=== PATIENT | male | born 1985 | race Caucasian/White ===

== ENCOUNTER 2019-04-29 12:40 | Inpatient (IN) | payer MEDICAID, SELFPAY ==
[2019-04-29] VITALS (44 sets, daily range): BP systolic 84–110; BP diastolic 43–80; PULSE 83–118; RESP 14–35; TEMP 36.6–37.3; O2SAT 94–100
--- NOTE | 2019-04-29 12:45 | ED.GENADUL_ITS ---
Discharge Plan Disposition Patient Disposition: [facility] INPATIENT Condition: Stable Discharge Details Chief Complaint: GenMedical Clinical Impression: Bandemia, Leukocytosis, IV drug abuse, SIRS (systemic inflammatory response syndrome) Admit Date/Time: 04/29/19 16:32 Admit Provider: Russ Irizarry Attending Provider: Russ Irizarry Primary Care Provider: None,None ED Provider: Vicky Albert Discharge Data Discharge Date/Time-TO BE ENTERED AT DEPARTURE: 04/29/19 17:26 Discharge Physician: Vicky Albert Medical Decision Making 33-year-old male with a history of IV drug use who presents with headache, ch ills, chest pain after injecting resin from inside a beer can to his R groin this morning. BP 88/52 on arrival. Heart rate 106. Patient appears drowsy, pale and restless. Afebrile. He otherwise is able to answer questions appropriately. Airway intact. Right groin noted to have crust but no acute infection or cellulitis. No focal deficits. Differential diagnosis includes acute drug intoxication, infection, electrolyte abnormality, CVA, ACS. Will place an IV, bolus IV fluids, labs, urinalysis, UDS, alcohol, chest x-ray, EKG CT head. 1420 --patient states he feels better. BP 91/57. 1435 --labs and imaging reviewed. White blood cell count 33. Bands 28. Creatinine 1.73. Troponin negative. Alcohol negative. D-dimer 194. Chest x- ray and CT head negative. We will send for CT chest to rule out PE. 1545 --difficulty obtaining IV access for CT but this was just obtained. Will send for CT chest. Case discussed with hospitalist and accepts patient for admission. Will order Vanco and Zosyn for bandemia with concern for endocarditis. Continue IV fluids. Patient is agreeable to admission. BP stable. 1610 --IV not infiltrating in CT. Anesthesia paged to place IV for CT chest. 1630 --patient refusing any further IV placement. Discussed with hospitalist at bedside and presentation does not appear consistent with PE so okay to hold on additional IV placement at this time and if needed will reattempt tomorrow. 1645 --anesthesia now here. Discussed with patient again at bedside as anesthesia is already here and patient is agreeable for them to attempt to look for an IV. Medical Records Medical records reviewed: Yes I reviewed the patient's medical records. Imaging Data Radiologic Study: Radiologist's impression: CT Head Without Contrast EXAM DATE/TIME: 04/29/2019 1:14 PM CLINICAL HISTORY: 33 years old, male; Signs and symptoms; Other: Headache, drowsy, h/o ivda TECHNIQUE: Imaging protocol: Axial computed tomography images of the head without contrast. Coronal and sagittal reformatted images were created and reviewed. Radiation optimization: All CT scans at this facility use at least one of these dose optimization techniques: automated exposure control; mA and/or kV adjustment per patient size (includes targeted exams where dose is matched to clinical indication); or iterative reconstruction. COMPARISON: No relevant prior studies available. FINDINGS: No evidence of hemorrhage. No mass effect. No acute intracranial abnormality. IMPRESSION: No evidence of acute intracranial process. Radiologic Study #2: Radiologist's impression: XR Chest, 1 View EXAM DATE/TIME: 04/29/2019 1:50 PM CLINICAL HISTORY: 33 years old, male; Signs and symptoms; Other: Chest pain TECHNIQUE: Imaging protocol: XR of the chest, 1 view. COMPARISON: No relevant prior studies available. FINDINGS: The lung kidd are clear bilaterally. No focal pulmonary consolidation is present. The cardiac silhouette is within normal limits. The costophrenic angles are sharp. The bony structures appear unremarkable. IMPRESSION: No evidence of acute cardiopulmonary disease. Lab Data Lab results reviewed: Yes I reviewed the patient's lab results. ECG Data Attestation: I personally reviewed and interpreted this ECG (s) as follows: Interpretation: Rate of 108, sinus, no acute ST elevation or depression. QTc 434. QRS 98. HPI General Mode of arrival: ambulatory . Date/Time Provider Initiated Documentation: 04/29/19 12:43 . Limitations to Documentation: no limitations . Information obtained by: patient . HPI Narrative: Patient is a 33-year-old male who presents with headache, chills and chest pain since 5 AM this morning. Patient states his symptoms started 5 minutes after injecting resident from a beer can. Patient states he smokes or injects crack cocaine daily. Patient states around 5 AM he wiped the resin from inside of a beer can and injected it into his R groin. He states he thinks the beer can had remnants of crack cocaine and alcohol in it. He denies any additional alcohol or drug use. He states that 5 minutes after this he developed frontal headache, chills, restlessness, and chest pain. Patient states he frequently has headaches and chest pain but states this is worse than usual. He states he then vomited approximately 30 times. He states he last ate 3 to 4 days ago which is not unusual for him when he goes on a drug binge. Patient states he is on Suboxone and states he last took it yesterday. He is on Suboxone for previous heroin use last used 12 years ago. Patient denies any shortness of breath, abdominal pain or diarrhea. Related Data Home Medications Medication Instructions Recorded Confirmed buprenorphine-naloxone [Suboxone] 1 film BUCCAL BID 04/29/19 04/29/19 Allergies Allergy/AdvReac Type Severity Reaction Status Date / Time aspirin Allergy Mild unknown Unverified 04/29/19 13:05 Review of Systems Review of Systems All systems reviewed & are unremarkable except as noted in HPI and below Constitutional Reports as per HPI, Reports chills, Denies fever(s) and Reports headache(s) Eyes Denies blurry vision ENT Denies dizziness, Reports headache(s), Denies sore throat and Denies throat swelling Cardiovascular Reports chest pain and Denies dyspnea Respiratory Denies cough and Denies dyspnea Gastrointestinal Denies abdominal pain, Denies diarrhea and Denies vomiting Genitourinary Denies hematuria and Denies dysuria Musculoskeletal Denies back pain and Denies numbness Integumentary/Breasts Denies lesions and Denies rash Neurologic Denies dizziness, Reports headache(s), Denies focal weakness and Denies numbness Allergic/Immunologic Denies throat swelling PFSH Medical History Smoker (Acute) Opioid use disorder (Acute) Crack cocaine poisoning (Acute) Acute kidney injury (Acute) SIRS (systemic inflammatory response syndrome) (Acute) IV drug abuse (Acute) Surgical History No significant past surgical history (Acute) Social History Smoking/Tobacco Use Status: Current every day Tobacco Type: cigarettes Quit status: not considering quitting Alcohol Intake: never Drug use: Daily Substance use type: crack/cocaine Counseling given: Yes Details: 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 Stinson at [facility] Do you feel safe at home: Yes Do you feel safe in your relationship?: Yes Additional Social history: Grew up in [place]. Living back with mother after living in [facility] for years. 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 She is currently hospitalized in [facility] They have a 7-year-old daughter living with him who he still cares for Exam Const General: cooperative and other (drowsy) Orientation: awake and oriented x3 HENOH Head: normal to inspection, no palpable skull fracture, normocephalic and atraumatic Ears: hearing grossly normal bilaterally, external ears normal and TM's normal bilaterally General nose exam: external nose normal Face and sinus: normal facial exam Mouth: oral mucosae normal Teeth and gingiva: dentition normal Throat: posterior oropharynx normal Eyes General: appearance normal, both eyes and all related structures Eyelids: eyelids normal Pupils: PERRL EOM: EOM intact bilaterally Neck Neck: normal visual inspection Lymphatic: no lymphadenopathy noted Chest Chest: normal inspection of the chest Resp Effort & Inspection: normal respiratory effort and able to speak in complete sentences Auscultation: clear to auscultation bilaterally Cardio Rate: regular rate Rhythm: regular rhythm GI Inspection: normal to inspection Palpation: soft, not firm, no guarding, no hepatosplenomegaly, no masses and nontender Auscultation: normal bowel sounds Skin General skin exam: no rashes or lesions noted Neuro General: awake, oriented x3, moves all extremities, no meningeal signs and no fo nichole motor deficits Cranial Nerves: CN's II-XI intact bilaterally Cognition: normal cognition Speech: speech normal Gait: normal gait Motor: muscle tone normal throughout and strength 5/5 throughout Sensory Exam: no sensory deficits noted Extrem General: normal to inspection, full ROM and normal capillary refill Psych Appearance: grossly normal Mental Status: mental status grossly normal Speech and Movement: speech and movement normal Affect: normal affect Thought Process: normal
--- NOTE | 2019-04-29 13:01 | NUR.NOTE ---
Nursing Note: Pt reports that he scrapped the residue off the inside of a beer can which consisted of beer and crack cocaine and injected it into his vein. Pt has past history of IV drug use. Initial BP was stable however dropped to 88/52 within a 5 min period. Manual BP performed with a result of 85/65. made aware of these findings. All other vitals stable.
--- NOTE | 2019-04-29 13:09 | DI.RAD_ITS ---
SYMPTOM/DIAGNOSIS: CHEST PAIN, R/O ACUTE DISEASE CHEST: Single AP view. No priors. The heart is normal in size. The lungs are clear. The mediastinal structures and pleura appear intact. CONCLUSION: Normal chest.
--- NOTE | 2019-04-29 13:12 | DI.CT_ITS ---
SYMPTOM/DIAGNOSIS: HEADACHE, DROWSY, H/O IVDA CRANIAL CT (WITHOUT CONTRAST): Noncontrast examination. No priors. A noncontrast cranial CT was performed. The ventricular system is normal in appearance. There is no evidence of an intracranial mass lesion. There is no evidence of a subdural or epidural hematoma. No focal areas of decreased attenuation are seen. CONCLUSION: Normal noncontrast Cranial CT.
[2019-04-29] MEDS: LORazepam 2 MG/ML VIAL 0.5 MG IVP (13:14)
[2019-04-29 13:54] LABS: Lactate-non-spesis 1.4 mmol/l (0.6-1.4)
[2019-04-29 14:03] LABS: Abs Immature Grans 0.59 k/cumm (0.0-0.09); HCT 41.6 % (40.0-50.0); Mean Corp. HGB Concentration 33.7 g/dL (32.0-36.0); Mean Corpuscular Hemoglobin 30.1 pg (27.0-33.0); Mean Corpuscular Volume 89.5 fL (80-95); Platelet Count 213 x1000/uL (130-400); RBC 4.65 m/cumm (4.50-6.00); RBC Distribution Width 13.5 % (11.8-14.1)
[2019-04-29 14:07] LABS: Magnesium 1.6 mg/dL (1.8-2.4)
[2019-04-29 14:17] LABS: ALT 19 U/L (12-78); AST 22 U/L (15-37); Albumin 3.8 g/dL (3.4-5.0); Alkaline Phosphatase 102 U/L (46-116); Anion Gap 10.6 mmol/L (3-11); BUN 39 mg/dL (7-18); Bilirubin, Total 0.6 mg/dL (0.2-1.0); CO2 26.4 mmol/L (21.0-32.0); CREATININE 1.73 mg/dL (0.70-1.30); Calcium 8.7 mg/dL (8.5-10.1); Chloride 96 mmol/L (98-107); Estimated GFR 45.72 (mL/min/1.73m2); Glucose 135 mg/dL (70-100); Potassium 3.8 mmol/L (3.5-5.1); Sodium 133 mmol/L (136-145); Total Protein 7.8 g/dL (6.4-8.2)
--- NOTE | 2019-04-29 14:18 | DI.VRAD_ITS ---
EXAM: CT Head Without Contrast EXAM DATE/TIME: 04/29/2019 1:14 PM CLINICAL HISTORY: 33 years old, male; Signs and symptoms; Other: Headache, drowsy, h/o ivda TECHNIQUE: Imaging protocol: Axial computed tomography images of the head without contrast. Coronal and sagittal reformatted images were created and reviewed. Radiation optimization: All CT scans at this facility use at least one of these dose optimization techniques: automated exposure control; mA and/or kV adjustment per patient size (includes targeted exams where dose is matched to clinical indication); or iterative reconstruction. COMPARISON: No relevant prior studies available. FINDINGS: No evidence of hemorrhage. No mass effect. No acute intracranial abnormality. IMPRESSION: No evidence of acute intracranial process. Dictated and Authenticated by: Patrick Corbett MD. Ordering:RADHA Perry MD
--- NOTE | 2019-04-29 14:20 | DI.VRAD_ITS ---
EXAM: XR Chest, 1 View EXAM DATE/TIME: 04/29/2019 1:50 PM CLINICAL HISTORY: 33 years old, male; Signs and symptoms; Other: Chest pain TECHNIQUE: Imaging protocol: XR of the chest, 1 view. COMPARISON: No relevant prior studies available. FINDINGS: The lung kidd are clear bilaterally. No focal pulmonary consolidation is present. The cardiac silhouette is within normal limits. The costophrenic angles are sharp. The bony structures appear unremarkable. IMPRESSION: No evidence of acute cardiopulmonary disease. Dictated and Authenticated by: Patrick Corbett MD. Ordering:RADHA Perry MD
[2019-04-29 14:24] LABS: White Blood Cell Count 33.73 k/cumm (4.4-10.8)
[2019-04-29 14:25] LABS: Troponin I < 0.02 ng/mL (0.00-0.06)
[2019-04-29 14:26] LABS: ETHANOL BLOOD < 3.0 mg/dL (<3)
[2019-04-29 14:31] LABS: Absolute Lymphocyte Count 0.67 k/cumm (1.2-3.4); Absolute Neutrophil Count 30.69 k/cumm (1.2-6.7)
[2019-04-29 14:32] LABS: Absolute Monocyte Count 1.35 k/cumm (0.11-0.7)
[2019-04-29 14:33] LABS: Diff Comment Manual Differential; RBC Morphology Normal
[2019-04-29 14:34] LABS: D-Dimer 1941 ng/mlFEU (<500)
[2019-04-29] MEDS: Normal Saline 1,000 ML 1000 ML IV ×2 (16:15→22:05)
--- NOTE | 2019-04-29 16:45 | W.PM.HP.N ---
Date of service: 04/29/19 Time of Service: 16:45 Assessment and Plan (1) SIRS (systemic inflammatory response syndrome): Current visit: Yes Status: Acute Presentation with initial tachycardia, chills, and elevated white count with bandemia all consistent with a systemic inflammatory response. I am not sure bacteremia is the cause, as the symptoms started immediately after injection and have gradually improved rather than worsened. Given this, I think it most likely that the inflammatory markers are related to a cytokine response to what ever adulterant he injected. However, I agree with covering with broad-spectrum and IV antibiotics with blood cultures pending. I think the d-dimer is consistent with systemic inflammation. Though I prefer to have the CT of the chest with the clearly elevated d-dimer, with the patient threatening to leave AMA I do not think it is worth forcing the issue right now as I do not have a significant suspicion of pulmonary embolus. At this point, I think the risk of treating with anticoagulation at therapeutic dose is greater than the chance of benefit, so we will not treat. Although his blood pressure is on the low side of normal, he is not symptomatic in terms of the low blood pressure and it is stable and his heart rate has improved. Given this, he is admitted to the Medr floor rather than the ICU (2) Acute kidney injury: Current visit: Yes Status: Acute This is likely associated with the acute systemic inflammatory response, with possible contribution of direct toxic effects of the crack cocaine or adulterants. Will give fluids and monitor urine output and renal function. We will replete magnesium conservatively given renal dysfunction. (3) Crack cocaine poisoning: Current visit: Yes Status: Acute As above. Supportive care with Lorazepam as needed. Cut back the dose as he does seem a little sedated. We will plan to support his desire to seek rehabilitation for his stimulant use disorder. (4) Opioid use disorder: Current visit: Yes Status: Acute This has been stable with Suboxone. He does not appear to be a withdrawal despite the fact he has not taken Suboxone in 2 days. This does suggest perhaps he does not take his full dose. Will monitor for any oversedation while giving him his 16 mg. Will confirm his treatment plan with his outpatient treatment team as well (5) Smoker: Current visit: Yes Status: Acute Pre-contemplative. Control inhaler per patient request (6) DVT prophylaxis: Current visit: Yes Status: Acute Low molecular weight heparin subcut. (7) Discharge planning issues: Current visit: Yes Status: Acute Patient initially threatened to leave AMA due to his pain associated with attempted IV. I discussed this with him and I think it is okay to defer the IV contrast study for now. Consult with case management regarding possible rehab options prior to discharge. He is full code. History of Present Illness Chief Complaint: Chills Narrative: 33-year-old male with treated opioid use disorder on Suboxone, active stimulant use disorder with IV crack cocaine use who presented around noon today to the emergency room with shaking chills and headaches and vomiting that started suddenly after injecting crack cocaine resin early this morning. Patient states he been injecting crack cocaine regularly over the past several days. This morning about 5 AM he injected resin from a beer can that been used as a pipe for crack cocaine. Immediately, he felt something very wrong. He describes shaking chills, shaky vision, throbbing headache, vomiting. He also describes aching pain similar to his headache in his thighs bilaterally. If symptoms have been consistent since this morning, though have gradually improved. He tried to sleep off his symptoms but he went home and his mother made him come into the emergency room. After getting fluids and Ativan in the emergency room, his headache is improved significantly. His vision is normalized. He is no longer nauseous. Of note, he recently moved back to [facility] from [facility] effort to try to stay away from drugs, but was not successful. He states he has not used opioids in years other than the Suboxone, and his current issue is with crack cocaine. He is interested in treatment for his substance use disorder. Review of Systems Review of Systems General: As per HPI. No recent weight changes. Has eaten very little over the past several days, but is hungry now. HEENT: No current vision abnormalities. No diplopia or eye pain. No nasal congestion or runny nose. No sore throat or oral lesions or dental pain. Neck feels a little stiff, but is able to move it. Respiratory: Feels slightly short of breath compared to baseline, no cough or sputum production or hemoptysis Cardiovascular: No chest pain or palpitations. No orthopnea. GI: Vomited earlier today, but nausea has resolved with medication. No blood in vomit or stools. No diarrhea or other stool changes. No current abdominal pain. : No dysuria or hematuria. No changes in urine flow. No genital sores or discharge from the penis. MSK: No joint redness or swelling. He does have that crampy pain intermittently in his thighs. Of note, he does inject in his femoral vessels. He does feel like his hands are slightly swollen Skin: Other than mild inflammation at injection site in the right groin, no other rashes or skin lesions noted. Neurologic: Feels weak all over, but no focal numbness or weakness. He was tremulous, this is improved. Psychiatric: She does endorse some depression related to his situation. [facility] Medical History IV drug abuse (Acute) Surgical History No significant past surgical history (Acute) Social History Smoking/Tobacco Use Status: Current every day Tobacco Type: cigarettes Quit status: not considering quitting Alcohol Intake: never Drug use: Daily Substance use type: crack/cocaine Counseling given: Yes Details: 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 Stinson at [facility] Do you feel safe at home: Yes Do you feel safe in your relationship?: Yes Additional Social history: Grew up in [place]. Living back with mother after living in [facility] for years. 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 She is currently hospitalized in [facility] They have a 7-year-old daughter living with him who he still cares for [facility] Home Medications Medication Instructions Recorded Confirmed Type buprenorphine-naloxone [Suboxone] 8 04/29/19 History Allergies Allergy/AdvReac Type Severity Reaction Status Date / Time aspirin Allergy Mild unknown Unverified 04/29/19 13:05 Exam Narrative Exam Narrative: General: Alert and oriented x3, slightly sleepy when not engaged in questioning, has a hard time opening eyes completely, but this is symmetric. No acute distress. Nontoxic-appearing currently. HEENT: Atraumatic. Conjunctiva clear, no icterus. PEERL, not able to open eyelids completely cordelia. pupils ~2-3mm in room light. EOMI. no rhinorrhea. MMM, OP benign Neck supple, no masses/LAD LUNGS: CTAb except slight expiratory rhonchi in peripheral lung kidd. Normal effort. CV: RRR, no murmur, atser, or rubs ABD: +BS, soft, mild diffuse tenderness, no masses Ext: no vascular lesions in hands/nails of hands/feet. perhaps subtle hand edema but not pitting. no clubbing or cyanosis MSK: no joint redness/swelling. legs not tender to palpation NEURO: CN 2-12 intact, strength normal/symetrical in 4 ext. No hyperreflexia. Skin: as per ext exam, no rashes or lesions. tender local redness around injection sight right groin. Results Imaging Additional studies: sinus tachy, short MI but no delta. No ST/T changes EKG: image reviewed Imaging Studies: CT Head: no acute intracranial process CXR: No acute cardiopulmonary disease Labs : 04/29/19 13:45 04/29/19 13:45 Laboratory Results - last 24 hr 04/29/19 04/29/19 04/29/19 13:45 13:45 13:45 WBC RBC Hgb Hct MCV MCH MCHC RDW Plt Count MPV Immature Gran % Neutrophils % Band Neutrophils % Lymphocytes % Monocytes % Eosinophils % Basophils % Metamyelocytes % Myelocytes % Absolute Neutrophils Absolute Lymphocytes Absolute Monocytes Absolute Eosinophils Absolute Basophils Differential Comment RBC Morphology D-Dimer 1941 H Sodium Potassium Chloride Carbon Dioxide Anion Gap BUN Creatinine Estimated GFR/1.73 m2 Glucose Lactate 1.4 Calcium Magnesium 1.6 L Total Bilirubin AST ALT Alkaline Phosphatase Troponin I Total Protein Albumin Ethyl Alcohol < 3.0 04/29/19 04/29/19 13:45 13:45 WBC 33.73 H* RBC 4.65 Hgb 14.0 Hct 41.6 MCV 89.5 MCH 30.1 MCHC 33.7 RDW 13.5 Plt Count 213 MPV 11.0 Immature Gran % See Differential Neutrophils % 63.0 Band Neutrophils % 28.0 Lymphocytes % 2.0 Monocytes % 4.0 Eosinophils % 0.0 Basophils % 0.0 Metamyelocytes % 2.0 Myelocytes % 1.0 Absolute Neutrophils 30.69 H Absolute Lymphocytes 0.67 L Absolute Monocytes 1.35 H Absolute Eosinophils 0.00 Absolute Basophils 0.00 Differential Comment Manual differential RBC Morphology Normal D-Dimer Sodium 133 L Potassium 3.8 Chloride 96 L Carbon Dioxide 26.4 Anion Gap 10.6 BUN 39 H Creatinine 1.73 H Estimated GFR/1.73 m2 45.72 Glucose 135 H Lactate Calcium 8.7 Magnesium Total Bilirubin 0.6 AST 22 ALT 19 Alkaline Phosphatase 102 Troponin I < 0.02 Total Protein 7.8 Albumin 3.8 Ethyl Alcohol Last Vital Signs Temp 37.3 C 04/29/19 12:49 Pulse 87 04/29/19 15:20 Resp 31 H 04/29/19 15:19 BP 93/51 L 04/29/19 15:20 Pulse Ox 97 04/29/19 14:50
--- NOTE | 2019-04-29 17:03 | HPE_ITS ---
Date of service: 04/29/19 Time of Service: 16:45 Assessment and Plan (1) SIRS (systemic inflammatory response syndrome): Current visit: Yes Status: Acute Presentation with initial tachycardia, chills, and elevated white count with bandemia all consistent with a systemic inflammatory response. I am not sure bacteremia is the cause, as the symptoms started immediately after injection and have gradually improved rather than worsened. Given this, I think it most likely that the inflammatory markers are related to a cytokine response to what ever adulterant he injected. However, I agree with covering with broad- spectrum and IV antibiotics with blood cultures pending. I think the d-dimer is consistent with systemic inflammation. Though I prefer to have the CT of the chest with the clearly elevated d-dimer, with the patient threatening to leave AMA I do not think it is worth forcing the issue right now as I do not have a significant suspicion of pulmonary embolus. At this point, I think the risk of treating with anticoagulation at therapeutic dose is greater than the chance of benefit, so we will not treat. Although his blood pressure is on the low side of normal, he is not symptomatic in terms of the low blood pressure and it is stable and his heart rate has improved. Given this, he is admitted to the Medr floor rather than the ICU (2) Acute kidney injury: Current visit: Yes Status: Acute This is likely associated with the acute systemic inflammatory response, with possible contribution of direct toxic effects of the crack cocaine or adulterants. Will give fluids and monitor urine output and renal function. We will replete magnesium conservatively given renal dysfunction. (3) Crack cocaine poisoning: Current visit: Yes Status: Acute As above. Supportive care with Lorazepam as needed. Cut back the dose as he does seem a little sedated. We will plan to support his desire to seek rehabilitation for his stimulant use disorder. (4) Opioid use disorder: Current visit: Yes Status: Acute This has been stable with Suboxone. He does not appear to be a withdrawal despite the fact he has not taken Suboxone in 2 days. This does suggest perhaps he does not take his full dose. Will monitor for any oversedation while giving him his 16 mg. Will confirm his treatment plan with his outpatient treatment team as well (5) Smoker: Current visit: Yes Status: Acute Pre-contemplative. Control inhaler per patient request (6) DVT prophylaxis: Current visit: Yes Status: Acute Low molecular weight heparin subcut. (7) Discharge planning issues: Current visit: Yes Status: Acute Patient initially threatened to leave AMA due to his pain associated with attempted IV. I discussed this with him and I think it is okay to defer the IV contrast study for now. Consult with case management regarding possible rehab options prior to discharge. He is full code. History of Present Illness Chief Complaint: Chills Narrative: 33-year-old male with treated opioid use disorder on Suboxone, active stimulant use disorder with IV crack cocaine use who presented around noon today to the emergency room with shaking chills and headaches and vomiting that started suddenly after injecting crack cocaine resin early this morning. Patient states he been injecting crack cocaine regularly over the past several days. This morning about 5 AM he injected resin from a beer can that been used as a pipe for crack cocaine. Immediately, he felt something very wrong. He describes shaking chills, shaky vision, throbbing headache, vomiting. He also describes aching pain similar to his headache in his thighs bilaterally. If symptoms have been consistent since this morning, though have gradually improved. He tried to sleep off his symptoms but he went home and his mother made him come into the emergency room. After getting fluids and Ativan in the emergency room, his headache is improved significantly. His vision is normalized. He is no longer nauseous. Of note, he recently moved back to [facility] from [facility] effort to try to stay away from drugs, but was not successful. He states he has not used opioids in years other than the Suboxone, and his current issue is with crack cocaine. He is interested in treatment for his substance use disorder. Review of Systems Review of Systems General: As per HPI. No recent weight changes. Has eaten very little over the past several days, but is hungry now. HEENT: No current vision abnormalities. No diplopia or eye pain. No nasal congestion or runny nose. No sore throat or oral lesions or dental pain. Neck feels a little stiff, but is able to move it. Respiratory: Feels slightly short of breath compared to baseline, no cough or sputum production or hemoptysis Cardiovascular: No chest pain or palpitations. No orthopnea. GI: Vomited earlier today, but nausea has resolved with medication. No blood in vomit or stools. No diarrhea or other stool changes. No current abdominal pain. : No dysuria or hematuria. No changes in urine flow. No genital sores or discharge from the penis. MSK: No joint redness or swelling. He does have that crampy pain intermittently in his thighs. Of note, he does inject in his femoral vessels. He does feel like his hands are slightly swollen Skin: Other than mild inflammation at injection site in the right groin, no oth er rashes or skin lesions noted. Neurologic: Feels weak all over, but no focal numbness or weakness. He was tremulous, this is improved. Psychiatric: She does endorse some depression related to his situation. [facility] Medical History IV drug abuse (Acute) Surgical History No significant past surgical history (Acute) Social History Smoking/Tobacco Use Status: Current every day Tobacco Type: cigarettes Quit status: not considering quitting Alcohol Intake: never Drug use: Daily Substance use type: crack/cocaine Counseling given: Yes Details: 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 Stinson at [facility] Do you feel safe at home: Yes Do you feel safe in your relationship?: Yes Additional Social history: Grew up in [place]. Living back with mother after living in [facility] for years. 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 She is currently hospitalized in [facility] They have a 7-year-old daughter living with him who he still cares for [facility] Home Medications Medication Instructions Recorded Confirmed Type buprenorphine-naloxone [Suboxone] 8 04/29/19 History Allergies Allergy/AdvReac Type Severity Reaction Status Date / Time aspirin Allergy Mild unknown Unverified 04/29/19 13:05 Exam Narrative Exam Narrative: General: Alert and oriented x3, slightly sleepy when not engaged in questioning, has a hard time opening eyes completely, but this is symmetric. No acute distress. Nontoxic-appearing currently. HEENT: Atraumatic. Conjunctiva clear, no icterus. PEERL, not able to open eyelids completely cordelia. pupils ~2-3mm in room light. EOMI. no rhinorrhea. MMM, OP benign Neck supple, no masses/LAD LUNGS: CTAb except slight expiratory rhonchi in peripheral lung kidd. Normal effort. CV: RRR, no murmur, aster, or rubs ABD: +BS, soft, mild diffuse tenderness, no masses Ext: no vascular lesions in hands/nails of hands/feet. perhaps subtle hand edema but not pitting. no clubbing or cyanosis MSK: no joint redness/swelling. legs not tender to palpation NEURO: CN 2-12 intact, strength normal/symetrical in 4 ext. No hyperreflexia. Skin: as per ext exam, no rashes or lesions. tender local redness around injection sight right groin. Results Imaging Additional studies: sinus tachy, short AK but no delta. No ST/T changes EKG: image reviewed Imaging Studies: CT Head: no acute intracranial process CXR: No acute cardiopulmonary disease Labs : 04/29/19 13:45 04/29/19 13:45 Laboratory Results - last 24 hr 04/29/19 04/29/19 04/29/19 13:45 13:45 13:45 WBC RBC Hgb Hct MCV MCH MCHC RDW Plt Count MPV Immature Gran % Neutrophils % Band Neutrophils % Lymphocytes % Monocytes % Eosinophils % Basophils % Metamyelocytes % Myelocytes % Absolute Neutrophils Absolute Lymphocytes Absolute Monocytes Absolute Eosinophils Absolute Basophils Differential Comment RBC Morphology D-Dimer 1941 H Sodium Potassium Chloride Carbon Dioxide Anion Gap BUN Creatinine Estimated GFR/1.73 m2 Glucose Lactate 1.4 Calcium Magnesium 1.6 L Total Bilirubin AST ALT Alkaline Phosphatase Troponin I Total Protein Albumin Ethyl Alcohol < 3.0 04/29/19 04/29/19 13:45 13:45 WBC 33.73 H* RBC 4.65 Hgb 14.0 Hct 41.6 MCV 89.5 MCH 30.1 MCHC 33.7 RDW 13.5 Plt Count 213 MPV 11.0 Immature Gran % See Differential Neutrophils % 63.0 Band Neutrophils % 28.0 Lymphocytes % 2.0 Monocytes % 4.0 Eosinophils % 0.0 Basophils % 0.0 Metamyelocytes % 2.0 Myelocytes % 1.0 Absolute Neutrophils 30.69 H Absolute Lymphocytes 0.67 L Absolute Monocytes 1.35 H Absolute Eosinophils 0.00 Absolute Basophils 0.00 Differential Comment Manual differential RBC Morphology Normal D-Dimer Sodium 133 L Potassium 3.8 Chloride 96 L Carbon Dioxide 26.4 Anion Gap 10.6 BUN 39 H Creatinine 1.73 H Estimated GFR/1.73 m2 45.72 Glucose 135 H Lactate Calcium 8.7 Magnesium Total Bilirubin 0.6 AST 22 ALT 19 Alkaline Phosphatase 102 Troponin I < 0.02 Total Protein 7.8 Albumin 3.8 Ethyl Alcohol Last Vital Signs Temp 37.3 C 04/29/19 12:49 Pulse 87 04/29/19 15:20 Resp 31 H 04/29/19 15:19 BP 93/51 L 04/29/19 15:20 Pulse Ox 97 04/29/19 14:50
[2019-04-29] MEDS: PIPERACILLIN/TAZO 3.375 GM in Normal Saline 50 ML IVPB ×2 (17:09→22:59)
[2019-04-29] MEDS: Lactated Ringers 1,000 ML 150 ML IV (17:35)
[2019-04-29 18:03] LABS: Bilirubin Small (Negative); Blood Negative (Negative); Clarity Clear; Glucose Negative (Negative); Ketones Negative (Negative); Leukocyte Esterase Negative (Negative); Nitrite Negative (Negative); Specific Gravity 1.025 (1.005-1.025); Urobilinogen 0.2 EU/dL (Up TO 0.2); pH 5.5 (5-8)
[2019-04-29 18:15] LABS: Bacteria Moderate HPF (Negative); C & S Indicated? Yes; Casts 0-2 Hyaline LPF (Negative); Crystals Negative HPF (Negative); Epithelial Cells Negative HPF (Negative); Mucus Heavy (Negative); Other Cells Negative (Negative); RBC Negative (0-2); WBC 0-2 HPF (0-5)
[2019-04-29 18:19] LABS: *AMPHETAMINES SCREEN URINE Negative (Negative); *BARBITURATES SCREEN URINE Negative (Negative); *BENZODIAZEPINES SCREEN URINE Negative (Negative); Cannabinoids THC Negative (Negative); Cocaine Screen,Urine POSITIVE (Negative); METHADONE URINE SCREEN Negative (Negative); OPIATES URINE SCREEN Negative (Negative)
[2019-04-29 18:20] LABS: Tricyclic Antidepressants Negative (Negative)
[2019-04-29] MEDS: VANCOMYCIN 1,250 MG in Normal Saline 250 ML 166.6666 MG IVPB (18:31)
[2019-04-29] MEDS: LORazepam 2 MG/ML VIAL 1 MG (18:38)
[2019-04-29] MEDS: Normal Saline Flush 10 ML SYR IVP (18:39)
[2019-04-29] MEDS: Normal Saline 500 ML 150 ML IV (18:39)
[2019-04-29 20:34] LABS: HGB 12.2 g/dL (13.5-17.5); Mean Corp. HGB Concentration 33.9 g/dL (32.0-36.0); Mean Corpuscular Hemoglobin 30.4 pg (27.0-33.0); Mean Corpuscular Volume 89.8 fL (80-95); Mean Platelet Volume 11.4 fL (8.0-11.0); Platelet Count 194 x1000/uL (130-400); RBC 4.01 m/cumm (4.50-6.00); RBC Distribution Width 13.2 % (11.8-14.1)
[2019-04-29] MEDS: MAGNESIUM SULFATE 1 GM/100 ML BAG IVPB (20:34)
[2019-04-29 21:06] LABS: Absolute Monocyte Count 1.24 k/cumm (0.11-0.7); Absolute Neutrophil Count 39.24 k/cumm (1.2-6.7); Atypical Lymphocytes % 0; Diff Comment Manual Differential
[2019-04-29 21:07] LABS: RBC Morphology Normal
[2019-04-29] MEDS: Enoxaparin 40 MG/0.4 ML SYR SC (23:00)
[2019-04-29] MEDS: Normal Saline 1,000 ML 150 ML IV (23:10)
[2019-04-29 23:13] LABS: Anion Gap 8.2 mmol/L (3-11); BUN 41 mg/dL (7-18); CO2 25.8 mmol/L (21.0-32.0); CREATININE 1.46 mg/dL (0.70-1.30); Calcium 7.8 mg/dL (8.5-10.1); Chloride 103 mmol/L (98-107); Estimated GFR 55.61 (mL/min/1.73m2); Glucose 126 mg/dL (70-100); Potassium 4.1 mmol/L (3.5-5.1); Sodium 137 mmol/L (136-145)
[2019-04-29 23:32] LABS: Procalcitonin > 200.0 ng/mL
[2019-04-29 23:34] LABS: ESR 41 MM/HR (0-15)
[2019-04-30] VITALS (73 sets, daily range): BP systolic 76–147; BP diastolic 36–86; PULSE 58–102; RESP 13–27; TEMP 36–37.1; O2SAT 96–100
--- NOTE | 2019-04-30 03:45 | NUR.NOTE ---
Addendum entered by Brenda Adorno 04/30/19 03:48: Original Note: pt hypotensive. call placed to dr Aranda. started on Norepinephrine at 8 mcg.Nursing Note:
[2019-04-30] MEDS: PIPERACILLIN/TAZO 3.375 GM in Normal Saline 50 ML IVPB ×4 (04:16→21:56)
[2019-04-30] MEDS: Normal Saline 1,000 ML 150 ML IV ×2 (05:37→20:02)
[2019-04-30] MEDS: VANCOMYCIN 1,000 MG in Normal Saline 250 ML 166.6666 MG IVPB (05:54)
[2019-04-30] MEDS: Buprenorphine/Naloxone 8 mg/2 mg FILM 1 EACH SL ×2 (08:37→18:54)
[2019-04-30] MEDS: LORazepam 2 MG/ML VIAL 1 MG ×4 (08:56→23:58)
[2019-04-30] MEDS: Normal Saline Flush 10 ML SYR IVP ×3 (08:57→20:27)
--- NOTE | 2019-04-30 08:58 | PDOC.CMIN ---
- If Service Date Differs Date of service: 04/30/19 Time of Service: 08:58 Care Management Initial Assess REASON FOR HOSPITALIZATION:: SIRS (systemic inflammatory response syndrome) PAST MEDICAL HISTORY/PAST SURGICAL HISTORY:: Medical History: IV drug abuse (Acute). Surgical History PREVIOUS FUNCTIONAL STATUS/SOCIAL/FAMILY SUPPORTS:: Bruce lives with his Mom, Jaclyn, his Gram and his 7 year old daughter Jennifer. In addition to the family in his household, Bruce has a sister Shahana. He states that his family is very supportive. Bruce is independent with all ADLs, driving etc. He is not currently employed. CURRENT FUNCTIONAL STATUS:: Bruce was sitting up in bed eating his lunch when CM visited. During visit, Mom also arrived. She brought in a salt shaker for Bruce and a picture of his daughter Jennifer. Bruce began crying when he saw the picture. When asked what was making him so sad, he responded she deserves better. Bruce had expressed a desire to go to Rehab and information regarding [facility] was left for him with a release of information to sign. CM assisted with obtaining the signature and witnessed the document. The recovery worker, Annabelle Ogden, will come to visit and picking machine operator the form this afternoon. ADVANCE DIRECTIVES:: None on file. Bruce states that he has a DNR but there is no record of it on file. He was provided with the [place] Advanced Directives forms at his request. Has patient been provided with information about the portal?: Yes Did the patient sign up for the portal?: No (intends to) CODE STATUS:: Full Code CODE STATUS COMMENT:: States he is a DNR. INSURANCE COVERAGE / FINANCIAL ISSUES:: Medicaid CURRENT HOME/COMMUNITY SERVICES/EQUIPMENT:: none PRIMARY CARE PHYSICIAN:: None. Does not want one, I won't go anyway. Bruce has a psychiatrist, Dr. Stinson, at [facility] who prescribes his suboxone. POTENTIAL DISCHARGE NEEDS:: Bruce is seeking substance abuse rehabilitation after discharge. PATIENT/FAMILY EDUCATION NEEDS:: Discharge plan, limitations, follow up plan of care, Ask Me Three TRANSPORTATION:: Via private automobile with mother. PLAN:: Bruce remains in the ICU receiving IV fluids and medications to address his hypotension. He will likely be discharged home with no services until he can gain admission to a drug rehab facility. CM will continue to support patient, family, care team and discharge plan of care.
--- NOTE | 2019-04-30 09:05 | INITIAL_ITS ---
- If Service Date Differs Date of service: 04/30/19 Time of Service: 08:58 Care Management Initial Assess REASON FOR HOSPITALIZATION:: SIRS (systemic inflammatory response syndrome) PAST MEDICAL HISTORY/PAST SURGICAL HISTORY:: Medical History: IV drug abuse (Acute). Surgical History PREVIOUS FUNCTIONAL STATUS/SOCIAL/FAMILY SUPPORTS:: Bruce lives with his Mom, Jaclyn, his Gram and his 7 year old daughter Jennifer. In addition to the family in his household, Bruce has a sister Shahana. He states that his family is very supportive. Bruce is independent with all ADLs, driving etc. He is not currently employed. CURRENT FUNCTIONAL STATUS:: Bruce was sitting up in bed eating his lunch when CM visited. During visit, Mom also arrived. She brought in a salt shaker for Bruce and a picture of his daughter Jennifer. Bruce began crying when he saw the picture. When asked what was making him so sad, he responded she deserves better. Bruce had expressed a desire to go to Rehab and information regarding [facility] was left for him with a release of information to sign. CM assisted with obtaining the signature and witnessed the document. The recovery worker, Annabelle Ogden, will come to visit and picking crew supervisor the form this afternoon. ADVANCE DIRECTIVES:: None on file. Bruce states that he has a DNR but there is no record of it on file. He was provided with the [place] Advanced Directives forms at his request. Has patient been provided with information about the portal?: Yes Did the patient sign up for the portal?: No (intends to) CODE STATUS:: Full Code CODE STATUS COMMENT:: States he is a DNR. INSURANCE COVERAGE / FINANCIAL ISSUES:: Medicaid CURRENT HOME/COMMUNITY SERVICES/EQUIPMENT:: none PRIMARY CARE PHYSICIAN:: None. Does not want one, I won't go anyway. Bruce has a psychiatrist, Dr. Stinson, at [facility] who prescribes his suboxone. POTENTIAL DISCHARGE NEEDS:: Bruce is seeking substance abuse rehabilitation after discharge. PATIENT/FAMILY EDUCATION NEEDS:: Discharge plan, limitations, follow up plan of care, Ask Me Three TRANSPORTATION:: Via private automobile with mother. PLAN:: Bruce remains in the ICU receiving IV fluids and medications to address his hypotension. He will likely be discharged home with no services until he can gain admission to a drug rehab facility. CM will continue to support patient, family, care team and discharge plan of care.
--- NOTE | 2019-04-30 09:15 | W.PM.PROGNOT ---
Date of Service Date of service: 04/30/19 Time of Service: 09:16 Assessment and Plan (1) SIRS (systemic inflammatory response syndrome): Current visit: Yes Status: Acute Sepsis, must presume bacteremia with worsening overnight. Procalcitonin c/w serious bacterial infection, lactate and WBC also trending up. BP has stabilized on norepi. Already on appropriate broad spectrum antibiotics, now day #2 Vanco and Pip/Tazo. Need to change dosing based on renal function, will defer to pharmacist after discussion. 2 sets of blood cultures pending. I think the d-dimer is consistent with systemic inflammation. Though I prefer to have the CT of the chest with the clearly elevated d-dimer, with renal function will defer. If renal function doesn't improve will consider V/Q, though PE is not c/w clinical presentation so I am less concerned about this. (2) Acute kidney injury: Current visit: Yes Status: Acute This is likely associated with the acute systemic inflammatory response, with possible contribution of direct toxic effects of the crack cocaine or adulterants. Improving despite hypotension but still not normal. U/a shows proteinuria but not blood or a lot of casts. U/o adequate Will get CPK with risk of rhabdo with crack use and muscle soreness. Will get urine Na/Cr to confirm that c/w prerenal. Will give fluids and monitor urine output and renal function. (3) Crack cocaine poisoning: Current visit: Yes Status: Acute As above. Supportive care with Lorazepam as needed. Cut back the dose as he does seem a little sedated. We will plan to support his desire to seek rehabilitation for his stimulant use disorder. I talked to Dr. Stinson, his outpatient addiction psychiatrist, this morning and reviewed his case. (4) Opioid use disorder: Current visit: Yes Status: Acute This has been stable with Suboxone, confirmed with outpatient clinician. He did not appear to be a withdrawal on presenation despite the fact he has not taken Suboxone in 2 days. This does suggest perhaps he does not take his full dose. Will monitor for any oversedation while giving him his 16 mg, BID dosing. (5) Smoker: Current visit: Yes Status: Acute Pre-contemplative. Nicotrol inhaler per patient request (6) DVT prophylaxis: Current visit: Yes Status: Acute Low molecular weight heparin subcut. (7) Discharge planning issues: Current visit: Yes Status: Acute ICU status. Consult with case management regarding possible rehab options prior to discharge. He is full code. Subjective Patient reports: voiding w/o difficulty; denies diarrhea, nausea and vomiting Interval history since last seen: events: transfered to ICU with hypotension overnight. Started on norepinephrine drip after additional fluid boluses S: Patient still feels general fatigue. Today, having some soreness across his chest, dull, without radation. Also general muscle soreness. not SOB at rest. No abdominal pain, had firm BM. He is hungry but hasn't gotten breakfast. he hasn't gotten suboxone dose and feels like he is getting a little sick. Exam Narrative Exam Narrative: General: Alert and oriented x3. No acute distress. slightly clammy HEENT: Atraumatic. Conjunctiva clear, no icterus. PEERL, not able to open eyelids completely cordelia. pupils 3mm in room light. EOMI. no rhinorrhea. MMM, OP benign Neck supple, no masses/LAD LUNGS: CTAb. Normal effort. CV: RRR, no murmur, aster, or rubs. chest wall mildly tender across mid sternum ABD: +BS, soft, mild diffuse tenderness, no masses Ext: no vascular lesions in hands/nails of hands/feet. perhaps subtle hand edema but not pitting. no clubbing or cyanosis MSK: no joint redness/swelling. legs not tender to palpation Skin: as per ext exam, no rashes or lesions. Objective Objective Clinical Data: Abnormal lab results 04/29/19 04/29/19 04/29/19 Range/Units 13:45 13:45 13:45 WBC (4.4-10.8) k/cumm RBC (4.50-6.00) m/cumm Hgb (13.5-17.5) g/dL Hct (40.0-50.0) % MPV (8.0-11.0) fL Absolute Neutrophils (1.2-6.7) k/cumm Absolute Lymphocytes (1.2-3.4) k/cumm Absolute Monocytes (0.11-0.7) k/cumm ESR (0-15) MM/HR D-Dimer 1941 H (<500) ng/mlFEU Sodium 133 L (136-145) mmol/L Chloride 96 L (98-107) mmol/L BUN 39 H (7-18) mg/dL Creatinine 1.73 H (0.70-1.30) mg/dL Glucose 135 H (70-100) mg/dL Lactate (0.6-1.4) mmol/l Calcium (8.5-10.1) mg/dL Magnesium 1.6 L (1.8-2.4) mg/dL C-Reactive Protein (0.0-0.3) mg/dL Urine Protein (Negative) mg/dL Urine Bilirubin (Negative) 04/29/19 04/29/19 04/29/19 Range/Units 13:45 17:49 20:09 WBC 33.73 H* 41.30 H* (4.4-10.8) k/cumm RBC 4.01 L (4.50-6.00) m/cumm Hgb 12.2 L (13.5-17.5) g/dL Hct 36.0 L (40.0-50.0) % MPV 11.4 H (8.0-11.0) fL Absolute Neutrophils 30.69 H 39.24 H (1.2-6.7) k/cumm Absolute Lymphocytes 0.67 L 0.00 L (1.2-3.4) k/cumm Absolute Monocytes 1.35 H 1.24 H (0.11-0.7) k/cumm ESR (0-15) MM/HR D-Dimer (<500) ng/mlFEU Sodium (136-145) mmol/L Chloride (98-107) mmol/L BUN (7-18) mg/dL Creatinine (0.70-1.30) mg/dL Glucose (70-100) mg/dL Lactate (0.6-1.4) mmol/l Calcium (8.5-10.1) mg/dL Magnesium (1.8-2.4) mg/dL C-Reactive Protein (0.0-0.3) mg/dL Urine Protein >=300 H (Negative) mg/dL Urine Bilirubin Small H (Negative) 04/29/19 04/29/19 04/29/19 Range/Units 22:50 22:50 23:58 WBC (4.4-10.8) k/cumm RBC (4.50-6.00) m/cumm Hgb (13.5-17.5) g/dL Hct (40.0-50.0) % MPV (8.0-11.0) fL Absolute Neutrophils (1.2-6.7) k/cumm Absolute Lymphocytes (1.2-3.4) k/cumm Absolute Monocytes (0.11-0.7) k/cumm ESR 41 H (0-15) MM/HR D-Dimer (<500) ng/mlFEU Sodium (136-145) mmol/L Chloride (98-107) mmol/L BUN 41 H (7-18) mg/dL Creatinine 1.46 H (0.70-1.30) mg/dL Glucose 126 H (70-100) mg/dL Lactate 2.0 H (0.6-1.4) mmol/l Calcium 7.8 L (8.5-10.1) mg/dL Magnesium (1.8-2.4) mg/dL C-Reactive Protein 11.30 H (0.0-0.3) mg/dL Urine Protein (Negative) mg/dL Urine Bilirubin (Negative) Vital Signs Temperature 36.8 C 04/30/19 04:00 Temperature Source Temporal Artery Scan 04/30/19 04:00 Pulse 75 04/30/19 06:18 Pulse Rhythm Regular 04/29/19 19:45 Pulse 87 04/29/19 17:01 Respiratory Rate 14 04/30/19 06:18 Respiratory Effort Non-Labored 04/30/19 04:00 Respiratory Depth Normal 04/30/19 04:00 Respiratory Pattern Normal 04/30/19 04:00 Blood Pressure 88/60 L 04/30/19 06:18 Blood Pressure Mean 62 04/30/19 04:00 Blood Pressure Position Sitting 04/30/19 04:00 Pulse Oximetry 97 04/30/19 05:00 Oxygen Delivery Method Room Air 04/30/19 05:00 Oxygen Flow Rate 0 04/30/19 05:00 Pain Level 2 04/29/19 12:49 Comment 04/29/19 22:30 Intake & Output 04/29/19 04/29/19 04/30/19 11:59 23:59 11:59 Intake Total 3650 / 3650 967.5 / 967.5 Output Total 450 / 450 800 / 800 Balance 3200 / 3200 167.5 / 167.5 Weight 56.699 kg 56.699 kg Intake: IV 2930 / 2930 967.5 / 967.5 Oral 720 / 720 Output: Urine 450 / 450 800 / 800 Other: Urine Color Dark Tyler Light Tyler Brown Urine Appearance Clear Clear Urine Odor None Comment urine cloudy dark tyler Stool Size Moderate Stool Characteristics Formed Brown Voiding Methods Urinal Laboratory Results WBC 41.30 k/cumm (4.4-10.8) H* 04/29/19 20:09 RBC 4.01 m/cumm (4.50-6.00) L 04/29/19 20:09 Hgb 12.2 g/dL (13.5-17.5) L 04/29/19 20:09 Hct 36.0 % (40.0-50.0) L 04/29/19 20:09 MCV 89.8 fL (80-95) 04/29/19 20:09 MCH 30.4 pg (27.0-33.0) 04/29/19 20:09 MCHC 33.9 g/dL (32.0-36.0) 04/29/19 20:09 RDW 13.2 % (11.8-14.1) 04/29/19 20:09 Plt Count 194 x1000/uL (130-400) 04/29/19 20:09 MPV 11.4 fL (8.0-11.0) H 04/29/19 20:09 Immature Gran % See Differential 04/29/19 20:09 Neutrophils % 74.0 04/29/19 20:09 Band Neutrophils % 21.0 % 04/29/19 20:09 Lymphocytes % 0.0 04/29/19 20:09 Atypical Lymphs % 0 04/29/19 20:09 Monocytes % 3.0 04/29/19 20:09 Eosinophils % 0.0 04/29/19 20:09 Basophils % 0.0 04/29/19 20:09 Metamyelocytes % 2.0 % 04/29/19 20:09 Myelocytes % 1.0 % 04/29/19 13:45 Absolute Neutrophils 39.24 k/cumm (1.2-6.7) H 04/29/19 20:09 Absolute Lymphocytes 0.00 k/cumm (1.2-3.4) L 04/29/19 20:09 Absolute Monocytes 1.24 k/cumm (0.11-0.7) H 04/29/19 20:09 Absolute Eosinophils 0.00 k/cumm (0.0-0.7) 04/29/19 20:09 Absolute Basophils 0.00 k/cumm (0.0-0.2) 04/29/19 20:09 Differential Comment Manual differential 04/29/19 20:09 RBC Morphology Normal 04/29/19 20:09 ESR 41 MM/HR (0-15) H 04/29/19 22:50 D-Dimer 1941 ng/mlFEU (<500) H 04/29/19 13:45 Sodium 137 mmol/L (136-145) 04/29/19 22:50 Potassium 4.1 mmol/L (3.5-5.1) 04/29/19 22:50 Chloride 103 mmol/L (98-107) 04/29/19 22:50 Carbon Dioxide 25.8 mmol/L (21.0-32.0) 04/29/19 22:50 Anion Gap 8.2 mmol/L (3-11) 04/29/19 22:50 BUN 41 mg/dL (7-18) H 04/29/19 22:50 Creatinine 1.46 mg/dL (0.70-1.30) H 04/29/19 22:50 Estimated GFR/1.73 m2 55.61 (mL/min/1.73m2) 04/29/19 22:50 Glucose 126 mg/dL (70-100) H 04/29/19 22:50 Lactate 2.0 mmol/l (0.6-1.4) H 04/29/19 23:58 Calcium 7.8 mg/dL (8.5-10.1) L 04/29/19 22:50 Magnesium 1.6 mg/dL (1.8-2.4) L 04/29/19 13:45 Total Bilirubin 0.6 mg/dL (0.2-1.0) 04/29/19 13:45 AST 22 U/L (15-37) 04/29/19 13:45 ALT 19 U/L (12-78) 04/29/19 13:45 Alkaline Phosphatase 102 U/L (46-116) 04/29/19 13:45 Troponin I < 0.02 ng/mL (0.00-0.06) 04/29/19 13:45 C-Reactive Protein 11.30 mg/dL (0.0-0.3) H 04/29/19 22:50 Total Protein 7.8 g/dL (6.4-8.2) 04/29/19 13:45 Albumin 3.8 g/dL (3.4-5.0) 04/29/19 13:45 Procalcitonin > 200.0 ng/mL 04/29/19 22:50 Urine Color Yellow (Yellow) 04/29/19 17:49 Urine Clarity Clear 04/29/19 17:49 Urine pH 5.5 (5-8) 04/29/19 17:49 Ur Specific [place] 1.025 (1.005-1.025) 04/29/19 17:49 Urine Protein >=300 mg/dL (Negative) H 04/29/19 17:49 Urine Ketones Negative mg/dL (Negative) 04/29/19 17:49 Urine Blood Negative (Negative) 04/29/19 17:49 Urine Nitrite Negative (Negative) 04/29/19 17:49 Urine Bilirubin Small (Negative) H 04/29/19 17:49 Urine Urobilinogen 0.2 EU/dL (Up TO 0.2) 04/29/19 17:49 Ur Leukocyte Esterase Negative (Negative) 04/29/19 17:49 Urine RBC Negative (0-2) 04/29/19 17:49 Urine WBC 0-2 HPF (0-5) 04/29/19 17:49 Ur Epithelial Cells Negative HPF (Negative) 04/29/19 17:49 Urine Crystals Negative HPF (Negative) 04/29/19 17:49 Urine Bacteria Moderate HPF (Negative) 04/29/19 17:49 Urine Casts 0-2 hyaline LPF (Negative) 04/29/19 17:49 Urine Mucus Heavy (Negative) 04/29/19 17:49 Urine Other Negative (Negative) 04/29/19 17:49 Ur Culture Indicated? Yes 04/29/19 17:49 Urine Glucose Negative mg/dL (Negative) 04/29/19 17:49 Urine Opiates Screen Negative (Negative) 04/29/19 17:49 Urine Methadone Screen Negative (Negative) 04/29/19 17:49 Ur Barbiturates Screen Negative (Negative) 04/29/19 17:49 Ur Tricyclics Screen Negative (Negative) 04/29/19 17:49 Ur Amphetamines Screen Negative (Negative) 04/29/19 17:49 U Benzodiazepines Scrn Negative (Negative) 04/29/19 17:49 Urine Cocaine Screen Positive (Negative) 04/29/19 17:49 Ur THC Screen Negative (Negative) 04/29/19 17:49 Ethyl Alcohol < 3.0 mg/dL (<3) 04/29/19 13:45
[2019-04-30 09:23] LABS: Lactate-non-spesis 1.1 mmol/l (0.6-1.4)
--- NOTE | 2019-04-30 09:30 | MERGE_ITS ---
*[facility]* *[facility]* [address] [place] [address] Date of study: 04/30/2019 Transthoracic Echocardiography M-mode, complete 2D, complete spectral Doppler, and color Doppler *STUDY CONCLUSIONS* Summary: 1. Left ventricle: The cavity size was normal. Systolic function was hyperdynamic. The estimated ejection fraction was 65-70%. The tissue Doppler parameters were normal. There was no evidence of elevated ventricular filling pressure by Doppler parameters. 2. Mitral valve: There was mild regurgitation. 3. Right ventricle: The cavity size was normal. Wall thickness was normal. Systolic function was normal. 4. Atrial septum: No defect or patent foramen ovale was identified. 5. Pulmonary arteries: Pulmonary systolic pressure was in the range of 25mm Hg to 35mm Hg. 6. Inferior vena cava: The vessel was patent and normal in size. The respirophasic diameter changes were in the normal range (greater than or equal to 50%), consistent with normal central venous pressure. *PATIENT PRESENTATION* Height: 167.6cm ((66in) ) S/D Pressure: 110 / 68 Weight: 56.2kg ((123.7lb) ) BSA: 1.61m^2 Test start time: 09:45 AM. Test stop time: 10:40 AM. PERFORMING Unknown PERFORMING [facility] CONSULTING None, None DENTISTRY PROFESSOR RT Demetri (R)(CT), CS ORDERING Russ Irizarry REFERRING Russ Irizarry *PROCEDURE DATA* Procedure information: The patient was identified by two identifiers. This study was interpreted by [facility]. Pertinent images and digital data are archived for permanent storage and are available for subsequent review. No prior study was available for comparison. Study status: STAT. Transthoracic echocardiography. M-mode, complete 2D, complete spectral Doppler, and color Doppler. A Transthoracic Echocardiogram was performed. Scanning was performed from the parasternal, apical, subcostal, and suprasternal notch acoustic windows. Images were obtained using an [id number] cardiac ultrasound machine. Image quality was good. Study completion: The patient tolerated the procedure well. History: PMH: Hypotension sepsis. IVDU. *CARDIAC ANATOMY* Left ventricle: The cavity size was normal. Systolic function was hyperdynamic. The estimated ejection fraction was 65-70%. The tissue Doppler parameters were normal. Diastolic parameters were normal. There was no evidence of elevated ventricular filling pressure by Doppler parameters. Aortic valve: Trileaflet. Doppler: There was no stenosis. There was no regurgitation. VTI ratio of LVOT to aortic valve: 0.63. Valve area (VTI): 1.6cm^2. Indexed valve area (VTI): 1cm^2/m^2. Peak velocity ratio of LVOT to aortic valve: 0.66. Valve area (Vmax): 1.7cm^2. Indexed valve area (Vmax): 1cm^2/m^2. Mean velocity ratio of LVOT to aortic valve: 0.74. Valve area (Vmean): 1.9cm^2. Indexed valve area (Vmean): 1.2cm^2/m^2. Mean gradient (S): 6.4mm Hg. Peak gradient (S): 12mm Hg. Aorta: Aortic root: The aortic root was normal in size. Ascending aorta: The ascending aorta was normal in size. Mitral valve: Mildly thickened leaflets anterior and posterior. Doppler: There was no evidence for stenosis. There was mild regurgitation. Valve area by pressure half-time: 5cm^2. Indexed valve area by pressure half-time: 3.1cm^2/m^2. Peak gradient (D): 4.1mm Hg. Left atrium: The atrium was normal in size. Atrial septum: No defect or patent foramen ovale was identified. Right ventricle: The cavity size was normal. Wall thickness was normal. Systolic function was normal. Pulmonic valve: Doppler: There was no evidence for stenosis. There was no significant regurgitation. Peak gradient (S): 5.3mm Hg. Tricuspid valve: Doppler: There was mild regurgitation. Pulmonary artery: Poorly visualized. Pulmonary systolic pressure was in the range of 25mm Hg to 35mm Hg. Right atrium: The atrium was normal in size. Pericardium: There was no pericardial effusion. Systemic veins: Inferior vena cava: Well visualized. The vessel was patent and normal in size. The respirophasic diameter changes were in the normal range (greater than or equal to 50%), consistent with normal central venous pressure. Baseline ECG: Normal sinus rhythm. Measurements Left ventricle Value Reference LV ID, ED, PLAX 5.0 cm 3.5 - 6.0 LV ID, ES, PLAX 3.4 cm 2.1 - 4.0 LV PW thickness, ED, PLAX 1.1 cm LV end-diastolic volume, 1-p A2C 74 ml LV ejection fraction, 1-p A2C 74 % LV end-diastolic volume, 1-p A4C 73 ml LV ejection fraction, 1-p A4C 54 % LV e', lateral 0.144 m/sec LV E/e', lateral 7 LV e', medial 0.113 m/sec LV E/e', medial 9 LV e', average 0.129 m/sec LV E/e', average 8 Ventricular septum Value Reference IVS thickness, ED, PLAX 0.9 cm LVOT Value Reference LVOT ID, A-P 1.8 cm LVOT area 2.5 cm^2 LVOT peak velocity, S 1.14 m/sec LVOT mean velocity, S 0.89 m/sec LVOT VTI, S 20.0 cm LVOT peak gradient, S 5.2 mm Hg LVOT mean gradient, S 3.4 mm Hg Stroke volume (SV), LVOT DP 51 ml Stroke index (SV/bsa), LVOT DP 32 ml/m^2 Aortic valve Value Reference Aortic valve peak velocity, S 1.7 m/sec Aortic valve mean velocity, S 1.2 m/sec Aortic valve VTI, S 32.0 cm Aortic mean gradient, S 6.4 mm Hg Aortic peak gradient, S 12 mm Hg VTI ratio, LVOT/AV 0.63 Aortic valve area, VTI 1.6 cm^2 Velocity ratio, peak, LVOT/AV 0.66 Aortic valve area, peak velocity 1.7 cm^2 Velocity ratio, mean, LVOT/AV 0.74 Aortic valve area, mean velocity 1.9 cm^2 Aortic valve area/bsa, mean velocity 1.2 cm^2/m^2 Aorta Value Reference Aortic root ID, ED 2.2 cm Ascending aorta ID, A-P, S 2.8 cm Left atrium Value Reference LA ID, A-P, ES 3.1 cm LA ID/bsa, A-P 1.9 cm/m^2 <=2.2 LA area, ES, A4C 16.9 cm^2 8.8 - 23.4 LA area, ES, A2C 18 cm^2 LA volume/bsa, ES, 1-p A4C 31 ml/m^2 LA volume, ES, 2-p 52 ml LA volume/bsa, ES, 2-p 32 ml/m^2 LA/aortic root ratio 1.4 Mitral valve Value Reference Mitral E-wave peak velocity 1.01 m/sec Mitral A-wave peak velocity 0.63 m/sec Mitral deceleration time 153 ms 150 - 230 Mitral pressure half-time 44 ms Mitral peak gradient, D 4.1 mm Hg Mitral E/A ratio, peak 1.59 Mitral valve area, PHT, DP 5 cm^2 Tricuspid valve Value Reference Tricuspid regurg peak velocity 2.7 m/sec Tricuspid peak RV-RA gradient 28.9 mm Hg Right atrium Value Reference RA area, ES, A4C 14.2 cm^2 8.3 - 19.5 Pulmonic valve Value Reference Pulmonic peak gradient, S 5.3 mm Hg Legend: (L) and (H) jade values outside specified reference range. I have personally reviewed the images and have reviewed and edited the reported findings. Electronically signed by Freedom Bermudez MD 04/30/2019 14:02
[2019-04-30 09:34] LABS: Anion Gap 8.5 mmol/L (3-11); BUN 29 mg/dL (7-18); CO2 25.5 mmol/L (21.0-32.0); CREATININE 0.99 mg/dL (0.70-1.30); Calcium 8.1 mg/dL (8.5-10.1); Chloride 104 mmol/L (98-107); Glucose 161 mg/dL (70-100); Magnesium 2.3 mg/dL (1.8-2.4); Sodium 138 mmol/L (136-145)
[2019-04-30] MEDS: VANCOMYCIN 1,250 MG in Normal Saline 250 ML 166.6666 MG IVPB (14:53)
--- NOTE | 2019-04-30 15:02 | SCONE_ITS ---
Date of service: 04/30/19 Time of Service: 08:41 Assessment and Plan (1) Opioid use disorder: Current visit: Yes Status: Acute (2) Crack cocaine poisoning: Current visit: Yes Status: Acute currently using to maintain BP. His MAP is currently in 70s and the is lowly being weaned off. RN feels they have good access. Will continue to follow for access. I do not see an obvious infectious source. There is a chance he aspirated and it is not present in the CXR at this time. But no signs of subcutaneous absc ess or phlebitis History of Present Illness Narrative: pt was doig lg amount of crack cocaine. He is hypotensive and there is concern for IV access. He currently has an 18 zhanna in his L antecub. It is functioning nicely. The other concern is a source for sepsis. He has been injecting into his R femoral vein. this has a lg eschar on it. It does not appear infected. I do not see any signs of abscess or phlebitis. He has a hx of phleibits from looking at his arms- you right. He c/o of pain in chest and that he is coughing and that he is coughing up sputum. CXR is clear. His chest is sore to palpation across his pectoralis muscle- but I do not palpate any abscess. It seen the same degree of soreness bilaterally across the pectorial muscles. Pt c/o it terribly painful. Pt is chronically on subxone. Consults Consult date: 04/30/19 Requesting physician: Oneal Aranda Review of Systems Review of Systems All systems reviewed & are unremarkable except as noted in HPI and below Constitutional Reports as per HPI, Reports system reviewed and no additional complaints, except as docu, Denies anorexia, Denies chills, Denies difficulty sleeping, Denies fatigue, Denies headache(s), Denies lethargy, Denies malaise, Denies poor appetite, Denies weakness, Denies weight gain and Denies weight loss Eyes Reports as per HPI, Reports system reviewed and no additional complaints, except as docu and Denies change in vision ENT Reports system reviewed and no additional complaints, except as docu, Reports as per HPI, Denies change in voice, Denies dental pain, Denies dysphagia, Denies dizziness, Denies facial pain, Denies headache(s) and Denies odynophagia Cardiovascular Reports as per HPI, Reports system reviewed and no additional complaints, except as docu, Denies chest pain, Denies chest pain with activity, Denies syncope, Den ies leg edema and Denies dyspnea Comments: pain of anterior chest wall. couhg does not appear to be productive no abscess has x2 IV access BP stable on 8mcg norepi mulst scars from prior phleibits adn injecting. The femoral vein site has eschar and much scar tissue. Respiratory Reports as per HPI, Reports system reviewed and no additional complaints, except as docu, Denies chest congestion, Denies cough, Denies pain with cough and Denies dyspnea Gastrointestinal Reports as per HPI, Reports system reviewed and no additional complaints, except as docu, Denies abdominal pain, Denies bloating, Denies change in bowel habits, Denies change in stool character, Denies constipation, Denies cramping, Denies dysphagia, Denies early satiety, Denies heartburn, Denies diarrhea, Denies nausea, Denies odynophagia and Denies vomiting Genitourinary Reports system reviewed and no additional complaints, except as docu Musculoskeletal Reports system reviewed and no additional complaints, except as docu, Reports as per HPI, Denies abnormal gait, Denies arthralgias and Denies muscle weakness Integumentary/Breasts Reports system reviewed and no additional complaints, except as docu, Reports as per HPI, Denies changing lesions, Denies new lesions and Denies jaundice Neurologic Reports system reviewed and no additional complaints, except as docu, Reports as per HPI, Denies abnormal speech, Denies abnormal gait, Denies dizziness, Denies syncope, Denies headache(s), Denies memory loss and Denies weakness Psychiatric Reports system reviewed and no additional complaints, except as docu, Reports as per HPI, Denies change in appetite and Denies memory loss Endocrine Denies fatigue, Denies polydipsia and Denies polyuria Hematologic/Lymphatic Reports system reviewed and no additional complaints, except as docu, Denies easy bleeding and Denies easy bruising Allergic/Immunologic Denies system reviewed and no additional complaints, except as docu, Reports as per HPI and Denies urticaria PFSH Medical History Smoker (Acute) Opioid use disorder (Acute) Crack cocaine poisoning (Acute) Acute kidney injury (Acute) SIRS (systemic inflammatory response syndrome) (Acute) IV drug abuse (Acute) Surgical History No significant past surgical history (Acute) Social History Smoking/Tobacco Use Status: Current every day Tobacco Type: cigarettes Quit status: not considering quitting Alcohol Intake: never Drug use: Daily Substance use type: crack/cocaine Counseling given: Yes Details: 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 Stinson at [facility] Do you feel safe at home: Yes Do you feel safe in your relationship?: Yes Additional Social history: Grew up in [place]. Living back with mother after living in [facility] for years. 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 She is currently hospitalized in [facility] They have a 7-year-old daughter living with him who he still cares for Exam Const General: cooperative, no acute distress, disheveled, intoxicated appearing and lethargic Nutritional Appearance: average body habitus and malnourished Orientation: awake and oriented x3 HENMT Head: normal to inspection, normocephalic and atraumatic Ears: hearing grossly normal bilaterally and external ears normal General nose exam: external nose normal Face and sinus: normal facial exam and sinuses nontender Mouth: oral mucosae normal, lip normal, tongue normal and moist mucous membranes Teeth and gingiva: fair dentition Eyes General: appearance normal, both eyes and all related structures Conjunctivae: conjunctivae normal Sclera: sclerae normal Pupils: PERRL Neck Neck: normal visual inspection and full ROM Chest Chest: normal inspection of the chest and other (diffuse pain over b/l pectoral miscles w/ palpation. no abormalities ) Resp Effort & Inspection: normal respiratory effort, able to speak in complete sentences, no cough, no nasal flaring, not tachypneic and no use of accessory muscles Auscultation: clear to auscultation bilaterally, no rales, no rhonchi and no whe ezes Cardio Jugular venous pressure: no JVD Rate: regular rate Rhythm: regular rhythm GI Inspection: normal to inspection, no edema and non-distended Palpation: soft, no masses, nontender and No ascites Auscultation: normal bowel sounds Skin General skin exam: no rashes or lesions noted Trauma: no lacerations or abrasions Neuro General: alert, oriented x3, oriented, gait normal, moves all extremities, no focal motor deficits and CN's II-XI intact bilaterally Cognition: normal cognition Speech: speech normal Gait: normal gait Motor: muscle tone normal throughout Extrem General: normal to inspection, full ROM and no clubbing, cyanosis or edema Other: there is no redness of swelling or pain over R femoral vein. +eschar and some scar tissue. pt has x2 periph IV's and RN's are weaning off norepi. no sign of any infectious focus. Psych Appearance: grossly normal and well kempt Mental Status: mental status grossly normal Speech and Movement: speech and movement normal Affect: normal affect Results Last Vital Signs Temp 36.7 C 04/30/19 13:23 Pulse 83 04/30/19 14:01 Resp 21 04/30/19 14:30 BP 134/86 04/30/19 14:01 Pulse Ox 98 04/30/19 13:23 Labs : 04/29/19 20:09 04/30/19 09:15 Laboratory Results - last 24 hr 04/29/19 04/29/19 04/29/19 17:49 17:49 20:09 WBC 41.30 H* RBC 4.01 L Hgb 12.2 L Hct 36.0 L MCV 89.8 MCH 30.4 MCHC 33.9 RDW 13.2 Plt Count 194 MPV 11.4 H Immature Gran % See Differential Neutrophils % 74.0 Band Neutrophils % 21.0 Lymphocytes % 0.0 Atypical Lymphs % 0 Monocytes % 3.0 Eosinophils % 0.0 Basophils % 0.0 Metamyelocytes % 2.0 Absolute Neutrophils 39.24 H Absolute Lymphocytes 0.00 L Absolute Monocytes 1.24 H Absolute Eosinophils 0.00 Absolute Basophils 0.00 Differential Comment Manual differential RBC Morphology Normal ESR Sodium Potassium Chloride Carbon Dioxide Anion Gap BUN Creatinine Estimated GFR/1.73 m2 Glucose Lactate Calcium Magnesium C-Reactive Protein Procalcitonin Urine Color Yellow Urine Clarity Clear Urine pH 5.5 Ur Specific [place] 1.025 Urine Protein >=300 H Urine Ketones Negative Urine Blood Negative Urine Nitrite Negative Urine Bilirubin Small H Urine Urobilinogen 0.2 Ur Leukocyte Esterase Negative Urine RBC Negative Urine WBC 0-2 Ur Epithelial Cells Negative Urine Crystals Negative Urine Bacteria Moderate Urine Casts 0-2 hyaline Urine Mucus Heavy Urine Other Negative Ur Culture Indicated? Yes Urine Glucose Negative Urine Opiates Screen Negative Urine Methadone Screen Negative Ur Barbiturates Screen Negative Ur Tricyclics Screen Negative Ur Amphetamines Screen Negative U Benzodiazepines Scrn Negative Urine Cocaine Screen Positive Ur THC Screen Negative 04/29/19 04/29/19 04/29/19 22:50 22:50 22:50 WBC RBC Hgb Hct MCV MCH MCHC RDW Plt Count MPV Immature Gran % Neutrophils % Band Neutrophils % Lymphocytes % Atypical Lymphs % Monocytes % Eosinophils % Basophils % Metamyelocytes % Absolute Neutrophils Absolute Lymphocytes Absolute Monocytes Absolute Eosinophils Absolute Basophils Differential Comment RBC Morphology ESR 41 H Sodium 137 Potassium 4.1 Chloride 103 Carbon Dioxide 25.8 Anion Gap 8.2 BUN 41 H Creatinine 1.46 H Estimated GFR/1.73 m2 55.61 Glucose 126 H Lactate Calcium 7.8 L Magnesium C-Reactive Protein 11.30 H Procalcitonin > 200.0 Urine Color Urine Clarity Urine pH Ur Specific [place] Urine Protein Urine Ketones Urine Blood Urine Nitrite Urine Bilirubin Urine Urobilinogen Ur Leukocyte Esterase Urine RBC Urine WBC Ur Epithelial Cells Urine Crystals Urine Bacteria Urine Casts Urine Mucus Urine Other Ur Culture Indicated? Urine Glucose Urine Opiates Screen Urine Methadone Screen Ur Barbiturates Screen Ur Tricyclics Screen Ur Amphetamines Screen U Benzodiazepines Scrn Urine Cocaine Screen Ur THC Screen 04/29/19 04/30/19 04/30/19 23:58 09:15 09:15 WBC RBC Hgb Hct MCV MCH MCHC RDW Plt Count MPV Immature Gran % Neutrophils % Band Neutrophils % Lymphocytes % Atypical Lymphs % Monocytes % Eosinophils % Basophils % Metamyelocytes % Absolute Neutrophils Absolute Lymphocytes Absolute Monocytes Absolute Eosinophils Absolute Basophils Differential Comment RBC Morphology ESR Sodium 138 Potassium 4.0 Chloride 104 Carbon Dioxide 25.5 Anion Gap 8.5 BUN 29 H D Creatinine 0.99 Estimated GFR/1.73 m2 >= 60.00 Glucose 161 H Lactate 2.0 H 1.1 Calcium 8.1 L Magnesium 2.3 C-Reactive Protein Procalcitonin Urine Color Urine Clarity Urine pH Ur Specific [place] Urine Protein Urine Ketones Urine Blood Urine Nitrite Urine Bilirubin Urine Urobilinogen Ur Leukocyte Esterase Urine RBC Urine WBC Ur Epithelial Cells Urine Crystals Urine Bacteria Urine Casts Urine Mucus Urine Other Ur Culture Indicated? Urine Glucose Urine Opiates Screen Urine Methadone Screen Ur Barbiturates Screen Ur Tricyclics Screen Ur Amphetamines Screen U Benzodiazepines Scrn Urine Cocaine Screen Ur THC Screen
--- NOTE | 2019-04-30 16:13 | NUR.NOTE ---
04/30/19-Pt verbalizing that he is starting to feel anxious. Rates anxiety on a scale of 1-5 as a 3. Pt asking for Ativan. Ativan 1 mg IV given at 0857.Nursing Note:
--- NOTE | 2019-04-30 16:14 | NUR.NOTE ---
04/30/19-1416 Again pt requesting Ativan due to feeling anxious. Note that his Aunt was here most of the morning and now his Mother and another visitior have been here for the past hour or so. Ativan 1 mg IV given by Kelvin Rn at 1416.Nursing Note:
--- NOTE | 2019-04-30 16:16 | NUR.NOTE ---
04/30/19 at 1450 Pt sitting up in bed, crying. His mother and another visitor state that he is seeing things. Upon questioning the pt he admits to seeing something but states I don't know what it is He is pointing to outside his door. Asked if it was frightening he reported yes. Family now leaving and pt then curled up on his left side, closed his eyes and started to rest. Text message sent to to inform him that pt is now starting to hallucinate. Nursing Note:
[2019-04-30 17:20] LABS: Creatine Kinase 52 U/L (39-308)
[2019-04-30] MEDS: Enoxaparin 40 MG/0.4 ML SYR SC (21:57)
--- NOTE | 2019-04-30 22:04 | W.PM.PROGNOT ---
Date of Service Date of service: 04/30/19 Time of Service: 22:05 Assessment and Plan (1) Opioid use disorder: Current visit: Yes Status: Acute (2) Crack cocaine poisoning: Current visit: Yes Status: Acute pt is off norepi still has x1 IV site. only getting IV abx/fluids. unsure of etiology of infectious source. will follow for continued need for IV access. (3) Acute kidney injury: Current visit: Yes Status: Acute (4) SIRS (systemic inflammatory response syndrome): Current visit: Yes Status: Acute Objective Objective Clinical Data: Abnormal lab results 04/29/19 04/29/19 04/29/19 Range/Units 22:50 22:50 23:58 ESR 41 H (0-15) MM/HR BUN 41 H (7-18) mg/dL Creatinine 1.46 H (0.70-1.30) mg/dL Glucose 126 H (70-100) mg/dL Lactate 2.0 H (0.6-1.4) mmol/l Calcium 7.8 L (8.5-10.1) mg/dL C-Reactive Protein 11.30 H (0.0-0.3) mg/dL 04/30/19 Range/Units 09:15 ESR (0-15) MM/HR BUN 29 H D (7-18) mg/dL Creatinine (0.70-1.30) mg/dL Glucose 161 H (70-100) mg/dL Lactate (0.6-1.4) mmol/l Calcium 8.1 L (8.5-10.1) mg/dL C-Reactive Protein (0.0-0.3) mg/dL Vital Signs Temperature 37 C 04/30/19 20:10 Temperature Source Temporal Artery Scan 04/30/19 16:58 Pulse 70 04/30/19 17:00 Pulse Rhythm Regular 04/29/19 19:45 Pulse 76 04/30/19 17:00 Respiratory Rate 18 04/30/19 17:00 Respiratory Effort 04/30/19 16:58 Respiratory Depth Normal 04/30/19 16:58 Respiratory Pattern Normal 04/30/19 16:58 Blood Pressure 126/84 04/30/19 17:00 Blood Pressure Mean 94 04/30/19 17:00 Blood Pressure Position Sitting 04/30/19 16:58 Pulse Oximetry 98 04/30/19 16:58 Oxygen Delivery Method Room Air 04/30/19 16:58 Oxygen Flow Rate 0 04/30/19 16:58 Pain Level 0 04/30/19 20:10 Comment 04/29/19 22:30 Intake & Output 04/29/19 04/30/19 04/30/19 23:59 11:59 23:59 Intake Total 3650 / 3650 1963.5 / 4397.313 2433.813 / 4397.313 Output Total 450 / 450 2074 / 4074 Balance 3200 / 3200 -111.5 / 322.313 433.813 / 322.313 Weight 56.699 kg 56.699 kg Intake: IV 2930 / 2930 1603.5 / 2957.313 1353.813 / 2957.313 Oral 720 / 720 360 / 1440 1080 / 1440 Output: Urine 450 / 450 2074 / 4074 Other: Urine Color Dark Carine Yellow Pale Brown Urine Appearance Clear Clear Clear Urine Odor None None Comment Denies need to void at this time. Stool Occult Blood Negative Stool Size Moderate Moderate Stool Characteristics Formed Brown Voiding Methods Urinal Urinal Urinal Laboratory Results WBC 41.30 k/cumm (4.4-10.8) H* 04/29/19 20: RBC 4.01 m/cumm (4.50-6.00) L 04/29/19 20:09 Hgb 12.2 g/dL (13.5-17.5) L 04/29/19 20:09 Hct 36.0 % (40.0-50.0) L 04/29/19 20:09 MCV 89.8 fL (80-95) 04/29/19 20:09 MCH 30.4 pg (27.0-33.0) 04/29/19 20: MCHC 33.9 g/dL (32.0-36.0) 04/29/19 20:09 RDW 13.2 % (11.8-14.1) 04/29/19 20:09 Plt Count 194 x1000/uL (130-400) 04/29/19 20:09 MPV 11.4 fL (8.0-11.0) H 04/29/19 20:09 Immature Gran % See Differential 04/29/19 20:09 Neutrophils % 74.0 04/29/19 20:09 Band Neutrophils % 21.0 % 04/29/19 20:09 Lymphocytes % 0.0 04/29/19 20:09 Atypical Lymphs % 0 04/29/19 20:09 Monocytes % 3.0 04/29/19 20:09 Eosinophils % 0.0 04/29/19 20:09 Basophils % 0.0 04/29/19 20:09 Metamyelocytes % 2.0 % 04/29/19 20:09 Myelocytes % 1.0 % 04/29/19 13:45 Absolute Neutrophils 39.24 k/cumm (1.2-6.7) H 04/29/19 20:09 Absolute Lymphocytes 0.00 k/cumm (1.2-3.4) L 04/29/19 20:09 Absolute Monocytes 1.24 k/cumm (0.11-0.7) H 04/29/19 20:09 Absolute Eosinophils 0.00 k/cumm (0.0-0.7) 04/29/19 20:09 Absolute Basophils 0.00 k/cumm (0.0-0.2) 04/29/19 20:09 Differential Comment Manual differential 04/29/19 20:09 RBC Morphology Normal 04/29/19 20:09 ESR 41 MM/HR (0-15) H 04/29/19 22:50 D-Dimer 1941 ng/mlFEU (<500) H 04/29/19 13:45 Sodium 138 mmol/L (136-145) 04/30/19 09:15 Potassium 4.0 mmol/L (3.5-5.1) 04/30/19 09:15 Chloride 104 mmol/L (98-107) 04/30/19 09:15 Carbon Dioxide 25.5 mmol/L (21.0-32.0) 04/30/19 09:15 Anion Gap 8.5 mmol/L (3-11) 04/30/19 09:15 BUN 29 mg/dL (7-18) H D 04/30/19 09:15 Creatinine 0.99 mg/dL (0.70-1.30) 04/30/19 09:15 Estimated GFR/1.73 m2 >= 60.00 (mL/min/1.73m2) 04/30/19 09:15 Glucose 161 mg/dL (70-100) H 04/30/19 09:15 Lactate 1.1 mmol/l (0.6-1.4) 04/30/19 09:15 Calcium 8.1 mg/dL (8.5-10.1) L 04/30/19 09:15 Magnesium 2.3 mg/dL (1.8-2.4) 04/30/19 09:15 Total Bilirubin 0.6 mg/dL (0.2-1.0) 04/29/19 13:45 AST 22 U/L (15-37) 04/29/19 13:45 ALT 19 U/L (12-78) 04/29/19 13:45 Alkaline Phosphatase 102 U/L (46-116) 04/29/19 13:45 Creatine Kinase 52 U/L (39-308) 04/30/19 09:15 Troponin I < 0.02 ng/mL (0.00-0.06) 04/29/19 13:45 C-Reactive Protein 11.30 mg/dL (0.0-0.3) H 04/29/19 22:50 Total Protein 7.8 g/dL (6.4-8.2) 04/29/19 13:45 Albumin 3.8 g/dL (3.4-5.0) 04/29/19 13:45 Procalcitonin > 200.0 ng/mL 04/29/19 22:50 Urine Color Yellow (Yellow) 04/29/19 17:49 Urine Clarity Clear 04/29/19 17:49 Urine pH 5.5 (5-8) 04/29/19 17:49 Ur Specific [place] 1.025 (1.005-1.025) 04/29/19 17:49 Urine Protein >=300 mg/dL (Negative) H 04/29/19 17:49 Urine Ketones Negative mg/dL (Negative) 04/29/19 17:49 Urine Blood Negative (Negative) 04/29/19 17:49 Urine Nitrite Negative (Negative) 04/29/19 17:49 Urine Bilirubin Small (Negative) H 04/29/19 17:49 Urine Urobilinogen 0.2 EU/dL (Up TO 0.2) 04/29/19 17:49 Ur Leukocyte Esterase Negative (Negative) 04/29/19 17:49 Urine RBC Negative (0-2) 04/29/19 17:49 Urine WBC 0-2 HPF (0-5) 04/29/19 17:49 Ur Epithelial Cells Negative HPF (Negative) 04/29/19 17:49 Urine Crystals Negative HPF (Negative) 04/29/19 17:49 Urine Bacteria Moderate HPF (Negative) 04/29/19 17:49 Urine Casts 0-2 hyaline LPF (Negative) 04/29/19 17:49 Urine Mucus Heavy (Negative) 04/29/19 17:49 Urine Other Negative (Negative) 04/29/19 17:49 Ur Culture Indicated? Yes 04/29/19 17:49 Urine Glucose Negative mg/dL (Negative) 04/29/19 17:49 Urine Opiates Screen Negative (Negative) 04/29/19 17:49 Urine Methadone Screen Negative (Negative) 04/29/19 17:49 Ur Barbiturates Screen Negative (Negative) 04/29/19 17:49 Ur Tricyclics Screen Negative (Negative) 04/29/19 17:49 Ur Amphetamines Screen Negative (Negative) 04/29/19 17:49 U Benzodiazepines Scrn Negative (Negative) 04/29/19 17:49 Urine Cocaine Screen Positive (Negative) 04/29/19 17:49 Ur THC Screen Negative (Negative) 04/29/19 17:49 Ethyl Alcohol < 3.0 mg/dL (<3) 04/29/19 13:45
[2019-04-30] MEDS: VANCOMYCIN 1,250 MG in Normal Saline 250 ML 166.666 MG IVPB (22:20)
[2019-04-30] MEDS: Nicotine 21 MG/24 HR PATCH TD (23:16)
[2019-05-01] VITALS (18 sets, daily range): BP systolic 97–149; BP diastolic 51–92; PULSE 56–90; RESP 14–26; TEMP 35.8–37.2; O2SAT 96–99
[2019-05-01] MEDS: PIPERACILLIN/TAZO 3.375 GM in Normal Saline 50 ML IVPB ×4 (04:00→22:05)
[2019-05-01] MEDS: VANCOMYCIN 1,250 MG in Normal Saline 250 ML 166.666 MG IVPB (05:04)
[2019-05-01] MEDS: Normal Saline 1,000 ML 150 ML IV ×2 (05:12→14:42)
[2019-05-01] MEDS: Buprenorphine/Naloxone 8 mg/2 mg FILM 1 EACH SL ×2 (05:55→18:13)
[2019-05-01 07:04] LABS: Abs Immature Grans 0.03 k/cumm (0.0-0.09); Absolute Eosinophil Count 0.24 k/cumm (0.0-0.7); Absolute Monocyte Count 0.91 k/cumm (0.11-0.7); Basophils % 0.1; Eosinophils % 1.6; HCT 35.3 % (40.0-50.0); HGB 11.3 g/dL (13.5-17.5); Immature Grans % 0.2; Lymphocytes % 20.1; Mean Corpuscular Hemoglobin 29.5 pg (27.0-33.0); Mean Corpuscular Volume 92.2 fL (80-95); Mean Platelet Volume 11.5 fL (8.0-11.0); Monocytes % 6.2; Neutrophils % 71.8; Platelet Count 169 x1000/uL (130-400); RBC 3.83 m/cumm (4.50-6.00); RBC Distribution Width 13.6 % (11.8-14.1)
[2019-05-01 07:08] LABS: Absolute Basophil Count 0.01 k/cumm (0.0-0.2); Absolute Lymphocyte Count 2.95 k/cumm (1.2-3.4); Absolute Neutrophil Count 10.55 k/cumm (1.2-6.7)
--- NOTE | 2019-05-01 08:09 | PGE_ITS ---
Date of Service Date of service: 05/01/19 Time of Service: 08:08 Assessment and Plan (1) SIRS (systemic inflammatory response syndrome): Current visit: Yes Status: Acute (2) Acute kidney injury: Current visit: Yes Status: Acute (3) Crack cocaine poisoning: Current visit: Yes Status: Acute pt is off of norepi IV: abx and Ativan no signs of sepsis currently BP is stable still has IV in atecub- per RN will follow for access (4) Opioid use disorder: Current visit: Yes Status: Acute (5) Smoker: Current visit: Yes Status: Acute Objective Objective Clinical Data: Abnormal lab results 04/30/19 05/01/19 Range/Units 09:15 06:17 WBC 14.70 H (4.4-10.8) k/cumm RBC 3.83 L (4.50-6.00) m/cumm Hgb 11.3 L (13.5-17.5) g/dL Hct 35.3 L (40.0-50.0) % MPV 11.5 H (8.0-11.0) fL Absolute Neutrophils 10.55 H (1.2-6.7) k/cumm Absolute Monocytes 0.91 H (0.11-0.7) k/cumm BUN 29 H D (7-18) mg/dL Glucose 161 H (70-100) mg/dL Calcium 8.1 L (8.5-10.1) mg/dL Vital Signs Temperature 36.8 C 05/01/19 04:18 Temperature Source Temporal Artery Scan 05/01/19 04:18 Pulse 81 05/01/19 05:00 Pulse Rhythm Regular 04/29/19 19:45 Pulse 67 05/01/19 06:00 Respiratory Rate 14 05/01/19 06:00 Respiratory Effort 05/01/19 04:18 Respiratory Depth Normal 05/01/19 04:18 Respiratory Pattern Normal 05/01/19 04:18 Blood Pressure 112/65 05/01/19 05:00 Blood Pressure Mean 75 05/01/19 05:00 Blood Pressure Position Supine 05/01/19 04:18 Pulse Oximetry 98 05/01/19 06:00 Oxygen Delivery Method Room Air 05/01/19 04:18 Oxygen Flow Rate 0 05/01/19 04:18 Pain Level 0 05/01/19 04:18 Comment 04/29/19 22:30 Intake & Output 04/30/19 04/30/19 05/01/19 11:59 23:59 11:59 Intake Total 1963.5 / 5437.313 3473.813 / 5437.313 1400 / 1400 Output Total 2075 / 5475 3400 / 5475 450 / 450 Balance -111.5 / -37.687 73.813 / -37.687 950 / 950 Weight 56.699 kg 57.9 kg Intake: IV 1603.5 / 3307.313 1703.813 / 3307.313 1050 / 1050 Oral 360 / 2130 1770 / 2130 350 / 350 Output: Urine 2074 / 5475 3400 / 5475 450 / 450 Other: Urine Color Yellow Pale Pale Urine Appearance Clear Clear Clear Urine Odor None None None Comment Denies need to void at this time. Stool Occult Blood Negative Stool Size Moderate Stool Characteristics Soft Formed Voiding Methods Urinal Urinal Urinal Laboratory Results WBC 14.70 k/cumm (4.4-10.8) H 05/01/19 06:17 RBC 3.83 m/cumm (4.50-6.00) L 05/01/19 06:17 Hgb 11.3 g/dL (13.5-17.5) L 05/01/19 06:17 Hct 35.3 % (40.0-50.0) L 05/01/19 06:17 MCV 92.2 fL (80-95) 05/01/19 06:17 MCH 29.5 pg (27.0-33.0) 05/01/19 06:17 MCHC 32.0 g/dL (32.0-36.0) 05/01/19 06:17 RDW 13.6 % (11.8-14.1) 05/01/19 06:17 Plt Count 169 x1000/uL (130-400) 05/01/19 06:17 MPV 11.5 fL (8.0-11.0) H 05/01/19 06:17 Immature Gran % 0.2 05/01/19 06:17 Neutrophils % 71.8 05/01/19 06:17 Band Neutrophils % 21.0 % 04/29/19 20:09 Lymphocytes % 20.1 05/01/19 06:17 Atypical Lymphs % 0 04/29/19 20:09 Monocytes % 6.2 05/01/19 06:17 Eosinophils % 1.6 05/01/19 06:17 Basophils % 0.1 05/01/19 06:17 Metamyelocytes % 2.0 % 04/29/19 20:09 Myelocytes % 1.0 % 04/29/19 13:45 Absolute Neutrophils 10.55 k/cumm (1.2-6.7) H 05/01/19 06:17 Absolute Lymphocytes 2.95 k/cumm (1.2-3.4) 05/01/19 06:17 Absolute Monocytes 0.91 k/cumm (0.11-0.7) H 05/01/19 06:17 Absolute Eosinophils 0.24 k/cumm (0.0-0.7) 05/01/19 06:17 Absolute Basophils 0.01 k/cumm (0.0-0.2) 05/01/19 06:17 Differential Comment Manual differential 04/29/19 20:09 RBC Morphology Normal 04/29/19 20:09 ESR 41 MM/HR (0-15) H 04/29/19 22:50 D-Dimer 1941 ng/mlFEU (<500) H 04/29/19 13:45 Sodium 138 mmol/L (136-145) 04/30/19 09:15 Potassium 4.0 mmol/L (3.5-5.1) 04/30/19 09:15 Chloride 104 mmol/L (98-107) 04/30/19 09:15 Carbon Dioxide 25.5 mmol/L (21.0-32.0) 04/30/19 09:15 Anion Gap 8.5 mmol/L (3-11) 04/30/19 09:15 BUN 29 mg/dL (7-18) H D 04/30/19 09:15 Creatinine 0.99 mg/dL (0.70-1.30) 04/30/19 09:15 Estimated GFR/1.73 m2 >= 60.00 (mL/min/1.73m2) 04/30/19 09:15 Glucose 161 mg/dL (70-100) H 04/30/19 09:15 Lactate 1.1 mmol/l (0.6-1.4) 04/30/19 09:15 Calcium 8.1 mg/dL (8.5-10.1) L 04/30/19 09:15 Magnesium 2.3 mg/dL (1.8-2.4) 04/30/19 09:15 Total Bilirubin 0.6 mg/dL (0.2-1.0) 04/29/19 13:45 AST 22 U/L (15-37) 04/29/19 13:45 ALT 19 U/L (12-78) 04/29/19 13:45 Alkaline Phosphatase 102 U/L (46-116) 04/29/19 13:45 Creatine Kinase 52 U/L (39-308) 04/30/19 09:15 Troponin I < 0.02 ng/mL (0.00-0.06) 04/29/19 13:45 C-Reactive Protein 11.30 mg/dL (0.0-0.3) H 04/29/19 22:50 Total Protein 7.8 g/dL (6.4-8.2) 04/29/19 13:45 Albumin 3.8 g/dL (3.4-5.0) 04/29/19 13:45 Procalcitonin > 200.0 ng/mL 04/29/19 22:50 Urine Color Yellow (Yellow) 04/29/19 17:49 Urine Clarity Clear 04/29/19 17:49 Urine pH 5.5 (5-8) 04/29/19 17:49 Ur Specific [place] 1.025 (1.005-1.025) 04/29/19 17:49 Urine Protein >=300 mg/dL (Negative) H 04/29/19 17:49 Urine Ketones Negative mg/dL (Negative) 04/29/19 17:49 Urine Blood Negative (Negative) 04/29/19 17:49 Urine Nitrite Negative (Negative) 04/29/19 17:49 Urine Bilirubin Small (Negative) H 04/29/19 17:49 Urine Urobilinogen 0.2 EU/dL (Up TO 0.2) 04/29/19 17:49 Ur Leukocyte Esterase Negative (Negative) 04/29/19 17:49 Urine RBC Negative (0-2) 04/29/19 17:49 Urine WBC 0-2 HPF (0-5) 04/29/19 17:49 Ur Epithelial Cells Negative HPF (Negative) 04/29/19 17:49 Urine Crystals Negative HPF (Negative) 04/29/19 17:49 Urine Bacteria Moderate HPF (Negative) 04/29/19 17:49 Urine Casts 0-2 hyaline LPF (Negative) 04/29/19 17:49 Urine Mucus Heavy (Negative) 04/29/19 17:49 Urine Other Negative (Negative) 04/29/19 17:49 Ur Culture Indicated? Yes 04/29/19 17:49 Urine Glucose Negative mg/dL (Negative) 04/29/19 17:49 Urine Opiates Screen Negative (Negative) 04/29/19 17:49 Urine Methadone Screen Negative (Negative) 04/29/19 17:49 Ur Barbiturates Screen Negative (Negative) 04/29/19 17:49 Ur Tricyclics Screen Negative (Negative) 04/29/19 17:49 Ur Amphetamines Screen Negative (Negative) 04/29/19 17:49 U Benzodiazepines Scrn Negative (Negative) 04/29/19 17:49 Urine Cocaine Screen Positive (Negative) 04/29/19 17:49 Ur THC Screen Negative (Negative) 04/29/19 17:49 Ethyl Alcohol < 3.0 mg/dL (<3) 04/29/19 13:45
[2019-05-01] MEDS: Nicotine 21 MG/24 HR PATCH TD (10:13)
--- NOTE | 2019-05-01 11:17 | PGE_ITS ---
Date of Service Date of service: 05/01/19 Time of Service: 07:30 Assessment and Plan (1) SIRS (systemic inflammatory response syndrome): Current visit: Yes Status: Acute Etiology of his systemic inflammatory response syndrome remains uncertain?blood cultures negative thus far. Perhaps this was all related to an adulterant or contaminant of what he injected. He reports that he is quite certain he did not inject intra-arterially but I am not sure how reliable this history is. In any event, he is off pressors with stable blood pressure and pulse. Subjectively other than feeling tired, doing well. I will continue his broad-spectrum antibiotics pending negative blood cultures x48 hours minimum. (2) Acute kidney injury: Current visit: Yes Status: Acute This has resolved based on urine output and BUN and creatinine. (3) Opioid use disorder: Current visit: Yes Status: Acute Stable on current Suboxone dosing. A little sedated this morning which might represent sleep deprivation versus med side effect? No change in his Suboxone planned at this point (4) Smoker: Current visit: Yes Status: Acute Doing okay with topical nicotine replacement and Nicotrol Inhaler (5) Discharge planning issues: Current visit: Yes Status: Acute No longer on pressors, will moved to the floor. Continue to probe if he would be at all interested in residential or outpatient treatment for his substance use disorder. Subjective Patient reports: feels better Interval history since last seen: A little tired this morning but otherwise no complaints. He successfully was weaned off pressors last evening and has maintained normal blood pressure and pulse. Urine output is picking up. Acknowledges feeling hungry. No nausea. Wonders when he can be discharged home. Blood cultures remain sterile. Exam Narrative Exam Narrative: A little drowsy but easily arousable and responds appropriately to questions. He is in no acute distress. He has not been febrile. Blood pressures off pressors 100s to 1 teens systolic. SaO2 on room air 97%. Conjunctiva clear. No JVD. Lungs clear. No heart murmur. Active bowel sounds with no abdominal tenderness. Right groin area with brown pigmentation, slight induration no tenderness and normal pulse. There is no erythema. No ankle aman ma. Good pulses distally. No petechiae. Symmetric movement of all extremities. No tremor. Sits up unassisted. Objective Objective Clinical Data: Abnormal lab results 05/01/19 Range/Units 06:17 WBC 14.70 H (4.4-10.8) k/cumm RBC 3.83 L (4.50-6.00) m/cumm Hgb 11.3 L (13.5-17.5) g/dL Hct 35.3 L (40.0-50.0) % MPV 11.5 H (8.0-11.0) fL Absolute Neutrophils 10.55 H (1.2-6.7) k/cumm Absolute Monocytes 0.91 H (0.11-0.7) k/cumm Vital Signs Temperature 37.2 C 05/01/19 10:24 Temperature Source Temporal Artery Scan 05/01/19 10:24 Pulse 58 L 05/01/19 10:04 Pulse Rhythm Regular 04/29/19 19:45 Pulse 67 05/01/19 08:00 Respiratory Rate 17 05/01/19 07:26 Respiratory Effort Non-Labored 05/01/19 10:24 Respiratory Depth Normal 05/01/19 10:24 Respiratory Pattern Normal 05/01/19 10:24 Blood Pressure 109/80 05/01/19 10:04 Blood Pressure Mean 87 05/01/19 10:04 Blood Pressure Position Supine 05/01/19 10:24 Pulse Oximetry 97 05/01/19 08:00 Oxygen Delivery Method Room Air 05/01/19 10:24 Oxygen Flow Rate 0 05/01/19 10:24 Pain Level 0 05/01/19 10:24 Comment 04/29/19 22:30 Intake & Output 04/30/19 04/30/19 05/01/19 11:59 23:59 11:59 Intake Total 1963.5 / 5437.313 3473.813 / 5437.313 1400 / 1400 Output Total 207 / 5475 3400 / 5475 1100 / 1100 Balance -111.5 / -37.687 73.813 / -37.687 300 / 300 Weight 56.699 kg 57.9 kg Intake: IV 1603.5 / 3307.313 1703.813 / 3307.313 1050 / 1050 Oral 360 / 2130 1770 / 2130 350 / 350 Output: Urine 2074 / 5475 3400 / 5475 1100 / 1100 Other: Urine Color Yellow Pale Yellow Urine Appearance Clear Clear Clear Urine Odor None None None Comment Denies need to void at this time. Stands to void in urinal Stool Occult Blood Negative Stool Size Moderate Stool Characteristics Soft Formed Voiding Methods Urinal Urinal Urinal Laboratory Results WBC 14.70 k/cumm (4.4-10.8) H 05/01/19 06:17 RBC 3.83 m/cumm (4.50-6.00) L 05/01/19 06:17 Hgb 11.3 g/dL (13.5-17.5) L 05/01/19 06:17 Hct 35.3 % (40.0-50.0) L 05/01/19 06:17 MCV 92.2 fL (80-95) 05/01/19 06:17 MCH 29.5 pg (27.0-33.0) 05/01/19 06:17 MCHC 32.0 g/dL (32.0-36.0) 05/01/19 06:17 RDW 13.6 % (11.8-14.1) 05/01/19 06:17 Plt Count 169 x1000/uL (130-400) 05/01/19 06:17 MPV 11.5 fL (8.0-11.0) H 05/01/19 06:17 Immature Gran % 0.2 05/01/19 06:17 Neutrophils % 71.8 05/01/19 06:17 Band Neutrophils % 21.0 % 04/29/19 20:09 Lymphocytes % 20.1 05/01/19 06:17 Atypical Lymphs % 0 04/29/19 20:09 Monocytes % 6.2 05/01/19 06:17 Eosinophils % 1.6 05/01/19 06:17 Basophils % 0.1 05/01/19 06:17 Metamyelocytes % 2.0 % 04/29/19 20:09 Myelocytes % 1.0 % 04/29/19 13:45 Absolute Neutrophils 10.55 k/cumm (1.2-6.7) H 05/01/19 06:17 Absolute Lymphocytes 2.95 k/cumm (1.2-3.4) 05/01/19 06:17 Absolute Monocytes 0.91 k/cumm (0.11-0.7) H 05/01/19 06:17 Absolute Eosinophils 0.24 k/cumm (0.0-0.7) 05/01/19 06:17 Absolute Basophils 0.01 k/cumm (0.0-0.2) 05/01/19 06:17 Differential Comment Manual differential 04/29/19 20:09 RBC Morphology Normal 04/29/19 20:09 ESR 41 MM/HR (0-15) H 04/29/19 22:50 D-Dimer 1941 ng/mlFEU (<500) H 04/29/19 13:45 Sodium 138 mmol/L (136-145) 04/30/19 09:15 Potassium 4.0 mmol/L (3.5-5.1) 04/30/19 09:15 Chloride 104 mmol/L (98-107) 04/30/19 09:15 Carbon Dioxide 25.5 mmol/L (21.0-32.0) 04/30/19 09:15 Anion Gap 8.5 mmol/L (3-11) 04/30/19 09:15 BUN 29 mg/dL (7-18) H D 04/30/19 09:15 Creatinine 0.99 mg/dL (0.70-1.30) 04/30/19 09:15 Estimated GFR/1.73 m2 >= 60.00 (mL/min/1.73m2) 04/30/19 09:15 Glucose 161 mg/dL (70-100) H 04/30/19 09:15 Lactate 1.1 mmol/l (0.6-1.4) 04/30/19 09:15 Calcium 8.1 mg/dL (8.5-10.1) L 04/30/19 09:15 Magnesium 2.3 mg/dL (1.8-2.4) 04/30/19 09:15 Total Bilirubin 0.6 mg/dL (0.2-1.0) 04/29/19 13:45 AST 22 U/L (15-37) 04/29/19 13:45 ALT 19 U/L (12-78) 04/29/19 13:45 Alkaline Phosphatase 102 U/L (46-116) 04/29/19 13:45 Creatine Kinase 52 U/L (39-308) 04/30/19 09:15 Troponin I < 0.02 ng/mL (0.00-0.06) 04/29/19 13:45 C-Reactive Protein 11.30 mg/dL (0.0-0.3) H 04/29/19 22:50 Total Protein 7.8 g/dL (6.4-8.2) 04/29/19 13:45 Albumin 3.8 g/dL (3.4-5.0) 04/29/19 13:45 Procalcitonin > 200.0 ng/mL 04/29/19 22:50 Urine Color Yellow (Yellow) 04/29/19 17:49 Urine Clarity Clear 04/29/19 17:49 Urine pH 5.5 (5-8) 04/29/19 17:49 Ur Specific [place] 1.025 (1.005-1.025) 04/29/19 17:49 Urine Protein >=300 mg/dL (Negative) H 04/29/19 17:49 Urine Ketones Negative mg/dL (Negative) 04/29/19 17:49 Urine Blood Negative (Negative) 04/29/19 17:49 Urine Nitrite Negative (Negative) 04/29/19 17:49 Urine Bilirubin Small (Negative) H 04/29/19 17:49 Urine Urobilinogen 0.2 EU/dL (Up TO 0.2) 04/29/19 17:49 Ur Leukocyte Esterase Negative (Negative) 04/29/19 17:49 Urine RBC Negative (0-2) 04/29/19 17:49 Urine WBC 0-2 HPF (0-5) 04/29/19 17:49 Ur Epithelial Cells Negative HPF (Negative) 04/29/19 17:49 Urine Crystals Negative HPF (Negative) 04/29/19 17:49 Urine Bacteria Moderate HPF (Negative) 04/29/19 17:49 Urine Casts 0-2 hyaline LPF (Negative) 04/29/19 17:49 Urine Mucus Heavy (Negative) 04/29/19 17:49 Urine Other Negative (Negative) 04/29/19 17:49 Ur Culture Indicated? Yes 04/29/19 17:49 Urine Glucose Negative mg/dL (Negative) 04/29/19 17:49 Urine Opiates Screen Negative (Negative) 04/29/19 17:49 Urine Methadone Screen Negative (Negative) 04/29/19 17:49 Ur Barbiturates Screen Negative (Negative) 04/29/19 17:49 Ur Tricyclics Screen Negative (Negative) 04/29/19 17:49 Ur Amphetamines Screen Negative (Negative) 04/29/19 17:49 U Benzodiazepines Scrn Negative (Negative) 04/29/19 17:49 Urine Cocaine Screen Positive (Negative) 04/29/19 17:49 Ur THC Screen Negative (Negative) 04/29/19 17:49 Ethyl Alcohol < 3.0 mg/dL (<3) 04/29/19 13:45 Blood cultures remain no growth. Low colony count mixed gram-positive growth from urine, likely nonsignificant.
--- NOTE | 2019-05-01 12:20 | NUR.NOTE ---
Nursing Note: Patient transferred from ICU this am. Showered self. Vitals signs stable. Regular heart rate -positive radial and pedal pulses, lungs clear -diminished in bases posteriorly bilaterally. Bowel sounds active -passing flatus. Track dennison noted on right forearm. Belongings transferred with patient to new room. Fluids running NS @ 150 mL/hr.
[2019-05-01] MEDS: LORazepam 2 MG/ML VIAL 1 MG ×3 (13:14→23:00)
[2019-05-01 14:53] LABS: Vancomycin, Trough 19.2 ug/mL (10.0-20.0)
--- NOTE | 2019-05-01 15:10 | NUR.NOTE ---
Nursing Note: Information Technology Architect found in patient sock during assessment. Patient mother in room at time. Information Technology Architect given to mother. Patient informed lighters are not permitted in hospital room.
--- NOTE | 2019-05-01 15:15 | PDOC.MHCN ---
Date of service: 05/01/19 Time of Service: 15:15 Mental Health Crisis Note Presenting Issue How did you arrive at the ED and why did you come: Bruce reports he drove himself to [facility] yesterday due to having a bad reaction to a drug. He remains at the hospital for medical reasons but when he threatens to leave against medical advice, Annabelle, career representative, contacts [facility] emergency services to request an assessment. Precipitating Factors When Bruce is asked about suicidal ideation, he replies that it would be easier just to , then goes on to say that he came to the hospital yesterday because he doesn't want to . He shares that he engages in cutting and shows me several cuts on both of his arms that are at various stages of healing. He denies that the cuts have ever required stitches. He admits to a significant drug problem and states that he feels as though he has let his family down and is an embarrassment to them. Disposition BEHAVIOR: Cooperative. EYE CONTACT: Good. MOOD: I just want to get high. AFFECT: Sad. APPETITE: Reported as poor. SLEEP(trouble falling/staying asleep: Poor, per Bruce. Plan Bruce does express a desire to go to rehab but states he will only go if he can get high on crack cocaine on the way there. He is offered outpatient substance abuse services in the event he doesn't go to rehab. He declines outpatient treatment but agrees to give it some thought. Bruce is advised to let hospital staff know if he changes his mind, so an appointment on an outpatient basis can be scheduled for him. Signature Clinician's Name/Title: Tasha Aguilar BA, [facility] Clinical Psychiatrist
--- NOTE | 2019-05-01 15:44 | PDOC.MHCN_ITS ---
Date of service: 05/01/19 Time of Service: 15:15 Mental Health Crisis Note Presenting Issue How did you arrive at the ED and why did you come: Bruce reports he drove himself to [facility] yesterday due to having a bad reaction to a drug. He remains at the hospital for medical reasons but when he threatens to leave against medical advice, Annabelle, primary health care nurse, contacts [facility] emergency services to request an assessment. Precipitating Factors When Bruce is asked about suicidal ideation, he replies that it would be easier just to , then goes on to say that he came to the hospital yesterday because he doesn't want to . He shares that he engages in cutting and shows me several cuts on both of his arms that are at various stages of healing. He denies that the cuts have ever required stitches. He admits to a significant drug problem and states that he feels as though he has let his family down and is an embarrassment to them. Disposition BEHAVIOR: Cooperative. EYE CONTACT: Good. MOOD: I just want to get high. AFFECT: Sad. APPETITE: Reported as poor. SLEEP(trouble falling/staying asleep: Poor, per Bruce. Plan Bruce does express a desire to go to rehab but states he will only go if he can get high on crack cocaine on the way there. He is offered outpatient substance abuse services in the event he doesn't go to rehab. He declines outpatient treatment but agrees to give it some thought. Bruce is advised to let hospital s taff know if he changes his mind, so an appointment on an outpatient basis can be scheduled for him. Signature Clinician's Name/Title: Tasha Aguilar BA, [facility] Residential Care Officer
[2019-05-01] MEDS: VANCOMYCIN 1,250 MG in Normal Saline 250 ML 166.6666 MG IVPB (16:13)
--- NOTE | 2019-05-01 16:50 | PDOC.CMPRO ---
- If Service Date Differs Date of service: 05/01/19 Time of Service: 16:50 Care Management Progress Note S/O: Bruce was sitting up in a chair when CM came to visit. He was crying at the time and his nurse explained that he had been showing her a picture of his daughter. Bruce stated all he wants to do is get high. When asked about rehab, which he stated he wanted yesterday, he said that was 3 days ago. Today I just want to get high. The only way I will go to rehab is if I can smoke crack cocaine on my way there. He then stated he wished he had when he became ill and came to the hospital. He said I never should have come. CM sought a referral with structural metal worker from [facility] to address SI statements. Please see Crisis note. Bruce was provided with written options for treatment including a rehab center in [facility] and other treatment centers in the area. A: Bruce is a 33 year old young man admitted to [facility] on 04/29/19 with SIRS. Bruce has a long history of substance abuse and has been using crack cocaine recently while still receiving Suboxone. P: Bruce had a status change from ICU to acute care today. His elevated WBC has dropped significantly, as has his BUN and creatinine. When discharged Bruce may enter a drug treatment program directly or return home with no services. CM will continue to support patient and discharge planning process.
--- NOTE | 2019-05-01 17:16 | CMPROGNOTE_ITS ---
- If Service Date Differs Date of service: 05/01/19 Time of Service: 16:50 Care Management Progress Note S/O: Bruce was sitting up in a chair when CM came to visit. He was crying at the time and his nurse explained that he had been showing her a picture of his daughter. Bruce stated all he wants to do is get high. When asked about rehab, which he stated he wanted yesterday, he said that was 3 days ago. Today I just want to get high. The only way I will go to rehab is if I can smoke crack prachi deni on my way there. He then stated he wished he had when he became ill and came to the hospital. He said I never should have come. CM sought a referral with general production worker from [facility] to address SI statements. Please see Crisis note. Bruce was provided with written options for treatment including a rehab center in [facility] and other treatment centers in the area. A: Bruce is a 33 year old young man admitted to [facility] on 04/29/19 with SIRS. Bruce has a long history of substance abuse and has been using crack cocaine recently while still receiving Suboxone. P: Bruce had a status change from ICU to acute care today. His elevated WBC has dropped significantly, as has his BUN and creatinine. When discharged Bruce may enter a drug treatment program directly or return home with no services. CM will continue to support patient and discharge planning process.
[2019-05-01] MEDS: Normal Saline Flush 10 ML SYR IVP ×2 (17:31→17:35)
--- NOTE | 2019-05-01 21:13 | NUR.NOTE ---
Patient is very drowsy looking and unsteady on his feet. Noted with a red jade around his neck, state he doesnt know how it reached there. Several family members has been calling stating patient is making post on facebook about killing himself. when asked if he is having suicidal thoughts he state he doesnt want to answer that. He state he wants some crack and he wants to leave if this not provided to him. I told him i am unable to provide this to him but encourage him to continue expressing himself so that i can help him with what i am able to. Close watch will be done at this time. Charge nurse Dede is aware and interventions are being made to help keep patient safe.
--- NOTE | 2019-05-01 21:16 | NUR.NOTE ---
multiple family members and friends have called to report that pt is posting that he is going to hang himself. When nursing asked directly pt refused to confirm or deny suicidal thoughts or gestures. Pt also stating that he wants to sign out. Nursing Insole And Heel Stiffener Claribel Nix and Dr. Rubin notified of situation. [facility] notified and certified social workers in health care will be in to reevaluate the patient. Nursing Note:
--- NOTE | 2019-05-01 21:24 | NUR.NOTE ---
Patient was caught smoking in the room he was encouraged not to practice doing so and the possibilities of what could happen if he continues doing so.He said the nicotrol doesnt work for him, so he volunteered and gave me his assistant professor of philosophy. Charge nurse made aware of this
--- NOTE | 2019-05-01 23:10 | PDOC.MHCN ---
Date of service: 05/01/19 Time of Service: 23:11 Mental Health Crisis Note Presenting Issue How did you arrive at the ED and why did you come: After Bruce posts several videos on his Facebook wall and sends a picture of himself with a red jade around his neck to his sister, several family members call [facility] to report concerns about his safety. The videos according to Bruce's mother consist of songs about hitting rock bottom and suicide. [facility] in turn contacts [facility] emergency services to request an evaluation. Precipitating Factors Bruce denies current suicidal ideation and states that he sent a message to his sister demanding she give him money for crack or he would hang himself. He reports that he made the red jade around his neck with a bandage he had around his arm . He states he removed the bandage from his neck because it was too tight. Bruce is clear that his actions are an attempt at getting people to either buy him crack or give him money so he can get crack cocaine as soon as he is discharged from [facility]. He reiterates on several occasion that he is not suicidall. . Disposition BEHAVIOR: Cooperative, manipulative. EYE CONTACT: Good. MOOD: Calm. AFFECT: Congruent to mood. APPETITE: Poor. SLEEP(trouble falling/staying asleep: Poor. Plan Bruce refuses a voluntary hospitalization and he does not meet criteria for an involuntary placement at this time. As soon as he is medically stable, he will be discharged home. Signature Clinician's Name/Title: Tasha Aguilar BA, [facility] Entry Level Manager
--- NOTE | 2019-05-01 23:14 | NUR.NOTE ---
Dr. Rubin called to report patient was cleared by [facility] and is able to sign out AMA if he desires. Nursing fence erector supervisor notified. Nursing Note:
--- NOTE | 2019-05-01 23:29 | PDOC.MHCN_ITS ---
Date of service: 05/01/19 Time of Service: 23:11 Mental Health Crisis Note Presenting Issue How did you arrive at the ED and why did you come: After Bruce posts several videos on his Facebook wall and sends a picture of himself with a red jade around his neck to his sister, several family members call [facility] to report concerns about his safety. The videos according to Bruce's mother consist of songs about hitting rock bottom and suicide. [facility] in turn contacts [facility] emergency services to request an evaluation. Precipitating Factors Bruce denies current suicidal ideation and states that he sent a message to his sister demanding she give him money for crack or he would hang himself. He reports that he made the red jade around his neck with a bandage he had around his arm . He states he removed the bandage from his neck because it was too tight. Bruce is clear that his actions are an attempt at getting people to either buy him crack or give him money so he can get crack cocaine as soon as he is discharged from [facility]. He reiterates on several occasion that he is not suicidall. . Disposition BEHAVIOR: Cooperative, manipulative. EYE CONTACT: Good. MOOD: Calm. AFFECT: Congruent to mood. APPETITE: Poor. SLEEP(trouble falling/staying asleep: Poor. Plan Bruce refuses a voluntary hospitalization and he does not meet criteria for an involuntary placement at this time. As soon as he is medically stable, he will be discharged home. Signature Clinician's Name/Title: Tasha Aguilar BA, [facility] Movie Stunt Performer
[2019-05-02] VITALS (7 sets, daily range): BP systolic 118–130; BP diastolic 74–81; PULSE 56–80; RESP 16–18; TEMP 36.2–37.7; O2SAT 95–98
[2019-05-02] MEDS: Normal Saline 1,000 ML 150 ML IV ×2 (00:07→08:43)
[2019-05-02] MEDS: VANCOMYCIN 1,250 MG in Normal Saline 250 ML 166.666 MG IVPB ×3 (01:50→22:03)
[2019-05-02] MEDS: Normal Saline Flush 10 ML SYR IVP ×2 (01:51→21:07)
[2019-05-02] MEDS: PIPERACILLIN/TAZO 3.375 GM in Normal Saline 50 ML IVPB ×4 (03:59→21:07)
[2019-05-02] MEDS: Buprenorphine/Naloxone 8 mg/2 mg FILM 1 EACH SL ×2 (05:30→18:03)
[2019-05-02] MEDS: Nicotine 21 MG/24 HR PATCH TD (08:02)
[2019-05-02 10:06] LABS: Creatinine,Urine 19.95 mg/dL; Sodium, Urine 167 mmol/L
[2019-05-02] MEDS: LORazepam 1 MG TAB PO ×2 (10:25→18:44)
[2019-05-02 11:48] LABS: Abs Immature Grans 0.03 k/cumm (0.0-0.09); Absolute Basophil Count 0.02 k/cumm (0.0-0.2); Absolute Eosinophil Count 0.26 k/cumm (0.0-0.7); Absolute Lymphocyte Count 2.48 k/cumm (1.2-3.4); Absolute Monocyte Count 0.37 k/cumm (0.11-0.7); Absolute Neutrophil Count 5.56 k/cumm (1.2-6.7); Basophils % 0.2; HCT 37.8 % (40.0-50.0); HGB 12.5 g/dL (13.5-17.5); Immature Grans % 0.3; Lymphocytes % 28.4; Mean Corp. HGB Concentration 33.1 g/dL (32.0-36.0); Mean Corpuscular Volume 90.6 fL (80-95); Mean Platelet Volume 11.4 fL (8.0-11.0); Monocytes % 4.2; Neutrophils % 63.9; Platelet Count 222 x1000/uL (130-400); RBC 4.17 m/cumm (4.50-6.00); RBC Distribution Width 13.3 % (11.8-14.1); White Blood Cell Count 8.72 k/cumm (4.4-10.8)
[2019-05-02 11:50] LABS: Anion Gap 10.1 mmol/L (3-11); BUN 12 mg/dL (7-18); CO2 27.9 mmol/L (21.0-32.0); CREATININE 0.82 mg/dL (0.70-1.30); Calcium 9.2 mg/dL (8.5-10.1); Chloride 105 mmol/L (98-107); Glucose 122 mg/dL (70-100); Sodium 143 mmol/L (136-145)
--- NOTE | 2019-05-02 12:20 | W.PM.PROGNOT ---
Date of Service Date of service: 05/02/19 Time of Service: 12:21 Assessment and Plan (1) Staphylococcus aureus bacteremia with sepsis: Current visit: Yes Status: Acute Systemic inflammatory response now attributed to staph aureus bacteremia given his positive blood culture. Although late growing, blood culture is positive for staph aureus. At this point it seems to be an uncomplicated episode of staph aureus bacteremia. His transthoracic echocardiogram did not raise concerns about endocarditis. His inflammatory markers have all normalized. I have repeated blood cultures today. If these remain sterile I am not going to pursue transesophageal echocardiogram and will plan on treatment course of 14 days. Awaiting sensitivities to determine whether this is methicillin sensitive versus methicillin-resistant staph aureus. Continue current combination of Pipracilin/tazobactam and vancomycin until we know whether he has MSSA or MRSA. (2) Opioid use disorder: Current visit: Yes Status: Acute Stable on current Suboxone dosing. Reports that he had been injecting his Suboxone prior to this admission. This may complicate further outpatient treatment if he is not successful in dealing with his substance use disorder. Continue current Suboxone dosing as an inpatient. (3) Substance use disorder: Current visit: Yes Status: Acute Prior to today was still expressing desire to use cocaine. After learning of the staph aureus bacteremia, he may have a change of heart and be more interested in either outpatient or residential treatment for his substance use disorder. His mother would like information regarding options in the area and care management will be addressing this. (4) Smoker: Current visit: Yes Status: Acute Doing okay with topical nicotine replacement and Nicotrol Inhaler (5) Discharge planning issues: Current visit: Yes Status: Acute After completing IV antibiotics, will be discharged, unclear if going back to live with his mother or inpatient substance use treatment program. More to come. Subjective Interval history since last seen: Patient reports to nursing staff last evening that he still has interest in using cocaine. Blood culture positive overnight, staph aureus, sensitivity pending. After I informed him of these results he became tearful, more pensive and at least in the immediacy of this news stated he is interested in working on his substance use disorder. Denies shortness of breath, chest pain, stomach upset, dysuria, joint pains. He has had no discomfort in the right groin where he most recently injected. He has not been febrile. He has not been tachycardic. His transthoracic echocardiogram performed earlier in this admission was normal with no evidence of endocarditis. Denies use of any illicit substances since his admission to the hospital. Acknowledges he was injecting his Suboxone rather than taking it sublingually up until he was hospitalized. Exam Narrative Exam Narrative: Tearful, anxious after hearing news of staph aureus bacteremia. Conjunctiva are clear. No JVD. Lungs are clear in all kidd. No heart murmur heard. Normal bowel sounds with no abdominal tenderness. A little bit of nontender induration in the right groin area. No petechiae or no pitting edema of the extremities. Good pulses in the feet. Symmetric movement of all extremities. He transfers independently. No tremor. Initially a little bit lethargic (after receiving Ativan) but easily aroused. Objective Objective Clinical Data: Abnormal lab results 05/02/19 05/02/19 Range/Units 11:05 11:05 RBC 4.17 L (4.50-6.00) m/cumm Hgb 12.5 L (13.5-17.5) g/dL Hct 37.8 L (40.0-50.0) % MPV 11.4 H (8.0-11.0) fL Glucose 122 H (70-100) mg/dL Vital Signs Temperature 36.4 C L 05/02/19 07:30 Temperature Source Tympanic 05/02/19 07:30 Pulse 63 05/02/19 07:30 Pulse Rhythm Regular 05/02/19 08:18 Pulse 67 05/01/19 08:00 Respiratory Rate 17 05/02/19 07:30 Respiratory Effort Non-Labored 05/02/19 08:18 Respiratory Depth Normal 05/02/19 08:18 Respiratory Pattern Normal 05/02/19 08:18 Blood Pressure 120/76 05/02/19 07:30 Blood Pressure Mean 87 05/01/19 10:04 Blood Pressure Position Supine 05/01/19 10:24 Pulse Oximetry 98 05/02/19 08:15 Oxygen Delivery Method Room Air 05/02/19 08:15 Oxygen Flow Rate 0 05/02/19 08:15 Pain Level 0 05/01/19 11:49 Comment 04/29/19 22:30 Intake & Output 05/01/19 05/02/19 05/02/19 23:59 11:59 23:59 Intake Total 2860 / 4310 1822.5 / 1822.5 Output Total 400 / 400 Balance 2860 / 3210 1422.5 / 1422.5 Weight 58.1 kg Intake: IV 2620 / 3720 1582.5 / 1582.5 Oral 240 / 590 240 / 240 Output: Urine 400 / 400 Other: Urine Color Pale Urine Appearance Clear Clear Urine Odor None Comment Pt voiding ad anoop in toilet. Denies sx. Urine not seen by nursing at this time. Patient voided standing over toilet in urinal. Stool Size Moderate Stool Characteristics Soft Formed Voiding Methods Toilet Toilet Urinal Laboratory Results WBC 8.72 k/cumm (4.4-10.8) 05/02/19 11:05 RBC 4.17 m/cumm (4.50-6.00) L 05/02/19 11:05 Hgb 12.5 g/dL (13.5-17.5) L 05/02/19 11:05 Hct 37.8 % (40.0-50.0) L 05/02/19 11:05 MCV 90.6 fL (80-95) 05/02/19 11:05 MCH 30.0 pg (27.0-33.0) 05/02/19 11:05 MCHC 33.1 g/dL (32.0-36.0) 05/02/19 11:05 RDW 13.3 % (11.8-14.1) 05/02/19 11:05 Plt Count 222 x1000/uL (130-400) 05/02/19 11:05 MPV 11.4 fL (8.0-11.0) H 05/02/19 11:05 Immature Gran % 0.3 05/02/19 11:05 Neutrophils % 63.9 05/02/19 11:05 Band Neutrophils % 21.0 % 04/29/19 20:09 Lymphocytes % 28.4 05/02/19 11:05 Atypical Lymphs % 0 04/29/19 20:09 Monocytes % 4.2 05/02/19 11:05 Eosinophils % 3.0 05/02/19 11:05 Basophils % 0.2 05/02/19 11:05 Metamyelocytes % 2.0 % 04/29/19 20:09 Myelocytes % 1.0 % 04/29/19 13:45 Absolute Neutrophils 5.56 k/cumm (1.2-6.7) 05/02/19 11:05 Absolute Lymphocytes 2.48 k/cumm (1.2-3.4) 05/02/19 11:05 Absolute Monocytes 0.37 k/cumm (0.11-0.7) 05/02/19 11:05 Absolute Eosinophils 0.26 k/cumm (0.0-0.7) 05/02/19 11:05 Absolute Basophils 0.02 k/cumm (0.0-0.2) 05/02/19 11:05 Differential Comment Manual differential 04/29/19 20:09 RBC Morphology Normal 04/29/19 20:09 ESR 41 MM/HR (0-15) H 04/29/19 22:50 D-Dimer 1941 ng/mlFEU (<500) H 04/29/19 13:45 Sodium 143 mmol/L (136-145) 05/02/19 11:05 Potassium 4.0 mmol/L (3.5-5.1) 05/02/19 11:05 Chloride 105 mmol/L (98-107) 05/02/19 11:05 Carbon Dioxide 27.9 mmol/L (21.0-32.0) 05/02/19 11:05 Anion Gap 10.1 mmol/L (3-11) 05/02/19 11:05 BUN 12 mg/dL (7-18) D 05/02/19 11:05 Creatinine 0.82 mg/dL (0.70-1.30) 05/02/19 11:05 Estimated GFR/1.73 m2 >= 60.00 (mL/min/1.73m2) 05/02/19 11:05 Glucose 122 mg/dL (70-100) H 05/02/19 11:05 Lactate 1.1 mmol/l (0.6-1.4) 04/30/19 09:15 Calcium 9.2 mg/dL (8.5-10.1) 05/02/19 11:05 Magnesium 2.3 mg/dL (1.8-2.4) 04/30/19 09:15 Total Bilirubin 0.6 mg/dL (0.2-1.0) 04/29/19 13:45 AST 22 U/L (15-37) 04/29/19 13:45 ALT 19 U/L (12-78) 04/29/19 13:45 Alkaline Phosphatase 102 U/L (46-116) 04/29/19 13:45 Creatine Kinase 52 U/L (39-308) 04/30/19 09:15 Troponin I < 0.02 ng/mL (0.00-0.06) 04/29/19 13:45 C-Reactive Protein 11.30 mg/dL (0.0-0.3) H 04/29/19 22:50 Total Protein 7.8 g/dL (6.4-8.2) 04/29/19 13:45 Albumin 3.8 g/dL (3.4-5.0) 04/29/19 13:45 Procalcitonin > 200.0 ng/mL 04/29/19 22:50 Urine Color Yellow (Yellow) 04/29/19 17:49 Urine Clarity Clear 04/29/19 17:49 Urine pH 5.5 (5-8) 04/29/19 17:49 Ur Specific [place] 1.025 (1.005-1.025) 04/29/19 17:49 Urine Protein >=300 mg/dL (Negative) H 04/29/19 17:49 Urine Ketones Negative mg/dL (Negative) 04/29/19 17:49 Urine Blood Negative (Negative) 04/29/19 17:49 Urine Nitrite Negative (Negative) 04/29/19 17:49 Urine Bilirubin Small (Negative) H 04/29/19 17:49 Urine Urobilinogen 0.2 EU/dL (Up TO 0.2) 04/29/19 17:49 Ur Leukocyte Esterase Negative (Negative) 04/29/19 17:49 Urine RBC Negative (0-2) 04/29/19 17:49 Urine WBC 0-2 HPF (0-5) 04/29/19 17:49 Ur Epithelial Cells Negative HPF (Negative) 04/29/19 17:49 Urine Crystals Negative HPF (Negative) 04/29/19 17:49 Urine Bacteria Moderate HPF (Negative) 04/29/19 17:49 Urine Casts 0-2 hyaline LPF (Negative) 04/29/19 17:49 Urine Mucus Heavy (Negative) 04/29/19 17:49 Urine Other Negative (Negative) 04/29/19 17:49 Ur Culture Indicated? Yes 04/29/19 17:49 Ur Random Creatinine 19.95 mg/dL 05/02/19 09:36 Ur Random Sodium 167 mmol/L 05/02/19 09:36 Urine Glucose Negative mg/dL (Negative) 04/29/19 17:49 Vancomycin Trough 19.2 ug/mL (10.0-20.0) 05/01/19 14:25 Urine Opiates Screen Negative (Negative) 04/29/19 17:49 Urine Methadone Screen Negative (Negative) 04/29/19 17:49 Ur Barbiturates Screen Negative (Negative) 04/29/19 17:49 Ur Tricyclics Screen Negative (Negative) 04/29/19 17:49 Ur Amphetamines Screen Negative (Negative) 04/29/19 17:49 U Benzodiazepines Scrn Negative (Negative) 04/29/19 17:49 Urine Cocaine Screen Positive (Negative) 04/29/19 17:49 Ur THC Screen Negative (Negative) 04/29/19 17:49 Ethyl Alcohol < 3.0 mg/dL (<3) 04/29/19 13:45 1 of 2 initial blood cultures positive for staph aureus at approximately 48 hours incubation
--- NOTE | 2019-05-02 14:37 | PHARADMIT ---
Addendum entered by Balwinder Cedeno III 05/03/19 15:03: Pharmacy Note Subjective MSSA SEPTICEMIA: On Oxacillin 2gm IV q4h. hopeful that 14 day course will be suffient, call to [facility]. Nursing concerned regarding multiple visitors , watch for UDS in future. Objective VS-OK No Labs, Assessment Vanco trough(15.2) then dc'd along with Zosyn when IV ABX changed to Oxacillin. On Suboxone Plan Issues remain concerning patient willingness for sobriety Original Note: Admission Pharmacy Clinical Review sepsis Code Status Full Code Current Weight 58.1 kg Renally Cleared and Narrow Therapeutic Index Meds Crcl ~105.00 mL/min current meds okay QTc Value / Action Taken QTc 434 BP Control, Fever BP 130/81 afebrile Electrolytes reviewed within normal limits DVT Prophylaxis enoxaparin Opiate Usage / Scheduled Bowel Regimen Ordered adan/no Plt/SCr for Heparin / Enoxaparin plt 222 SCr 0.82 INR for Warfarin n/a H/H stable, WBC/Bands h/h 12.5/37.7 wbc 8.72 Antibiotic appropriateness vanco and zosyn (day 4 starts this evening) Cultures and Sensitivities one blood culture grew staph aureus (waiting for sensitivities); other blood cultures pending or no growth urine culture grew gram+ ahmet Surgical ABX d/c within 24 hr n/a DM control / Insulin Dosing Bg 122 none Heart Failure (Check EF%) (ANTOINE's, B-Block, Diuretics) none IV to PO Switch n/a Home Meds Reviewed yes Home Meds Not Ordered all ordered Comments watch for sensitivities and blood culture results vanco trough ordered for 0700 tomorrow morning
[2019-05-02] MEDS: Normal Saline 1,000 ML 30 ML IV (15:20)
[2019-05-02] MEDS: Acetaminophen 325 MG TAB PO (15:44)
--- NOTE | 2019-05-02 17:27 | PDOC.CMPRO ---
- If Service Date Differs Date of service: 05/02/19 Time of Service: 17:27 Care Management Progress Note S/O: Bruce was walking around his room when CM came to visit. His mother was with him. He had been given information about drug treatment programs in [place] but requested information about facilities in other states. He understands that [place] Medicaid, his only payer source, may not approve. CM will pursue this option with [facility]. A positive blood culture with staphylococcus aureus will require Bruce to remain hospitalized for IV antibiotics. A: Bruce is a 33 year old young man admitted to [facility] on 04/29/19 with [facility]. Bruce has a long history of substance abuse and has been using crack cocaine recently while still receiving Suboxone. P: Bruce remains acute level of care. A new finding of staphylococcus aureus in one of 2 blood cultures drawn on admission will require Bruce to remain hospitalized for IV antibiotic therapy for an additional one to two weeks. When he is no longer acute, a swing bed option may be considered. When discharged Bruce may enter a drug treatment program directly or return home with no services. CM will continue to support patient and discharge planning process. cc:
--- NOTE | 2019-05-02 17:43 | CMPROGNOTE_ITS ---
- If Service Date Differs Date of service: 05/02/19 Time of Service: 17:27 Care Management Progress Note S/O: Bruce was walking around his room when CM came to visit. His mother was with him. He had been given information about drug treatment programs in [place] but requested information about facilities in other states. He understands that [place] Medicaid, his only payer source, may not approve. CM will pursue this option with [facility]. A positive blood culture with staphylococcus aureus will require Bruce to remain hospitalized for IV antibiotics. A: Bruce is a 33 year old young man admitted to [facility] on 04/29/19 with [facility]. Bruce has a long history of substance abuse and has been using crack cocaine recently while still receiving Suboxone. P: Bruce remains acute level of care. A new finding of staphylococcus aureus in one of 2 blood cultures drawn on admission will require Bruce to remain hospitalized for IV antibiotic therapy for an additional one to two weeks. When he is no longer acute, a swing bed option may be considered. When discharged Bruce may enter a drug treatment program directly or return home with no services. CM will continue to support patient and discharge planning process. cc:
[2019-05-02] MEDS: Enoxaparin 40 MG/0.4 ML SYR SC (21:07)
[2019-05-03 01:14] VITALS: BP 105/71; PULSE 70; RESP 16; TEMP 36.9; O2SAT 98
[2019-05-03] MEDS: PIPERACILLIN/TAZO 3.375 GM in Normal Saline 50 ML IVPB (03:20)
[2019-05-03] MEDS: LORazepam 1 MG TAB PO (03:21)
[2019-05-03] MEDS: Buprenorphine/Naloxone 8 mg/2 mg FILM 1 EACH SL ×2 (07:03→17:50)
[2019-05-03 07:20] VITALS: BP 99/67; PULSE 81; RESP 18; TEMP 37.1; O2SAT 98
[2019-05-03 08:38] LABS: Vancomycin, Trough 15.7 ug/mL (10.0-20.0)
[2019-05-03] MEDS: Nicotine 21 MG/24 HR PATCH TD (09:11)
[2019-05-03] MEDS: VANCOMYCIN 1,250 MG in Normal Saline 250 ML 166.666 MG IVPB (09:12)
[2019-05-03 09:55] VITALS: O2SAT 98
[2019-05-03 10:30] LABS: HIV-1/2 Ag & Ab Screen Negative (NEGAT)
[2019-05-03] MEDS: Normal Saline 1,000 ML 30 ML IV (12:26)
--- NOTE | 2019-05-03 12:27 | NUR.NOTE ---
Nursing Note: At approximately 1120, patient was informed that a urine sample was needed. Patient immediately became agitated and said There is still going to be crack in my system, so I will leave if I hear anyone telling me about the crack in my system! Patient then went to the bathroom and began grumbling and swearing stating that he is just going to leave anyway. CARO Barrett and MONA Vigil notified.
[2019-05-03] MEDS: LORazepam 0.5 MG TAB PO ×2 (13:18→22:03)
[2019-05-03] MEDS: Acetaminophen 325 MG TAB PO ×3 (13:19→22:37)
--- NOTE | 2019-05-03 13:26 | W.PM.PROGNOT ---
Date of Service Date of service: 05/03/19 Time of Service: 11:45 Assessment and Plan (1) MSSA (methicillin susceptible Staphylococcus aureus) septicemia: Current visit: Yes Status: Acute Hemodynamically stable with no signs or symptoms of ongoing systemic inflammatory response. Sensitivities have returned that this is methicillin sensitive staph aureus from his original blood cultures. Subsequent blood cultures no growth thus far. Antibiotics switched to oxacillin. Call placed to ID to discuss if there are data to support shorter than 14 days treatment course for uncomplicated MSSA bacteremia. Awaiting callback. (2) Opioid use disorder: Current visit: Yes Status: Acute This seems to be stable on his current Suboxone dosing with no reported opiate cravings and no withdrawal symptoms. (3) Substance use disorder: Current visit: Yes Status: Acute He is frustrated that he repeatedly is being queried as to whether or not he continues to use substances even while in the hospital. I explained to him that his past behaviors are going to require a period of appropriate behaviors for trust to be developed. I do not have a sense of whether or not he is committed to trying to maintain sobriety. Continue to be clear on acceptable behaviors, and supportive if he is expresses a desire for treatment of his substance use disorder once discharged from the hospital. (4) Dyspepsia: Current visit: Yes Status: Acute No alarm features, reports that this has responded to ranitidine in the past as an outpatient. I will place him on twice daily ranitidine and monitor symptom response. Subjective Interval history since last seen: Frustrated and angry that staff, including myself, continue to query him as to whether or not he is using any drugs while he is in the hospital. These queries have been prompted by his continued sedated behavior as well as overnight stay of his /girlfriend (unclear to me), who is alleged to also have substance use disorder. He states that his tiredness he reflects long-standing cocaine use, lack of sleep and the episodic use of lorazepam here. He complains of some mid abdominal dyspeptic discomfort that he states is not new and for which he would take ranitidine to good effect. He has not had any nausea or vomiting. Denies any melanotic stool. No dysphagia. Blood culture drawn on admission and growing MSSA. Subsequent blood cultures drawn yesterday no growth thus far. Late morning he became quite agitated, was stating he was going to leave AMA. Soon thereafter I stopped back into talk to him and he had changed his mind and suddenly agreed to stay and continue IV antibiotics. Exam Narrative Exam Narrative: Initially a bit lethargic but arouses appropriately. No rhinorrhea sniffing yawning and no piloerection. No new puncture dennison on his forearms and wrists or right groin area. No cervical adenopathy. Lungs are clear. No heart murmur. Active bowel sounds with no abdominal tenderness. No induration or redness in the left groin area around the scar where he most recently injected. Objective Objective Clinical Data: Vital Signs Temperature 37.1 C 05/03/19 07:20 Temperature Source Tympanic 05/03/19 07:20 Pulse 81 05/03/19 07:20 Pulse Rhythm Regular 05/02/19 20:02 Pulse 67 05/01/19 08:00 Respiratory Rate 18 05/03/19 07:20 Respiratory Effort Non-Labored 05/02/19 20:02 Respiratory Depth Normal 05/02/19 20:02 Respiratory Pattern Normal 05/02/19 20:02 Blood Pressure 99/67 L 05/03/19 07:20 Blood Pressure Mean 87 05/01/19 10:04 Blood Pressure Position Supine 05/01/19 10:24 Pulse Oximetry 98 05/03/19 09:55 Oxygen Delivery Method Room Air 05/03/19 09:55 Oxygen Flow Rate 0 05/03/19 09:55 Pain Level 0 05/03/19 07:20 Comment 05/03/19 07:20 Intake & Output 05/02/19 05/03/19 05/03/19 23:59 11:59 23:59 Intake Total 1058 / 2880.5 540 / 1221.333 681.333 / 1221.333 Output Total 900 / 1300 1200 / 1200 Balance 158 / 1580.5 -660 / 21.333 681.333 / 21.333 Intake: IV 618 / 2200.5 50 / 731.333 681.333 / 731.333 Oral 440 / 680 490 / 490 Output: Urine 900 / 1300 1200 / 1200 Other: Urine Color Yellow Yellow Urine Appearance Clear Clear Urine Odor Normal Comment patient voided independently in toilet Voiding Methods Toilet Urinal Laboratory Results WBC 8.72 k/cumm (4.4-10.8) 05/02/19 11:05 RBC 4.17 m/cumm (4.50-6.00) L 05/02/19 11:05 Hgb 12.5 g/dL (13.5-17.5) L 05/02/19 11:05 Hct 37.8 % (40.0-50.0) L 05/02/19 11:05 MCV 90.6 fL (80-95) 05/02/19 11:05 MCH 30.0 pg (27.0-33.0) 05/02/19 11:05 MCHC 33.1 g/dL (32.0-36.0) 05/02/19 11:05 RDW 13.3 % (11.8-14.1) 05/02/19 11:05 Plt Count 222 x1000/uL (130-400) 05/02/19 11:05 MPV 11.4 fL (8.0-11.0) H 05/02/19 11:05 Immature Gran % 0.3 05/02/19 11:05 Neutrophils % 63.9 05/02/19 11:05 Band Neutrophils % 21.0 % 04/29/19 20:09 Lymphocytes % 28.4 05/02/19 11:05 Atypical Lymphs % 0 04/29/19 20:09 Monocytes % 4.2 05/02/19 11:05 Eosinophils % 3.0 05/02/19 11:05 Basophils % 0.2 05/02/19 11:05 Metamyelocytes % 2.0 % 04/29/19 20:09 Myelocytes % 1.0 % 04/29/19 13:45 Absolute Neutrophils 5.56 k/cumm (1.2-6.7) 05/02/19 11:05 Absolute Lymphocytes 2.48 k/cumm (1.2-3.4) 05/02/19 11:05 Absolute Monocytes 0.37 k/cumm (0.11-0.7) 05/02/19 11:05 Absolute Eosinophils 0.26 k/cumm (0.0-0.7) 05/02/19 11:05 Absolute Basophils 0.02 k/cumm (0.0-0.2) 05/02/19 11:05 Differential Comment Manual differential 04/29/19 20:09 RBC Morphology Normal 04/29/19 20:09 ESR 41 MM/HR (0-15) H 04/29/19 22:50 D-Dimer 1941 ng/mlFEU (<500) H 04/29/19 13:45 Sodium 143 mmol/L (136-145) 05/02/19 11:05 Potassium 4.0 mmol/L (3.5-5.1) 05/02/19 11:05 Chloride 105 mmol/L (98-107) 05/02/19 11:05 Carbon Dioxide 27.9 mmol/L (21.0-32.0) 05/02/19 11:05 Anion Gap 10.1 mmol/L (3-11) 05/02/19 11:05 BUN 12 mg/dL (7-18) D 05/02/19 11:05 Creatinine 0.82 mg/dL (0.70-1.30) 05/02/19 11:05 Estimated GFR/1.73 m2 >= 60.00 (mL/min/1.73m2) 05/02/19 11:05 Glucose 122 mg/dL (70-100) H 05/02/19 11:05 Lactate 1.1 mmol/l (0.6-1.4) 04/30/19 09:15 Calcium 9.2 mg/dL (8.5-10.1) 05/02/19 11:05 Magnesium 2.3 mg/dL (1.8-2.4) 04/30/19 09:15 Total Bilirubin 0.6 mg/dL (0.2-1.0) 04/29/19 13:45 AST 22 U/L (15-37) 04/29/19 13:45 ALT 19 U/L (12-78) 04/29/19 13:45 Alkaline Phosphatase 102 U/L (46-116) 04/29/19 13:45 Creatine Kinase 52 U/L (39-308) 04/30/19 09:15 Troponin I < 0.02 ng/mL (0.00-0.06) 04/29/19 13:45 C-Reactive Protein 11.30 mg/dL (0.0-0.3) H 04/29/19 22:50 Total Protein 7.8 g/dL (6.4-8.2) 04/29/19 13:45 Albumin 3.8 g/dL (3.4-5.0) 04/29/19 13:45 Procalcitonin > 200.0 ng/mL 04/29/19 22:50 Urine Color Yellow (Yellow) 04/29/19 17:49 Urine Clarity Clear 04/29/19 17:49 Urine pH 5.5 (5-8) 04/29/19 17:49 Ur Specific [place] 1.025 (1.005-1.025) 04/29/19 17:49 Urine Protein >=300 mg/dL (Negative) H 04/29/19 17:49 Urine Ketones Negative mg/dL (Negative) 04/29/19 17:49 Urine Blood Negative (Negative) 04/29/19 17:49 Urine Nitrite Negative (Negative) 04/29/19 17:49 Urine Bilirubin Small (Negative) H 04/29/19 17:49 Urine Urobilinogen 0.2 EU/dL (Up TO 0.2) 04/29/19 17:49 Ur Leukocyte Esterase Negative (Negative) 04/29/19 17:49 Urine RBC Negative (0-2) 04/29/19 17:49 Urine WBC 0-2 HPF (0-5) 04/29/19 17:49 Ur Epithelial Cells Negative HPF (Negative) 04/29/19 17:49 Urine Crystals Negative HPF (Negative) 04/29/19 17:49 Urine Bacteria Moderate HPF (Negative) 04/29/19 17:49 Urine Casts 0-2 hyaline LPF (Negative) 04/29/19 17:49 Urine Mucus Heavy (Negative) 04/29/19 17:49 Urine Other Negative (Negative) 04/29/19 17:49 Ur Culture Indicated? Yes 04/29/19 17:49 Ur Random Creatinine 19.95 mg/dL 05/02/19 09:36 Ur Random Sodium 167 mmol/L 05/02/19 09:36 Urine Glucose Negative mg/dL (Negative) 04/29/19 17:49 Vancomycin Trough 15.7 ug/mL (10.0-20.0) 05/03/19 08:15 Urine Opiates Screen Negative (Negative) 04/29/19 17:49 Urine Methadone Screen Negative (Negative) 04/29/19 17:49 Ur Barbiturates Screen Negative (Negative) 04/29/19 17:49 Ur Tricyclics Screen Negative (Negative) 04/29/19 17:49 Ur Amphetamines Screen Negative (Negative) 04/29/19 17:49 U Benzodiazepines Scrn Negative (Negative) 04/29/19 17:49 Urine Cocaine Screen Positive (Negative) 04/29/19 17:49 Ur THC Screen Negative (Negative) 04/29/19 17:49 Ethyl Alcohol < 3.0 mg/dL (<3) 04/29/19 13:45
[2019-05-03 13:50] VITALS: BP 105/63; PULSE 68; RESP 18; TEMP 36.9; O2SAT 96
--- NOTE | 2019-05-03 17:11 | PDOC.CMPRO ---
- If Service Date Differs Date of service: 05/03/19 Time of Service: 17:11 Care Management Progress Note S/O: Bruce is agitated when CM enters the room, his friend is in the bed covered up sleeping. Bruce does not make good eye contact with CM and reports that his girl friend has been here since 399. CM reviewed hospital policy and that his friend would not be able to stay overnight. CM reviewed visiting hours and that his friend would have to leave by 1999. Bruce became agitated and stated he was leaving AMA. CM reviewed the risk of infection without treatment including if he left AMA. Bruce states I don't care I am leaving and I don't want to discuss it anymore. Bruce was transition to [place] q4 hours his last BC on 05/02/19 is negative x 24 hours. was able to meet with Bruce and calm him down, for now he is willing to stay at the hospital. CM did review possibility for change of status to SB1, per provider he is not comfortable with the change at this point. Pt remains acute status. Bruce is not willing to meet with a basketball coach at this point, CM has offered. CM will continue to provide support to pt and care team. CM did speak to Bruce's mother Brigitte and listen to her concerns, and acknowledge that Bruce is able make his own decisions even if she does not agree with them. A: Bruce is a 33 year old young man admitted to [facility] on 04/29/19 with [facility]. Bruce has a long history of substance abuse and has been using crack cocaine recently while still receiving Suboxone. P: Bruce remains acute level of care. A new finding of staphylococcus aureus in one of 2 blood cultures drawn on admission will require Bruce to remain hospitalized for IV antibiotic therapy for an additional one to two weeks. When he is no longer acute, a swing bed option may be considered. When discharged Bruce may enter a drug treatment program directly or return home with no services. CM will continue to support patient and discharge planning process. DEANGELO made a DCF report related to events prior to admission which Bruce verbalized to CM: intake number [id number] Per report from Bruce he returned home to his mothers house where he was caring for his 7 year old daughter. He states I was to sick to move or care for her, she knew I was sick and kept bringing be glasses of water. I knew I needed to come to the hospital but thought if I am going to I just want to be with my daughter. DEANGELO did follow up with Paternal grandmother Jaclyn who reports that Granddaughter (Jennifer) was not alone with her father during the time of the incident. She also reports that when Jennifer came into grandmothers room to report she was hungry she told her to get your dad up. Jaclyn states at the time of the encounter she did not know Bruce was ill.
--- NOTE | 2019-05-03 17:49 | CMPROGNOTE_ITS ---
- If Service Date Differs Date of service: 05/03/19 Time of Service: 17:11 Care Management Progress Note S/O: Bruce is agitated when DEANGELO enters the room, his friend is in the bed covered up sleeping. Bruce does not make good eye contact with CM and reports that his girl friend has been here since 399. CM reviewed hospital policy and that his friend would not be able to stay overnight. CM reviewed visiting hours and that his friend would have to leave by 1999. Bruce became agitated and stated he was leaving AMA. CM reviewed the risk of infection without treatment including if he left AMA. Bruce states I don't care I am leaving and I don't want to discuss it anymore. Bruce was transition to [place] q4 hours his last BC on 05/02/19 is negative x 24 hours. was able to meet with Bruce and calm him down, for now he is willing to stay at the hospital. CM did review possibili ty for change of status to SB1, per provider he is not comfortable with the change at this point. Pt remains acute status. Bruce is not willing to meet with a acetone recovery worker at this point, CM has offered. CM will continue to provide support to pt and care team. CM did speak to Bruce's mother Brigitte and listen to her concerns, and acknowledge that Bruce is able make his own decisions even if she does not agree with them. A: Bruce is a 33 year old young man admitted to [facility] on 04/29/19 with [facility]. Bruce has a long history of substance abuse and has been using crack cocaine recently while still receiving Suboxone. P: Bruce remains acute level of care. A new finding of staphylococcus aureus in one of 2 blood cultures drawn on admission will require Bruce to remain hospitalized for IV antibiotic therapy for an additional one to two weeks. When he is no longer acute, a swing bed option may be considered. When discharged Bruce may enter a drug treatment program directly or return home with no services . CM will continue to support patient and discharge planning process. DEANGELO made a DCF report related to events prior to admission which Bruce verbalized to CM: intake number [id number] Per report from Bruce he returned home to his mothers house where he was caring for his 7 year old daughter. He states I was to sick to move or care for her, she knew I was sick and kept bringing be glasses of water. I knew I needed to come to the hospital but thought if I am going to I just want to be with my daughter. CM did follow up with Paternal grandmother Jaclyn who reports that Granddaughter (Jennifer) was not alone with her father during the time of the incident. She also reports that when Jennifer came into grandmothers room to report she was hungry she told her to get your dad up. Jaclyn states at the time of the encounter she did not know Bruce was ill.
[2019-05-03 20:30] VITALS: BP 112/75; PULSE 76; RESP 18; TEMP 36.8; O2SAT 94
[2019-05-03 21:01] LABS: *AMPHETAMINES SCREEN URINE Negative (Negative); *BARBITURATES SCREEN URINE Negative (Negative); *BENZODIAZEPINES SCREEN URINE Negative (Negative); Cannabinoids THC Negative (Negative); Cocaine Screen,Urine POSITIVE (Negative); METHADONE URINE SCREEN Negative (Negative); OPIATES URINE SCREEN Negative (Negative)
[2019-05-03 21:10] LABS: Tricyclic Antidepressants Negative (Negative)
[2019-05-04] VITALS (7 sets, daily range): BP systolic 95–132; BP diastolic 74–84; PULSE 70–84; RESP 12–18; TEMP 36.3–37.2; O2SAT 95–99
[2019-05-04] MEDS: Acetaminophen 325 MG TAB PO (03:50)
[2019-05-04] MEDS: LORazepam 0.5 MG TAB PO ×2 (05:47→15:50)
[2019-05-04] MEDS: Normal Saline 1,000 ML 30 ML IV (08:13)
[2019-05-04] MEDS: Nicotine 21 MG/24 HR PATCH TD (08:13)
--- NOTE | 2019-05-04 08:13 | PDOC.CMPRO ---
- If Service Date Differs Date of service: 05/04/19 Time of Service: 08:13 Care Management Progress Note S/O: Bruce was sitting up in bed when CM came to see him. He was smiling and said he was feeling better and was determined to have a good day. He became angry when CM brought up the subject of the behavior plan left with him last evening. He refused to sign it and stated that he was sick of being treated differently than everyone else and that he did nothing wrong, except smoke in the bathroom which he won't do again. His speech was heavily peppered with profanity and he threatened to leave and go some where else. Suddenly, he calmed down and stated again that he wanted to have a good day. He said he has broken up with Cynthia and is seeing his old girlfriend Sarahi again. After additional discussion, Bruce agreed to sign the Behavioral Health Plan.CM placed the original inhis chart and faxed a copy to [facility]. A: Bruce is a 33 year old young man admitted to [facility] on 04/29/19 with [facility]. Bruce has a long history of substance abuse and has been using crack cocaine recently while still receiving Suboxone. P: Bruce remains acute level of care. When he is no longer acute, a swing bed option may be considered. When discharged Bruce may enter a drug treatment program directly or return home with no services. CM will continue to support patient and discharge planning process.
[2019-05-04] MEDS: Buprenorphine/Naloxone 8 mg/2 mg FILM 1 EACH SL ×2 (08:14→17:48)
--- NOTE | 2019-05-04 08:20 | CMPROGNOTE_ITS ---
- If Service Date Differs Date of service: 05/04/19 Time of Service: 08:13 Care Management Progress Note S/O: Bruce was sitting up in bed when CM came to see him. He was smiling and said he was feeling better and was determined to have a good day. He became angry when CM brought up the subject of the behavior plan left with him last evening. He refused to sign it and stated that he was sick of being treated differently than everyone else and that he did nothing wrong, except smoke in the bathroom which he won't do again. His speech was heavily peppered with profanity and he threatened to leave and go some where else. Suddenly, he calmed down and stated again that he wanted to have a good day. He said he has broken up with Cynthia and is seeing his old girlfriend Sarahi again. After additional discussion, Bruce agreed to sign the Behavioral Health Plan.CM placed the original inhis chart and faxed a copy to [facility]. A: Bruce is a 33 year old young man admitted to [facility] on 04/29/19 with [facility]. Bruce has a long history of substance abuse and has been using crack cocaine recently while still receiving Suboxone. P: Bruce remains acute level of care. When he is no longer acute, a swing bed option may be considered. When discharged Bruce may enter a drug treatment program directly or return home with no services. CM will continue to support patient and discharge planning process.
--- NOTE | 2019-05-04 14:32 | PGE_ITS ---
Date of Service Date of service: 05/04/19 Time of Service: 14: Assessment and Plan (1) MSSA (methicillin susceptible Staphylococcus aureus) septicemia: Current visit: Yes Status: Acute Thus far, second blood cultures remain sterile. Discussion with ID yesterday, with recommendations for 2 weeks of IV antibiotics after last positive culture. Should he decide to leave AMA, oral linezolid could be prescribed if insurance coverage can be obtained. At this point he is agreeable to stay. Comfortable having a PICC line. Assuming his second blood cultures remain negative we can probably switch him to swing bed tomorrow. Treatment through May 16. (2) Opioid use disorder: Current visit: Yes Status: Acute This seems to be stable on his current Suboxone dosing with no reported opiate cravings and no withdrawal symptoms. (3) Substance use disorder: Current visit: Yes Status: Acute Today he is much more open and out his substance use disorder and at least is somewhat interested in outpatient treatment. He recognizes the seriousness of his current illness. He may or may not be a suitable candidate for outpatient spoke treatment for his opiate use given his reports that he was injecting his Suboxone. He seems to be more receptive to treating his addiction. I discussed with him the importance of his behaviors and reestablishing trust. I discussed with him, when he is on swing bed, that he may have privileges to go outside but needs to demonstrate he is trustworthy to do so and we may limit who he can go outside with. He was receptive to this. (4) Dyspepsia: Current visit: Yes Status: Acute Much better, not sure if it is due to H2-mauro. If he remains asymptomatic probably can stop the ranitidine. Subjective Interval history since last seen: Lost IV access, PICC line placed. He is much calmer today. He acknowledges his problems with substance use and is open to possible outpatient treatment. He has not had any opiate cravings. His blood cultures from 2 days ago remain negative. I discussed with him the recommendations from ID for 14 days of IV antibiotics following negative blood culture which, if his more recent cultures remain sterile through tonight, would indicate treatment through May 16. He denies cough chest discomfort or stomach pain at this time. No recurrent fevers. Hemodynamically stable. Exam Narrative Exam Narrative: He remains afebrile. Emotionally is much calmer and better control of his emotions. He is in no respiratory distress. He has a little bit of erythema and tenderness at the site of his former IV in the left upper arm. P ICC site clean dry with no tenderness. Objective Objective Clinical Data: Vital Signs Temperature 37 C 05/04/19 12:00 Temperature Source Tympanic 05/04/19 12:00 Pulse 83 05/04/19 12:00 Pulse Rhythm Regular 05/04/19 08:33 Pulse 67 05/01/19 08:00 Respiratory Rate 12 05/04/19 12:00 Respiratory Effort Non-Labored 05/04/19 08:33 Respiratory Depth Normal 05/04/19 08:33 Respiratory Pattern Normal 05/04/19 08:33 Blood Pressure 117/81 05/04/19 12:00 Blood Pressure Mean 87 05/01/19 10:04 Blood Pressure Position Supine 05/01/19 10:24 Pulse Oximetry 99 05/04/19 12:00 Oxygen Delivery Method Room Air 05/04/19 12:00 Oxygen Flow Rate 0 05/04/19 12:00 Pain Level 3 05/04/19 03:50 Comment 05/04/19 12:00 Intake & Output 05/03/19 05/04/19 05/04/19 23:59 11:59 23:59 Intake Total 1344.000 / 1884.000 50 / 330 280 / 330 Output Total 675 / 1875 Balance 669.000 / 9.000 50 / 330 280 / 330 Weight 58.4 kg Intake: IV 1344.000 / 1394.000 50 / 50 Oral 280 / 280 Output: Urine 675 / 1875 Other: Urine Color Yellow Urine Appearance Clear Urine Odor None Voiding Methods Urinal Laboratory Results WBC 8.72 k/cumm (4.4-10.8) 05/02/19 11:05 RBC 4.17 m/cumm (4.50-6.00) L 05/02/19 11:05 Hgb 12.5 g/dL (13.5-17.5) L 05/02/19 11:05 Hct 37.8 % (40.0-50.0) L 05/02/19 11:05 MCV 90.6 fL (80-95) 05/02/19 11:05 MCH 30.0 pg (27.0-33.0) 05/02/19 11:05 MCHC 33.1 g/dL (32.0-36.0) 05/02/19 11:05 RDW 13.3 % (11.8-14.1) 05/02/19 11:05 Plt Count 222 x1000/uL (130-400) 05/02/19 11:05 MPV 11.4 fL (8.0-11.0) H 05/02/19 11:05 Immature Gran % 0.3 05/02/19 11:05 Neutrophils % 63.9 05/02/19 11:05 Band Neutrophils % 21.0 % 04/29/19 20:09 Lymphocytes % 28.4 05/02/19 11:05 Atypical Lymphs % 0 04/29/19 20:09 Monocytes % 4.2 05/02/19 11:05 Eosinophils % 3.0 05/02/19 11:05 Basophils % 0.2 05/02/19 11:05 Metamyelocytes % 2.0 % 04/29/19 20:09 Myelocytes % 1.0 % 04/29/19 13:45 Absolute Neutrophils 5.56 k/cumm (1.2-6.7) 05/02/19 11:05 Absolute Lymphocytes 2.48 k/cumm (1.2-3.4) 05/02/19 11:05 Absolute Monocytes 0.37 k/cumm (0.11-0.7) 05/02/19 11:05 Absolute Eosinophils 0.26 k/cumm (0.0-0.7) 05/02/19 11:05 Absolute Basophils 0.02 k/cumm (0.0-0.2) 05/02/19 11:05 Differential Comment Manual differential 04/29/19 20:09 RBC Morphology Normal 04/29/19 20:09 ESR 41 MM/HR (0-15) H 04/29/19 22:50 D-Dimer 1941 ng/mlFEU (<500) H 04/29/19 13:45 Sodium 143 mmol/L (136-145) 05/02/19 11:05 Potassium 4.0 mmol/L (3.5-5.1) 05/02/19 11:05 Chloride 105 mmol/L (98-107) 05/02/19 11:05 Carbon Dioxide 27.9 mmol/L (21.0-32.0) 05/02/19 11:05 Anion Gap 10.1 mmol/L (3-11) 05/02/19 11:05 BUN 12 mg/dL (7-18) D 05/02/19 11:05 Creatinine 0.82 mg/dL (0.70-1.30) 05/02/19 11:05 Estimated GFR/1.73 m2 >= 60.00 (mL/min/1.73m2) 05/02/19 11:05 Glucose 122 mg/dL (70-100) H 05/02/19 11:05 Lactate 1.1 mmol/l (0.6-1.4) 04/30/19 09:15 Calcium 9.2 mg/dL (8.5-10.1) 05/02/19 11:05 Magnesium 2.3 mg/dL (1.8-2.4) 04/30/19 09:15 Total Bilirubin 0.6 mg/dL (0.2-1.0) 04/29/19 13:45 AST 22 U/L (15-37) 04/29/19 13:45 ALT 19 U/L (12-78) 04/29/19 13:45 Alkaline Phosphatase 102 U/L (46-116) 04/29/19 13:45 Creatine Kinase 52 U/L (39-308) 04/30/19 09:15 Troponin I < 0.02 ng/mL (0.00-0.06) 04/29/19 13:45 C-Reactive Protein 11.30 mg/dL (0.0-0.3) H 04/29/19 22:50 Total Protein 7.8 g/dL (6.4-8.2) 04/29/19 13:45 Albumin 3.8 g/dL (3.4-5.0) 04/29/19 13:45 Procalcitonin > 200.0 ng/mL 04/29/19 22:50 Urine Color Yellow (Yellow) 04/29/19 17:49 Urine Clarity Clear 04/29/19 17:49 Urine pH 5.5 (5-8) 04/29/19 17:49 Ur Specific [employer] Mdl 1.025 (1.005-1.025) 04/29/19 17:49 Urine Protein >=300 mg/dL (Negative) H 04/29/19 17:49 Urine Ketones Negative mg/dL (Negative) 04/29/19 17:49 Urine Blood Negative (Negative) 04/29/19 17:49 Urine Nitrite Negative (Negative) 04/29/19 17:49 Urine Bilirubin Small (Negative) H 04/29/19 17:49 Urine Urobilinogen 0.2 EU/dL (Up TO 0.2) 04/29/19 17:49 Ur Leukocyte Esterase Negative (Negative) 04/29/19 17:49 Urine RBC Negative (0-2) 04/29/19 17:49 Urine WBC 0-2 HPF (0-5) 04/29/19 17:49 Ur Epithelial Cells Negative HPF (Negative) 04/29/19 17:49 Urine Crystals Negative HPF (Negative) 04/29/19 17:49 Urine Bacteria Moderate HPF (Negative) 04/29/19 17:49 Urine Casts 0-2 hyaline LPF (Negative) 04/29/19 17:49 Urine Mucus Heavy (Negative) 04/29/19 17:49 Urine Other Negative (Negative) 04/29/19 17:49 Ur Culture Indicated? Yes 04/29/19 17:49 Ur Random Creatinine 19.95 mg/dL 05/02/19 09:36 Ur Random Sodium 167 mmol/L 05/02/19 09:36 Urine Glucose Negative mg/dL (Negative) 04/29/19 17:49 Vancomycin Trough 15.7 ug/mL (10.0-20.0) 05/03/19 08:15 Urine Opiates Screen Negative (Negative) 05/03/19 20:18 Urine Methadone Screen Negative (Negative) 05/03/19 20:18 Ur Barbiturates Screen Negative (Negative) 05/03/19 20:18 Ur Tricyclics Screen Negative (Negative) 05/03/19 20:18 Ur Amphetamines Screen Negative (Negative) 05/03/19 20:18 U Benzodiazepines Scrn Negative (Negative) 05/03/19 20:18 Urine Cocaine Screen Positive (Negative) 05/03/19 20:18 Ur THC Screen Negative (Negative) 05/03/19 20:18 Ethyl Alcohol < 3.0 mg/dL (<3) 04/29/19 13:45 HIV 1&2 Ag/Ab, 4th Gen Negative (NEGAT) 05/02/19 09:36
[2019-05-05 07:11] LABS: Platelet Count 257 x1000/uL (130-400)
[2019-05-05 07:19] VITALS: BP 112/76; PULSE 74; RESP 16; TEMP 36.4; O2SAT 99
[2019-05-05] MEDS: Buprenorphine/Naloxone 8 mg/2 mg FILM 1 EACH SL (08:21)
[2019-05-05] MEDS: Nicotine 21 MG/24 HR PATCH TD (08:22)
--- NOTE | 2019-05-05 08:23 | CMPROGNOTE_ITS ---
- If Service Date Differs Date of service: 05/05/19 Time of Service: 08:22 Care Management Progress Note S/O: Bruce's status was changed from acute to SB1 today. CM reviewed SB contract with [employer], answered questions and obtained signature. Copies given to Bruce, placed in chart and CM file. Bruce expressed that he is really happy with the change in status and wants to spend time with his daughter outside tomorrow since it is Father's Day. A: Bruce is a 33 year old young man admitted to [facility] on 04/29/19 with SIRS. Bruce has a long history of substance abuse and has been using crack cocaine recently while still receiving Suboxone. P: Bruce remains acute level of care. When he is no longer acute, a swing bed option may be considered. When discharged Bruce may enter a drug treatment program directly or return home with no services. CM will continue to support patient and discharge planning process.
[2019-05-05] MEDS: Normal Saline 1,000 ML 30 ML IV (09:20)
[2019-05-05 11:21] VITALS: BP 115/78; PULSE 79; RESP 15; TEMP 37.4; O2SAT 97
[2019-05-05 11:54] LABS: Abs Immature Grans 0.12 k/cumm (0.0-0.09); Absolute Basophil Count 0.05 k/cumm (0.0-0.2); Absolute Eosinophil Count 0.29 k/cumm (0.0-0.7); Absolute Lymphocyte Count 2.82 k/cumm (1.2-3.4); Absolute Monocyte Count 0.78 k/cumm (0.11-0.7); Absolute Neutrophil Count 4.58 k/cumm (1.2-6.7); Basophils % 0.6; Eosinophils % 3.4; HCT 40.1 % (40.0-50.0); HGB 13.2 g/dL (13.5-17.5); Immature Grans % 1.4; Lymphocytes % 32.6; Mean Corp. HGB Concentration 32.9 g/dL (32.0-36.0); Mean Corpuscular Volume 91.1 fL (80-95); Mean Platelet Volume 11.2 fL (8.0-11.0); Platelet Count 257 x1000/uL (130-400); RBC Distribution Width 13.2 % (11.8-14.1); White Blood Cell Count 8.64 k/cumm (4.4-10.8)
[2019-05-05 11:56] LABS: Anion Gap 7.5 mmol/L (3-11); BUN 21 mg/dL (7-18); C-Reactive Protein 2.47 mg/dL (0.0-0.3); CO2 28.5 mmol/L (21.0-32.0); CREATININE 0.77 mg/dL (0.70-1.30); Calcium 9.5 mg/dL (8.5-10.1); Chloride 102 mmol/L (98-107); Glucose 114 mg/dL (70-100); Potassium 4.2 mmol/L (3.5-5.1); Sodium 138 mmol/L (136-145)
[2019-05-05 12:17] LABS: Procalcitonin 4.8 ng/mL
[2019-05-05] MEDS: LORazepam 0.5 MG TAB PO (15:08)
--- NOTE | 2019-05-05 15:53 | W.PM.DS.N ---
Date of service: 05/05/19 Time of Service: 15:53 DS: Diagnosis Discharge Diagnosis (1) Sepsis: Status: Resolved (2) Acute kidney injury: Status: Resolved (3) Opioid use disorder: Status: Acute (4) Substance use disorder: Status: Acute (5) Dyspepsia: Status: Acute (6) MSSA bacteremia: Status: Acute (7) Smoker: Status: Acute Discharge Plan Disposition Patient Disposition: [facility] SWING BED LEVEL 1 Condition: Stable Discharge Details Reason For Visit: SEPSIS Admit Date/Time: 04/29/19 16:32 Admit Provider: Russ Irizarry Attending Provider: Russ Irizarry Primary Care Provider: None,None Hospital Course Hospital Course: Mr Tapia is a 33 year old male with PMHx of IV drug abuse, previously on suboxone therapy, who was admitted to [facility] on 04/29/19 with sepsis due to MSSA bacteremia after self-injection of crack cocaine and suboxone. 1 out of 4 blood culture bottles done on 04/29/19 grew MSSA. His repeat cultures done on 05/02/19 are negative to date. There is no evidence of endocarditis on transthoracic echo done on 04/30/19. The patient missed several doses of IV antibiotics due to unreliable IV access, and effectively he is now on day 2 of 14 of IV antibiotics (oxacillin) as of today via a midline inserted on 05/04/19. He is being transferred into Swing Bed Level 1 status today until completion of his antibiotics on 05/18/19. Patient verbalizes understanding that he may not access his midline and is under behavioral contract permitting [facility] to randomly do drug tests to his urine. Home Meds and New Rx's Prescriptions: New acetaminophen [Tylenol] 325 mg Tablet 650 mg PO Q4H PRN PRNQty: 0 RF: 0 Nicotrol 10 mg Cartridge 1 cartridge Inhalation Q2H PRN PRNQty: 0 RF: 0 lorazepam 0.5 mg Tablet 0.5 mg PO TID PRN PRNQty: 0 RF: 0 nicotine 21 mg/24 hr Patch 24 Hour 21 mg Transdermal DAILY Qty: 0 RF: 0 Maryam Protect Cream 1 applic topical PRN PRNQty: 0 RF: 0 ranitidine HCl 150 mg Tablet 150 mg PO BID Qty: 0 RF: 0 Continued buprenorphine-naloxone [Suboxone] 8-2 mg Film 1 film buccal BID RF: 0 Discharge Instructions Activity:: Activity as Tolerated Equipment/Supplies:: No Equipment Needed Diet:: Normal Diet Discharge Orders Discharge Orders: Discharge Order (Routine); Ordered 05/05/19 Ordered By: Courtney Zapata Exam Narrative Exam Narrative: General: male, appears older than his bam, sitting up in bed, A&Ox3 HEENT: EOMI, MMM Heart: RRR, no m/r/g Lungs: CTAB GI: abdomen is soft, nontender, nondistended Extremities; midline in RUE; no e/c/c BLE's DS: Data Vitals/I&O Vitals and I&O: Vital Signs Temperature 37.4 C 05/05/19 11:21 Temperature Source Tympanic 05/05/19 11:21 Pulse 79 05/05/19 11:21 Pulse Rhythm Regular 05/05/19 12:05 Pulse 67 05/01/19 08:00 Respiratory Rate 15 05/05/19 11:21 Respiratory Effort 05/05/19 12:05 Respiratory Depth Normal 05/05/19 12:05 Respiratory Pattern Normal 05/05/19 12:05 Blood Pressure 115/78 05/05/19 11:21 Blood Pressure Mean 87 05/01/19 10:04 Blood Pressure Position Supine 05/01/19 10:24 Pulse Oximetry 97 05/05/19 11:21 Oxygen Delivery Method Room Air 05/05/19 11:21 Oxygen Flow Rate 0 05/05/19 11:21 Pain Level 3 05/04/19 03:50 Comment 05/04/19 12:00 Intake & Output 05/04/19 05/05/19 05/05/19 23:59 11:59 23:59 Intake Total 1288.5 / 1348.5 856.5 / 1456.5 600 / 1456.5 Output Total 1310 / 1310 1000 / 1000 Balance -21.5 / 38.5 -143.5 / 456.5 600 / 456.5 Weight 58.4 kg 58.8 kg Intake: IV 528.5 / 588.5 496.5 / 496.5 Oral 760 / 760 360 / 960 600 / 960 Output: Urine 1310 / 1310 1000 / 1000 Other: Urine Color Yellow Yellow Urine Appearance Clear Clear Clear Urine Odor None None Voiding Methods Urinal Urinal Completed studies during hospitalization [Text1]: CXR 04/29/19: Normal chest. CT head 04/29/19: Normal noncontrast Cranial CT. Echo 04/30/19: 1. Left ventricle: The cavity size was normal. Systolic function was hyperdynamic. The estimated ejection fraction was 65-70%. The tissue Doppler parameters were normal. There was no evidence of elevated ventricular filling pressure by Doppler parameters. 2. Mitral valve: There was mild regurgitation. 3. Right ventricle: The cavity size was normal. Wall thickness was normal. Systolic function was normal. 4. Atrial septum: No defect or patent foramen ovale was identified. 5. Pulmonary arteries: Pulmonary systolic pressure was in the range of 25mm Hg to 35mm Hg. 6. Inferior vena cava: The vessel was patent and normal in size. The respirophasic diameter changes were in the normal range (greater than or equal to 50%), consistent with normal central venous pressure. Labs on day of discharge: Labs from last 24 hours 05/05/19 05/05/19 05/05/19 06:32 06:32 06:32 WBC 8.64 RBC 4.40 L Hgb 13.2 L Hct 40.1 MCV 91.1 MCH 30.0 MCHC 32.9 RDW 13.2 Plt Count 257 MPV 11.2 H Immature Gran % 1.4 Neutrophils % 53.0 Lymphocytes % 32.6 Monocytes % 9.0 Eosinophils % 3.4 Basophils % 0.6 Absolute Neutrophils 4.58 Absolute Lymphocytes 2.82 Absolute Monocytes 0.78 H Absolute Eosinophils 0.29 Absolute Basophils 0.05 Sodium 138 Potassium 4.2 Chloride 102 Carbon Dioxide 28.5 Anion Gap 7.5 BUN 21 H D Creatinine 0.77 Estimated GFR/1.73 m2 >= 60.00 Glucose 114 H Calcium 9.5 Magnesium 2.0 C-Reactive Protein 2.47 H Procalcitonin 4.8 05/05/19 06:32 WBC RBC Hgb Hct MCV MCH MCHC RDW Plt Count 257 MPV Immature Gran % Neutrophils % Lymphocytes % Monocytes % Eosinophils % Basophils % Absolute Neutrophils Absolute Lymphocytes Absolute Monocytes Absolute Eosinophils Absolute Basophils Sodium Potassium Chloride Carbon Dioxide Anion Gap BUN Creatinine Estimated GFR/1.73 m2 Glucose Calcium Magnesium C-Reactive Protein Procalcitonin Preliminary micro results at discharge 05/02/19 11:05 Blood Culture - Preliminary Blood NO GROWTH 72 HOURS PFSH Medical History Smoker (Acute) Opioid use disorder (Acute) Crack cocaine poisoning (Acute) Acute kidney injury (Resolved) SIRS (systemic inflammatory response syndrome) (Acute) IV drug abuse (Acute) Surgical History No significant past surgical history (Acute) Social History Smoking/Tobacco Use Status: Current every day Tobacco Type: cigarettes Quit status: not considering quitting Alcohol Intake: never Drug use: Daily Substance use type: crack/cocaine Counseling given: Yes Details: 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 Stinson at [facility] Do you feel safe at home: Yes Do you feel safe in your relationship?: Yes Additional Social history: Grew up in [place]. Living back with mother after living in [facility] for years. 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 She is currently hospitalized in [facility] They have a 7-year-old daughter living with him who he still cares for
--- NOTE | 2019-05-05 16:02 | DSE_ITS ---
Date of service: 05/05/19 Time of Service: 15:53 DS: Diagnosis Discharge Diagnosis (1) Sepsis: Status: Resolved (2) Acute kidney injury: Status: Resolved (3) Opioid use disorder: Status: Acute (4) Substance use disorder: Status: Acute (5) Dyspepsia: Status: Acute (6) MSSA bacteremia: Status: Acute (7) Smoker: Status: Acute Discharge Plan Disposition Patient Disposition: [facility] SWING BED LEVEL 1 Condition: Stable Discharge Details Reason For Visit: SEPSIS Admit Date/Time: 04/29/19 16:32 Admit Provider: Russ Irizarry Attending Provider: Russ Irizarry Primary Care Provider: None,None Hospital Course Hospital Course: Mr Tapia is a 33 year old male with PMHx of IV drug abuse, previously on suboxone therapy, who was admitted to [facility] on 04/29/19 with sepsis due to MSSA bacteremia after self-injection of crack cocaine and suboxone. 1 out of 4 blood culture bottles done on 04/29/19 grew MSSA. His repeat cultures done on 05/02/19 are negative to date. There is no evidence of endocarditis on transthoracic echo done on 04/30/19. The patient missed several doses of IV antibiotics due to unreliable IV access, and effectively he is now on day 2 of 14 of IV antibiotics (oxacillin) as of today via a midline inserted on 05/04/19. He is being transferred into Swing Bed Level 1 status today until completion of his antibiotics on 05/18/19. Patient verbalizes understanding that he may not access his midline and is under behavioral contract permitting [facility] to randomly do drug tests to his urine. Home Meds and New Rx's Prescriptions: New acetaminophen [Tylenol] 325 mg Tablet 650 mg PO Q4H PRN PRNQty: 0 RF: 0 Nicotrol 10 mg Cartridge 1 cartridge Inhalation Q2H PRN PRNQty: 0 RF: 0 lorazepam 0.5 mg Tablet 0.5 mg PO TID PRN PRNQty: 0 RF: 0 nicotine 21 mg/24 hr Patch 24 Hour 21 mg Transdermal DAILY Qty: 0 RF: 0 Maryam Protect Cream 1 applic topical PRN PRNQty: 0 RF: 0 ranitidine HCl 150 mg Tablet 150 mg PO BID Qty: 0 RF: 0 Continued buprenorphine-naloxone [Suboxone] 8-2 mg Film 1 film buccal BID RF: 0 Discharge Instructions Activity:: Activity as Tolerated Equipment/Supplies:: No Equipment Needed Diet:: Normal Diet Discharge Orders Discharge Orders: Discharge Order (Routine); Ordered 05/05/19 Ordered By: Courtney Zapata Exam Narrative Exam Narrative: General: male, appears older than his bam, sitting up in bed, A&Ox3 HEENT: EOMI, MMM Heart: RRR, no m/r/g Lungs: CTAB GI: abdomen is soft, nontender, nondistended Extremities; midline in RUE; no e/c/c BLE's DS: Data Vitals/I&O Vitals and I&O: Vital Signs Temperature 37.4 C 05/05/19 11:21 Temperature Source Tympanic 05/05/19 11:21 Pulse 79 05/05/19 11:21 Pulse Rhythm Regular 05/05/19 12:05 Pulse 67 05/01/19 08:00 Respiratory Rate 15 05/05/19 11:21 Respiratory Effort 05/05/19 12:05 Respiratory Depth Normal 05/05/19 12:05 Respiratory Pattern Normal 05/05/19 12:05 Blood Pressure 115/78 05/05/19 11:21 Blood Pressure Mean 87 05/01/19 10:04 Blood Pressure Position Supine 05/01/19 10:24 Pulse Oximetry 97 05/05/19 11:21 Oxygen Delivery Method Room Air 05/05/19 11:21 Oxygen Flow Rate 0 05/05/19 11:21 Pain Level 3 05/04/19 03:50 Comment 05/04/19 12:00 Intake & Output 05/04/19 05/05/19 05/05/19 23:59 11:59 23:59 Intake Total 1288.5 / 1348.5 856.5 / 1456.5 600 / 1456.5 Output Total 1310 / 1310 1000 / 1000 Balance -21.5 / 38.5 -143.5 / 456.5 600 / 456.5 Weight 58.4 kg 58.8 kg Intake: IV 528.5 / 588.5 496.5 / 496.5 Oral 760 / 760 360 / 960 600 / 960 Output: Urine 1310 / 1310 1000 / 1000 Other: Urine Color Yellow Yellow Urine Appearance Clear Clear Clear Urine Odor None None Voiding Methods Urinal Urinal Completed studies during hospitalization [Text1]: CXR 04/29/19: Normal chest. CT head 04/29/19: Normal noncontrast Cranial CT. Echo 04/30/19: 1. Left ventricle: The cavity size was normal. Systolic function was hyperdynamic. The estimated ejection fraction was 65-70%. The tissue Doppler parameters were normal. There was no evidence of elevated ventricular filling pressure by Doppler parameters. 2. Mitral valve: There was mild regurgitation. 3. Right ventricle: The cavity size was normal. Wall thickness was normal. Systolic function was normal. 4. Atrial septum: No defect or patent foramen ovale was identified. 5. Pulmonary arteries: Pulmonary systolic pressure was in the range of 25mm Hg to 35mm Hg. 6. Inferior vena cava: The vessel was patent and normal in size. The respirophasic diameter changes were in the normal range (greater than or equal to 50%), consistent with normal central venous pressure. Labs on day of discharge: Labs from last 24 hours 05/05/19 05/05/19 05/05/19 06:32 06:32 06:32 WBC 8.64 RBC 4.40 L Hgb 13.2 L Hct 40.1 MCV 91.1 MCH 30.0 MCHC 32.9 RDW 13.2 Plt Count 257 MPV 11.2 H Immature Gran % 1.4 Neutrophils % 53.0 Lymphocytes % 32.6 Monocytes % 9.0 Eosinophils % 3.4 Basophils % 0.6 Absolute Neutrophils 4.58 Absolute Lymphocytes 2.82 Absolute Monocytes 0.78 H Absolute Eosinophils 0.29 Absolute Basophils 0.05 Sodium 138 Potassium 4.2 Chloride 102 Carbon Dioxide 28.5 Anion Gap 7.5 BUN 21 H D Creatinine 0.77 Estimated GFR/1.73 m2 >= 60.00 Glucose 114 H Calcium 9.5 Magnesium 2.0 C-Reactive Protein 2.47 H Procalcitonin 4.8 05/05/19 06:32 WBC RBC Hgb Hct MCV MCH MCHC RDW Plt Count 257 MPV Immature Gran % Neutrophils % Lymphocytes % Monocytes % Eosinophils % Basophils % Absolute Neutrophils Absolute Lymphocytes Absolute Monocytes Absolute Eosinophils Absolute Basophils Sodium Potassium Chloride Carbon Dioxide Anion Gap BUN Creatinine Estimated GFR/1.73 m2 Glucose Calcium Magnesium C-Reactive Protein Procalcitonin Preliminary micro results at discharge 05/02/19 11:05 Blood Culture - Preliminary Blood NO GROWTH 72 HOURS PFSH Medical History Smoker (Acute) Opioid use disorder (Acute) Crack cocaine poisoning (Acute) Acute kidney injury (Resolved) SIRS (systemic inflammatory response syndrome) (Acute) IV drug abuse (Acute) Surgical History No significant past surgical history (Acute) Social History Smoking/Tobacco Use Status: Current every day Tobacco Type: cigarettes Quit status: not considering quitting Alcohol Intake: never Drug use: Daily Substance use type: crack/cocaine Counseling given: Yes Details: 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 Stinson at [facility] Do you feel safe at home: Yes Do you feel safe in your relationship?: Yes Additional Social history: Grew up in [place]. Living back with mother after living in [facility] for years. 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 She is currently hospitalized in [facility] They have a 7-year-old daughter living with him who he still cares for
[2019-05-05 16:11] VITALS: BP 130/87; PULSE 84; RESP 17; TEMP 36.7; O2SAT 97
== END 2019-05-05 16:03 | disposition swing bed (61) | DRG 917 ==
LOC: ER 16:48 → MS 17:23 → ICU 04-30 01:19 → MS 05-01 10:04 → ICU 05-01 10:10 → MS 05-04 15:41 → ICU 05-06 06:50
PROVIDERS: General Practice; Internal Medicine; Admitting Provider Family Medicine; Emergency Provider Physician Assistant; Visit Provider Internal Medicine
DX: T40.5X1A Poisoning by cocaine, accidental (unintentional), initial encounter (principal); A41.01 Sepsis due to Methicillin susceptible Staphylococcus aureus; R65.20 Severe sepsis without septic shock; N17.9 Acute kidney failure, unspecified; F11.20 Opioid dependence, uncomplicated; F14.90 Cocaine use, unspecified, uncomplicated; F17.210 Nicotine dependence, cigarettes, uncomplicated; R05 Cough; Z78.9 Other specified health status; R10.13 Epigastric pain; F19.90 Other psychoactive substance use, unspecified, uncomplicated
CPT/HCPCS: 36415; 36569; 80048; 80053; 80307; 82550; 84145; 85652; 87040; 87077; 87389; 93005; 93306; 96361; 96365; 99222; 99232; 99233; 99239; 99253; 99285; J1650; NC; 70450; 71045; 80202; 80320; 81003; 81015; 82565; 83605; 83735; 84300; 84484; 85025; 85049; 85379; 86140; 87086; 87186; 93010; J2060; J2543; J2700; J3475

== ENCOUNTER 2019-05-05 16:08 | Inpatient (IN) | payer MEDICAID, SELFPAY ==
--- NOTE | 2019-05-05 16:09 | W.PM.HP.N ---
Date of service: 05/05/19 Time of Service: 16:10 Assessment and Plan (1) Sepsis: Current visit: No Status: Resolved due to MSSA bacteremia in setting of IVD use. As below (2) MSSA bacteremia: Current visit: No Status: Acute To complete oxacillin on 05/18/19 via midline inserted 05/04/19. Patient is under behavioral plan that he may not access the midline and verbalizes understanding of this to me. (3) Dyspepsia: Current visit: No Status: Acute Continue ranitidine (4) Substance use disorder: Current visit: No Status: Acute Continue suboxone (5) Smoker: Current visit: No Status: Acute Provide nicotine replacement (6) Discharge planning issues: Current visit: No Status: Acute Full code End date of antibiotics is planned for 05/18/19 (7) DVT prophylaxis: Current visit: No Status: Acute Not indicated in a 33 year old ambulatory male History of Present Illness Chief Complaint: not feeling well Narrative: Mr Tapia is a 33 year old male with PMHx of IV drug abuse, previously on suboxone therapy, who was admitted to [facility] on 04/29/19 with sepsis due to MSSA bacteremia after self-injection of crack cocaine and suboxone. 1 out of 4 blood culture bottles done on 04/29/19 grew MSSA. His repeat cultures done on 05/02/19 are negative to date. There is no evidence of endocarditis on transthoracic echo done on 04/30/19. The patient missed several doses of IV antibiotics due to unreliable IV access, and effectively he is now on day 2 of 14 of IV antibiotics (oxacillin) as of today via a midline inserted on 05/04/19. He is being transferred into Swing Bed Level 1 status today until completion of his antibiotics on 05/18/19. Patient verbalizes understanding that he may not access his midline and is under behavioral contract permitting [facility] to randomly do drug tests to his urine. Review of Systems Review of Systems 12 systems reviewed. Pertinent positives and negatives are as per [facility] Medical History Smoker (Acute) Opioid use disorder (Acute) Crack cocaine poisoning (Acute) Acute kidney injury (Resolved) SIRS (systemic inflammatory response syndrome) (Acute) IV drug abuse (Acute) Surgical History No significant past surgical history (Acute) Social History Smoking/Tobacco Use Status: Current every day Tobacco Type: cigarettes Quit status: not considering quitting Alcohol Intake: never Drug use: Daily Substance use type: crack/cocaine Counseling given: Yes Details: 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 Stinson at [facility] Do you feel safe at home: Yes Do you feel safe in your relationship?: Yes Additional Social history: Grew up in [place]. Living back with mother after living in [facility] for years. Formally had a successful [employer], lost it due to substance use disorder , but as also has severe complications from injection drug use. She is currently hospitalized in [facility] They have a 7-year-old daughter living with him who he still cares for Meds Home Medications Medication Instructions Recorded Confirmed Type buprenorphine-naloxone [Suboxone] 1 film BUCCAL BID 04/29/19 04/29/19 History acetaminophen [Tylenol] 650 mg PO Q4H PRN PRN #0 tab 05/05/19 Rx dimethicone-zinc oxide [Maryam 1 applic TOPICAL PRN PRN #0 gm 05/05/19 Rx Protect] lorazepam 0.5 mg PO TID PRN PRN #0 tab 05/05/19 Rx nicotine 21 mg TRANSDERMAL DAILY #0 ea 05/05/19 Rx nicotine [Nicotrol] 1 cartridge INHALATION Q2H PRN PRN 05/05/19 Rx #0 ea ranitidine HCl 150 mg PO BID #0 tab 05/05/19 Rx Allergies Allergy/AdvReac Type Severity Reaction Status Date / Time aspirin Allergy Mild unknown Unverified 04/29/19 13:05 Exam Narrative Exam Narrative: General: Very pleasant male, appearing older than his stated age, A&OX3, sitting up comfortably in bed Neurological: A&OX3, no focal deficits Psychiatric: appropriate speech pattern/content Skin: tattoo on back visible; otherwise, intact HEENT: atraumatic, normocephalic, EOMI, MMM, no goiter or JVD Cardiovascular: RRR, no m/r/g Lungs: CTAB Gastrointestinal: abdomen is soft, nontender, nondistended Extremities: no e/c/c BLE's; midline in RUE Results Imaging Additional studies: see d/c summary from same date
--- NOTE | 2019-05-05 16:15 | HPE_ITS ---
Date of service: 05/05/19 Time of Service: 16:10 Assessment and Plan (1) Sepsis: Current visit: No Status: Resolved due to MSSA bacteremia in setting of IVD use. As below (2) MSSA bacteremia: Current visit: No Status: Acute To complete oxacillin on 05/18/19 via midline inserted 05/04/19. Patient is under behavioral plan that he may not access the midline and verbalizes understanding of this to me. (3) Dyspepsia: Current visit: No Status: Acute Continue ranitidine (4) Substance use disorder: Current visit: No Status: Acute Continue suboxone (5) Smoker: Current visit: No Status: Acute Provide nicotine replacement (6) Discharge planning issues: Current visit: No Status: Acute Full code End date of antibiotics is planned for 05/18/19 (7) DVT prophylaxis: Current visit: No Status: Acute Not indicated in a 33 year old ambulatory male History of Present Illness Chief Complaint: not feeling well Narrative: Mr Tapia is a 33 year old male with PMHx of IV drug abuse, previously on suboxone therapy, who was admitted to [facility] on 04/29/19 with sepsis due to MSSA bacteremia after self-injection of crack cocaine and suboxone. 1 out of 4 blood culture bottles done on 04/29/19 grew MSSA. His repeat cultures done on 05/02/19 are negative to date. There is no evidence of endocarditis on transthoracic echo done on 04/30/19. The patient missed several doses of IV antibiotics due to unreliable IV access, and effectively he is now on day 2 of 14 of IV antibiotics (oxacillin) as of today via a midline inserted on 05/04/19. He is being transferred into Swing Bed Level 1 status today until completion of his antibiotics on 05/18/19. Patient verbalizes understanding that he may not access his midline and is under behavioral contract permitting [facility] to randomly do drug tests to his urine. Review of Systems Review of Systems 12 systems reviewed. Pertinent positives and negatives are as per [facility] Medical History Smoker (Acute) Opioid use disorder (Acute) Crack cocaine poisoning (Acute) Acute kidney injury (Resolved) SIRS (systemic inflammatory response syndrome) (Acute) IV drug abuse (Acute) Surgical History No significant past surgical history (Acute) Social History Smoking/Tobacco Use Status: Current every day Tobacco Type: cigarettes Quit status: not considering quitting Alcohol Intake: never Drug use: Daily Substance use type: crack/cocaine Counseling given: Yes Details: 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 Stinson at [facility] Do you feel safe at home: Yes Do you feel safe in your relationship?: Yes Additional Social history: Grew up in [place]. Living back with mother after living in [facility] for years. Formally had a successful [employer], lost it due to substance use disorder , but as also has severe complications from injection drug use. She is currently hospitalized in [facility] They have a 7-year-old daughter living with him who he still cares for Meds Home Medications Medication Instructions Recorded Confirmed Type buprenorphine-naloxone [Suboxone] 1 film BUCCAL BID 04/29/19 04/29/19 History acetaminophen [Tylenol] 650 mg PO Q4H PRN PRN #0 tab 05/05/19 Rx dimethicone-zinc oxide [Maryam 1 applic TOPICAL PRN PRN #0 gm 05/05/19 Rx Protect] lorazepam 0.5 mg PO TID PRN PRN #0 tab 05/05/19 Rx nicotine 21 mg TRANSDERMAL DAILY #0 ea 05/05/19 Rx nicotine [Nicotrol] 1 cartridge INHALATION Q2H PRN PRN 05/05/19 Rx #0 ea ranitidine HCl 150 mg PO BID #0 tab 05/05/19 Rx Allergies Allergy/AdvReac Type Severity Reaction Status Date / Time aspirin Allergy Mild unknown Unverified 04/29/19 13:05 Exam Narrative Exam Narrative: General: Very pleasant male, appearing older than his stated age, A&OX3, sitting up comfortably in bed Neurological: A&OX3, no focal deficits Psychiatric: appropriate speech pattern/content Skin: tattoo on back visible; otherwise, intact HEENT: atraumatic, normocephalic, EOMI, MMM, no goiter or JVD Cardiovascular: RRR, no m/r/g Lungs: CTAB Gastrointestinal: abdomen is soft, nontender, nondistended Extremities: no e/c/c BLE's; midline in RUE Results Imaging Additional studies: see d/c summary from same date
[2019-05-05] MEDS: Buprenorphine/Naloxone 8 mg/2 mg FILM 1 EACH SL (17:29)
--- NOTE | 2019-05-05 18:10 | NUR.NOTE ---
Nursing Note: patient is now on swing bed, rules for leaving facility outlined for patient and he agrees to the terms, he leaves after dinner, midline secured and marked to look for tampering
[2019-05-05] MEDS: Normal Saline Flush 10 ML SYR IVP (20:53)
[2019-05-05] MEDS: Enoxaparin 40 MG/0.4 ML SYR SC (21:47)
[2019-05-05 22:00] VITALS: BP 130/70; PULSE 80; RESP 16; TEMP 36.8; O2SAT 96
[2019-05-06 03:40] VITALS: BP 117/75; PULSE 74; RESP 14; TEMP 36.2; O2SAT 99
[2019-05-06] MEDS: Buprenorphine/Naloxone 8 mg/2 mg FILM 1 EACH SL ×2 (05:26→17:04)
[2019-05-06 07:20] VITALS: BP 115/82; PULSE 76; RESP 18; TEMP 36.7; O2SAT 97
[2019-05-06 07:38] LABS: *AMPHETAMINES SCREEN URINE Negative (Negative); *BARBITURATES SCREEN URINE Negative (Negative); *BENZODIAZEPINES SCREEN URINE Negative (Negative); Cannabinoids THC Negative (Negative); Cocaine Screen,Urine Negative (Negative); METHADONE URINE SCREEN Negative (Negative); OPIATES URINE SCREEN Negative (Negative)
[2019-05-06 07:40] LABS: Tricyclic Antidepressants Negative (Negative)
[2019-05-06] MEDS: Nicotine 21 MG/24 HR PATCH TD (08:43)
[2019-05-06] MEDS: Normal Saline Flush 10 ML SYR IVP ×4 (09:09→20:38)
[2019-05-06] MEDS: LORazepam 0.5 MG TAB PO ×2 (09:26→16:38)
--- NOTE | 2019-05-06 10:16 | CMSA_ITS ---
- If Service Date Differs Date of service: 05/06/19 Time of Service: 10:16 SB Psychosocial/Act.Assessment - Hospital Admission Admission Date: 04/29/19 Admission From:: ED - Swing Bed Admission Swing Bed Admit Date:: 05/05/19 Swing Bed Level of Care: Level 1/SNF - Social Supports PREVIOUS FUNCTIONAL STATUS/SOCIAL/FAMILY SUPPORTS:: Bruce lives with his Mom, Jaclyn, his Bob and his 7 year old daughter Jennifer. In addition to the family in his household, Bruce has a sister Shahana. He states that his family is very supportive. Bruce is independent with all ADLs, driving etc. He is not currently employed. - Prior to Admission Living Arrangements/Environment Prior to Admission:: Bruce lives with his mother and his daughter and his Bob - Education Highest Grade Completed:: 9th Where did you attend School:: [employer] - Work History Employment Status:: Currently unemployed. 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 - Hewlett: No 's Spouse: No - Benefits Financial: Medicaid - Mosque Active Sabianist Member:: No - Advance Directives for Healthcare If no AD, do you want more information:: No - Interests Table Games:: pool Music:: Country and some rap Other Activities:: loves motorcycles - Present Functional Status Physical Abilities:: independent Cognitive:: good Communication:: good Behavior:: mostly appropriate - Medical History PAST MEDICAL HISTORY/PAST SURGICAL HISTORY:: Medical History: IV drug abuse (Acute). Surgical History General Health:: good - Admission Data Discharge Plan:: Discharge home or to a substance abuse treatment program Mission Systems Engineer: Annabelle Collazo Date Assessment was completed:: 05/06/19
--- NOTE | 2019-05-06 10:17 | CM.SWINGPC ---
- If Service Date Differs Date of service: 05/06/19 Time of Service: 10:17 Swingbed Plan of Care Plan of care: SWING BED PROGRAM ACTIVITIES/DISCHARGE PLAN OF CARE ACTIVITIES PLAN Date: 05/06/19 Identified Need: Bruce enjoys visiting with friends and family and going for car rides.He enjoys playing video games and watching TV. Intervention/Plan:Bruce has been allowed to leave the hospital with family and friends between doses of antibiotics. he does so several times a day. he uses his personal laptop computer to play games and watches TV. Initials [facility] DISCHARGE PLAN Date:05/06/19 Identified Need: Bruce will be discharged home with no services when ready. He might benefit from a substance abuse rehab program after discharge. Intervention/Plan: Bruce has been given information about programs in the area. He has seen a high school assistant football coach several times while inpatient. Initials
[2019-05-06 16:02] VITALS: BP 127/81; PULSE 99; RESP 18; TEMP 36.6; O2SAT 98
--- NOTE | 2019-05-06 17:00 | NUR.NOTE ---
Nursing Note: lungs are clear and diminished this afternoon, no changes in hr, positive BS BM today reported by the patient while off unit, no muscular or neurological changes
[2019-05-07] MEDS: Normal Saline 500 ML 30 ML IV (00:34)
[2019-05-07 01:00] VITALS: BP 122/80; PULSE 70; RESP 18; TEMP 36; O2SAT 99
[2019-05-07] MEDS: Buprenorphine/Naloxone 8 mg/2 mg FILM 1 EACH SL ×2 (06:11→18:23)
[2019-05-07 08:00] VITALS: BP 136/79; PULSE 86; RESP 18; TEMP 36.5; O2SAT 95
[2019-05-07] MEDS: Normal Saline Flush 10 ML SYR IVP ×3 (08:04→16:03)
[2019-05-07] MEDS: LORazepam 0.5 MG TAB PO ×2 (08:11→18:25)
[2019-05-07 16:08] VITALS: BP 127/84; PULSE 91; RESP 19; TEMP 37.1; O2SAT 97
[2019-05-07 20:51] VITALS: BP 120/85; PULSE 69; RESP 14; TEMP 36.2; O2SAT 96
[2019-05-08] MEDS: Normal Saline Flush 10 ML SYR IVP ×5 (00:15→20:12)
[2019-05-08] MEDS: Buprenorphine/Naloxone 8 mg/2 mg FILM 1 EACH SL ×2 (06:21→17:19)
[2019-05-08 07:04] LABS: Platelet Count 305 x1000/uL (130-400)
[2019-05-08] MEDS: LORazepam 0.5 MG TAB PO ×2 (08:27→17:19)
[2019-05-08 10:03] VITALS: BP 121/80; PULSE 82; RESP 18; TEMP 36.1; O2SAT 96
--- NOTE | 2019-05-08 10:45 | PHARADMIT ---
Addendum entered by Cherie Serra 05/14/19 15:03: oxacillin continues through 05/18 VS okay, no labs no med changes watch LFTs Addendum entered by Balwinder Cedeno III 05/12/19 14:18: No VS Labs-OK WNL no changes Addendum entered by Balwinder Cedeno III 05/11/19 14:56: SWING BED PATIENT ON OXACILLIN 2GM IV Q4HRS THRU 05/18 VS-OK No LABS Wgt-58.9 kg No BMs noted No med changes. On Suboxone Original Note: Pharmacy Note Subjective iv oxacillin for 2 weeks est. end date 05/18/19 due to missed doses prior to midline placement Objective VS-okay no labs Assessment no med changes Plan continue to watch VS labs and for med changes Swingbed pt for IV abx the following is from the pts account prior to swinging LUCIAN OROZCO Male : 1985 Emr# [id number] 05/02/19 14:37 - Pharmacy Review by Cherie Serra Acct Num: [id number] : 1985 Patient Age: 33 Addendum entered by Balwinder Cedeno III 05/03/19 15:03: Pharmacy Note Subjective MSSA SEPTICEMIA: On Oxacillin 2gm IV q4h. hopeful that 14 day course will be suffient, call to [facility] ID. Nursing concerned regarding multiple visitors , watch for UDS in future. Objective VS-OK No Labs, Assessment Vanco trough(15.2) then dc'd along with Zosyn when IV ABX changed to Oxacillin. On Suboxone Plan Issues remain concerning patient willingness for sobriety Original Note: Admission Pharmacy Clinical Review sepsis Code Status Full Code Current Weight 58.1 kg Renally Cleared and Narrow Therapeutic Index Meds Crcl ~105.00 mL/min current meds okay QTc Value / Action Taken QTc 434 BP Control, Fever BP 130/81 afebrile Electrolytes reviewed within normal limits DVT Prophylaxis enoxaparin Opiate Usage / Scheduled Bowel Regimen Ordered adan/no Plt/SCr for Heparin / Enoxaparin plt 222 SCr 0.82 INR for Warfarin n/a H/H stable, WBC/Bands h/h 12.5/37.7 wbc 8.72 Antibiotic appropriateness vanco and zosyn (day 4 starts this evening) Cultures and Sensitivities one blood culture grew staph aureus (waiting for sensitivities); other blood cultures pending or no growth urine culture grew gram+ ahmet Surgical ABX d/c within 24 hr n/a DM control / Insulin Dosing Bg 122 none Heart Failure (Check EF%) (ANTOINE's, B-Block, Diuretics) none IV to PO Switch n/a Home Meds Reviewed yes Home Meds Not Ordered all ordered Comments watch for sensitivities and blood culture results vanco trough ordered for 0700 tomorrow morning
[2019-05-08 15:16] VITALS: BP 132/80; PULSE 76; RESP 18; TEMP 36.2; O2SAT 97
[2019-05-08 20:33] VITALS: BP 106/70; PULSE 68; RESP 14; TEMP 36; O2SAT 98
[2019-05-09 04:10] VITALS: BP 107/67; PULSE 64; RESP 14; TEMP 35; O2SAT 99
[2019-05-09] MEDS: Buprenorphine/Naloxone 8 mg/2 mg FILM 1 EACH SL ×2 (07:28→19:56)
[2019-05-09 07:29] VITALS: BP 122/79; PULSE 62; RESP 17; TEMP 36.2; O2SAT 99
[2019-05-09] MEDS: Normal Saline Flush 10 ML SYR IVP ×5 (07:30→23:21)
[2019-05-09] MEDS: LORazepam 0.5 MG TAB PO ×2 (08:35→16:13)
[2019-05-09] MEDS: Acetaminophen 325 MG TAB PO (09:48)
[2019-05-09] MEDS: Pantoprazole 40 MG TABCR PO (16:06)
[2019-05-09 16:11] VITALS: BP 138/80; PULSE 73; RESP 15; TEMP 37; O2SAT 98
[2019-05-09 21:11] VITALS: BP 112/72; PULSE 70; RESP 16; TEMP 36.2; O2SAT 99
[2019-05-10 00:43] VITALS: BP 99/60; PULSE 71; RESP 17; TEMP 36.5; O2SAT 98
[2019-05-10] MEDS: Buprenorphine/Naloxone 8 mg/2 mg FILM 1 EACH SL ×2 (07:54→17:18)
[2019-05-10] MEDS: Normal Saline Flush 10 ML SYR IVP ×4 (07:54→23:22)
[2019-05-10] MEDS: Pantoprazole 40 MG TABCR PO (07:54)
[2019-05-10] MEDS: LORazepam 0.5 MG TAB PO ×2 (07:54→16:05)
[2019-05-10 08:09] VITALS: BP 112/72; PULSE 70; RESP 18; TEMP 36.2; O2SAT 98
--- NOTE | 2019-05-10 08:40 | PDOC.CMACT ---
- If Service Date Differs Date of service: 05/10/19 Time of Service: 08:40 Care Management Activity Note Bruce continues to receive IV antibiotics for bacteremia diagnosed during his hospital stay. He has 8 more days to complete the course of therapy. Bruce has been going out on pass several times a day with friends and family. While in the hospital he likes to watch TV and play video games on his computer. He has been offered other activities but has declined to participate. he remains pleasant and cooperative and reiterates daily that he is happy to be off drugs and never intends to use them again. P: Bruce will complete his course of antibiotics and be discharged home with no services.
--- NOTE | 2019-05-10 13:30 | NUR.NOTE ---
Nursing Note: Pt calm and appropriate, very respectful to nursing staff this shift. Nursing has wrapped midline up, Pt has not tampered with line at all this shift.
[2019-05-10 16:10] VITALS: BP 148/94; PULSE 125; RESP 20; TEMP 37; O2SAT 92
[2019-05-11] MEDS: Normal Saline Flush 10 ML SYR IVP ×5 (04:44→20:10)
[2019-05-11 07:15] VITALS: BP 105/70; PULSE 66; RESP 20; TEMP 36; O2SAT 98
[2019-05-11] MEDS: Buprenorphine/Naloxone 8 mg/2 mg FILM 1 EACH SL ×2 (07:30→20:09)
[2019-05-11] MEDS: Pantoprazole 40 MG TABCR PO (07:30)
[2019-05-11] MEDS: LORazepam 0.5 MG TAB PO ×2 (07:44→20:08)
[2019-05-11] MEDS: Normal Saline 500 ML 30 ML IV (07:45)
[2019-05-11 15:51] VITALS: BP 125/76; PULSE 77; RESP 16; TEMP 37.2; O2SAT 97
[2019-05-11 23:52] VITALS: BP 138/81; PULSE 78; RESP 19; TEMP 36.4; O2SAT 98
[2019-05-12] MEDS: Buprenorphine/Naloxone 8 mg/2 mg FILM 1 EACH SL ×3 (05:56→20:17)
[2019-05-12 07:23] LABS: Abs Immature Grans 0.01 k/cumm (0.0-0.09); Absolute Basophil Count 0.03 k/cumm (0.0-0.2); Absolute Eosinophil Count 0.19 k/cumm (0.0-0.7); Absolute Lymphocyte Count 1.92 k/cumm (1.2-3.4); Absolute Monocyte Count 0.49 k/cumm (0.11-0.7); Absolute Neutrophil Count 3.75 k/cumm (1.2-6.7); Basophils % 0.5; HCT 37.9 % (40.0-50.0); HGB 12.3 g/dL (13.5-17.5); Immature Grans % 0.2; Mean Corp. HGB Concentration 32.5 g/dL (32.0-36.0); Mean Corpuscular Hemoglobin 29.7 pg (27.0-33.0); Mean Corpuscular Volume 91.5 fL (80-95); Mean Platelet Volume 10.2 fL (8.0-11.0); Monocytes % 7.7; Neutrophils % 58.6; Platelet Count 295 x1000/uL (130-400); RBC 4.14 m/cumm (4.50-6.00); RBC Distribution Width 13.3 % (11.8-14.1); White Blood Cell Count 6.39 k/cumm (4.4-10.8)
[2019-05-12 07:39] LABS: ALT 96 U/L (12-78); AST 41 U/L (15-37); Albumin 3.3 g/dL (3.4-5.0); Alkaline Phosphatase 83 U/L (46-116); Anion Gap 9.3 mmol/L (3-11); BUN 19 mg/dL (7-18); Bilirubin, Direct 0.07 mg/dL (0.00-0.20); Bilirubin, Total 0.2 mg/dL (0.2-1.0); C-Reactive Protein 0.13 mg/dL (0.0-0.3); CO2 28.7 mmol/L (21.0-32.0); CREATININE 0.71 mg/dL (0.70-1.30); Calcium 8.9 mg/dL (8.5-10.1); Chloride 103 mmol/L (98-107); Glucose 130 mg/dL (70-100); Potassium 3.8 mmol/L (3.5-5.1); Sodium 141 mmol/L (136-145); Total Protein 6.8 g/dL (6.4-8.2)
[2019-05-12] MEDS: Normal Saline Flush 10 ML SYR IVP ×3 (07:45→20:17)
[2019-05-12] MEDS: LORazepam 0.5 MG TAB PO ×2 (07:45→16:05)
[2019-05-12] MEDS: Pantoprazole 40 MG TABCR PO (07:46)
[2019-05-12 16:39] VITALS: BP 133/75; PULSE 77; RESP 20; TEMP 37.3; O2SAT 99
--- NOTE | 2019-05-12 17:42 | PGE_ITS ---
Date of Service Date of service: 05/12/19 Time of Service: 17:42 Assessment and Plan (1) Sepsis: Current visit: No Status: Resolved Resolved. (2) MSSA bacteremia: Current visit: No Status: Acute Continue Oxacillin via midline inserted on 05/04, with end date of 05/18/2019. Given his ongoing drug abuse the patient is currently under a behavioral plan, and understands that he may not access his midline for any purpose. (3) Opioid use disorder: Current visit: No Status: Acute Continue Suboxone. (4) Elevated LFTs: Current visit: Yes Status: Acute Mild elevation, which is a new finding, and likely related to use of Oxacillin. As antibiotic therapy is nearly completed will monitor AST/ALT closely, with plans for repeat as outpatient after conclusion of therapy. If remains elevated will require further evaluation. (5) DVT prophylaxis: Current visit: No Status: Acute Patient is ambulatory. Subjective Interval history since last seen: Pleasant 33 year old man with a prior history of IVDA, admitted from [facility] Emergency Department with a diagnosis of Bacteremia. Mr. Frances has a prior history of IVDA and polysubstance abuse. He has abused Heroin in the past, and is chronically maintained on Suboxone therapy. He is currently abusing IV Crack Cocaine. He was originally admitted on 04/29 with a diagnosis of Sepsis due to MSSA bacteremia, and transitioned to Swing Bed status on 05/05. He has undergone a negative TTE, and with a negative Blood Culture on 05/02. He is maintained on IV Oxacillin with plans on continuation until completion of his course of therapy on 05/18. Today the patient has no complaints. He reports last using 4 days ago. No overnight events reported. Remains afebrile. Exam Narrative Exam Narrative: General: Patient appears comfortable, AAOX3, NAD Neck: Supple CV: Regular, nontachycardic, S1S2, No rubs, murmurs, or gallops. Pulmonary: Clear to auscultation bilaterally, no crackles, wheezing, or rhonchi Abdomen: + Bowel Sounds, soft, nontender, nondistended Vascular: No lower extremity edema Psych: Normal mood and affect. Objective Objective Clinical Data: Abnormal lab results 05/12/19 05/12/19 Range/Units 07:08 07:08 RBC 4.14 L (4.50-6.00) m/cumm Hgb 12.3 L (13.5-17.5) g/dL Hct 37.9 L (40.0-50.0) % BUN 19 H (7-18) mg/dL Glucose 130 H (70-100) mg/dL AST 41 H (15-37) U/L ALT 96 H (12-78) U/L Albumin 3.3 L (3.4-5.0) g/dL Vital Signs Temperature 37.3 C 05/12/19 16:39 Temperature Source Tympanic 05/12/19 16:39 Pulse 77 05/12/19 16:39 Pulse Rhythm Regular 05/12/19 16:00 Respiratory Rate 20 05/12/19 16:39 Respiratory Effort Non-Labored 05/12/19 16:00 Respiratory Depth Normal 05/12/19 16:00 Respiratory Pattern Normal 05/12/19 16:00 Blood Pressure 133/75 05/12/19 16:39 Pulse Oximetry 99 05/12/19 16:39 Oxygen Delivery Method Room Air 05/12/19 16:39 Oxygen Flow Rate 0 05/12/19 16:39 Pain Level 0 05/12/19 16:39 Comment 05/12/19 08:40 Intake & Output 05/11/19 05/12/19 05/12/19 23:59 11:59 23:59 Intake Total 730 / 1012 510 / 1100 590 / 1100 Balance 730 / 1012 510 / 1100 590 / 1100 Weight 58.3 kg Intake: IV 190 / 372 150 / 260 110 / 260 Oral 540 / 640 360 / 840 480 / 840 Other: Urine Color Yellow Urine Appearance Clear Urine Odor Normal Comment patient uses toilet independently and states that he has been voiding frequently patient uses toilet independently Pt voiding ad anoop in toilet. Denies sx. Voiding Methods Toilet Toilet Toilet Laboratory Results WBC 6.39 k/cumm (4.4-10.8) 05/12/19 07:08 RBC 4.14 m/cumm (4.50-6.00) L 05/12/19 07:08 Hgb 12.3 g/dL (13.5-17.5) L 05/12/19 07:08 Hct 37.9 % (40.0-50.0) L 05/12/19 07:08 MCV 91.5 fL (80-95) 05/12/19 07:08 MCH 29.7 pg (27.0-33.0) 05/12/19 07:08 MCHC 32.5 g/dL (32.0-36.0) 05/12/19 07:08 RDW 13.3 % (11.8-14.1) 05/12/19 07:08 Plt Count 295 x1000/uL (130-400) 05/12/19 07:08 MPV 10.2 fL (8.0-11.0) 05/12/19 07:08 Immature Gran % 0.2 05/12/19 07:08 Neutrophils % 58.6 05/12/19 07:08 Lymphocytes % 30.0 05/12/19 07:08 Monocytes % 7.7 05/12/19 07:08 Eosinophils % 3.0 05/12/19 07:08 Basophils % 0.5 05/12/19 07:08 Absolute Neutrophils 3.75 k/cumm (1.2-6.7) 05/12/19 07:08 Absolute Lymphocytes 1.92 k/cumm (1.2-3.4) 05/12/19 07:08 Absolute Monocytes 0.49 k/cumm (0.11-0.7) 05/12/19 07:08 Absolute Eosinophils 0.19 k/cumm (0.0-0.7) 05/12/19 07:08 Absolute Basophils 0.03 k/cumm (0.0-0.2) 05/12/19 07:08 Sodium 141 mmol/L (136-145) 05/12/19 07:08 Potassium 3.8 mmol/L (3.5-5.1) 05/12/19 07:08 Chloride 103 mmol/L (98-107) 05/12/19 07:08 Carbon Dioxide 28.7 mmol/L (21.0-32.0) 05/12/19 07:08 Anion Gap 9.3 mmol/L (3-11) 05/12/19 07:08 BUN 19 mg/dL (7-18) H 05/12/19 07:08 Creatinine 0.71 mg/dL (0.70-1.30) 05/12/19 07:08 Estimated GFR/1.73 m2 >= 60.00 (mL/min/1.73m2) 05/12/19 07:08 Glucose 130 mg/dL (70-100) H 05/12/19 07:08 Calcium 8.9 mg/dL (8.5-10.1) 05/12/19 07:08 Magnesium 2.0 mg/dL (1.8-2.4) 05/12/19 07:08 Total Bilirubin 0.2 mg/dL (0.2-1.0) 05/12/19 07:08 Conjugated Bilirubin 0.07 mg/dL (0.00-0.20) 05/12/19 07:08 AST 41 U/L (15-37) H 05/12/19 07:08 ALT 96 U/L (12-78) H 05/12/19 07:08 Alkaline Phosphatase 83 U/L (46-116) 05/12/19 07:08 C-Reactive Protein 0.13 mg/dL (0.0-0.3) 05/12/19 07:08 Total Protein 6.8 g/dL (6.4-8.2) 05/12/19 07:08 Albumin 3.3 g/dL (3.4-5.0) L 05/12/19 07:08 Urine Opiates Screen Negative (Negative) 05/06/19 06:50 Urine Methadone Screen Negative (Negative) 05/06/19 06:50 Ur Barbiturates Screen Negative (Negative) 05/06/19 06:50 Ur Tricyclics Screen Negative (Negative) 05/06/19 06:50 Ur Amphetamines Screen Negative (Negative) 05/06/19 06:50 U Benzodiazepines Scrn Negative (Negative) 05/06/19 06:50 Urine Cocaine Screen Negative (Negative) 05/06/19 06:50 Ur THC Screen Negative (Negative) 05/06/19 06:50
[2019-05-12 20:20] VITALS: BP 114/76; PULSE 78; RESP 16; TEMP 37.3; O2SAT 98
[2019-05-13] MEDS: Normal Saline Flush 10 ML SYR IVP ×5 (00:07→23:45)
[2019-05-13 00:23] VITALS: BP 109/68; PULSE 73; RESP 16; TEMP 36.4; O2SAT 95
[2019-05-13] MEDS: Buprenorphine/Naloxone 8 mg/2 mg FILM 1 EACH SL ×2 (06:30→20:05)
[2019-05-13 07:09] LABS: ALT 98 U/L (12-78); AST 41 U/L (15-37); Albumin 3.4 g/dL (3.4-5.0); Alkaline Phosphatase 84 U/L (46-116); Bilirubin, Direct 0.07 mg/dL (0.00-0.20); Bilirubin, Total 0.3 mg/dL (0.2-1.0)
[2019-05-13 07:45] VITALS: BP 117/76; PULSE 71; RESP 16; TEMP 36.9; O2SAT 99
[2019-05-13] MEDS: Normal Saline 500 ML 30 ML IV (07:57)
[2019-05-13] MEDS: LORazepam 0.5 MG TAB 1 MG PO ×3 (07:58→23:45)
[2019-05-13] MEDS: Pantoprazole 40 MG TABCR PO (07:59)
[2019-05-13 16:10] VITALS: BP 122/77; PULSE 81; RESP 16; TEMP 36.4; O2SAT 98
[2019-05-13 23:47] VITALS: BP 114/75; PULSE 73; RESP 18; TEMP 36.3; O2SAT 98
[2019-05-14] MEDS: Pantoprazole 40 MG TABCR PO (06:52)
[2019-05-14] MEDS: Buprenorphine/Naloxone 8 mg/2 mg FILM 1 EACH SL ×2 (06:52→20:30)
[2019-05-14 08:00] VITALS: BP 116/76; PULSE 68; RESP 18; TEMP 36.8; O2SAT 98
[2019-05-14] MEDS: Normal Saline Flush 10 ML SYR IVP ×5 (08:09→23:49)
[2019-05-14] MEDS: LORazepam 0.5 MG TAB 1 MG PO (08:14)
--- NOTE | 2019-05-14 10:39 | NUR.NOTE ---
Nursing Note: When assessing patient this morning, he stated that he experienced an episode (s) of audio hallucinations Tuesday. He denies that the voices gave him any thoughts or ideas of hurting himself or others. He said there hasn't been any other instances since then
--- NOTE | 2019-05-14 16:42 | PDOC.CMPRO ---
- If Service Date Differs Date of service: 05/14/19 Time of Service: 16:42 Care Management Progress Note Bruce asked for assistance with setting up an appointment with Dr. Irizarry for his suboxone treatment. DEANGELO contacted the office and was given information about process requirements which were shared with Bruce. He was also given information about [facility]. When this information was shared with Bruce he indicated that he preferred to return to his previous provider. P: Bruce will complete his course of antibiotics and be discharged home with no services.
[2019-05-15] VITALS: BP 115/62; PULSE 68; RESP 16; TEMP 36.5; O2SAT 97
[2019-05-15 08:06] VITALS: BP 100/66; PULSE 83; RESP 17; TEMP 36; O2SAT 98
[2019-05-15 08:06] LABS: ALT 93 U/L (12-78); AST 38 U/L (15-37); Albumin 3.5 g/dL (3.4-5.0); Alkaline Phosphatase 85 U/L (46-116); Bilirubin, Direct 0.09 mg/dL (0.00-0.20); Bilirubin, Total 0.5 mg/dL (0.2-1.0); Total Protein 7.2 g/dL (6.4-8.2)
[2019-05-15] MEDS: Pantoprazole 40 MG TABCR PO (08:21)
[2019-05-15] MEDS: Buprenorphine/Naloxone 8 mg/2 mg FILM 1 EACH SL ×2 (08:21→20:32)
[2019-05-15] MEDS: LORazepam 0.5 MG TAB 1 MG PO ×2 (08:32→20:50)
[2019-05-15] MEDS: Normal Saline 500 ML 30 ML IV (08:33)
[2019-05-15 16:00] VITALS: BP 114/81; PULSE 63; RESP 16; TEMP 36.9; O2SAT 100
[2019-05-15] MEDS: Normal Saline Flush 10 ML SYR IVP (20:32)
[2019-05-15 21:00] VITALS: BP 132/81; PULSE 72; RESP 16; TEMP 36.5; O2SAT 97
[2019-05-16] MEDS: Normal Saline Flush 10 ML SYR IVP ×2 (06:46→08:46)
[2019-05-16] MEDS: Buprenorphine/Naloxone 8 mg/2 mg FILM 1 EACH SL ×2 (06:46→20:52)
[2019-05-16 07:31] LABS: Abs Immature Grans 0.01 k/cumm (0.0-0.09); Absolute Basophil Count 0.04 k/cumm (0.0-0.2); Absolute Eosinophil Count 0.19 k/cumm (0.0-0.7); Absolute Lymphocyte Count 2.13 k/cumm (1.2-3.4); Absolute Monocyte Count 0.66 k/cumm (0.11-0.7); Absolute Neutrophil Count 2.35 k/cumm (1.2-6.7); Basophils % 0.7; Eosinophils % 3.5; HCT 38.4 % (40.0-50.0); HGB 12.5 g/dL (13.5-17.5); Immature Grans % 0.2; Lymphocytes % 39.6; Mean Corp. HGB Concentration 32.6 g/dL (32.0-36.0); Mean Corpuscular Hemoglobin 29.6 pg (27.0-33.0); Mean Platelet Volume 10.6 fL (8.0-11.0); Monocytes % 12.3; Neutrophils % 43.7; Platelet Count 284 x1000/uL (130-400); RBC 4.22 m/cumm (4.50-6.00); RBC Distribution Width 13.1 % (11.8-14.1); White Blood Cell Count 5.38 k/cumm (4.4-10.8)
[2019-05-16 07:58] LABS: ALT 92 U/L (12-78); AST 37 U/L (15-37); Albumin 3.3 g/dL (3.4-5.0); Alkaline Phosphatase 90 U/L (46-116); Anion Gap 6.1 mmol/L (3-11); BUN 23 mg/dL (7-18); Bilirubin, Total 0.2 mg/dL (0.2-1.0); CO2 29.9 mmol/L (21.0-32.0); CREATININE 0.84 mg/dL (0.70-1.30); Calcium 8.7 mg/dL (8.5-10.1); Chloride 106 mmol/L (98-107); Glucose 85 mg/dL (70-100); Potassium 3.8 mmol/L (3.5-5.1); Sodium 142 mmol/L (136-145); Total Protein 6.9 g/dL (6.4-8.2)
[2019-05-16] MEDS: Pantoprazole 40 MG TABCR PO (08:46)
[2019-05-16 09:07] VITALS: BP 130/83; PULSE 74; RESP 16; TEMP 36.1; O2SAT 98
[2019-05-16] MEDS: LORazepam 0.5 MG TAB 1 MG PO ×2 (10:28→20:52)
[2019-05-16] MEDS: Normal Saline 500 ML 30 ML IV (12:18)
[2019-05-16 20:52] VITALS: BP 111/73; PULSE 82; RESP 20; TEMP 37; O2SAT 99
[2019-05-17 00:15] VITALS: BP 95/60; PULSE 65; RESP 14; TEMP 36.5; O2SAT 97
[2019-05-17] MEDS: Normal Saline Flush 10 ML SYR IVP ×6 (00:40→23:52)
[2019-05-17] MEDS: Buprenorphine/Naloxone 8 mg/2 mg FILM 1 EACH SL ×2 (06:49→20:23)
[2019-05-17 07:35] LABS: Absolute Basophil Count 0.02 k/cumm (0.0-0.2); Absolute Eosinophil Count 0.16 k/cumm (0.0-0.7); Absolute Lymphocyte Count 1.86 k/cumm (1.2-3.4); Absolute Monocyte Count 0.55 k/cumm (0.11-0.7); Absolute Neutrophil Count 1.94 k/cumm (1.2-6.7); Basophils % 0.4; Eosinophils % 3.5; HCT 38.2 % (40.0-50.0); HGB 12.3 g/dL (13.5-17.5); Lymphocytes % 41.1; Mean Corp. HGB Concentration 32.2 g/dL (32.0-36.0); Mean Corpuscular Hemoglobin 29.3 pg (27.0-33.0); Mean Platelet Volume 10.9 fL (8.0-11.0); Monocytes % 12.1; Neutrophils % 42.9; Platelet Count 261 x1000/uL (130-400); White Blood Cell Count 4.53 k/cumm (4.4-10.8)
[2019-05-17] MEDS: LORazepam 0.5 MG TAB 1 MG PO ×2 (07:46→20:17)
[2019-05-17] MEDS: Pantoprazole 40 MG TABCR PO (07:46)
[2019-05-17 07:53] LABS: ALT 90 U/L (12-78); AST 36 U/L (15-37); Albumin 3.4 g/dL (3.4-5.0); Alkaline Phosphatase 84 U/L (46-116); Anion Gap 7.3 mmol/L (3-11); BUN 20 mg/dL (7-18); Bilirubin, Total 0.3 mg/dL (0.2-1.0); CO2 29.7 mmol/L (21.0-32.0); CREATININE 0.81 mg/dL (0.70-1.30); Calcium 8.7 mg/dL (8.5-10.1); Chloride 106 mmol/L (98-107); Glucose 94 mg/dL (70-100); Sodium 143 mmol/L (136-145); Total Protein 6.7 g/dL (6.4-8.2)
[2019-05-17 08:00] VITALS: BP 125/79; PULSE 76; RESP 12; TEMP 36.8; O2SAT 100
[2019-05-17 15:00] VITALS: BP 118/77; PULSE 87; RESP 20; TEMP 36.9; O2SAT 98
[2019-05-17] MEDS: Normal Saline 500 ML 30 ML IV (16:14)
--- NOTE | 2019-05-17 16:14 | PDOC.CMACT ---
- If Service Date Differs Date of service: 05/17/19 Time of Service: 16:14 Care Management Activity Note Bruce continues to receive IV antibiotics. His last dose is scheduled for tomorrow at noon after which he will be discharged. Bruce spends his days going out on pass with family and friends. During his infusions he plays games on his computer and visits with staff and friends. P: Bruce will be discharged home tomorrow with no services. He will follow up with [facility] to re-establish his suboxone treatment. Bruce has no PCP and is not interested in becoming established with any area physicians.
[2019-05-18 02:58] VITALS: BP 117/72; PULSE 82; RESP 17; TEMP 36.7; O2SAT 97
[2019-05-18] MEDS: Normal Saline Flush 10 ML SYR IVP ×3 (04:14→11:06)
[2019-05-18 07:19] LABS: Abs Immature Grans 0.01 k/cumm (0.0-0.09); Absolute Basophil Count 0.04 k/cumm (0.0-0.2); Absolute Eosinophil Count 0.19 k/cumm (0.0-0.7); Absolute Monocyte Count 0.59 k/cumm (0.11-0.7); Absolute Neutrophil Count 1.82 k/cumm (1.2-6.7); Basophils % 0.8; Eosinophils % 3.9; HCT 38.2 % (40.0-50.0); HGB 12.3 g/dL (13.5-17.5); Immature Grans % 0.2; Lymphocytes % 45.4; Mean Corp. HGB Concentration 32.2 g/dL (32.0-36.0); Mean Corpuscular Hemoglobin 29.3 pg (27.0-33.0); Mean Platelet Volume 10.9 fL (8.0-11.0); Monocytes % 12.2; Neutrophils % 37.5; Platelet Count 249 x1000/uL (130-400); White Blood Cell Count 4.85 k/cumm (4.4-10.8)
[2019-05-18 07:28] VITALS: BP 110/65; PULSE 65; RESP 16; TEMP 35.6; O2SAT 98
[2019-05-18 07:29] LABS: ALT 81 U/L (12-78); AST 31 U/L (15-37); Albumin 3.3 g/dL (3.4-5.0); Alkaline Phosphatase 85 U/L (46-116); Anion Gap 5.3 mmol/L (3-11); BUN 20 mg/dL (7-18); Bilirubin, Total 0.3 mg/dL (0.2-1.0); CO2 28.7 mmol/L (21.0-32.0); CREATININE 0.76 mg/dL (0.70-1.30); Calcium 8.5 mg/dL (8.5-10.1); Chloride 104 mmol/L (98-107); Glucose 91 mg/dL (70-100); Potassium 3.9 mmol/L (3.5-5.1); Sodium 138 mmol/L (136-145); Total Protein 6.7 g/dL (6.4-8.2)
[2019-05-18] MEDS: Buprenorphine/Naloxone 8 mg/2 mg FILM 1 EACH SL ×2 (09:06→16:30)
[2019-05-18] MEDS: Pantoprazole 40 MG TABCR PO (09:06)
[2019-05-18] MEDS: LORazepam 0.5 MG TAB 1 MG PO (09:09)
--- NOTE | 2019-05-18 15:06 | W.PM.DS.N ---
Date of service: 05/18/19 Time of Service: 15:06 DS: Diagnosis Discharge Diagnosis (1) Sepsis: Status: Resolved (2) MSSA bacteremia: Status: Acute (3) Opioid use disorder: Status: Acute (4) Elevated LFTs: Status: Acute (5) DVT prophylaxis: Status: Acute Discharge Plan Disposition Patient Disposition: HOME Condition: Stable Discharge Details Reason For Visit: SEPSIS DUE TO MSSA BACTEREMIA Admit Date/Time: 05/05/19 16:08 Admit Provider: Courtney Zapata Attending Provider: Courtney Zapata Primary Care Provider: None,None Hospital Course Hospital Course: Chief Complaint: Fever HPI: Pleasant 33 year old man with a prior history of IVDA, admitted from [facility] Emergency Department with a diagnosis of Bacteremia. Mr. Frances has a prior history of IVDA and polysubstance abuse. He has abused Heroin in the past, and is chronically maintained on Suboxone therapy. He is currently abusing IV Crack Cocaine. He was originally admitted on 04/29 with a diagnosis of Sepsis due to MSSA bacteremia, and transitioned to Swing Bed status on 05/05. He has undergone a negative TTE, and with a negative Blood Culture on 05/02. He is maintained on IV Oxacillin with plans on continuation until completion of his course of therapy on 05/18. Today the patient has no complaints. He reports last using a few days after his hospitalization, while on swing bed status. No overnight events reported. Remains afebrile. Hospital Course: (1) Sepsis: Resolved. (2) MSSA bacteremia: Completed course of Oxacillin via midline today. (3) Opioid use disorder: Continue Suboxone. (4) Elevated LFTs: Mild elevation, which is a new finding, and likely related to use of Oxacillin. As antibiotic therapy was nearly completed when discovered, patient's LFTs were monitored closely, with plans for repeat as outpatient after conclusion of therapy. Last checked Mr. Tapia's AST had normalized, with ALT improved to 81 from a peak of 98. Home Meds and New Rx's Prescriptions: Continued buprenorphine-naloxone [Suboxone] 8-2 mg Film 1 film buccal BID RF: 0 acetaminophen [Tylenol] 325 mg Tablet 650 mg PO Q4H PRN PRNQty: 0 RF: 0 nicotine 21 mg/24 hr Patch 24 Hour 21 mg Transdermal DAILY Qty: 0 RF: 0 Discontinued Nicotrol 10 mg Cartridge 1 cartridge Inhalation Q2H PRN PRNQty: 0 RF: 0 lorazepam 0.5 mg Tablet 0.5 mg PO TID PRN PRNQty: 0 RF: 0 Maryam Protect Cream 1 applic topical PRN PRNQty: 0 RF: 0 ranitidine HCl 150 mg Tablet 150 mg PO BID Qty: 0 RF: 0 Discharge Instructions Activity:: Activity as Tolerated Equipment/Supplies:: No Equipment Needed Diet:: As Tolerated Discharge Orders Discharge Orders: Discharge Order (Routine); Ordered 05/18/19 Ordered By: Theo Lu Other Ambulatory Orders: Comprehensive Metabolic Panel (Routine) Timeframe: 5 Days Location: Determined by Patient Ordered By: Theo Lu DS: Data Vitals/I&O Vitals and I&O: Vital Signs Temperature 35.6 C L 05/18/19 07:28 Temperature Source Tympanic 05/18/19 07:28 Pulse 65 05/18/19 07:28 Pulse Rhythm Regular 05/18/19 02:58 Respiratory Rate 16 05/18/19 07:28 Respiratory Effort 05/18/19 02:58 Respiratory Depth Normal 05/18/19 02:58 Respiratory Pattern Normal 05/18/19 02:58 Blood Pressure 110/65 05/18/19 07:28 Pulse Oximetry 98 05/18/19 07:28 Oxygen Delivery Method Room Air 05/18/19 07:28 Oxygen Flow Rate 0 05/18/19 07:28 Pain Level 0 05/18/19 02:58 Comment 05/12/19 08:40 Intake & Output 05/17/19 05/18/19 05/18/19 23:59 11:59 23:59 Intake Total 150 / 690 200 / 200 Balance 150 / 690 200 / 200 Weight 58.5 kg Intake: IV 150 / 330 200 / 200 Other: Comment Pt voids independently Pt voids independently Voiding Methods Toilet Completed studies during hospitalization [Text1]: Exam(s) 04/29/2019 a RAD:XR chest 1V in DI dept SYMPTOM/DIAGNOSIS: CHEST PAIN, R/O ACUTE DISEASE CHEST: Single AP view. No priors. The heart is normal in size. The lungs are clear. The mediastinal structures and pleura appear intact. CONCLUSION: Normal chest. ------ Exam(s) a CT:CT head wo SYMPTOM/DIAGNOSIS: HEADACHE, DROWSY, H/O IVDA CRANIAL CT (WITHOUT CONTRAST): Noncontrast examination. No priors. A noncontrast cranial CT was performed. The ventricular system is normal in appearance. There is no evidence of an intracranial mass lesion. There is no evidence of a subdural or epidural hematoma. No focal areas of decreased attenuation are seen. CONCLUSION: Normal noncontrast Cranial CT. ------ Exam(s) a US:US echocardiogram Date of study: 04/30/2019 Transthoracic Echocardiography M-mode, complete 2D, complete spectral Doppler, and color Doppler *STUDY CONCLUSIONS* Summary: 1. Left ventricle: The cavity size was normal. Systolic function was hyperdynamic. The estimated ejection fraction was 65-70%. The tissue Doppler parameters were normal. There was no evidence of elevated ventricular filling pressure by Doppler parameters. 2. Mitral valve: There was mild regurgitation. 3. Right ventricle: The cavity size was normal. Wall thickness was normal. Systolic function was normal. 4. Atrial septum: No defect or patent foramen ovale was identified. 5. Pulmonary arteries: Pulmonary systolic pressure was in the range of 25mm Hg to 35mm Hg. 6. Inferior vena cava: The vessel was patent and normal in size. The respirophasic diameter changes were in the normal range (greater than or equal to 50%), consistent with normal central venous pressure. --------- Labs on day of discharge: Labs from last 24 hours 05/18/19 05/18/19 06:20 06:20 WBC 4.85 RBC 4.20 L Hgb 12.3 L Hct 38.2 L MCV 91.0 MCH 29.3 MCHC 32.2 RDW 13.0 Plt Count 249 MPV 10.9 Immature Gran % 0.2 Neutrophils % 37.5 Lymphocytes % 45.4 Monocytes % 12.2 Eosinophils % 3.9 Basophils % 0.8 Absolute Neutrophils 1.82 Absolute Lymphocytes 2.20 Absolute Monocytes 0.59 Absolute Eosinophils 0.19 Absolute Basophils 0.04 Sodium 138 Potassium 3.9 Chloride 104 Carbon Dioxide 28.7 Anion Gap 5.3 BUN 20 H Creatinine 0.76 Estimated GFR/1.73 m2 >= 60.00 Glucose 91 Calcium 8.5 Total Bilirubin 0.3 AST 31 ALT 81 H Alkaline Phosphatase 85 Total Protein 6.7 Albumin 3.3 L PFSH Medical History Smoker (Acute) Opioid use disorder (Acute) Crack cocaine poisoning (Acute) Acute kidney injury (Resolved) SIRS (systemic inflammatory response syndrome) (Acute) IV drug abuse (Acute) Surgical History No significant past surgical history (Acute) Family History Maternal Grandmother Diabetes Mother Diabetes Social History Smoking/Tobacco Use Status: Current every day Tobacco Type: cigarettes Quit status: not considering quitting Alcohol Intake: never Drug use: Daily Substance use type: crack/cocaine Counseling given: Yes Details: 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 Stinson at [facility] Do you feel safe at home: Yes Do you feel safe in your relationship?: Yes Additional Social history: Grew up in [place]. Living back with mother after living in [facility] for years. 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 She is currently hospitalized in [facility] They have a 7-year-old daughter living with him who he still cares for
[2019-05-18 15:25] VITALS: BP 116/74; PULSE 65; RESP 16; TEMP 37.1; O2SAT 98
--- NOTE | 2019-05-18 15:41 | CM.SWINGPC ---
- If Service Date Differs Date of service: 05/18/19 Swingbed Plan of Care Plan of care: SWING BED PROGRAM ACTIVITIES/DISCHARGE PLAN OF CARE ACTIVITIES PLAN Date: Identified Need: Intervention/Plan: Initials DISCHARGE PLAN Date: Identified Need: Intervention/Plan: Initials
--- NOTE | 2019-05-18 15:49 | PDOC.CMDIS ---
- If Service Date Differs Date of service: 05/18/19 Time of Service: 15:49 LACE Index Scoring Tool - Questions: Length of Stay (in days): 7 - 13 Acuity (Admit via E.D.?): Yes E.D. Visits: 1 - Answers: Total Score: 9 Risk of Readmission: Low Risk Care Management Discharge Reason for Hospitalization: sepsis Discharge Plan: Bruce will be discharged home with no services. He will begin Suboxone treatment at [facility] tomorrow and continue until his regular provider in [place] is available. He will be transportef via private vehicle with his mother. Patient/Family Education Needs: Discharge plan, limitations, follow up plan and Ask Me Three.
--- NOTE | 2019-05-18 15:53 | CMDISCH_ITS ---
- If Service Date Differs Date of service: 05/18/19 Time of Service: 15:49 LACE Index Scoring Tool - Questions: Length of Stay (in days): 7 - 13 Acuity (Admit via E.D.?): Yes E.D. Visits: 1 - Answers: Total Score: 9 Risk of Readmission: Low Risk Care Management Discharge Reason for Hospitalization: sepsis Discharge Plan: Bruce will be discharged home with no services. He will begin Suboxone treatment at [facility] tomorrow and continue until his regular provider in [place] is available. He will be transportef via private vehicle with his mother. Patient/Family Education Needs: Discharge plan, limitations, follow up plan and Ask Me Three.
== END 2019-05-18 16:32 | disposition home or self-care (01) | DRG 872 ==
PROVIDERS: Family Medicine; Admitting Provider Internal Medicine; Visit Provider Internal Medicine
DX: A41.01 Sepsis due to Methicillin susceptible Staphylococcus aureus (principal); F11.20 Opioid dependence, uncomplicated; Z79.2 Long term (current) use of antibiotics; R94.5 Abnormal results of liver function studies; F14.10 Cocaine abuse, uncomplicated; F17.210 Nicotine dependence, cigarettes, uncomplicated
CPT/HCPCS: 36415; 80048; 80053; 80076; 80307; 99306; 99309; 99315; J1650; 83735; 85025; 85049; 86140; J2700

== ENCOUNTER 2019-08-10 17:28 | Emergency (ER) | payer MEDICAID, SELFPAY ==
[2019-08-10 17:32] VITALS: BP 122/77; PULSE 105; RESP 16; TEMP 36.9; O2SAT 97
--- NOTE | 2019-08-10 17:39 | DI.RAD_ITS ---
EXAM: XR SHOULDER RT COMPLETE 2+V INDICATION: pain w/ mvt, no known injury. COMPARISON: No exams were available for comparison TECHNIQUE: 2D digital imaging was performed. FINDINGS: Four views were obtained. There is a questionable faint radiodensity projected over the humeral head on the external rotation view. This is not seen on the other views obtained. This may represent a bone island but calcific peritendinitis is not excluded. Clinical correlation requested. IMPRESSION:
--- NOTE | 2019-08-10 17:42 | W.ED.GENAD ---
Discharge Plan Disposition Patient Disposition: HOME Condition: Good Discharge Details Chief Complaint: Orthopedic Clinical Impression: Acute pain of right shoulder Primary Care Provider: None,None ED Provider: Jose Cohen Home Meds and New Rx's Prescriptions: New acetaminophen [Mapap Extra Strength] 500 MG tablet 1,000 mg PO Q6H 5 Days Qty: 60 RF: 0 lidocaine [Lidoderm] 1 PATCH patch 1 patch Topical Q24H Qty: 4 RF: 0 ibuprofen [Motrin IB] 200 MG tablet 600 mg PO Q6H 5 Days Qty: 60 RF: 0 No Action buprenorphine-naloxone [Suboxone] 8-2 mg Film 2 film buccal BID RF: 0 Discharge Instructions Instructions: Shoulder Pain (ED) Additional Instructions: There is no evidence of fracture for your x-ray. I am concerned that your symptoms are secondary to impingement of the tendons. Please continue to use the Lidoderm patch, Tylenol and Motrin as directed. We will schedule orthopedic follow-up for you. Please use the sling as needed. If you notice any worsening of your symptoms, or any new symptoms such as vomiting, diarrhea, fever, chills, shortness of breath, chest pain, numbness, weakness, or fainting , please return immediately to the emergency department for reevaluation. Please follow up with your primary care provider as soon as possible for reassessment and reevaluation. As always, it was a pleasure participating in your medical care today. Medical Decision Making This is a 33-year-old male who presents with pain in his right shoulder, started last night. Worse with movement. Notable reduced range of motion for internal and external rotation as well as abduction. No evidence of redness warmth or infection. No clinical evidence of cellulitis. He denies any injury but is unsure if he did injure it last night or the night before as he has been under the influence of illicit drugs. Differential is highest for impingement syndrome or ligamentous injury. Unlikely dislocation or fracture. Also of note the patient did asked to contact the aircraft launch and recovery technician for the ED, however he denies any other complaints. He denies any homicidal or suicidal ideations. He states that he just wants help getting off his previous drugs. 7:05 PM X-ray results are negative for any acute fracture. I do feel that this is a ligamentous injury or mild impingement syndrome. Recommend continued NSAIDs, Lidoderm patch. We will have him follow-up with orthopedics as he has no PCP at this time. The patient has also discussed the case with the recovery coaches, and they will contact him for continued help and support on an outpatient basis. If you notice any worsening of your symptoms, or any new symptoms such as vomiting, diarrhea, fever, chills, shortness of breath, chest pain, numbness, weakness, or fainting , please return immediately to the emergency department for reevaluation. Please follow up with your primary care provider as soon as possible for reassessment and reevaluation. As always, it was a pleasure participating in your medical care today. FINDINGS: Bones/joints: No acute fracture. No dislocation. Soft tissues: Normal. IMPRESSION: No acute fracture. Thank you for allowing us to participate in the care of your patient. Dictated and Authenticated by: Lon Gupta MD 08/10/2019 6:29 PM Eastern Time ([place] & [place]) HPI General Date/Time Provider Initiated Documentation: 08/10/19 17:33. HPI Narrative: This is a 33-year-old male with a past medical history of IV drug use, acute kidney injury, who presents today for evaluation of right shoulder pain. 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 He denies any numbness or tingling. He denies any fever, chills, chest pain or shortness of breath. He denies any recent trauma. He has recently been using drugs, he denies injecting in that region. He has no other complaints at this time. No other modifying factors. Related Data Home Medications Medication Instructions Recorded Confirmed buprenorphine-naloxone [Suboxone] 2 film BUCCAL BID 04/29/19 08/10/19 acetaminophen [Mapap Extra 1,000 mg PO Q6H 5 Days #60 tab 08/10/19 Strength] ibuprofen [Motrin Ib] 600 mg PO Q6H 5 Days #60 tab 08/10/19 lidocaine [Lidoderm] 1 patch TOPICAL Q24H #4 patch 08/10/19 Previous Rx's Medication Instructions Recorded acetaminophen [Mapap Extra 1,000 mg PO Q6H 5 Days #60 tab 08/10/19 Strength] ibuprofen [Motrin Ib] 600 mg PO Q6H 5 Days #60 tab 08/10/19 lidocaine [Lidoderm] 1 patch TOPICAL Q24H #4 patch 08/10/19 Allergies Allergy/AdvReac Type Severity Reaction Status Date / Time aspirin Allergy Mild unknown Unverified 08/10/19 17:37 General Stated Complaint: Orthopedic SÁNCHEZ: 3 Review of Systems Review of Systems ROS Unobtainable: All systems reviewed & are unremarkable except as noted in HPI and below PFSH Social History (Updated 05/23/19 @ 14:02 by Faviola Hooper RN) Smoking/Tobacco Use Status: Current every day Tobacco Type: cigarettes Quit status: not considering quitting Alcohol Intake: never Drug use: Daily Substance use type: crack/cocaine Counseling given: Yes Details: 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 Stinson at [facility] Do you feel safe at home: Yes Do you feel safe in your relationship?: Yes Additional Social history: Grew up in [place]. Living back with mother after living in [facility] for years. Formally had a successful [employer] business, lost it due to substance use disorder , but as also has severe complications from injection drug use. She is currently hospitalized in [facility] They have a 7-year-old daughter living with him who he still cares for Exam Narrative Exam Narrative: 1.Const: Well-nourished, Well-developed, appearing stated age 2.Eyes: PERRL, no conjunctival injection, and symmetrical lids. 3.ENT: Atraumatic external nose and ears. Moist MM. Neck: Symmetric, trachea midline, No thyromegaly. 4.CVS: +S1/S2, No murmurs or gallops. Peripheral pulses 2+ and equal in all extremities. Brisk capillary refill in all extremities. 5.RESP: Unlabored respiratory effort. Clear to auscultation bilaterally. No wheezes rales or rhonchi 6.GI: Soft, Nontender/Nondistended, No hepatosplenomegaly. No guarding or rebound. 7.MSK: Normocephalic/Atraumatic, Extremities w/o deformity. No cyanosis or clubbing. Right shoulder demonstrates no redness, warmth, swelling. Subjective tenderness around the right shoulder. Notable reduced range of motion for internal and external rotation, significantly worsening pain with these movements. Notable pain with abduction. No pain with flexion, mild pain with extension of the shoulder. Patient is able to flex and extend at the elbow. Normal strength and sensation in the wrist. Normal two-point discrimination in the fingers. 8.Skin: Warm, Dry. No rashes or lesions. 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 Sensation grossly intact, no focal neurologic deficits. 10.Psych: (AAO) x3. Appropriate mood and affect Course Vital Signs Vital signs: Vital Signs Temperature 36.9 C 08/10/19 17:32 Pulse 105 H 08/10/19 17:32 Respiratory Rate 16 08/10/19 17:32 Blood Pressure 122/77 08/10/19 17:32 Pulse Oximetry 97 08/10/19 17:32 Temperature 36.9 C 08/10/19 17:32 Temperature Source Temporal Artery Scan 08/10/19 17:32 Pulse 105 H 08/10/19 17:32 Respiratory Rate 16 08/10/19 17:32 Respiratory Effort Non-Labored 08/10/19 17:35 Blood Pressure 122/77 08/10/19 17:32 Blood Pressure Position Sitting 08/10/19 17:32 Pulse Oximetry 97 08/10/19 17:32 Oxygen Delivery Method Room Air 08/10/19 17:32 Oxygen Flow Rate 0 08/10/19 17:32 Pain Level 8 08/10/19 17:32
[2019-08-10] MEDS: Lidocaine 5% Patch 1 PATCH TP (17:55)
[2019-08-10] MEDS: Acetaminophen 500 MG TAB 1000 MG PO (17:55)
[2019-08-10] MEDS: Ketorolac 30 MG/ML VIAL IM (19:33)
[2019-08-10 19:35] VITALS: BP 129/82; PULSE 104; TEMP 37.1
--- NOTE | 2019-08-12 16:16 | W.PM.HP.N ---
Date of service: 08/12/19 Time of Service: 16:16 Assessment and Plan Assessment and plan (1) Sepsis: Start date: 08/12/19 Start time: 16:40 Status: Resolved Assessment and plan: IVDU with Sepsis lactate of 3.6 given 3 Liters of NS in ED, WBC 24 with bands, afebrile, slight tachycardiac, BP normotensive at this time. Admit to [facility] with teley, echo, zosyn and vanco, history of MSSA by blood culture. IVF, Blood cultures, sputum culture PPD (2) Septic embolism: Start date: 08/12/19 Start time: 16:43 Status: Acute Assessment and plan: CT revealing irregular ill defined nodular densities throughout all lung kidd with some minimal central lucency to some nodules. May represent some form of granulomatous disease or septic emboli. See above. (3) Elevated LFTs: Start date: 08/12/19 Start time: 16:46 Status: Acute Assessment and plan: CT abd as above. Consider u/s if pain worsens. Monitor LFT (4) Substance use disorder: Start date: 08/12/19 Start time: 16:46 Status: Acute Assessment and plan: injects cocaine/crack. (5) DVT prophylaxis: Start date: 08/12/19 Start time: 16:47 Status: Acute Assessment and plan: Lovenox (6) Smoker: Start date: 08/12/19 Status: Acute Assessment and plan: When feeling better drapery counselor patient on smoking cessation. Nicotine patch at this time (7) Shoulder pain: Start date: 08/12/19 Start time: 16:47 Status: Acute Assessment and plan: Consider infectious process in Right shoulder. MRI w/wo Continue to monitor Above discussed with Dr. Zapata who is in agreement. History of Present Illness History of Present Illness Chief Complaint: Sepsis, Septic emboli Narrative: 33 y.o male with PMH of cocaine IVD abuse, MSSA, admitted multiple times in the past for sepsis. Presents to emergency room today with c/o chest pain and shoulder pain to the right. He was seen two days ago for the same and given lidoderm patch. Returns today with SOB and dizziness. Upon presentation patient is tachycardiac and diaphoretic. He states he last injected crack cocaine 2 days ago. In the ED patient was found to have a lactate of 3.6, WBC 24 with Bands 20, AST 104, ALT 157. Negative troponins. CT of the chest concerning for multiple somewhat irregular and ill-defined nodular densities throughout all lung kidd. This may represent some form of granulatomas septic emboli would also strongly be considered. For this reason he is being admitted to m/s telemetry with Sepsis, septic emboli. PPD ordered, though unlikely tB as patient has not been in [facility] or senior care. At this point I don't feel he needs ICU. He is afebrile,BP is normotensive and he is awake but tired. He has received 3 liters of fluids. Lactate will be rechecked this evening and again the am.. Right shoulder is swollen and MRI will ordered to r/o infectious joint. Telemetry to monitor HR, echo to r/o endocarditis. He was started on zosyn and vanco. Blood cultures pending. His last admission blood cultures grew out MSSA so I would not be surprised to see this again. Elevated LFT will be monitored, he does c/o nausea and pain with palpation to RUQ, this could be from nodules of lung, if pain persists consider u/s. Will monitor for signs of withdrawal. Review of Systems Review of Systems ROS Unobtainable: All systems reviewed & are unremarkable except as noted in HPI and below Constitutional Constitutional: Reports as per HPI Cardiovascular Cardiovascular: Reports as per HPI Respiratory Respiratory: Reports as per HPI FOR[facility]LY [facility] Medical History Acute kidney injury (Resolved) Crack cocaine poisoning (Acute) IV drug abuse (Acute) Opioid use disorder (Acute) SIRS (systemic inflammatory response syndrome) (Acute) Smoker (Acute) Surgical History No significant past surgical history (Acute) Family History Maternal Grandmother Diabetes Mother Diabetes Social History Smoking/Tobacco Use Status: Current every day Tobacco Type: cigarettes Quit status: not considering quitting Alcohol Intake: never Drug use: Daily Substance use type: crack/cocaine Counseling given: Yes Details: 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 Stinson at [facility] Do you feel safe at home: Yes Do you feel safe in your relationship?: Yes Additional Social history: Grew up in [place]. Living back with mother after living in [facility] for years. 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 She is currently hospitalized in [facility] They have a 7-year-old daughter living with him who he still cares for Meds Home Medications and Allergies Home Medications Medication Instructions Recorded Confirmed Type buprenorphine-naloxone [Suboxone] 2 film BUCCAL BID 04/29/19 08/12/19 History acetaminophen [Mapap Extra 1,000 mg PO Q6H 5 Days #60 tab 08/10/19 08/12/19 Rx Strength] ibuprofen [Motrin Ib] 600 mg PO Q6H 5 Days #60 tab 08/10/19 08/12/19 Rx lidocaine [Lidoderm] 1 patch TOPICAL Q24H #4 patch 08/10/19 08/12/19 Rx Allergies Allergy/AdvReac Type Severity Reaction Status Date / Time aspirin Allergy Mild unknown Unverified 08/12/19 12:36 Exam Const General: diaphoretic and ill appearing Nutritional Appearance: thin Orientation: alert, awake and oriented x3 HENMT Head: normal to inspection Face and sinus: normal facial exam Teeth and gingiva: caries Eyes General: appearance normal, both eyes and all related structures Pupils: PERRL Neck Neck: normal visual inspection Lymphatic: no lymphadenopathy noted and no lymphedema noted Chest Chest: normal inspection of the chest Resp Effort & Inspection: normal respiratory effort and able to speak in complete sentences Auscultation: rhonchi (bilaterally mid and lower lobes) Cardio Jugular venous pressure: no JVD Rate: tachycardic Rhythm: regular rhythm Heart Sounds: S1 normal, S2 normal and no murmurs GI Inspection: normal to inspection Palpation: guarding and tender in the RUQ Auscultation: normal bowel sounds General: deferred Back/Spine/Pelvis Back: no CVA tenderness Skin General skin exam: scars Other: hand to right arm swollen Neuro General: alert, awake (but sleepy) and oriented x3 Extrem General: other (right shoulder is swollen and right hand) Right upper extremity: shoulder/upper arm Details: tenderness and swelling and hand Psych Appearance: grossly normal Speech and Movement: speech and movement normal Affect: normal affect Results Last Vital Signs Temp 37.1 C 08/10/19 19:35 Pulse 104 H 08/10/19 19:35 Resp 16 08/10/19 17:32 BP 129/82 08/10/19 19:35 Pulse Ox 97 08/10/19 17:32
== END 2019-08-10 19:35 | disposition home or self-care (01) ==
PROVIDERS: Emergency Provider Student in an Organized Health Care Education/Training Program
DX: M25.511 Pain in right shoulder (principal)
CPT/HCPCS: 96372; 99223; 99284; 73030; J1885; L3650

== ENCOUNTER 2019-08-12 12:26 | Inpatient (IN) | payer MEDICAID, SELFPAY ==
--- NOTE | 2019-08-10 10:52 | HPE_ITS ---
PATIENT NAME: LUCIAN OROZCO UNIT #: [id number] ADMITTING PROVIDER: Shakira Diego NP ACCOUN T #: [id number] PRIMARY CARE PROVIDER: NONE DATE OF ADMIT: 08/10/19 : 1985 Date of service: 08/12/19 Time of Service: 16:16 Assessment and Plan Assessment and plan (1) Sepsis: Start date: 08/12/19 Start time: 16:40 Status: Resolved Assessment and plan: IVDU with Sepsis lactate of 3.6 given 3 Liters of NS in ED, WBC 24 with bands, afebrile, slight tachycardiac, BP normotensive at this time. Admit to MS with teley, echo, zosyn and vanco, history of MSSA by blood culture. IVF, Blood cultures, sputum culture PPD (2) Septic embolism: Start date: 08/12/19 Start time: 16:43 Status: Acute Assessment and plan: CT revealing irregular ill defined nodular densities throughout all lung kidd with some minimal central lucency to some nodules. May represent some form of granulomatous disease or septic emboli. See above. (3) Elevated LFTs: Start date: 08/12/19 Start time: 16:46 Status: Acute Assessment and plan: CT abd as above. Consider u/s if pain worsens. Monitor LFT (4) Substance use disorder: Start date: 08/12/19 Start time: 16:46 Status: Acute Assessment and plan: injects cocaine/crack. (5) DVT prophylaxis: Start date: 08/12/19 Start time: 16:47 Status: Acute Assessment and plan: Lovenox (6) Smoker: Start date: 08/12/19 Status: Acute Assessment and plan: When feeling better pre parole counseling aide patient on smoking cessation. Nicotine patch at this time (7) Shoulder pain: Start date: 08/12/19 Start time: 16:47 Status: Acute Assessment and plan: Consider infectious process in Right shoulder. MRI w/wo Continue to monitor Above discussed with Dr. Zapata who is in agreement. History of Present Illness History of Present Illness Chief Complaint: Sepsis, Septic emboli Narrative: 33 y.o male with PMH of cocaine IVD abuse, MSSA, admitted multiple times in the past for sepsis. Presents to emergency room today with c/o chest pain and shoulder pain to the right. He was seen two days ago for the same and given lidoderm patch. Returns today with SOB and dizziness. Upon presentation patient is tachycardiac and diaphoretic. He states he last injected crack cocaine 2 days ago. In the ED patient was found to have a lactate of 3.6, WBC 24 with Bands 20, AST 104, ALT 157. Negative troponins. CT of the chest concerning for multiple somewhat irregular and ill-defined nodular densities throughout all lung kidd. This may represent some form of granulatomas septic emboli would also strongly be considered. For this reason he is being admitted to m/s telemetry with Sepsis, septic emboli. PPD ordered, though unlikely tB as patient has not been in [facility]. At this point I don't feel he needs ICU. He is afebrile,BP is normotensive and he is awake but tired. He has received 3 liters of fluids. Lactate will be rechecked this evening and again the am.. Right shoulder is swollen and MRI will ordered to r/o infectious joint. Telemetry to monitor HR, echo to r/o endocarditis. He was started on zosyn and vanco. Blood cultures pending. His last admission blood cultures grew out MSSA so I would not be surprised to see this again. Elevated LFT will be monitored, he does c/o nausea and pain with palpation to RUQ, this could be from nodules of lung, if pain persists consider u/s. Will monitor for signs of withdrawal. Review of Systems Review of Systems ROS Unobtainable: All systems reviewed & are unremarkable except as noted in HPI and below Constitutional Constitutional: Reports as per HPI Cardiovascular Cardiovascular: Reports as per HPI Respiratory Respiratory: Reports as per HPI [facility] Medical History Acute kidney injury (Resolved) Crack cocaine poisoning (Acute) IV drug abuse (Acute) Opioid use disorder (Acute) SIRS (systemic inflammatory response syndrome) (Acute) Smoker (Acute) Surgical History No significant past surgical history (Acute) Family History Maternal Grandmother Diabetes Mother Diabetes Social History (Reviewed 08/12/19 @ 16:35 by LYNNE Claros Smoking/Tobacco Use Status: Current every day Tobacco Type: cigarettes Quit status: not considering quitting Alcohol Intake: never Drug use: Daily Substance use type: crack/cocaine Counseling given: Yes Details: 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 Stinson at [facility] Do you feel safe at home: Yes Do you feel safe in your relationship?: Yes Additional Social history: Grew up in [place]. Living back with mother after living in [facility] for years. 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 She is currently hospitalized in [facility] They have a 7-year-old daughter living with him who he still cares for Meds Home Medications and Allergies Home Medications Medication Instructions Recorded Confirmed Type buprenorphine-naloxone [Suboxone] 2 film BUCCAL BID 04/29/19 08/12/19 History acetaminophen [Mapap Extra 1,000 mg PO Q6H 5 Days #60 tab 08/10/19 08/12/19 Rx Strength] ibuprofen [Motrin Ib] 600 mg PO Q6H 5 Days #60 tab 08/10/19 08/12/19 Rx lidocaine [Lidoderm] 1 patch TOPICAL Q24H #4 patch 08/10/19 08/12/19 Rx Allergies Allergy/AdvReac Type Severity Reaction Status Date / Time aspirin Allergy Mild unknown Unverified 08/12/19 12:36 Exam Const General: diaphoretic and ill appearing Nutritional Appearance: thin Orientation: alert, awake and oriented x3 HENMT Head: normal to inspection Face and sinus: normal facial exam Teeth and gingiva: caries Eyes General: appearance normal, both eyes and all related structures Pupils: PERRL Neck Neck: normal visual inspection Lymphatic: no lymphadenopathy noted and no lymphedema noted Chest Chest: normal inspection of the chest Resp Effort & Inspection: normal respiratory effort and able to speak in complete sentences Auscultation: rhonchi (bilaterally mid and lower lobes) Cardio Jugular venous pressure: no JVD Rate: tachycardic Rhythm: regular rhythm Heart Sounds: S1 normal, S2 normal and no murmurs GI Inspection: normal to inspection Palpation: guarding and tender in the RUQ Auscultation: normal bowel sounds General: deferred Back/Spine/Pelvis Back: no CVA tenderness Skin General skin exam: scars Other: hand to right arm swollen Neuro General: alert, awake (but sleepy) and oriented x3 Extrem General: other (right shoulder is swollen and right hand) Right upper extremity: shoulder/upper arm Details: tenderness and swelling and hand Psych Appearance: grossly normal Speech and Movement: speech and movement normal Affect: normal affect Results Last Vital Signs Temp 37.1 C 08/10/19 19:35 Pulse 104 H 08/10/19 19:35 Resp 16 08/10/19 17:32 BP 129/82 08/10/19 19:35 Pulse Ox 97 08/10/19 17:32 cc: Dictated by: SHAKIRA DIEGO NP Dictated: Time: 1616 <Electronically signed by Shakira Diego NP> Date: 164 <Electronically signed by Courtney Zapata M.D.> Date: 08/13/19 0745 Date: Transcribed Date: 08/12/19 Transcribed Time: 6By: KARLA This is privileged, confidential information, intended only for the provider named. Any use or distribution by any person other than this provider is strictly prohibited. If you receive this report in error, please notify us immediately at [phone] and return the original report to us at the address above. Thank you.
[2019-08-12] VITALS (28 sets, daily range): BP systolic 126–154; BP diastolic 57–91; PULSE 107–121; RESP 18–32; TEMP 36.6–37.1; O2SAT 93–97
--- NOTE | 2019-08-12 13:00 | ED.GENADUL_ITS ---
Discharge Plan Disposition Patient Disposition: [facility] INPATIENT Condition: Fair Discharge Details Chief Complaint: Orthopedic Clinical Impression: Acute septic pulmonary embolism, Bandemia, Lactic acidosis, Shoulder pain Admit Date/Time: 08/12/19 16:55 Admit Provider: Courtney Zapata Attending Provider: Courtney Zapata Primary Care Provider: Fernandez Huizar ED Provider: Vicky Albert Discharge Data Discharge Date/Time-TO BE ENTERED AT DEPARTURE: 08/12/19 18:15 Medical Decision Making 1240 -- 33-year-old male with history of IV drug use, MSSA bacteremia with sepsis who presents with right shoulder pain for the past 3 days. Last injection of crack cocaine 2 days ago. Right shoulder pain worse with movement. Also admits to intermittent chest pain, shortness of breath and dizziness since this morning. Heart rate 110s. Blood pressure within normal limits. Afebrile. Patient appears diaphoretic, lethargic. Concern for sepsis, PE. Differential diagnosis also includes ACS, dissection, include abdominal abnormality. EKG notes a rate of 109, sinus, [address] depression inferior leads. No acute ST elevation. Lungs clear. He has a murmur. His abdomen is soft and nontender. He has significant pain with range of motion at his right shoulder and tenderness palpation of right cervical paraspinal region, trapezius. His right shoulder and neck pain may be musculoskeletal but due to his history and presentation, also concerned about an acute infectious, cardiac or pulmonary source. Will place an IV, bolus IV fluids, screening labs, lactate, cultures, CT chest abdomen pelvis and give a dose of Decadron and Robaxin for the right shoulder. 1540 -- Labs and imaging reviewed. White blood cell count 24. Bands 20. Potassium 3.1. Lactate 3.6. AST 104. ALT 157. Troponin negative. CT chest notes questionable septic emboli. Vanco and cefepime and IV ordered. D/w hospitalist -accepts patient for admission. Discussed with right shoulder pain, osteomyelitis can also be on the differential. Medical Records Medical records reviewed: Yes I reviewed the patient's medical records. Imaging Data Radiologic Study: Radiologist's impression: CT Angiography Chest With Contrast Exam date and time: 08/12/2019 3:00 PM Clinical history: 33 years old, male; Other: Tachycardic, SOB, chest pain, R/O pe, R/O acute abd abnormality TECHNIQUE: Imaging protocol: Computed tomographic angiography of the chest with intravenous contrast. 3D rendering: MIP reconstructed images were created and reviewed. Radiation optimization: All CT scans at this facility use at least one of these dose optimization techniques: automated exposure control; mA and/or kV adjustment per patient size (includes targeted exams where dose is matched to clinical indication); or iterative reconstruction. Contrast material: OMNIPAQUE 350; Contrast volume: 85 ml; Contrast route: IV; COMPARISON: SC XR CHEST 1V IN DI DEPT 04/29/2019 2:06 PM FINDINGS: No evidence of pulmonary embolism. Multiple somewhat irregular and ill-defined nodular densities throughout all lung kidd with some minimal central lucency to some of the nodules. This may or present some form of granulomatous disease however septic emboli would also have to strongly be considered. Minimal bibasilar atelectasis. No significant pleural effusion. Prominent inhomogeneity to the liver suggesting areas of fatty infiltration. No significant hilar or mediastinal adenopathy. IMPRESSION: Multiple somewhat irregular and ill-defined nodular densities throughout all lung kidd with some minimal central lucency to some of the nodules. This may or present some form of granulomatous disease however septic emboli would also have to strongly be considered. Lab Data Lab results reviewed: Yes I reviewed the patient's lab results. ECG Data Attestation: I personally reviewed and interpreted this ECG (s) as follows: Interpretation: rate of 109, sinus, [address] depression noted in 2, 3, aVF. No acute ST elevation. MI 98. QTc 447. HPI General Mode of arrival: ambulatory . Date/Time Provider Initiated Documentation: 08/12/19 12:31 . Limitations to Documentation: no limitations . Information obtained by: patient . HPI Narrative: Patient is a 33-year-old male with history of IV drug abuse, MSSA bacteremia, who presents with right shoulder pain for the past 3 days. Patient was seen here 2 days ago for the same complaint and given Lidoderm patch and ibuprofen. He denies any recent injury. He states the pain is in his right side of his neck, right upper shoulder and right upper back that is worse with movement. He denies any relief with his ibuprofen or Lidoderm patch. He also admits to anterior chest pain, shortness of breath and dizziness that is intermittent that started this morning. He states he last injected crack cocaine 2 days ago. He states he generally uses it every day. He denies any alcohol use. He states he last took his Suboxone yesterday. Related Data Home Medications Medication Instructions Recorded Confirmed buprenorphine-naloxone [Suboxone] 2 film BUCCAL BID 04/29/19 08/12/19 lidocaine [Lidoderm] 1 patch TOPICAL Q24H #4 patch 08/10/19 08/12/19 Previous Rx's Medication Instructions Recorded lidocaine [Lidoderm] 1 patch TOPICAL Q24H #4 patch 08/10/19 Allergies Allergy/AdvReac Type Severity Reaction Status Date / Time aspirin Allergy Mild unknown Unverified 08/12/19 12:36 General Stated Complaint: Orthopedic SÁNCHEZ: 3 Review of Systems Review of Systems ROS Unobtainable: All systems reviewed & are unremarkable except as noted in HPI and below Constitutional Constitutional: Reports as per HPI, Denies chills and Denies fever(s) Eyes Eyes: Denies blurry vision ENT Ears, Nose, Mouth, and Throat: Denies dizziness, Denies sore throat and Denies throat swelling Cardiovascular Cardiovascular: Reports chest pain and Denies dyspnea Respiratory Respiratory: Denies cough and Denies dyspnea Gastrointestinal Gastrointestinal: Denies abdominal pain, Denies diarrhea and Denies vomiting Genitourinary Genitourinary: Denies hematuria and Denies dysuria Musculoskeletal Musculoskeletal: Denies back pain, Denies numbness and Reports other (R shoulder pain) Integumentary/Breasts Skin/Breast: Denies lesions and Denies rash Neurologic Neurologic: Denies dizziness, Denies focal weakness and Denies numbness Allergic/Immunologic Allergic/Immunologic: Denies throat swelling [facility] Medical History Acute kidney injury (Resolved) Crack cocaine poisoning (Acute) IV drug abuse (Acute) Opioid use disorder (Acute) SIRS (systemic inflammatory response syndrome) (Acute) Smoker (Acute) Surgical History No significant past surgical history (Acute) Family History Maternal Grandmother Diabetes Mother Diabetes Social History Smoking/Tobacco Use Status: Current every day Tobacco Type: cigarettes Quit status: not considering quitting Alcohol Intake: never Drug use: Daily Substance use type: crack/cocaine Counseling given: Yes Details: 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 Stinson at [facility] Do you feel safe at home: Yes Do you feel safe in your relationship?: Yes Additional Social history: Grew up in [place]. Living back with mother after living in [facility] for years. 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 She is currently hospitalized in [facility] They have a 7-year-old daughter living with him who he still cares for Exam Const General: cooperative, diaphoretic, ill appearing acutely and chronically and lethargic HENMT Head: normal to inspection Face and sinus: normal facial exam Eyes General: appearance normal, both eyes and all related structures EOM: EOM intact bilaterally Neck Neck: normal visual inspection and No submandibular swelling Lymphatic: no lymphadenopathy noted Chest Chest: normal inspection of the chest and no tenderness Resp Effort & Inspection: normal respiratory effort and able to speak in complete sentences Auscultation: clear to auscultation bilaterally Cardio Rate: tachycardic Rhythm: regular rhythm Heart Sounds: murmur systolic GI Inspection: normal to inspection Palpation: soft, not firm, not rigid and nontender Auscultation: normal bowel sounds Skin General skin exam: no rashes or lesions noted Neuro General: alert, awake and oriented x3 Cognition: normal cognition Speech: speech normal Motor: muscle tone normal throughout Sensory Exam: no sensory deficits noted Extrem General: normal capillary refill, no calf tenderness bilaterally and no edema Other: Tenderness to palpation of right cervical paraspinal region, right trapezius. Pain with any range of motion at right shoulder. Difficulty with abduction, flexion, internal ex rotation of right shoulder due to pain in right cervical paraspinal region. Limitation of motion of head with right rotation and sidebending due to right- sided neck pain. Bilateral radial pulses intact. Cap refill less than 2 seconds. Psych Appearance: grossly normal Mental Status: mental status grossly normal Speech and Movement: speech and movement normal Affect: normal affect Course Vital Signs Vital signs: Vital Signs Temperature 98.6 F 08/12/19 12:30 Pulse 112 H 08/12/19 12:30 Respiratory Rate 20 08/12/19 12:30 Blood Pressure 127/77 08/12/19 12:30 Pulse Oximetry 96 08/12/19 12:30 Temperature 98.6 F 08/12/19 12:30 Temperature Source Temporal Artery Scan 08/12/19 12:30 Pulse 112 H 08/12/19 12:30 Respiratory Rate 20 08/12/19 12:30 Respiratory Effort 08/12/19 12:34 Blood Pressure 127/77 08/12/19 12:30 Blood Pressure Position Supine 08/12/19 12:30 Pulse Oximetry 96 08/12/19 12:30 Oxygen Delivery Method Room Air 08/12/19 12:30 Oxygen Flow Rate 0 08/12/19 12:30 Pain Level 10 08/12/19 12:30
[2019-08-12] MEDS: Normal Saline 1,000 ML 1000 ML IV ×3 (13:25→15:19)
[2019-08-12 13:33] LABS: Lactate 3.6 mmol/L (0.6-1.4)
[2019-08-12] MEDS: Dexamethasone 10 MG/ML VIAL PO (13:35)
[2019-08-12 13:38] LABS: HCT 42.8 % (40.0-50.0); HGB 14.3 g/dL (13.5-17.5); Mean Corp. HGB Concentration 33.4 g/dL (32.0-36.0); Mean Corpuscular Hemoglobin 29.6 pg (27.0-33.0); Mean Corpuscular Volume 88.6 fL (80-95); Platelet Count 222 x1000/uL (130-400); RBC 4.83 m/cumm (4.50-6.00); RBC Distribution Width 13.2 % (11.8-14.1); White Blood Cell Count 24.61 k/cumm (4.4-10.8)
[2019-08-12] MEDS: Methocarbamol 750 MG TAB PO (13:42)
[2019-08-12] MEDS: Normal Saline Flush 10 ML SYR IVP (13:43)
[2019-08-12 13:55] LABS: ALT 157 U/L (16-63); AST 104 U/L (15-37); Albumin 2.6 g/dL (3.4-5.0); Alkaline Phosphatase 204 U/L (46-116); BUN 16 mg/dL (7-18); CREATININE 0.82 mg/dL (0.70-1.30); Calcium 8.5 mg/dL (8.5-10.1); Chloride 100 mmol/L (98-107); Glucose 145 mg/dL (70-100); Magnesium 1.4 mg/dL (1.8-2.4); Potassium 3.1 mmol/L (3.5-5.1); Sodium 137 mmol/L (136-145)
[2019-08-12 14:00] LABS: Troponin I < 0.05 ng/mL (0.00-0.06)
[2019-08-12 14:03] LABS: Absolute Neutrophil Count 23.38 k/cumm (1.2-6.7)
[2019-08-12 14:04] LABS: Absolute Lymphocyte Count 0.49 k/cumm (1.2-3.4); Absolute Monocyte Count 0.74 k/cumm (0.11-0.7); Diff Comment Manual Differential; RBC Morphology Normal
--- NOTE | 2019-08-12 14:43 | DI.CT_ITS ---
EXAM: CT CHEST PE ABD PELVIS W CLINICAL HISTORY: tachycardic, sob, chest pain, r/o PE., RT SHOULDER PAIN TECHNIQUE: The study was carried out according to the usual protocol. FINDINGS: There is no evidence of pulmonary embolism. There are multiple somewhat irregular and ill-defined nod ular densities throughout the lungs and some minimal central lucency, this may represent granulomatou s disease, however the possibility of septic emboli also have to be considered. There is minimal bib asilar atelectasis. There is no pleural effusion. Regions of fatty infiltration are noted involving t he liver. There is no significant hilar or mediastinal adenopathy. IMPRESSION: Multiple somewhat irregular ill-defined nodular densities are noted throughout the lung kidd with s ome minimal central lucency of some of these nodules. This may represent some form of granulomatous d isease, however septic emboli would have to be strongly considered.
[2019-08-12] MEDS: Omnipaque 350 MG/ML 100 ML BTL IV (15:02)
--- NOTE | 2019-08-12 15:32 | DI.VRAD_ITS ---
PROCEDURE INFORMATION: Exam: CT Angiography Chest With Contrast Exam date and time: 08/12/2019 3:00 PM Clinical history: 33 years old, male; Other: Tachycardic, SOB, chest pain, R/O pe, R/O acute abd abnormality TECHNIQUE: Imaging protocol: Computed tomographic angiography of the chest with intravenous contrast. 3D rendering: MIP reconstructed images were created and reviewed. Radiation optimization: All CT scans at this facility use at least one of these dose optimization techniques: automated exposure control; mA and/or kV adjustment per patient size (includes targeted exams where dose is matched to clinical indication); or iterative reconstruction. Contrast material: OMNIPAQUE 350; Contrast volume: 85 ml; Contrast route: IV; COMPARISON: SC XR CHEST 1V IN DI DEPT 04/29/2019 2:06 PM FINDINGS: No evidence of pulmonary embolism. Multiple somewhat irregular and ill-defined nodular densities throughout all lung kidd with some minimal central lucency to some of the nodules. This may or present some form of granulomatous disease however septic emboli would also have to strongly be considered. Minimal bibasilar atelectasis. No significant pleural effusion. Prominent inhomogeneity to the liver suggesting areas of fatty infiltration. No significant hilar or mediastinal adenopathy. IMPRESSION: Multiple somewhat irregular and ill-defined nodular densities throughout all lung kidd with some minimal central lucency to some of the nodules. This may or present some form of granulomatous disease however septic emboli would also have to strongly be considered. Dictated and Authenticated by: Patrick Corbett MD. Ordering:RADHA Perry MD
[2019-08-12 16:11] LABS: Bilirubin Negative (Negative); Blood Small (Negative); Clarity Clear (Clear); Glucose Negative (Negative); Ketones Negative (Negative); Leukocyte Esterase Negative (Negative); Nitrite Negative (Negative); Specific Gravity 1.015 (1.005-1.025)
[2019-08-12] MEDS: CEFEPIME 2 GM in Normal Saline 100 ML IVPB (16:18)
[2019-08-12 16:19] LABS: Bacteria Rare HPF (Negative); C & S Indicated? No; Casts Negative LPF (Negative); Crystals Negative HPF (Negative); Epithelial Cells Negative HPF (Negative); Mucus Negative (Negative); Other Cells Negative (Negative); RBC 0-2 (0-2); WBC Negative HPF (0-5)
[2019-08-12] MEDS: VANCOMYCIN 1,250 MG in Normal Saline 250 ML 166.6666 MG IVPB (16:35)
[2019-08-12 16:37] LABS: Troponin I < 0.05 ng/mL (0.00-0.06)
[2019-08-12] MEDS: Enoxaparin 40 MG/0.4 ML SYR SC (23:46)
[2019-08-13] VITALS (52 sets, daily range): BP systolic 117–148; BP diastolic 64–89; PULSE 100–120; RESP 19–49; TEMP 36.3–37.1; O2SAT 91–97
[2019-08-13] MEDS: Normal Saline 1,000 ML 100 ML IV (00:31)
[2019-08-13] MEDS: PIPERACILLIN/TAZO 4.5 GM in Normal Saline 100 ML IVPB ×4 (00:31→17:34)
[2019-08-13] MEDS: VANCOMYCIN 750 MG in Normal Saline 250 ML 250 MG IV (04:42)
[2019-08-13] MEDS: Ibuprofen 600 MG TAB PO ×2 (06:36→21:15)
[2019-08-13 07:39] LABS: Lactate 3.6 mmol/L (0.6-1.4)
[2019-08-13 07:49] LABS: HCT 40.9 % (40.0-50.0); HGB 13.9 g/dL (13.5-17.5); Mean Corpuscular Hemoglobin 29.9 pg (27.0-33.0); Mean Platelet Volume 10.7 fL (8.0-11.0); Platelet Count 218 x1000/uL (130-400); RBC 4.65 m/cumm (4.50-6.00); RBC Distribution Width 13.3 % (11.8-14.1); White Blood Cell Count 18.11 k/cumm (4.4-10.8)
[2019-08-13 07:57] LABS: ALT 152 U/L (16-63); AST 123 U/L (15-37); Albumin 2.1 g/dL (3.4-5.0); Alkaline Phosphatase 135 U/L (46-116); Anion Gap 12.9 mmol/L (3-11); Bilirubin, Total 1.1 mg/dL (0.2-1.0); CO2 23.1 mmol/L (21.0-32.0); CREATININE 0.91 mg/dL (0.70-1.30); Calcium 8.5 mg/dL (8.5-10.1); Chloride 102 mmol/L (98-107); Glucose 166 mg/dL (70-100); Magnesium 1.7 mg/dL (1.8-2.4); Potassium 3.4 mmol/L (3.5-5.1); Sodium 138 mmol/L (136-145); Total Protein 6.1 g/dL (6.4-8.2)
[2019-08-13 08:22] LABS: Absolute Lymphocyte Count 1.09 k/cumm (1.2-3.4); Absolute Monocyte Count 0.72 k/cumm (0.11-0.7); Diff Comment Manual Differential
[2019-08-13 08:23] LABS: Burr Cells (echinocyte) 2+
[2019-08-13 08:26] LABS: BUN 19 mg/dL (7-18)
[2019-08-13] MEDS: Acetaminophen 325 MG TAB PO (08:44)
--- NOTE | 2019-08-13 08:45 | MERGE_ITS ---
*[facility]* *[facility]* [address] [place] [address] Date of study: 08/13/2019 Transthoracic Echocardiography M-mode, complete 2D, complete spectral Doppler, and color Doppler *STUDY CONCLUSIONS* Impressions: There are no typical features of vegetative endocarditis. However, this diagnosis cannot be excluded on the basis of this transthoracic study. Consider transesophageal echocardiography, if clinically indicated, for superior assessment of valve anatomy. Summary: 1. Left ventricle: The cavity size was normal. Systolic function was hyperdynamic. The estimated ejection fraction was 65-70%. Diastolic parameters were normal. There was no evidence of elevated ventricular filling pressure by Doppler parameters. 2. Right ventricle: The cavity size was normal. Wall thickness was normal. Systolic function was normal. 3. Atrial septum: No defect or patent foramen ovale was identified. 4. Pulmonary arteries: Systolic pressure could not be accurately estimated. 5. Inferior vena cava: The vessel was normal in size. The respirophasic diameter changes were in the normal range (greater than or equal to 50%), consistent with normal central venous pressure. *PATIENT PRESENTATION* Height: 162.6cm (64in ) S/D Pressure: 120 / 77 Weight: 59kg (129.7lb ) BSA: 1.64m^2 Test start time: 08:45 AM. Test stop time: 09:20 AM. PERFORMING [facility] Mary Quinones Jessica *PROCEDURE DATA* Procedure information: This study was interpreted by [facility]. Pertinent images and digital data are archived for permanent storage and are available for subsequent review. Comparison was made to the study of 04/30/2019. Study status: Routine. Transthoracic echocardiography. M-mode, complete 2D, complete spectral Doppler, and color Doppler. A Transthoracic Echocardiogram was performed. Scanning was performed from the parasternal, apical, subcostal, and suprasternal notch acoustic windows. Images were obtained using an [employer] 2000 cardiac ultrasound machine. Image quality was adequate. Study completion: The patient tolerated the procedure well. History: PMH: Septic emboli. *CARDIAC ANATOMY* Left ventricle: The cavity size was normal. Systolic function was hyperdynamic. The estimated ejection fraction was 65-70%. The tissue Doppler parameters were normal. Diastolic parameters were normal. There was no evidence of elevated ventricular filling pressure by Doppler parameters. Aortic valve: Doppler: There was no stenosis. There was no regurgitation. VTI ratio of LVOT to aortic valve: 0.98. Valve area (VTI): 2.4cm^2. Indexed valve area (VTI): 1.5cm^2/m^2. Peak velocity ratio of LVOT to aortic valve: 0.89. Valve area (Vmax): 2.2cm^2. Indexed valve area (Vmax): 1.3cm^2/m^2. Mean velocity ratio of LVOT to aortic valve: 0.8. Valve area (Vmean): 1.9cm^2. Indexed valve area (Vmean): 1.2cm^2/m^2. Mean gradient (S): 6.7mm Hg. Peak gradient (S): 13.5mm Hg. Aorta: Aortic root: The aortic root was normal in size. Ascending aorta: The ascending aorta was normal in size. Mitral valve: Doppler: There was no evidence for stenosis. There was no significant regurgitation. Valve area by pressure half-time: 3.6cm^2. Indexed valve area by pressure half-time: 2.2cm^2/m^2. Peak gradient (D): 2.9mm Hg. Left atrium: The atrium was normal in size. Atrial septum: No defect or patent foramen ovale was identified. Right ventricle: The cavity size was normal. Wall thickness was normal. Systolic function was normal. Pulmonic valve: Doppler: There was no evidence for stenosis. There was no significant regurgitation. Peak gradient (S): 8.3mm Hg. Tricuspid valve: Doppler: There was no significant regurgitation. Pulmonary artery: Poorly visualized. Systolic pressure could not be accurately estimated. Right atrium: The atrium was normal in size. Pericardium: There was no pericardial effusion. Systemic veins: Inferior vena cava: The vessel was normal in size. The respirophasic diameter changes were in the normal range (greater than or equal to 50%), consistent with normal central venous pressure. Measurements Left ventricle Value Reference LV ID, ED, PLAX 4.3 cm 3.5 - 6.0 LV ID, ES, PLAX 2.9 cm 2.1 - 4.0 LV PW thickness, ED, PLAX 0.9 cm LV end-diastolic volume, 1-p A2C 71 ml LV ejection fraction, 1-p A2C 53 % LV end-diastolic volume, 1-p A4C 96 ml LV ejection fraction, 1-p A4C 53 % LV e', lateral 0.15 m/sec LV E/e', lateral 6 LV e', medial 0.122 m/sec LV E/e', medial 7 LV e', average 0.136 m/sec LV E/e', average 6 Ventricular septum Value Reference IVS thickness, ED, PLAX 0.8 cm LVOT Value Reference LVOT ID, A-P 1.8 cm LVOT area 2.4 cm^2 LVOT peak velocity, S 1.63 m/sec LVOT mean velocity, S 0.96 m/sec LVOT VTI, S 22.6 cm LVOT peak gradient, S 10.6 mm Hg LVOT mean gradient, S 4.6 mm Hg Stroke volume (SV), LVOT DP 55 ml Stroke index (SV/bsa), LVOT DP 34 ml/m^2 Aortic valve Value Reference Aortic valve peak velocity, S 1.8 m/sec Aortic valve mean velocity, S 1.2 m/sec Aortic valve VTI, S 23.0 cm Aortic mean gradient, S 6.7 mm Hg Aortic peak gradient, S 13.5 mm Hg VTI ratio, LVOT/AV 0.98 Aortic valve area, VTI 2.4 cm^2 Velocity ratio, peak, LVOT/AV 0.89 Aortic valve area, peak velocity 2.2 cm^2 Velocity ratio, mean, LVOT/AV 0.8 Aortic valve area, mean velocity 1.9 cm^2 Aortic valve area/bsa, mean velocity 1.2 cm^2/m^2 Aorta Value Reference Aortic root ID, ED 2.9 cm Ascending aorta ID, A-P, S 2.7 cm Left atrium Value Reference LA ID, A-P, ES 2.9 cm LA ID/bsa, A-P 1.8 cm/m^2 <=2.2 LA volume, ES, 2-p 29 ml LA volume/bsa, ES, 2-p 18 ml/m^2 LA/aortic root ratio 1.01 Mitral valve Value Reference Mitral E-wave peak velocity 0.85 m/sec Mitral A-wave peak velocity 0.71 m/sec Mitral deceleration time 211 ms 150 - 230 Mitral pressure half-time 61 ms Mitral peak gradient, D 2.9 mm Hg Mitral E/A ratio, peak 1.19 Mitral valve area, PHT, DP 3.6 cm^2 Right atrium Value Reference RA area, ES, A4C 10.8 cm^2 8.3 - 19.5 Pulmonic valve Value Reference Pulmonic peak gradient, S 8.3 mm Hg Legend: (L) and (H) jade values outside specified reference range. I have personally reviewed the images and have reviewed and edited the reported findings. Electronically signed by Freedom Bermudez MD 08/13/2019 19:06
[2019-08-13] MEDS: Normal Saline Flush 10 ML SYR IVP (08:47)
[2019-08-13] MEDS: Pantoprazole 40 MG VIAL IVP (08:47)
[2019-08-13] MEDS: cloNIDine 0.1 MG TAB PO (09:56)
[2019-08-13] MEDS: hydrOXYzine HCL 50 MG TAB PO (09:56)
[2019-08-13] MEDS: Normal Saline 2,000 ML 1000 ML IV (09:59)
[2019-08-13 10:01] LABS: ALT 155 U/L (16-63); AST 129 U/L (15-37); Alkaline Phosphatase 136 U/L (46-116); Bilirubin, Direct 0.59 mg/dL (0.00-0.20); Bilirubin, Total 1.1 mg/dL (0.2-1.0); Total Protein 6.1 g/dL (6.4-8.2)
[2019-08-13] MEDS: Folic Acid 1 MG TAB PO (10:05)
[2019-08-13] MEDS: Thiamine 100 MG TAB PO (10:05)
[2019-08-13] MEDS: Multivitamin TAB 1 TAB PO (10:05)
[2019-08-13 10:06] LABS: C-Reactive Protein > 25.00 mg/dL (0.0-0.3)
--- NOTE | 2019-08-13 11:08 | W.PM.PROGNOT ---
Documented by User: Hayde Ware NP 08/13/19 11:33 Date of Service Date of service: 08/13/19 Time of Service: 11:08 Assessment and Plan Assessment and plan (1) Septic embolism: Start date: 08/13/19 Start time: 11:23 Status: Acute Assessment and plan: Toxic appearing today, will transfer to ICU after discussing with Dr. Zapata tachypenic, tachycardiac, Lactate 3.6. Stat repeat CXR, ABG with possible Bipap Blood cultures growing gram positive. Vanco and zosyn day 1. Repeat cultures for tomorrow. Echo results pending. Endocarditis likely MRI for Shoulder to r/o infectious process Spent 60 mins on providing critical care and documentation on patient. (2) Sepsis: Start date: 08/13/19 Start time: 11:27 Status: Resolved Assessment and plan: see above, from IVDU (3) Shoulder pain: Start date: 08/13/19 Start time: 11:28 Status: Acute Assessment and plan: MRI today will involve ortho if not infectious process. Consider osteo in sepsis patient with septic emboli or seeding, patient inject in right femoral vein (4) Elevated LFTs: Start date: 08/13/19 Start time: 11:29 Status: Acute Assessment and plan: Acute and Chronic hepatitis panel sent. Continue to monitor (5) DVT prophylaxis: Start date: 08/13/19 Start time: 11:30 Status: Acute Assessment and plan: Lovenox (6) Smoker: Start date: 08/13/19 Start time: 11:30 Status: Acute Assessment and plan: When feeling better consider smoking cessation conversation until then nicoderm patch (7) Opioid use disorder: Start date: 08/13/19 Start time: 11:30 Status: Acute Assessment and plan: Possible opioid withdrawal on a patient that uses IVD cocaine last injected on Sunday 08/12. States uses right femoral vein. Clonidine and hydralazine for withdrawal Subjective Subjective Patient reports: other Interval history since last seen: Toxic appearing today. Breathing is worse. Lactate is still elevated at 3.6 plan was to infuse 2 liters, however, endocarditis likely in his case given septic emboli. Prior to 1 liter patient was diaphoretic and tachypenic and tachycardiac, prior to completion of first Liter not looking any better. Fluids dcd, ABG ordered. Stat CXR r/o CHF. BC growing gram positive after 1 day on vanco and zosyn. Repeat blood cultures for tomorrow. For this reason he will be transferred to ICU by Dr. Zapata. Exam Const General: acute distress Nutritional Appearance: thin Orientation: confused Eyes Pupils: PERRL Neck Lymphatic: no lymphadenopathy noted and no lymphedema noted Resp Effort & Inspection: normal respiratory effort Auscultation: other (wet sounding at bases) Cardio Jugular venous pressure: no JVD Rate: tachycardic Heart Sounds: no murmurs GI Palpation: soft and tender in the RUQ Skin General skin exam: scars and other (pinpoint areas to toes.) Extrem General: edema (bilateral hands right greater than left, right shoulder) Objective Objective Clinical Data: Abnormal lab results 08/12/19 08/12/19 08/12/19 Range/Units 13:24 13:24 13:24 WBC 24.61 H (4.4-10.8) k/cumm Absolute Neutrophils 23.38 H (1.2-6.7) k/cumm Absolute Lymphocytes 0.49 L (1.2-3.4) k/cumm Absolute Monocytes 0.74 H (0.11-0.7) k/cumm Potassium 3.1 L (3.5-5.1) mmol/L Anion Gap 12.0 H (3-11) mmol/L BUN (7-18) mg/dL Glucose 145 H (70-100) mg/dL Lactate 3.6 H* (0.6-1.4) mmol/L Magnesium 1.4 L (1.8-2.4) mg/dL Total Bilirubin (0.2-1.0) mg/dL Conjugated Bilirubin (0.00-0.20) mg/dL AST 104 H (15-37) U/L ALT 157 H (16-63) U/L Alkaline Phosphatase 204 H (46-116) U/L C-Reactive Protein (0.0-0.3) mg/dL Total Protein (6.4-8.2) g/dL Albumin 2.6 L (3.4-5.0) g/dL Urine Protein (Negative) mg/dL Urine Blood (Negative) Urine Urobilinogen (Up TO 0.2) EU/dL 08/12/19 08/13/19 08/13/19 Range/Units 15:50 07:18 07:18 WBC (4.4-10.8) k/cumm Absolute Neutrophils (1.2-6.7) k/cumm Absolute Lymphocytes (1.2-3.4) k/cumm Absolute Monocytes (0.11-0.7) k/cumm Potassium 3.4 L (3.5-5.1) mmol/L Anion Gap 12.9 H (3-11) mmol/L BUN 19 H (7-18) mg/dL Glucose 166 H (70-100) mg/dL Lactate 3.6 H* (0.6-1.4) mmol/L Magnesium 1.7 L (1.8-2.4) mg/dL Total Bilirubin 1.1 H (0.2-1.0) mg/dL Conjugated Bilirubin (0.00-0.20) mg/dL AST 123 H (15-37) U/L ALT 152 H (16-63) U/L Alkaline Phosphatase 135 H (46-116) U/L C-Reactive Protein (0.0-0.3) mg/dL Total Protein 6.1 L (6.4-8.2) g/dL Albumin 2.1 L (3.4-5.0) g/dL Urine Protein 30 H (Negative) mg/dL Urine Blood Small H (Negative) Urine Urobilinogen 1.0 H (Up TO 0.2) EU/dL 08/13/19 08/13/19 Range/Units 07:18 07:18 WBC 18.11 H (4.4-10.8) k/cumm Absolute Neutrophils 16.30 H (1.2-6.7) k/cumm Absolute Lymphocytes 1.09 L (1.2-3.4) k/cumm Absolute Monocytes 0.72 H (0.11-0.7) k/cumm Potassium (3.5-5.1) mmol/L Anion Gap (3-11) mmol/L BUN (7-18) mg/dL Glucose (70-100) mg/dL Lactate (0.6-1.4) mmol/L Magnesium (1.8-2.4) mg/dL Total Bilirubin 1.1 H (0.2-1.0) mg/dL Conjugated Bilirubin 0.59 H (0.00-0.20) mg/dL AST 129 H (15-37) U/L ALT 155 H (16-63) U/L Alkaline Phosphatase 136 H (46-116) U/L C-Reactive Protein > 25.00 H (0.0-0.3) mg/dL Total Protein 6.1 L (6.4-8.2) g/dL Albumin 2.0 L (3.4-5.0) g/dL Urine Protein (Negative) mg/dL Urine Blood (Negative) Urine Urobilinogen (Up TO 0.2) EU/dL Vital Signs Temperature 37.1 C 08/13/19 08:32 Temperature Source Skin 08/13/19 08:32 Pulse 110 H 08/13/19 08:32 Pulse Rhythm Regular 08/12/19 23:24 Pulse 111 H 08/12/19 15:50 Respiratory Rate 28 H 08/13/19 08:32 Respiratory Effort Non-Labored 08/12/19 23:24 Respiratory Depth Shallow 08/12/19 23:24 Respiratory Pattern Normal 08/12/19 23:24 Blood Pressure 120/77 08/13/19 08:32 Blood Pressure Mean 72 08/12/19 15:46 Blood Pressure Position Supine 08/12/19 12:30 Pulse Oximetry 93 L 08/13/19 08:32 Oxygen Delivery Method Room Air 08/13/19 08:32 Oxygen Flow Rate 0 08/13/19 08:32 Pain Level 10 08/13/19 08:44 Comment 08/12/19 23:24 Intake & Output 08/12/19 08/12/19 08/13/19 11:59 23:59 11:59 Intake Total 1999 450 / 450 Output Total 600 / 600 950 / 950 Balance 1400 / 1400 -500 / -500 Weight 58.967 kg Intake: IV 1999 100 / 100 Oral 350 / 350 Output: Urine 600 / 600 950 / 950 Other: Urine Color Dark Carine Urine Appearance Clear Clear Urine Odor None Voiding Methods Urinal Laboratory Results WBC 18.11 k/cumm (4.4-10.8) H 08/13/19 07:18 RBC 4.65 m/cumm (4.50-6.00) 08/13/19 07:18 Hgb 13.9 g/dL (13.5-17.5) 08/13/19 07:18 Hct 40.9 % (40.0-50.0) 08/13/19 07:18 MCV 88.0 fL (80-95) 08/13/19 07:18 MCH 29.9 pg (27.0-33.0) 08/13/19 07:18 MCHC 34.0 g/dL (32.0-36.0) 08/13/19 07:18 RDW 13.3 % (11.8-14.1) 08/13/19 07:18 Plt Count 218 x1000/uL (130-400) 08/13/19 07:18 MPV 10.7 fL (8.0-11.0) 08/13/19 07:18 Immature Gran % 0.0 08/12/19 13:24 Neutrophils % 77.0 08/13/19 07:18 Band Neutrophils % 13.0 % 08/13/19 07:18 Lymphocytes % 6.0 08/13/19 07:18 Monocytes % 4.0 08/13/19 07:18 Eosinophils % 0.0 08/13/19 07:18 Basophils % 0.0 08/13/19 07:18 Absolute Neutrophils 16.30 k/cumm (1.2-6.7) H 08/13/19 07:18 Absolute Lymphocytes 1.09 k/cumm (1.2-3.4) L 08/13/19 07:18 Absolute Monocytes 0.72 k/cumm (0.11-0.7) H 08/13/19 07:18 Absolute Eosinophils 0.00 k/cumm (0.0-0.7) 08/13/19 07:18 Absolute Basophils 0.00 k/cumm (0.0-0.2) 08/13/19 07:18 Differential Comment Manual differential 08/13/19 07:18 RBC Morphology See below 08/13/19 07:18 [place] Cells 2+ 08/13/19 07:18 Sodium 138 mmol/L (136-145) 08/13/19 07:18 Potassium 3.4 mmol/L (3.5-5.1) L 08/13/19 07:18 Chloride 102 mmol/L (98-107) 08/13/19 07:18 Carbon Dioxide 23.1 mmol/L (21.0-32.0) 08/13/19 07:18 Anion Gap 12.9 mmol/L (3-11) H 08/13/19 07:18 BUN 19 mg/dL (7-18) H 08/13/19 07:18 Creatinine 0.91 mg/dL (0.70-1.30) 08/13/19 07:18 Estimated GFR/1.73 m2 >= 60.00 (mL/min/1.73m2) 08/13/19 07:18 Glucose 166 mg/dL (70-100) H 08/13/19 07:18 Lactate 3.6 mmol/L (0.6-1.4) H* 08/13/19 07:18 Calcium 8.5 mg/dL (8.5-10.1) 08/13/19 07:18 Magnesium 1.7 mg/dL (1.8-2.4) L 08/13/19 07:18 Total Bilirubin 1.1 mg/dL (0.2-1.0) H 08/13/19 07:18 Total Bilirubin 1.1 mg/dL (0.2-1.0) H 08/13/19 07:18 Conjugated Bilirubin 0.59 mg/dL (0.00-0.20) H 08/13/19 07:18 AST 123 U/L (15-37) H 08/13/19 07:18 AST 129 U/L (15-37) H 08/13/19 07:18 ALT 152 U/L (16-63) H 08/13/19 07:18 ALT 155 U/L (16-63) H 08/13/19 07:18 Alkaline Phosphatase 135 U/L (46-116) H 08/13/19 07:18 Alkaline Phosphatase 136 U/L (46-116) H 08/13/19 07:18 Troponin I < 0.05 ng/mL (0.00-0.06) 08/12/19 16:05 C-Reactive Protein > 25.00 mg/dL (0.0-0.3) H 08/13/19 07:18 Total Protein 6.1 g/dL (6.4-8.2) L 08/13/19 07:18 Total Protein 6.1 g/dL (6.4-8.2) L 08/13/19 07:18 Albumin 2.0 g/dL (3.4-5.0) L 08/13/19 07:18 Albumin 2.1 g/dL (3.4-5.0) L 08/13/19 07:18 Urine Color Yellow (Yellow) 08/12/19 15:50 Urine Clarity Clear (Clear) 08/12/19 15:50 Urine pH 6.0 (5-8) 08/12/19 15:50 Ur Specific [place] 1.015 (1.005-1.025) 08/12/19 15:50 Urine Protein 30 mg/dL (Negative) H 08/12/19 15:50 Urine Ketones Negative mg/dL (Negative) 08/12/19 15:50 Urine Blood Small (Negative) H 08/12/19 15:50 Urine Nitrite Negative (Negative) 08/12/19 15:50 Urine Bilirubin Negative (Negative) 08/12/19 15:50 Urine Urobilinogen 1.0 EU/dL (Up TO 0.2) H 08/12/19 15:50 Ur Leukocyte Esterase Negative (Negative) 08/12/19 15:50 Urine RBC 0-2 (0-2) 08/12/19 15:50 Urine WBC Negative HPF (0-5) 08/12/19 15:50 Ur Epithelial Cells Negative HPF (Negative) 08/12/19 15:50 Urine Crystals Negative HPF (Negative) 08/12/19 15:50 Urine Bacteria Rare HPF (Negative) 08/12/19 15:50 Urine Casts Negative LPF (Negative) 08/12/19 15:50 Urine Mucus Negative (Negative) 08/12/19 15:50 Urine Other Negative (Negative) 08/12/19 15:50 Ur Culture Indicated? No 08/12/19 15:50 Urine Glucose Negative mg/dL (Negative) 08/12/19 15:50 Documented by User: Courtney Zapata MD 08/13/19 15:09
[2019-08-13 11:28] LABS: BE -2.3 mmol/L (-3-3); HCO3 22 mmol/L (22-28); pCO2 32 mmHg (34-47); pH 7.44 (7.35-7.45); pO2 81 mmHg (83-108); sO2 97 % (94-98); tCO2 20 mmol/L (22-29)
[2019-08-13 11:31] LABS: FIO2 21 %; Site Left Radial
--- NOTE | 2019-08-13 11:43 | DI.RAD_ITS ---
EXAM: XR PORTABLE CHEST AP INDICATION: respiratory distress, ?flash pulmonary edema. COMPARISON: XR CHEST 1V IN DI DEPT from 04/29/2019 TECHNIQUE: 2D digital imaging was performed. FINDINGS: The heart size is within normal limits. The pulmonary vasculature appears stable. There have develo ped bilateral nodular opacities throughout the lungs. There is blunting of the right costophrenic an gle this may. This may represent a small pleural effusion. No pneumothorax is seen. There is no ev idence of a left pleural effusion. The bones are intact. IMPRESSION: Interval development of diffuse bilateral nodular opacities/infiltrates. Possible small right pleura l effusion. Differential considerations include multifocal pneumonia, pulmonary edema, or pulmonary hemorrhage. Metastatic disease is considered less likely. A follow-up chest x-ray is recommended in this patient to document resolution of the pulmonary findin gs. If the findings persist, a CT scan of the chest should be considered for further evaluation.
[2019-08-13] MEDS: MAGNESIUM SULFATE 2 GM/50 ML BAG IVPB (12:19)
[2019-08-13 12:39] LABS: Lactate 3.6 mmol/L (0.6-1.4)
--- NOTE | 2019-08-13 14:40 | DI.MRI_ITS ---
EXAM: MR UPPER JOINT RT WO/W CLINICAL HISTORY: swelling, pain. TECHNIQUE: Multiplanar multisequence MRI was performed. COMPARISON: No exams were available for comparison FINDINGS: No bony signal abnormality is seen. The supraspinatus and infraspinatus and myotendinous structures appear intact. The subscapularis and biceps tendons appear intact. There is no evidence of a labral tear. IMPRESSION: No definite abnormality is identified.
[2019-08-13] MEDS: Gadoterate meglumine 20 ML VIAL 12 ML IVP (14:49)
[2019-08-13] MEDS: Potassium Chloride 20 MEQ TABCR 40 MEQ PO (14:59)
[2019-08-13] MEDS: Lidocaine 5% Patch 1 PATCH TP (14:59)
--- NOTE | 2019-08-13 15:51 | DI.VRAD_ITS ---
PROCEDURE INFORMATION: Exam: MR Right Upper Extremity Joint Without and With Contrast, Shoulder Exam date and time: 08/13/2019 2:47 PM Clinical history: 33 years old, male; Shoulder; Right; Patient HX: Pain, swelling TECHNIQUE: Imaging protocol: MR of the Right upper extremity without and with contrast. Exam focused on the shoulder. Contrast material: DOTAREM; Contrast volume: 12 ml; Contrast route: IV; COMPARISON: CR XR SHOULDER RT COMPLETE 2+V 08/10/2019 6:13 PM FINDINGS: TENDONS: Supraspinatus: Unremarkable. No evidence of tear. Infraspinatus: Tiny interstitial tear of the infraspinatus tendon. Subscapularis: Unremarkable. No evidence of tear. Teres minor: Unremarkable. No evidence of tear. Biceps brachii, long head: Unremarkable. No evidence of tear. LIGAMENTS: Glenohumeral: Unremarkable. Glenoid labrum: Nondisplaced tear of the posterosuperior, superior, anterosuperior, anterior, and anteroinferior labrum. Cartilage: Unremarkable. Bones/joints: No evidence of acute osteomyelitis. Fluid: Small glenohumeral joint effusion. Muscles: Innumerable tiny rim-enhancing fluid collections within the rotator cuff muscles, with most pronounced involvement of the teres minor and subscapularis muscles. At the Soft tissues: Diffuse subcutaneous edema. Diffuse intramuscular edema. IMPRESSION: 1. Findings are favored to reflect diffuse cellulitis and myositis, with multifocal tiny intramuscular abscesses. 2. Small glenohumeral joint effusion. Cannot exclude a septic joint. If clinically warranted, consider fluid sampling. 3. No evidence of acute osteomyelitis. 4. Labral tear. 5. Tiny interstitial tear of the infraspinatus tendon. Please note that this is a preliminary report. The separate, final report is to follow. Dictated and Authenticated by: Nano Jara MD. Ordering:KARLA Lock MD
--- NOTE | 2019-08-13 16:27 | PDOC.CMIN ---
- If Service Date Differs Date of service: 08/13/19 Time of Service: 16:27 Care Management Initial Assess REASON FOR HOSPITALIZATION:: sepsis PAST MEDICAL HISTORY/PAST SURGICAL HISTORY:: Medical History : Acute kidney injury (Resolved). Crack cocaine poisoning (Acute). IV drug abuse (Acute). Opioid use disorder (Acute). SIRS (systemic inflammatory response syndrome) (Acute). Smoker (Acute). Surgical History: No significant past surgical history (Acute) PREVIOUS FUNCTIONAL STATUS/SOCIAL/FAMILY SUPPORTS:: Bruce lives by himself in an apartment in [place], [place]. 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 Bruce shared that he began using cocaine and other drugs again shortly after being discharged from the hospital this summer. He has good family support with his mother, brother and sister. CURRENT FUNCTIONAL STATUS:: Bruce was lying in bed, appearing quite ill when CM visited. He was pale and struggled to keep his eyes open. He asked CM if she saw neon numbers on the wall and stated that every time he opens his eyes, thats what he sees. Information shared with ICU nursing staff. ADVANCE DIRECTIVES:: none Has patient been provided with information about the portal?: No Did the patient sign up for the portal?: No CODE STATUS:: Full Code INSURANCE COVERAGE / FINANCIAL ISSUES:: Medicaid CURRENT HOME/COMMUNITY SERVICES/EQUIPMENT:: [facility] for substance abuse treatment PRIMARY CARE PHYSICIAN:: Fernandez Huizar PATIENT/FAMILY EDUCATION NEEDS:: Discharge plan, limitations, follow up plan, Ask Me Three. TRANSPORTATION:: via private vehicle with family PLAN:: Bruce remains ICU level of care. He is being closely monitoried and is receiving IV antibiotics. He will likely discharge home with no services when ready. CM will provide support to patient, family and discharge planning needs.
[2019-08-13] MEDS: Normal Saline 1,000 ML 75 ML IV (17:34)
--- NOTE | 2019-08-13 19:14 | W.ORTHOCONSU ---
Date of service: 08/13/19 Time of Service: 19:14 History of Present Illness History of Present Illness Chief Complaint: Generalized malaise and right shoulder pain Narrative: Is a 33-year-old white male with a history of IV drug abuse and multiple previous admissions for sepsis. He went to the emergency room on 08/10/2019 because of right shoulder pain of about 24 hours duration. He was told by the ER physician that he had impingement of his tendons in the shoulder and recommended orthopedic follow-up. Over the next 2 days he is gotten much worse. He has been febrile generalized aches and pains along with shortness of breath and right shoulder pain. He was admitted yesterday on 08/12/2019 for acute sepsis. Serum lactate was 3.6. His CRP was greater than 25. White blood cell count was 18,000. Blood cultures today are growing staph species. Identification and sensitivity is not available yet. He was started on Zosyn and vancomycin but has had less than 24 hours of antibiotics. MRI scan of the shoulder was obtained today and I was consulted by Dr. Zapata the hospitalist to rule out septic shoulder joint. Assessment and Plan Assessment and plan (1) Shoulder pain: Status: Acute Assessment and plan: Assessment: He does not have a septic shoulder by exam or MRI today. He may have some myositis of the rotator cuff musculature however. He definitely has sepsis with staph species growing in his blood cultures at less than 24 hours. He is on IV antibiotic treatment has been less than 24 hours. I do not think he is going to need to have an aspiration of his joint. I would recommend waiting to see how he responds to the IV antibiotic for another 24 hours. If he is not improving then I would consider a joint aspiration. Plan: Apply a Cryo/Cuff to the right shoulder to run continuously for the next 24 hours. After 24 hours he can drop down to 4 times daily for an hour each time. He will continue with his dual antibiotics pending sensitivities on the culture. We will reevaluate him tomorrow. Thanks for the consult. [facility] Medical History Acute kidney injury (Resolved) Crack cocaine poisoning (Acute) IV drug abuse (Acute) Opioid use disorder (Acute) SIRS (systemic inflammatory response syndrome) (Acute) Smoker (Acute) Surgical History No significant past surgical history (Acute) Family History Maternal Grandmother Diabetes Mother Diabetes Social History Smoking/Tobacco Use Status: Current every day Tobacco Type: cigarettes Quit status: not considering quitting Alcohol Intake: never Drug use: Daily Substance use type: crack/cocaine Counseling given: Yes Details: 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 Stinson at [facility] Do you feel safe at home: Yes Do you feel safe in your relationship?: Yes Additional Social history: Grew up in [place]. Living back with mother after living in [facility] for years. Formally had a successful [employer] business, lost it due to substance use disorder , but as also has severe complications from injection drug use. She is currently hospitalized in [facility] They have a 7-year-old daughter living with him who he still cares for Exam Narrative Exam Narrative: On clinical exam today his right upper extremity is not swollen. He has good radial and ulnar pulses at the wrist. He has normal ulnar median and radial nerve function of the right hand. He has excellent capillary refill of his fingers and thumb on the right. When I perform a gentle and limited passive motion of his right shoulder it does not cause him pain. He has some mild soft tissue swelling about the shoulder is mostly posterior. I do not feel any fluctuance on palpation around the shoulder. I reviewed the MRI scan of his right shoulder. There does not appear to be an effusion in the shoulder. There does appear to be some edema within the posterior rotator cuff muscles consistent with myositis. No abscesses is seen. No lesions in the bone of the proximal humerus or scapular is seen. Rotator cuff tendons are intact. Results Last Vital Signs Temp 37.1 C 08/13/19 12:05 Pulse 110 H 08/13/19 08:32 Resp 28 H 08/13/19 08:32 BP 120/77 08/13/19 08:32 Pulse Ox 93 L 08/13/19 08:32 Labs Result diagrams: 08/13/19 07:18 08/13/19 07:18 Labs: Laboratory Results - last 24 hr 08/13/19 08/13/19 08/13/19 07:18 07:18 07:18 WBC 18.11 H RBC 4.65 Hgb 13.9 Hct 40.9 MCV 88.0 MCH 29.9 MCHC 34.0 RDW 13.3 Plt Count 218 MPV 10.7 Neutrophils % 77.0 Band Neutrophils % 13.0 Lymphocytes % 6.0 Monocytes % 4.0 Eosinophils % 0.0 Basophils % 0.0 Absolute Neutrophils 16.30 H Absolute Lymphocytes 1.09 L Absolute Monocytes 0.72 H Absolute Eosinophils 0.00 Absolute Basophils 0.00 Differential Comment Manual differential RBC Morphology See below [place] Cells 2+ ESR Sample Site pCO2 pO2 O2 Saturation ABG pH ABG HCO3 ABG Total CO2 ABG Base Excess FiO2 Sodium 138 Potassium 3.4 L Chloride 102 Carbon Dioxide 23.1 Anion Gap 12.9 H BUN 19 H Creatinine 0.91 Estimated GFR/1.73 m2 >= 60.00 Glucose 166 H Lactate 3.6 H* Calcium 8.5 Magnesium 1.7 L Total Bilirubin 1.1 H Conjugated Bilirubin AST 123 H ALT 152 H Alkaline Phosphatase 135 H C-Reactive Protein Total Protein 6.1 L Albumin 2.1 L Hepatitis A IgM Ab Hep Bs Antigen Hep B Core Total Ab Hepatitis C Antibody 08/13/19 08/13/19 08/13/19 07:18 07:18 11:20 WBC RBC Hgb Hct MCV MCH MCHC RDW Plt Count MPV Neutrophils % Band Neutrophils % Lymphocytes % Monocytes % Eosinophils % Basophils % Absolute Neutrophils Absolute Lymphocytes Absolute Monocytes Absolute Eosinophils Absolute Basophils Differential Comment RBC Morphology [place] Cells ESR Cancelled Sample Site Left radial pCO2 32 L pO2 81 L O2 Saturation 97 ABG pH 7.44 ABG HCO3 22 ABG Total CO2 20 L ABG Base Excess -2.3 FiO2 21 Sodium Potassium Chloride Carbon Dioxide Anion Gap BUN Creatinine Estimated GFR/1.73 m2 Glucose Lactate Calcium Magnesium Total Bilirubin 1.1 H Conjugated Bilirubin 0.59 H AST 129 H ALT 155 H Alkaline Phosphatase 136 H C-Reactive Protein > 25.00 H Total Protein 6.1 L Albumin 2.0 L Hepatitis A IgM Ab Hep Bs Antigen Hep B Core Total Ab Hepatitis C Antibody 08/13/19 08/13/19 12:25 12:25 WBC RBC Hgb Hct MCV MCH MCHC RDW Plt Count MPV Neutrophils % Band Neutrophils % Lymphocytes % Monocytes % Eosinophils % Basophils % Absolute Neutrophils Absolute Lymphocytes Absolute Monocytes Absolute Eosinophils Absolute Basophils Differential Comment RBC Morphology [place] Cells ESR Sample Site pCO2 pO2 O2 Saturation ABG pH ABG HCO3 ABG Total CO2 ABG Base Excess FiO2 Sodium Potassium Chloride Carbon Dioxide Anion Gap BUN Creatinine Estimated GFR/1.73 m2 Glucose Lactate 3.6 H* Calcium Magnesium Total Bilirubin Conjugated Bilirubin AST ALT Alkaline Phosphatase C-Reactive Protein Total Protein Albumin Hepatitis A IgM Ab Cancelled Hep Bs Antigen Cancelled Hep B Core Total Ab Cancelled Hepatitis C Antibody Cancelled
[2019-08-13] MEDS: Nicotine 14 MG/24 HR PATCH TD (19:28)
[2019-08-13] MEDS: Enoxaparin 40 MG/0.4 ML SYR SC (19:28)
--- NOTE | 2019-08-13 20:40 | NUR.NOTE ---
Nursing Note: Pt transferred to ICU via bed following worsening sx/VS. Blood cultures positive. MD alerted. Report given by Eden Serra RN to ICU nurse Sarah at 1100.
[2019-08-13] MEDS: Buprenorphine/Naloxone 8 mg/2 mg FILM 1 EACH SL (20:52)
[2019-08-14] VITALS (95 sets, daily range): BP systolic 104–164; BP diastolic 44–100; PULSE 88–127; RESP 20–58; TEMP 35.8–37.3; O2SAT 90–99
[2019-08-14] MEDS: PIPERACILLIN/TAZO 4.5 GM in Normal Saline 100 ML IVPB ×3 (00:02→12:31)
[2019-08-14] MEDS: Lidocaine Patch Removal 1 EACH TD (01:00)
[2019-08-14 07:32] LABS: Abs Immature Grans 0.12 k/cumm (0.0-0.09); HCT 38.9 % (40.0-50.0); HGB 13.2 g/dL (13.5-17.5); Mean Corp. HGB Concentration 33.9 g/dL (32.0-36.0); Mean Corpuscular Hemoglobin 29.9 pg (27.0-33.0); Mean Platelet Volume 10.7 fL (8.0-11.0); Platelet Count 228 x1000/uL (130-400); RBC 4.42 m/cumm (4.50-6.00); RBC Distribution Width 13.5 % (11.8-14.1); White Blood Cell Count 22.13 k/cumm (4.4-10.8)
[2019-08-14 07:41] LABS: ALT 148 U/L (16-63); AST 81 U/L (15-37); Albumin 1.8 g/dL (3.4-5.0); Alkaline Phosphatase 205 U/L (46-116); Anion Gap 8.2 mmol/L (3-11); BUN 27 mg/dL (7-18); Bilirubin, Direct 0.37 mg/dL (0.00-0.20); Bilirubin, Total 0.7 mg/dL (0.2-1.0); CO2 25.8 mmol/L (21.0-32.0); CREATININE 0.88 mg/dL (0.70-1.30); Calcium 8.6 mg/dL (8.5-10.1); Chloride 102 mmol/L (98-107); Glucose 217 mg/dL (70-100); Magnesium 2.4 mg/dL (1.8-2.4); Potassium 3.6 mmol/L (3.5-5.1); Sodium 136 mmol/L (136-145); Total Protein 6.2 g/dL (6.4-8.2)
[2019-08-14 07:51] LABS: Vancomycin, Trough 25.4 ug/mL (10.0-20.0)
[2019-08-14 08:06] LABS: Procalcitonin 193.3 ng/mL
[2019-08-14 08:27] LABS: Absolute Eosinophil Count 0.22 k/cumm (0.0-0.7); Absolute Lymphocyte Count 1.11 k/cumm (1.2-3.4); Absolute Monocyte Count 0.89 k/cumm (0.11-0.7); Absolute Neutrophil Count 19.47 k/cumm (1.2-6.7); Diff Comment Manual Differential; RBC Morphology Normal
--- NOTE | 2019-08-14 08:27 | W.PM.PROGNOT ---
Date of Service Date of service: 08/14/19 Time of Service: 15:58 Assessment and Plan Assessment and plan (1) Sepsis: Status: Resolved Assessment and plan: In setting of IVD use. Due to MRSA bacteremia and likely endocarditis, as well as RUE cellulitis, myositis, possible septic shoulder and pneumonia with possible lung abscesses. TTE without evidence of vegetations, but will most certainly need a MARIANNE when he is more stable. Repeat blood cultures are pending. On vancomycin/zosyn - d/c zosyn. Continue to trend CRP - improving. D/c lovenox due to hemoptysis. Repeat CXR in am. Keep in ICU. (2) Shoulder pain: Status: Acute Assessment and plan: As above Consult PT/OT (3) Elevated LFTs: Status: Acute Assessment and plan: Hep B and Hep C positive. HIV negative. Recheck in am. Also check CPK. (4) Smoker: Status: Acute Assessment and plan: When feeling better consider smoking cessation conversation until then nicoderm patch (5) Opioid use disorder: Status: Acute Assessment and plan: Possible opioid withdrawal on a patient that uses IVD cocaine last injected on Sunday 08/12. States uses right femoral vein. Clonidine and hydroxyzine for withdrawal (6) DVT prophylaxis: Status: Acute Assessment and plan: TEDs + SCD's Subjective Subjective Interval history since last seen: More comfortable today, but scared when I tell him he has MRSA. Denies dizziness, chest pain, shortness of breath, nausea. R shoulder is better after cryo cuff. Better appetite. Having scant amount of blood in his sputum. Exam Narrative Exam Narrative: General: tearful young male, A&Ox3, anxious, looks sick, but better than yesterday HEENT: EOMI, MMM Heart: RRR, I do not hear a murmur today Lungs: CTAB GI: abdomen is soft, nontender, nondistended Extremities: no e/c/c BLE's. RUE and shoulder are less swollen and red Objective Objective Clinical Data: Abnormal lab results 08/13/19 08/13/19 08/13/19 Range/Units 07:18 07:18 07:18 WBC 18.11 H (4.4-10.8) k/cumm Absolute Neutrophils 16.30 H (1.2-6.7) k/cumm Absolute Lymphocytes 1.09 L (1.2-3.4) k/cumm Absolute Monocytes 0.72 H (0.11-0.7) k/cumm pCO2 (34-47) mmHg pO2 (83-108) mmHg ABG Total CO2 (22-29) mmol/L Potassium 3.4 L (3.5-5.1) mmol/L Anion Gap 12.9 H (3-11) mmol/L BUN 19 H (7-18) mg/dL Glucose 166 H (70-100) mg/dL Lactate 3.6 H* (0.6-1.4) mmol/L Magnesium 1.7 L (1.8-2.4) mg/dL Total Bilirubin 1.1 H (0.2-1.0) mg/dL Conjugated Bilirubin (0.00-0.20) mg/dL AST 123 H (15-37) U/L ALT 152 H (16-63) U/L Alkaline Phosphatase 135 H (46-116) U/L C-Reactive Protein (0.0-0.3) mg/dL Total Protein 6.1 L (6.4-8.2) g/dL Albumin 2.1 L (3.4-5.0) g/dL Vancomycin Trough (10.0-20.0) ug/mL 08/13/19 08/13/19 08/13/19 Range/Units 07:18 11:20 12:25 WBC (4.4-10.8) k/cumm Absolute Neutrophils (1.2-6.7) k/cumm Absolute Lymphocytes (1.2-3.4) k/cumm Absolute Monocytes (0.11-0.7) k/cumm pCO2 32 L (34-47) mmHg pO2 81 L (83-108) mmHg ABG Total CO2 20 L (22-29) mmol/L Potassium (3.5-5.1) mmol/L Anion Gap (3-11) mmol/L BUN (7-18) mg/dL Glucose (70-100) mg/dL Lactate 3.6 H* (0.6-1.4) mmol/L Magnesium (1.8-2.4) mg/dL Total Bilirubin 1.1 H (0.2-1.0) mg/dL Conjugated Bilirubin 0.59 H (0.00-0.20) mg/dL AST 129 H (15-37) U/L ALT 155 H (16-63) U/L Alkaline Phosphatase 136 H (46-116) U/L C-Reactive Protein > 25.00 H (0.0-0.3) mg/dL Total Protein 6.1 L (6.4-8.2) g/dL Albumin 2.0 L (3.4-5.0) g/dL Vancomycin Trough (10.0-20.0) ug/mL 08/14/19 08/14/19 Range/Units 07:12 07:12 WBC (4.4-10.8) k/cumm Absolute Neutrophils (1.2-6.7) k/cumm Absolute Lymphocytes (1.2-3.4) k/cumm Absolute Monocytes (0.11-0.7) k/cumm pCO2 (34-47) mmHg pO2 (83-108) mmHg ABG Total CO2 (22-29) mmol/L Potassium (3.5-5.1) mmol/L Anion Gap (3-11) mmol/L BUN 27 H (7-18) mg/dL Glucose 217 H (70-100) mg/dL Lactate (0.6-1.4) mmol/L Magnesium (1.8-2.4) mg/dL Total Bilirubin (0.2-1.0) mg/dL Conjugated Bilirubin 0.37 H (0.00-0.20) mg/dL AST 81 H (15-37) U/L ALT 148 H (16-63) U/L Alkaline Phosphatase 205 H (46-116) U/L C-Reactive Protein 18.50 H (0.0-0.3) mg/dL Total Protein 6.2 L (6.4-8.2) g/dL Albumin 1.8 L (3.4-5.0) g/dL Vancomycin Trough 25.4 H* (10.0-20.0) ug/mL Vital Signs Temperature 37.0 C 08/14/19 03:00 Temperature Source Temporal Artery Scan 08/14/19 03:00 Pulse 91 H 08/14/19 06:01 Pulse Rhythm Regular 08/13/19 08:26 Pulse 96 H 08/14/19 06:30 Respiratory Rate 36 H 08/14/19 06:30 Respiratory Effort 09/24/19 03:00 Respiratory Depth Normal 08/14/19 03:00 Respiratory Pattern Normal 08/14/19 03:00 Blood Pressure 104/44 L 08/14/19 06:01 Blood Pressure Mean 56 08/14/19 06:01 Blood Pressure Position Supine 08/13/19 16:01 Pulse Oximetry 95 08/14/19 06:30 Oxygen Delivery Method Room Air 08/13/19 20:30 Oxygen Flow Rate 0 08/13/19 20:30 Pain Level 0 08/14/19 03:00 Comment 08/12/19 23:24 Intake & Output 08/13/19 08/13/19 08/14/19 11:59 23:59 11:59 Intake Total 790 / 5383.333 4593.333 / 5383.333 400 / 400 Output Total 1300 / 2075 775 / 2075 Balance -510 / 3308.333 3818.333 / 3308.333 400 / 400 Weight 58.967 kg Intake: IV 200 / 4593.333 4393.333 / 4593.333 100 / 100 Oral 590 / 790 200 / 790 300 / 300 Output: Urine 1300 / 5 775 / 2075 Other: Urine Color Light Carine Light Carine Urine Appearance Clear Clear Urine Odor Normal Strong Comment urine is concentrated Stool Occult Blood Negative Stool Size Large Stool Characteristics Brown Voiding Methods Urinal Urinal Laboratory Results WBC 18.11 k/cumm (4.4-10.8) H 08/13/19 07:18 RBC 4.65 m/cumm (4.50-6.00) 08/13/19 07:18 Hgb 13.9 g/dL (13.5-17.5) 08/13/19 07:18 Hct 40.9 % (40.0-50.0) 08/13/19 07:18 MCV 88.0 fL (80-95) 08/13/19 07:18 MCH 29.9 pg (27.0-33.0) 08/13/19 07:18 MCHC 34.0 g/dL (32.0-36.0) 08/13/19 07:18 RDW 13.3 % (11.8-14.1) 08/13/19 07:18 Plt Count 218 x1000/uL (130-400) 08/13/19 07:18 MPV 10.7 fL (8.0-11.0) 08/13/19 07:18 Immature Gran % 0.0 08/12/19 13:24 Neutrophils % 77.0 08/13/19 07:18 Band Neutrophils % 13.0 % 08/13/19 07:18 Lymphocytes % 6.0 08/13/19 07:18 Monocytes % 4.0 08/13/19 07:18 Eosinophils % 0.0 08/13/19 07:18 Basophils % 0.0 08/13/19 07:18 Absolute Neutrophils 16.30 k/cumm (1.2-6.7) H 08/13/19 07:18 Absolute Lymphocytes 1.09 k/cumm (1.2-3.4) L 08/13/19 07:18 Absolute Monocytes 0.72 k/cumm (0.11-0.7) H 08/13/19 07:18 Absolute Eosinophils 0.00 k/cumm (0.0-0.7) 08/13/19 07:18 Absolute Basophils 0.00 k/cumm (0.0-0.2) 08/13/19 07:18 Differential Comment Manual differential 08/13/19 07:18 RBC Morphology See below 08/13/19 07:18 [place] Cells 2+ 08/13/19 07:18 ESR Cancelled 08/14/19 05:35 Sample Site Left radial 08/13/19 11:20 pCO2 32 mmHg (34-47) L 08/13/19 11:20 pO2 81 mmHg (83-108) L 08/13/19 11:20 O2 Saturation 97 % (94-98) 08/13/19 11:20 ABG pH 7.44 (7.35-7.45) 08/13/19 11:20 ABG HCO3 22 mmol/L (22-28) 08/13/19 11:20 ABG Total CO2 20 mmol/L (22-29) L 08/13/19 11:20 ABG Base Excess -2.3 mmol/L (-3-3) 08/13/19 11:20 FiO2 21 % 08/13/19 11:20 Sodium 136 mmol/L (136-145) 08/14/19 07:12 Potassium 3.6 mmol/L (3.5-5.1) 08/14/19 07:12 Chloride 102 mmol/L (98-107) 08/14/19 07:12 Carbon Dioxide 25.8 mmol/L (21.0-32.0) 08/14/19 07:12 Anion Gap 8.2 mmol/L (3-11) 08/14/19 07:12 BUN 27 mg/dL (7-18) H 08/14/19 07:12 Creatinine 0.88 mg/dL (0.70-1.30) 08/14/19 07:12 Estimated GFR/1.73 m2 >= 60.00 (mL/min/1.73m2) 08/14/19 07:12 Glucose 217 mg/dL (70-100) H 08/14/19 07:12 Lactate 3.6 mmol/L (0.6-1.4) H* 08/13/19 12:25 Calcium 8.6 mg/dL (8.5-10.1) 08/14/19 07:12 Magnesium 2.4 mg/dL (1.8-2.4) 08/14/19 07:12 Total Bilirubin 0.7 mg/dL (0.2-1.0) 08/14/19 07:12 Conjugated Bilirubin 0.37 mg/dL (0.00-0.20) H 08/14/19 07:12 AST 81 U/L (15-37) H 08/14/19 07:12 ALT 148 U/L (16-63) H 08/14/19 07:12 Alkaline Phosphatase 205 U/L (46-116) H 08/14/19 07:12 Troponin I < 0.05 ng/mL (0.00-0.06) 08/12/19 16:05 C-Reactive Protein 18.50 mg/dL (0.0-0.3) H 08/14/19 07:12 Total Protein 6.2 g/dL (6.4-8.2) L 08/14/19 07:12 Albumin 1.8 g/dL (3.4-5.0) L 08/14/19 07:12 Procalcitonin 193.3 ng/mL 08/14/19 07:12 Urine Color Yellow (Yellow) 08/12/19 15:50 Urine Clarity Clear (Clear) 08/12/19 15:50 Urine pH 6.0 (5-8) 08/12/19 15:50 Ur Specific [place] 1.015 (1.005-1.025) 08/12/19 15:50 Urine Protein 30 mg/dL (Negative) H 08/12/19 15:50 Urine Ketones Negative mg/dL (Negative) 08/12/19 15:50 Urine Blood Small (Negative) H 08/12/19 15:50 Urine Nitrite Negative (Negative) 08/12/19 15:50 Urine Bilirubin Negative (Negative) 08/12/19 15:50 Urine Urobilinogen 1.0 EU/dL (Up TO 0.2) H 08/12/19 15:50 Ur Leukocyte Esterase Negative (Negative) 08/12/19 15:50 Urine RBC 0-2 (0-2) 08/12/19 15:50 Urine WBC Negative HPF (0-5) 08/12/19 15:50 Ur Epithelial Cells Negative HPF (Negative) 08/12/19 15:50 Urine Crystals Negative HPF (Negative) 08/12/19 15:50 Urine Bacteria Rare HPF (Negative) 08/12/19 15:50 Urine Casts Negative LPF (Negative) 08/12/19 15:50 Urine Mucus Negative (Negative) 08/12/19 15:50 Urine Other Negative (Negative) 08/12/19 15:50 Ur Culture Indicated? No 08/12/19 15:50 Urine Glucose Negative mg/dL (Negative) 08/12/19 15:50 Vancomycin Trough 25.4 ug/mL (10.0-20.0) H* 08/14/19 07:12 Hepatitis A IgM Ab Cancelled 08/13/19 12:25 Hep Bs Antigen Cancelled 08/13/19 12:25 Hep B Core Total Ab Cancelled 08/13/19 12:25 Hepatitis C Antibody Cancelled 08/13/19 12:25
[2019-08-14] MEDS: Buprenorphine/Naloxone 8 mg/2 mg FILM 1 EACH SL (08:44)
[2019-08-14] MEDS: Folic Acid 1 MG TAB PO (08:44)
[2019-08-14] MEDS: Normal Saline Flush 10 ML SYR IVP ×2 (08:45→18:57)
[2019-08-14] MEDS: Multivitamin TAB 1 TAB PO (08:45)
[2019-08-14] MEDS: Thiamine 100 MG TAB PO (08:45)
[2019-08-14] MEDS: Pantoprazole 40 MG VIAL IVP (08:46)
[2019-08-14] MEDS: guaiFENesin 600 MG TABCR PO ×2 (08:48→19:47)
[2019-08-14 08:52] LABS: ESR 80 mm/hr (0-15)
--- NOTE | 2019-08-14 10:36 | CMPROGNOTE_ITS ---
Care Management Progress Note S/O: Bruce was lying in bed, eyes closed. There was a female at his bedside who reported he had not been awake yet today. CM continues to follow. A: 33 year old male admitted to [facility] 08/12/19 for Sepsis, Septic Emboli, Chief complaint of shoulder pain, MRSA +; on Vanco P: Undetermined plan at this time, Bruce may require extended course of IV [id number] dependent on results of ongoing imaging.
[2019-08-14 10:50] LABS: HIV-1/2 Ag & Ab Screen Negative (NEGAT)
[2019-08-14 11:03] LABS: HBs Antibody, Qual Positive; HBs Antibody, Quant 63.4 mIU/mL; Hepatitis B Core Antibody Negative (NEGAT); Hepatitis B surface Ag Negative (NEGAT); Hepatitis C Ab w Rflx HCV PCR Reactive (NEGAT)
[2019-08-14 11:48] LABS: Lactate 1.4 mmol/L (0.6-1.4)
[2019-08-14] MEDS: Ibuprofen 600 MG TAB PO (12:43)
[2019-08-14] MEDS: Lidocaine 5% Patch 1 PATCH TP (13:52)
[2019-08-14 15:35] LABS: Lactate 1.7 mmol/L (0.6-1.4)
[2019-08-14] MEDS: LORazepam 1 MG TAB PO/SL ×2 (16:07→19:46)
[2019-08-14 16:47] LABS: Creatine Kinase 56 U/L (39-308)
[2019-08-15] VITALS (38 sets, daily range): BP systolic 109–157; BP diastolic 51–91; PULSE 91–137; RESP 1–53; TEMP 34–38.5; O2SAT 90–98
[2019-08-15] MEDS: Lidocaine Patch Removal 1 EACH TD (00:16)
[2019-08-15] MEDS: Albuterol 2.5 MG/3 ML INH SOLN VIAL UPD (00:56)
[2019-08-15] MEDS: Ibuprofen 600 MG TAB PO ×2 (01:13→08:17)
[2019-08-15 07:17] LABS: Abs Immature Grans 0.46 k/cumm (0.0-0.09); HCT 36.3 % (40.0-50.0); HGB 12.3 g/dL (13.5-17.5); Mean Corp. HGB Concentration 33.9 g/dL (32.0-36.0); Mean Corpuscular Hemoglobin 29.8 pg (27.0-33.0); Mean Corpuscular Volume 87.9 fL (80-95); Mean Platelet Volume 11.2 fL (8.0-11.0); Platelet Count 188 x1000/uL (130-400); RBC 4.13 m/cumm (4.50-6.00); RBC Distribution Width 13.8 % (11.8-14.1)
[2019-08-15 07:50] LABS: White Blood Cell Count 27.55 k/cumm (4.4-10.8)
[2019-08-15 07:55] LABS: Procalcitonin 79.3 ng/mL
--- NOTE | 2019-08-15 08:00 | DI.RAD_ITS ---
EXAM: XR PORTABLE CHEST AP INDICATION: follow up pneumonia. COMPARISON: XR PORTABLE CHEST AP from 08/13/2019 TECHNIQUE: 2D digital imaging was performed. FINDINGS: When compared with the previous examination of 08/13, interval deterioration is demonstrated. Bilatera l pulmonary opacities are identified. There is a probable small pleural effusion. Heart is unchanged in size. IMPRESSION: Interval worsening is noted. There are numerous patchy localized areas of increased density in both l ungs and there is an apparent small bilateral pleural effusion. These findings could certainly repres ent septic emboli and/or and acute pneumonitis.
[2019-08-15] MEDS: Pantoprazole 40 MG VIAL IVP (08:17)
[2019-08-15] MEDS: Normal Saline Flush 10 ML SYR IVP ×2 (08:17→17:05)
[2019-08-15] MEDS: guaiFENesin 600 MG TABCR PO (08:18)
[2019-08-15] MEDS: Thiamine 100 MG TAB PO (08:18)
[2019-08-15] MEDS: Multivitamin TAB 1 TAB PO (08:18)
[2019-08-15] MEDS: Buprenorphine/Naloxone 8 mg/2 mg FILM 2 EACH SL (08:19)
[2019-08-15] MEDS: Folic Acid 1 MG TAB PO (08:20)
[2019-08-15 08:35] LABS: Absolute Lymphocyte Count 2.48 k/cumm (1.2-3.4); Absolute Monocyte Count 1.38 k/cumm (0.11-0.7); Absolute Neutrophil Count 22.87 k/cumm (1.2-6.7); Atypical Lymphocytes % 1; Diff Comment Manual Differential; RBC Morphology Normal
--- NOTE | 2019-08-15 09:16 | OT.INNT ---
Date of service: 08/15/19 Time of Service: 08:55 Occupational Therapy Notes 08/15/19 OT consult received and pt's chart was reviewed. OT went in to see pt and per nursing will hold on consult for today. OT will resume skilled OT services/consult tomorrow. Meenu Cruz [facility]Ofelia/[facility]
--- NOTE | 2019-08-15 09:51 | DI.CT_ITS ---
EXAM: CT CHEST WO CLINICAL HISTORY: resp. distress, pna vs lung abscesses. TECHNIQUE: A CT examination of the chest was carried out without contrast enhancement. COMPARISON: XR PORTABLE CHEST AP from 08/13/2019 FINDINGS: Innumerable localized areas of consolidation are identified, some of which appear cavitated. There i s a small bilateral pleural effusion. The heart is not enlarged. The andrew and mediastinum are diffi cult to evaluate in the absence of contrast material. No gross abnormality involving the unopacified aorta is seen. IMPRESSION: Findings highly suspicious for septic emboli. There are small bilateral pleural effusions.
[2019-08-15 09:52] LABS: ALT 94 U/L (16-63); AST 44 U/L (15-37); Albumin 1.7 g/dL (3.4-5.0); Alkaline Phosphatase 310 U/L (46-116); Anion Gap 10.7 mmol/L (3-11); BUN 30 mg/dL (7-18); Bilirubin, Direct 0.26 mg/dL (0.00-0.20); Bilirubin, Total 0.6 mg/dL (0.2-1.0); C-Reactive Protein 15.07 mg/dL (0.0-0.3); CO2 24.3 mmol/L (21.0-32.0); CREATININE 0.75 mg/dL (0.70-1.30); Calcium 8.8 mg/dL (8.5-10.1); Chloride 102 mmol/L (98-107); Glucose 133 mg/dL (70-100); Magnesium 1.8 mg/dL (1.8-2.4); Potassium 3.6 mmol/L (3.5-5.1); Sodium 137 mmol/L (136-145); Total Protein 6.1 g/dL (6.4-8.2)
[2019-08-15 11:14] LABS: Vancomycin, Trough 3.7 ug/mL (10.0-20.0)
[2019-08-15] MEDS: Lidocaine 5% Patch 1 PATCH TP (11:24)
[2019-08-15 12:04] LABS: BE 5.7 mmol/L (-3-3); HCO3 30 mmol/L (22-28); pCO2 41 mmHg (34-47); pH 7.46 (7.35-7.45); pO2 76 mmHg (83-108); sO2 96 % (94-98); tCO2 27 mmol/L (22-29)
[2019-08-15 12:07] LABS: FIO2L 2 L; Site Left Radial
--- NOTE | 2019-08-15 13:16 | PHARADMIT ---
Admission Pharmacy Clinical Review sepsis, septic emboli, shoulder pain Code Status Full Code Current Weight 58.967 kg Renally Cleared and Narrow Therapeutic Index Meds Crcl~109.53 mL/min current meds okay QTc Value / Action Taken QTc 447 BP Control, Fever BP 127/67 afebrile Electrolytes reviewed within normal limits DVT Prophylaxis enoxaparin d/c'd yesterday due to hemoptysis Opiate Usage / Scheduled Bowel Regimen Ordered adan/prn Plt/SCr for Heparin / Enoxaparin plt 188 SCr 0.75 INR for Warfarin n/a H/H stable, WBC/Bands h/h 12.3/36.3 wbc 27.55(up) procalcitonin-79.3 Antibiotic appropriateness vanco- MRSA bacteremia Cultures and Sensitivities blood cultures from 08/12 and 08/14 grew MRSA blood culture from 08/15 pending Surgical ABX d/c within 24 hr n/a DM control / Insulin Dosing BG 133 none Heart Failure (Check EF%) (ANTOINE's, B-Block, Diuretics) none IV to PO Switch n/a Home Meds Reviewed called [facility] to verify pts suboxone dose: two 8mg/2mg films once daily Home Meds Not Ordered all ordered Comments vanco dose was 1 gram Q6H, extrapolated trough was 21.4, adjusted dose to 1 gram Q8H, trough was 4.0.... not sure what happened as previous dose was ddocumented as given and bag was empty per nursing. Lab redrew trough and was 3.7. Vanco dose changed back to 1 gram Q6H with a trough scheduled for tomorrow @1100 pt looks worse per nursing, repeat chest CT and xray ordered for today PPD done yesterday
--- NOTE | 2019-08-15 13:53 | PT.INNT ---
Date of service: 08/15/19 PT Notes Patient is a 33-year old male with diagnosis of sepsis due to staphylococcal bacteremia with septic emboli to the lungs, right UE cellulitis, myositis, possible septic shoulder, pneumonia, and possible opioid withdrawal who is referred for skilled physical therapy services due to right shoulder pain. Nursing advised holding off on physical therapy evaluation as patient is not doing very well and is not appropriate for evaluation at this time. We will attempt to evaluate as soon as patient is able to participate in physical therapy consult. Thank you very much for this referral. Iwona Krause PT, DPT, CLT [facility]
--- NOTE | 2019-08-15 15:02 | CHAPLAIN ---
Bruce was in bed and his mom was visiting with him when I stopped in. Bruce kept his eyes closed some while were talking. I explained my role and offered to visit anytime he was interested in a conversation or if he would like company at anytime.
[2019-08-15 15:23] LABS: HCV RNA Detection Quantitative 7873 IU/mL (UNDECT)
--- NOTE | 2019-08-15 16:04 | DSE_ITS ---
Date of service: 08/15/19 Time of Service: 16:04 DS: Diagnosis Discharge Diagnosis (1) Sepsis due to methicillin resistant Staphylococcus aureus (MRSA): Status: Acute (2) Respiratory distress, acute: Status: Acute (3) Endocarditis: Status: Acute (4) MRSA pneumonia: Status: Acute (5) Myositis of right shoulder: Status: Acute (6) Cellulitis of right shoulder: Status: Acute (7) Septic pulmonary embolism without acute cor pulmonale: Status: Acute Asessment and Plan: with abscesses (8) Elevated LFTs: Status: Acute (9) Toxic metabolic encephalopathy: Status: Acute (10) Effusion of glenohumeral joint of right upper extremity: Status: Acute (11) Hepatitis C: Status: Acute (12) Smoker: Status: Acute (13) Polysubstance abuse: Status: Acute Discharge Plan Disposition Patient Disposition: [facility] Condition: Stable Discharge Details Chief Complaint: Orthopedic Clinical Impression: Acute septic pulmonary embolism, Bandemia, Lactic acidosis Reason For Visit: SEPSIS,SEPTIC EMBOLI,SHOULDER PAIN Admit Date/Time: 08/12/19 16:55 Admit Provider: Courtney Zapata Attending Provider: Courtney Zapata Primary Care Provider: Fernandez Huizar ED Provider: Vicky Albert Hospital Course Hospital Course: Mr Tapia is a 33 year old male with PMHx of IV drug abuse (primarily crack cocaine), as well as history of previous bacteremia, chronic opioid depedence on suboxone therapy, who presented to [facility] on 08/12/19 with chief complaints of right shoulder pain and was admitted to this hospitalist service with suspected endocarditis based on findings of septic emboli on CT of his chest done in the ED. It was also feared that his right shoulder pain was due to a septic R shoulder. He was initiated on vancomycin and zosyn. His blood cultures from 08/12/19 and 08/14/19 are growing MRSA. MRI of his R shoulder revealed cellulitis and myositis, as well as an effusion in the glenohumeral joint, which was not felt to be septic arthritis by Dr Vaughn of orthopedics, who saw the patient in consult. The patient was moved to the ICU on 08/13/19 based on his overall septic appearance, encephalopathy, and tachypnea which was felt to be due to his respiratory compensation for his metabolic disease. There was also a suspicion of the patient going into flash pulmonary edema from a compromised valve due to endocarditis, but the patient's transthoracic echocardiogram did not reveal any vegetations or valvular regurgitation. Clinically, the patient has endocarditis as evidenced by embolic nature of his pulmonary disease as well as the findings in the right shoulder. Zosyn was discontinued once blood culture results were known, and the patient remained on vancomycin until 08/15/19 with improving CRP (15.07 down from >25) and procalcitonin (79.3 down from 193.3). However, on 08/15/19, the patient's clinical status, leucocytosis, and appearance of CT of the chest has worsened. His respiratory status is tenuous, with respiratory rates in the 40's (and higher than that with exertion). He has impending respiratory failure. This, together with the worsening of the findings on his repeat CT of the chest, we feel is an indication for his transfer to a tertiary care facility, where he can be followed by pulmonology/critical care, ID, as well as undergo a more detailed evaluation of his R shoulder findings and his endocarditis. The patient was accepted at [facility] for an ICU bed by Dr Pennington of critical care. We have had issues with achieving therapeutic trough on vancomycin, possibly contributing to the worsening clinical status. Antibiotics were changed to daptomycin/ceftaroline on 08/15/19 based on the recommendation of Dr Machado of ID at [facility]. Also, per his recommendation, CT of the brain with and without contrast was obtained prior to transfer due to encephalopathy and suspicion for septic emboli to the brain, but the read is not yet available at the time of transfer. Images were pushed to [facility]. The patient was initiated on humidified heated high flow, which he will be on during his transport to [facility] on the ambulance. The patient is seriously/critically ill, but stable for transport on humidified heated high flow with CPAP for backup. He does not require intubation at the time of transfer. Please, note - the patient tested positive for Hepatitis C. He is immune to hepatitis B. He is negative for HIV. I have not had the opportunity to discuss the patient's Hepatitis C result with him and he needs to be notified. Critical Care for patient as well as preparation of his discharge summary on day of transfer took 100 minutes. Home Meds and New Rx's Prescriptions: No Action buprenorphine-naloxone [Suboxone] 8-2 mg Film 2 film buccal BID RF: 0 acetaminophen [Mapap Extra Strength] 500 MG tablet 1,000 mg PO Q6H 5 Days Qty: 60 RF: 0 lidocaine [Lidoderm] 1 PATCH patch 1 patch Topical Q24H Qty: 4 RF: 0 ibuprofen [Motrin IB] 200 MG tablet 600 mg PO Q6H 5 Days Qty: 60 RF: 0 Discharge Instructions Activity:: ambulate with assist Equipment/Supplies:: No Equipment Needed Diet:: As Tolerated Discharge Orders Discharge Orders: Discharge Order (Routine); Ordered 08/15/19 Ordered By: Courtney Zapata DS: Summary Status at Discharge Functional status at discharge: independent ambulation Overall status at discharge: patient is not back to baseline Mental Status: other (patient is slightly confused and very anxious) Speech and Movement: other (Limited ROM R shoulder. Speech intact.) Mood: anxious mood and other (patient is slightly confused and very anxious) Affect: sad Exam Narrative Exam Narrative: General: tearful young male, much more tachypneic today than yeserday, A&Ox3, anxious, looks toxic HEENT: EOMI, MMM Heart: RRR, I do not hear a murmur Lungs: CTAB GI: abdomen is soft, nontender, nondistended Extremities: no e/c/c BLE's. RUE and shoulder are less swollen and red Psych Mental Status: other (patient is slightly confused and very anxious) Speech and Movement: other (Limited ROM R shoulder. Speech intact.) Mood: anxious mood and other (patient is slightly confused and very anxious) Affect: sad DS: Data Vitals/I&O Vitals and I&O: Vital Signs Temperature 37.2 C 08/15/19 12:00 Temperature Source Temporal Artery Scan 08/15/19 12:00 Pulse 100 H 08/15/19 10:01 Pulse Rhythm Regular 08/13/19 08:26 Pulse 112 H 08/15/19 10:01 Respiratory Rate 27 H 08/15/19 10:01 Respiratory Effort Accessory Muscle Use 08/15/19 12:00 Respiratory Depth Shallow 08/15/19 12:00 Respiratory Pattern Tachypnea 08/15/19 12:00 Blood Pressure 127/67 08/15/19 10:01 Blood Pressure Mean 82 08/15/19 10:01 Blood Pressure Position Supine 08/15/19 08:00 Pulse Oximetry 93 L 08/15/19 10:01 Oxygen Delivery Method Hi Flow System 08/15/19 15:24 Oxygen Flow Rate 40 08/15/19 15:24 Fraction of Inspired Oxygen (FIO2) 32 08/15/19 15:24 Pain Level 4 08/15/19 12:00 Comment 08/12/19 23:24 Intake & Output 08/14/19 08/15/19 08/15/19 23:59 11:59 23:59 Intake Total 1150.00 / 2470.00 720 / 920 200 / 920 Output Total 675 / 1050 700 / 700 Balance 475.00 / 1420.00 20 / 220 200 / 220 Intake: IV 560.00 / 1460.00 470 / 670 200 / 670 Oral 590 / 1010 250 / 250 Output: Urine 675 / 1050 700 / 700 Other: Urine Color Dark Carine Dark Carine Urine Appearance Clear Urine Odor Strong Strong Comment Pt required that the end of his penis be put into warm water before he could void. Took several minutes before he was able to void Inc lg amt urine when pt stood up OOB. Inc lg amt urine when pt stood up OOB. Voiding Methods Urinal Data Completed and Pending Completed studies during hospitalization [Text1]: CT head with and without contrast 08/15/19: No acute abnormality. Because the lack of IV contrast the stretcher and the head can't be evaluated. If emboli are suspected in the cerebral vasculature, MR angiography could evaluate further if clinically indicated. CT chest 08/15/19: Findings highly suspicious for septic emboli. There are small bilateral pleural effusions. CXR 08/15/19: Interval worsening is noted. There are numerous patchy localized areas of increased density in both lungs and there is an apparent small bilateral pleural effusion. These findings could certainly represent septic emboli and/or and acute pneumonitis. MRI RUE with and without contrast 08/13/19: No definite abnormality is identified. CXR 08/13/19: Interval development of diffuse bilateral nodular opacities/infiltrates. Possible small right pleural effusion. Differential con siderations include multifocal pneumonia, pulmonary edema, or pulmonary hemorrhage. Metastatic disease is considered less likely. A follow-up chest x-ray is recommended in this patient to document resolution of the pulmonary findings. If the findings persist, a CT scan of the chest should be considered for further evaluation. CT chest/abdomen/pelvis 08/12/19: Multiple somewhat irregular ill-defined nodular densities are noted throughout the lung kidd with some minimal central lucency of some of these nodules. This may represent some form of granulomatous disease, however septic emboli would have to be strongly considered. Labs on day of discharge: Labs from last 24 hours 08/15/19 08/15/19 08/15/19 12:00 10:47 09:12 WBC RBC Hgb Hct MCV MCH MCHC RDW Plt Count MPV Immature Gran % Neutrophils % Band Neutrophils % Lymphocytes % Atypical Lymphs % Monocytes % Eosinophils % Basophils % Metamyelocytes % Myelocytes % Absolute Neutrophils Absolute Lymphocytes Absolute Monocytes Absolute Eosinophils Absolute Basophils Differential Comment RBC Morphology Sample Site Left radial pCO2 41 pO2 76 L O2 Saturation 96 ABG pH 7.46 H ABG HCO3 30 H ABG Total CO2 27 ABG Base Excess 5.7 H Oxygen Liter Flow 2 Sodium Potassium Chloride Carbon Dioxide Anion Gap BUN Creatinine Estimated GFR/1.73 m2 Glucose Calcium Magnesium Total Bilirubin Conjugated Bilirubin AST ALT Alkaline Phosphatase Creatine Kinase C-Reactive Protein Total Protein Albumin Procalcitonin Vancomycin Trough 3.7 L 4.0 L HCV RNA Quant (PCR) 08/15/19 08/15/19 08/15/19 06:32 06:32 06:32 WBC 27.55 H* RBC 4.13 L Hgb 12.3 L Hct 36.3 L MCV 87.9 MCH 29.8 MCHC 33.9 RDW 13.8 Plt Count 188 MPV 11.2 H Immature Gran % See Differential Neutrophils % 66.0 Band Neutrophils % 17.0 Lymphocytes % 8.0 Atypical Lymphs % 1 Monocytes % 5.0 Eosinophils % 0.0 Basophils % 0.0 Metamyelocytes % 2.0 Myelocytes % 1.0 Absolute Neutrophils 22.87 H Absolute Lymphocytes 2.48 Absolute Monocytes 1.38 H Absolute Eosinophils 0.00 Absolute Basophils 0.00 Differential Comment Manual differential RBC Morphology Normal Sample Site pCO2 pO2 O2 Saturation ABG pH ABG HCO3 ABG Total CO2 ABG Base Excess Oxygen Liter Flow Sodium 137 Potassium 3.6 Chloride 102 Carbon Dioxide 24.3 Anion Gap 10.7 BUN 30 H Creatinine 0.75 Estimated GFR/1.73 m2 >= 60.00 Glucose 133 H D Calcium 8.8 Magnesium 1.8 Total Bilirubin 0.6 Conjugated Bilirubin 0.26 H AST 44 H ALT 94 H Alkaline Phosphatase 310 H Creatine Kinase C-Reactive Protein 15.07 H Total Protein 6.1 L Albumin 1.7 L Procalcitonin 79.3 Vancomycin Trough HCV RNA Quant (PCR) 08/15/19 08/14/19 08/13/19 05:35 11:40 12:25 WBC RBC Hgb Hct MCV MCH MCHC RDW Plt Count MPV Immature Gran % Neutrophils % Band Neutrophils % Lymphocytes % Atypical Lymphs % Monocytes % Eosinophils % Basophils % Metamyelocytes % Myelocytes % Absolute Neutrophils Absolute Lymphocytes Absolute Monocytes Absolute Eosinophils Absolute Basophils Differential Comment RBC Morphology Sample Site pCO2 pO2 O2 Saturation ABG pH ABG HCO3 ABG Total CO2 ABG Base Excess Oxygen Liter Flow Sodium Potassium Chloride Carbon Dioxide Anion Gap BUN Creatinine Estimated GFR/1.73 m2 Glucose Calcium Magnesium Total Bilirubin Cancelled Conjugated Bilirubin Cancelled AST Cancelled ALT Cancelled Alkaline Phosphatase Cancelled Creatine Kinase 56 C-Reactive Protein Total Protein Cancelled Albumin Cancelled Procalcitonin Vancomycin Trough HCV RNA Quant (PCR) 7873 A 08/15/19 10:47 Blood Blood Culture - Pending 08/15/19 09:12 Blood Blood Culture - Pending Preliminary micro results at discharge 08/15/19 10:47 Blood Culture - Pending Blood 08/15/19 09:12 Blood Culture - Pending Blood 08/14/19 07:12 Blood Culture - Preliminary Blood Staph aureus, MRSA PFSH Medical History Acute kidney injury (Resolved) Crack cocaine poisoning (Acute) IV drug abuse (Acute) Opioid use disorder (Acute) SIRS (systemic inflammatory response syndrome) (Acute) Smoker (Acute) Surgical History No significant past surgical history (Acute) Family History Maternal Grandmother Diabetes Mother Diabetes Social History Smoking/Tobacco Use Status: Current every day Tobacco Type: cigarettes Quit status: not considering quitting Alcohol Intake: never Drug use: Daily Substance use type: crack/cocaine Counseling given: Yes Details: 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 Stinson at [facility] Do you feel safe at home: Yes Do you feel safe in your relationship?: Yes Additional Social history: Grew up in [place]. Living back with mother after living in [facility] for years. 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 She is currently hospitalized in [facility] They have a 7-year-old daughter living with him who he still cares for
[2019-08-15] MEDS: DAPTOmycin 500 MG in Normal Saline 50 ML 100 MG IVPB (16:46)
--- NOTE | 2019-08-15 16:50 | DI.CT_ITS ---
EXAM: CT HEAD WO/W CLINICAL HISTORY: endocarditis, concern for septic emboli. TECHNIQUE: The examination was carried out without and with contrast enhancement with 100 cc of Omn ipaque 350. COMPARISON: CT HEAD WO from 04/29/2019 FINDINGS: There is no evidence of an intra or extra-axial hemorrhage or mass. White matter is intact. The nidia tricles are normal. There is no acute bony abnormality. The visualized sinuses appear normal. There is no evidence of a mastoid effusion. Soft tissues are unremarkable. IMPRESSION: No acute abnormality is identified.
--- NOTE | 2019-08-15 16:51 | CMPROGNOTE_ITS ---
Care Management Progress Note Bruce transferred to [facility] via [employer].
--- NOTE | 2019-08-15 16:51 | PDOC.CMPRO ---
Care Management Progress Note Bruce transferred to [facility] via [employer].
[2019-08-15] MEDS: Omnipaque 350 MG/ML 100 ML BTL IJ (16:52)
[2019-08-15] MEDS: Ketorolac 30 MG/ML VIAL IVP (17:05)
--- NOTE | 2019-08-15 17:06 | DI.VRAD_ITS ---
PROCEDURE INFORMATION: Exam: CT Head With Contrast Exam date and time: 08/15/2019 3:56 PM Clinical history: 33 years old, male; Condition or disease; Other: ? Septic emboli; Patient HX: Endocarditis TECHNIQUE: Imaging protocol: Computed tomography of the head with intravenous contrast. Radiation optimization: All CT scans at this facility use at least one of these dose optimization techniques: automated exposure control; mA and/or kV adjustment per patient size (includes targeted exams where dose is matched to clinical indication); or iterative reconstruction. Contrast material: OMNIPAQUE 350; Contrast volume: 100 ml; Contrast route: CENTRAL LINE; COMPARISON: CT HEAD WO 04/29/2019 2:00 PM FINDINGS: Brain: Normal. No hemorrhage. Unremarkable white matter. No mass effect. Ventricles: Normal. No ventriculomegaly. Bones/joints: Unremarkable. No acute fracture. Sinuses: Visualized sinuses are unremarkable. No fluid levels. Mastoid air cells: Visualized mastoid air cells are well aerated. Soft tissues: Unremarkable. IMPRESSION: No acute abnormality. Because the lack of IV contrast the stretcher and the head can't be evaluated. If emboli are suspected in the cerebral vasculature, MR angiography could evaluate further if clinically indicated. Dictated and Authenticated by: Freedom Rosario MD. Ordering:PABLO Valdez MD
--- NOTE | 2019-08-15 20:07 | NUR.NOTE ---
Nursing Note: Call made to [facility] to apprise staff of PPD placed on 08/14 due to be read on 08/16.
== END 2019-08-15 17:20 | DRG 871 ==
LOC: ER 16:44 → MS 18:20 → ICU 08-13 11:49
PROVIDERS: Nurse Practitioner Family; Admitting Provider Internal Medicine; Emergency Provider Physician Assistant; PCP Internal Medicine; Visit Provider Internal Medicine
DX: A41.02 Sepsis due to Methicillin resistant Staphylococcus aureus (principal); J15.212 Pneumonia due to Methicillin resistant Staphylococcus aureus; I26.90 Septic pulmonary embolism without acute cor pulmonale; G92 Toxic encephalopathy; I38 Endocarditis, valve unspecified; L03.113 Cellulitis of right upper limb; F11.20 Opioid dependence, uncomplicated; I50.1 Left ventricular failure, unspecified; E87.2 Acidosis; F14.10 Cocaine abuse, uncomplicated; R06.03 Acute respiratory distress; M60.811 Other myositis, right shoulder; B19.20 Unspecified viral hepatitis C without hepatic coma; R76.8 Other specified abnormal immunological findings in serum; M25.411 Effusion, right shoulder; E86.0 Dehydration; F17.210 Nicotine dependence, cigarettes, uncomplicated; Z11.1 Encounter for screening for respiratory tuberculosis; Z11.4 Encounter for screening for human immunodeficiency virus [HIV]
CPT/HCPCS: 36410; 36415; 36569; 71250; 71275; 74177; 80048; 80053; 80076; 82550; 82805; 84145; 85652; 86704; 86706; 86709; 86803; 87040; 87077; 87116; 87206; 87340; 87389; 93005; 96360; 96361; 96365; 96366; 96368; 99233; 99285; 99291; J1650; 70470; 71045; 73223; 80202; 81003; 81015; 82248; 83605; 83735; 84484; 85025; 86140; 87070; 87186; 87205; 87522; 93010; 93306; 99223; 99284; J0878; J1100; J1885; J2543; J3490; J7613

== ENCOUNTER 2019-09-08 15:04 | Inpatient (IN) | payer MEDICAID, SELFPAY ==
[2019-09-08 15:00] VITALS: BP 146/90; PULSE 77; RESP 16; TEMP 37; O2SAT 97
[2019-09-08 15:24] VITALS: BP 146/90; PULSE 77; RESP 16; TEMP 37; O2SAT 97
[2019-09-08 15:33] VITALS: BP 146/90; PULSE 77; RESP 16; TEMP 37; O2SAT 97
--- NOTE | 2019-09-08 15:40 | HPE_ITS ---
Date of service: 09/08/19 Time of Service: 15:40 Assessment and Plan Assessment and plan (1) MRSA (methicillin resistant Staphylococcus aureus) septicemia: Status: Acute Assessment and plan: With bacteremia, suspected endocarditis, septic emboli to the lung with lung abscesses and bilateral empyemas, R shoulder pyomyositis with possible intramuscular abscesses, and suspected R septic shoulder. -Continue vancomycin 1250 mg IV Q 8 hrs through 10/01/19. Defer further dosing to pharmacy. Recheck labs in am to document baseline numbers. Would also trend ESR, CRP, procalcitonin. Repeat imaging on 09/30/19 (CT chest with contrast) prior to discharge with ID consult (Dr Machado at [facility]) for further antibiotic guidance. (2) Endocarditis: Start date: 09/08/19 Start time: 16:10 Status: Acute Assessment and plan: MARIANNE on 08/13 revealing EF 60-70% Systolic function hyperdynamic, diastolic parameters normal. No evidence of vegetation by Echo here or at [facility] on 08/16/19; however, patient presentation with multiple septic emobli and presence murmur is clinically consistent with endocarditis. No need for MARIANNE, per ID at [facility]. To complete 6 weeks of IV vancomycin from the day of the 1st negative blood culture (i.e. 10/01/19). (3) Septic pulmonary embolism without acute cor pulmonale: Start date: 09/08/19 Start time: 16:12 Status: Acute Assessment and plan: See above. Antibiotic therapy as above as well as Apixaban 10 mg BID through tomorrow, then 5 mg PO BID. (4) Lung abscess: Status: Acute Assessment and plan: Improving with vancomycin IV. For CT chest with IV contrast on 09/30/19. (5) Cellulitis of right shoulder: Start date: 09/08/19 Start time: 16:05 Status: Acute Assessment and plan: IVDU with septic R shoulder and multiple emobli, admitted to swing bed status for antibiotic therapy. Vancomycin until 10/01, as above. Will need follow up CT on 09/30 PICC line care Monitor CRP, procalcitonin, LFT, BMP, Urine drug screen, mag level and CBC with ESR for baseline (6) Myositis of right shoulder: Start date: 09/08/19 Start time: 16:09 Status: Acute Assessment and plan: Evidence by MRI. As above (7) Left leg DVT: Status: Acute Assessment and plan: L great saphenous vein. On apixaban as above (8) Deep vein thrombosis (DVT) of axillary vein of right upper extremity: Status: Acute Assessment and plan: R IJ, paired brachial, basilic, cephalic vv. Continue eliquis as above (9) Shoulder pain: Start date: 09/08/19 Start time: 16:13 Status: Acute Assessment and plan: Shoulder pain from cellulitis. see above Suboxone therapy seems sufficient. (10) Hepatitis C: Status: Acute Assessment and plan: Will need outpatient follow up for treatment (11) Substance use disorder: Status: Acute Assessment and plan: Patient is interested in inpatient rehab services once medical condition has resolved. Case management aware (12) DVT prophylaxis: Start date: 09/08/19 Start time: 16:14 Status: Acute Assessment and plan: On apixaban. Continue therapy. The above case was discussed with Dr. Zapata who is in agreement. History of Present Illness History of Present Illness Chief Complaint: SEPSIS, ENDOCARDITIS, CELLULITIS Narrative: Mr Tapia is a 33 y.o male with PMHx significant for IV drug use (primarly IV cocaine), history of prior bacteremia, chronic opioid depedence on suboxone therapy, Hepatitis C, who is being transferred back to our facility fr [facility] today for completion of IV antibiotics in Swing Bed level 1 status. He was originally admitted to [facility] on 08/12/19 and found to have Sepsis due to MRSA bacteremia, suspected endocarditis, septic emboli with lung abscesses and R shoulder pyomyositis with possible R septic shoulder. He was transferred to the [facility] ICU on hospital Day 2 for worsening clinical status, now with encephalopathy, tachypnea due to respiratory compensation for metabolic disease. He was being treated with vancomycin/zosyn on presentation, but once his blood culture results became known, his antibiotics were de-escalated to vancomycin monotherapy. Unfortunately, his vancomycin trough was not yet therapeutic on hospital day 3, and the patient continued to clinically worsen with declining respiratory status and worsening imaging, necessitating transfer to [facility] ICU on 08/15/19. While at [facility], the patient required placement of bilateral chest tubes for treatment of bilateral empyemas and hemothoraces, last chest tube being taken out on 08/30/19. He required BiPAP therapy while in ICU, and his antibiotics were guided by infectious diseases, with the patient initially being treated with daptomycin/ceftaroline due to difficulty getting a therapeutic trough on vancomycin. He was eventually transitioned back to vancomycin. He was evaluated by orthopedics for suspected R shoulder septic arthritis with pyom yositis. His arthrocentesis was negative; however, the patient should finish a 6 week course of IV antibiotics from his first negative blood cultures, which, according to [facility] discharge summary was on 08/20/19 - end date for antibiotics is recommended to be 10/01/19. He is currently on vancomycin 1250 mg IV Q 8 hours with target troughs of 15-20. He will need a follow up CT scan of his chest on 09/30/19, with results to be reviewed with [facility] ID (Dr Machado) for further antibiotic guidance as he might require a longer course of antibiotics or conversion to oral antibiotics. He has a LUE PICC line inserted since clearing his blood cultures at [facility]. Per CT surgery, the patient does not require decortication of his residual complicated pleural effusion/empyema. Additionally, the patient was found to have L great saphenous vein and R IJ, paired brachial veins, superficial basilic and cephalic vein DVT's, for which he was transitioned to eliquis with plans to complete at least 3 months of anticoagulation. He was also seen by addiction psychology/psychiatry team, transitioned back to suboxone for his pain control, and is very interested in pursuing intpatient substance abuse rehab once his medical condition clears. He did require ketamine and IV dilaudid GAMING PIT BOSS for pain control at [facility], but was transitioned to suboxone prior to his transfer here. The patient states that he is doing well, right shoulder pain at a 5 out of 10. He is able to pull 1250 cc on ICS. Endorses SOB with ambulating long distances, no nausea, vomiting, no edema. Denies CP. He has poor recollection of events prior to his transfer to [facility]. Please, see his current active medication list for medications on transfer. Review of Systems Review of Systems ROS Unobtainable: All systems reviewed & are unremarkable except as noted in HPI and below PFSH Medical History Acute kidney injury (Resolved) Acute respiratory failure with hypoxemia (Acute) Anemia (Chronic) Crack cocaine poisoning (Acute) Deep vein thrombosis (DVT) of axillary vein of right upper extremity (Acute) Endocarditis (Acute) IV drug abuse (Acute) Left leg DVT (Acute) Lung abscess (Acute) MRSA (methicillin resistant Staphylococcus aureus) septicemia (Acute) Opioid use disorder (Acute) SIRS (systemic inflammatory response syndrome) (Acute) Smoker (Acute) Surgical History (Updated 09/08/19 @ 16:43 by Courtney Zapata MD) H/O chest tube placement (Acute) Social History Smoking/Tobacco Use Status: Current every day Tobacco Type: cigarettes Years smoked: 20 Quit status: not considering quitting Alcohol Intake: never Drug use: Daily Substance use type: crack/cocaine Counseling given: Yes Details: 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 Stinson at [facility] Do you feel safe at home: Yes Do you feel safe in your relationship?: Yes Additional Social history: Grew up in [place]. Living back with mother after living in [facility] for years. Formally had a successful [employer], lost it due to substance use disorder , but as also has severe complications from injection drug use. She is currently hospitalized in [facility] They have a 7-year-old daughter living with him who he still cares for Meds Home Medications and Allergies Home Medications Medication Instructions Recorded Confirmed Type buprenorphine-naloxone [Suboxone] 2 film BUCCAL BID 04/29/19 09/08/19 History lidocaine [Lidoderm] 1 patch TOPICAL Q24H #4 patch 08/10/19 09/08/19 Rx Allergies Allergy/AdvReac Type Severity Reaction Status Date / Time aspirin Allergy Mild unknown Unverified 08/12/19 12:36 Exam Narrative Exam Narrative: Const: Nontoxic appearing older than stated age male sitting up in chair cooperative and pleasant. HENMT: normocephalic, poor dentition EYES: EOMI, PERRLA, MMM NECK: No lymphadenopathy, goiter or JVD Chest: normal appearance of chest Cardio: Murmur appreciated. Regularly regular rhythm Resp: able to speak full sentences. Even respiration, unlabored when sitting. CTAB GI: soft nontender, bs in all quads. : deferred Back: no CVA tenderness, normal curvature of the spine SKIN: Stage 2 on coccyx, multiple scars to bilateral arms. Area to right torso with prurigo rash, patient has been itching. Neuro: AAOx 3. Does not recall information over last month. Some fragmented memories. Extrem: Right shoulder with minimal swelling, no erythema. Psych: normal affect and mood. Results Last Vital Signs Temp 37 C 09/08/19 15:24 Pulse 77 09/08/19 15:24 Resp 16 09/08/19 15:24 BP 146/90 H 09/08/19 15:24 Pulse Ox 97 09/08/19 15:24
--- NOTE | 2019-09-08 16:33 | CM.SBPSYCH ---
SB Psychosocial/Act.Assessment - Hospital Admission Admission Date: 09/08/19 Admission From:: [facility] - Swing Bed Admission Swing Bed Admit Date:: 09/08/19 Swing Bed Level of Care: Level 1/SNF - Social Supports PREVIOUS FUNCTIONAL STATUS/SOCIAL/FAMILY SUPPORTS:: Bruce no longer has a place to live. His and child are staying with her parents. 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 Bruce shared that he began using cocaine and other drugs again shortly after being discharged from the hospital this past summer and was not able to stop which has now led to further hospitalization. He has good family support with his mother, brother and sister. - Prior to Admission Living Arrangements/Environment Prior to Admission:: He did have an apartment in 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 Crack cocaine poisoning (Acute). IV drug abuse (Acute). Opioid use disorder (Acute). SIRS (systemic inflammatory response syndrome) (Acute). Smoker (Acute). Surgical History: No significant past surgical history (Acute) General Health:: poor Past Psychiatric Treatment:: yes - Admission Data Reason for Swing Bed Admission:: 3 weeksof IV antibiotic therapy Discharge Plan:: Substance abuse rehab Broiler Chef Or Cook: KATARZYNA Date Assessment was completed:: 09/08/19
--- NOTE | 2019-09-08 16:33 | CM.SWINGPC ---
Swingbed Plan of Care Plan of care: SWING BED PROGRAM ACTIVITIES/DISCHARGE PLAN OF CARE ACTIVITIES PLAN Date: 09/08/19 Identified Need: Intervention/Plan: Individual Activities Initials CS DISCHARGE PLAN Date: 09/08/19 Identified Need: Exercise Intervention/Plan: Initials CS
[2019-09-08] MEDS: VANCOMYCIN 750 MG in Normal Saline 250 ML 166.667 MG IVPB (16:43)
[2019-09-08] MEDS: Acetaminophen 325 MG TAB 650 MG PO (18:49)
[2019-09-08] MEDS: Gabapentin 300 MG CAP 900 MG PO (19:29)
[2019-09-08] MEDS: Buprenorphine/Naloxone 8 mg/2 mg FILM 1 EACH SL (19:29)
[2019-09-08 19:36] LABS: *AMPHETAMINES SCREEN URINE Negative (Negative); *BARBITURATES SCREEN URINE Negative (Negative); *BENZODIAZEPINES SCREEN URINE Negative (Negative); Cannabinoids THC Negative (Negative); Cocaine Screen,Urine Negative (Negative); METHADONE URINE SCREEN Negative (Negative); OPIATES URINE SCREEN Negative (Negative); Tricyclic Antidepressants Negative (Negative)
[2019-09-08 20:55] VITALS: BP 136/81; PULSE 92; RESP 17; TEMP 37.6; O2SAT 96
[2019-09-08] MEDS: Melatonin 3 MG TAB 6 MG PO (21:31)
[2019-09-09] MEDS: VANCOMYCIN 750 MG in Normal Saline 250 ML 250 MG IV (06:55)
[2019-09-09] MEDS: Normal Saline Flush 10 ML SYR IVP ×4 (06:55→12:08)
[2019-09-09 07:25] LABS: Abs Immature Grans 0.04 k/cumm (0.0-0.09); Absolute Eosinophil Count 0.41 k/cumm (0.0-0.7); Absolute Lymphocyte Count 3.39 k/cumm (1.2-3.4); Absolute Monocyte Count 1.25 k/cumm (0.11-0.7); Basophils % 0.9; Eosinophils % 3.2; HCT 31.1 % (40.0-50.0); HGB 9.5 g/dL (13.5-17.5); Immature Grans % 0.3; Lymphocytes % 26.7; Mean Corp. HGB Concentration 30.5 g/dL (32.0-36.0); Mean Corpuscular Hemoglobin 28.5 pg (27.0-33.0); Mean Corpuscular Volume 93.4 fL (80-95); Mean Platelet Volume 9.2 fL (8.0-11.0); Monocytes % 9.8; Neutrophils % 59.1; Platelet Count 455 x1000/uL (130-400); RBC 3.33 m/cumm (4.50-6.00); RBC Distribution Width 14.2 % (11.8-14.1); White Blood Cell Count 12.71 k/cumm (4.4-10.8)
[2019-09-09 07:29] LABS: Absolute Basophil Count 0.11 k/cumm (0.0-0.2); Absolute Neutrophil Count 7.51 k/cumm (1.2-6.7)
[2019-09-09 07:49] LABS: ALT 56 U/L (16-63); AST 43 U/L (15-37); Albumin 2.3 g/dL (3.4-5.0); Alkaline Phosphatase 257 U/L (46-116); Anion Gap 8.6 mmol/L (3-11); BUN 20 mg/dL (7-18); Bilirubin, Total 0.2 mg/dL (0.2-1.0); CO2 30.4 mmol/L (21.0-32.0); CREATININE 0.67 mg/dL (0.70-1.30); Chloride 99 mmol/L (98-107); Glucose 105 mg/dL (70-100); Magnesium 1.8 mg/dL (1.8-2.4); Potassium 4.4 mmol/L (3.5-5.1); Sodium 138 mmol/L (136-145); Total Protein 8.8 g/dL (6.4-8.2)
[2019-09-09 07:53] LABS: Bilirubin, Direct < 0.05 mg/dL (0.00-0.20)
[2019-09-09 07:56] LABS: Procalcitonin 0.2 ng/mL
[2019-09-09 08:03] LABS: Diff Comment Diff Reviewed; RBC Morphology Normal
[2019-09-09] MEDS: Buprenorphine/Naloxone 8 mg/2 mg FILM 1 EACH SL ×2 (08:59→20:09)
[2019-09-09] MEDS: Gabapentin 300 MG CAP 900 MG PO ×3 (09:00→20:09)
[2019-09-09 09:03] LABS: ESR 114 mm/hr (0-15)
[2019-09-09] MEDS: Acetaminophen 325 MG TAB 650 MG PO ×2 (10:40→14:54)
--- NOTE | 2019-09-09 13:07 | PHARADMIT ---
Addendum entered by Balwinder Cedeno III 09/29/19 12:17: VS-OK No Labs Wgt-58.3 kg Yesterdays Vancomycin trough 13.4, drawn 2 hours late, extrapolates to 16.8. No dose changes. Addendum entered by Cherie Serra 09/24/19 10:45: VS okay no labs no med changes, check vanco trough again in a couple of days urine drug screen negative Addendum entered by Heaven Vickers 09/23/19 15:01: Vanco trough 14.2 today, continue 1gram IV q10h there was some discussion about finishing treatment in infusion room if he continues to go home for the evenings, in which case we'd want to change interval to Q12h Urinalysis today is pending Addendum entered by Heaven Vickers 09/22/19 11:54: Pharmacy Note Subjective Spending alot of time off-site, even overnight. Coordinator even mentions him going to work Objective VS ok Assessment Last random toxicology screen was 09/13/19, may repeat Plan Vanco trough ordered for 11atuesday09/23/19 ? transition to infusion room for IV Vanco? repeat CT scan on 09/30 with anticipated stop date of 10/01 for Vanco Addendum entered by Cherie Serra 09/21/19 12:35: VS okay no labs one vanco dose was given 4 hours late yesterday as the pt was not in his room, subsequent doses have been on time so far. vanco trough to be done this weekend no med changes Addendum entered by Balwinder Cedeno III 09/20/19 16:08: HR-104 BP-138/82 Lytes-OK Mag-1.6 Magnesium IV bolus given late, patient out on pass. Vancomycin continues, due at 1600 Addendum entered by Cherie Serra 09/17/19 14:07: HR-94 other VS okay no labs vanco trough was low yesterday at 13.6 so vanco changed to 1 gram Q10H yesterday to target a trough of 14.1 (pts actual trough has been higher than predicted so far) one dose of vanco was given late yesterday as pt was out on pass per nursing Addendum entered by Balwinder Cedeno III 09/14/19 12:48: No VS recorded, No Labs, VANCOMYCIN TROUGH YESTERDAY 14.7, NO CHANGES, Addendum entered by Heaven Vickers 09/11/19 15:34: VS good, Afebrile Second Vanco trough since his swingbed admission today was: 22.2, dose held 4 hours, restarted @ 1250mg IV q12h Trough has been averaging aprox 10 mcg/ml higher than predicted (previous trough was 30.7) Next trough due 5am on 09/13/19, NOT ordered at this time Weight has been steady, no other med changes except a 1x dose of Ibuprofen for right shoulder pain 02/28 Pt is able to go outside/out on pass End date of Anbx is 10/01/19 Original Note: Admission Pharmacy Clinical Review swingbed for iv abx- mrsa sepsis with septic pulmonary Code Status Full Code Current Weight 52.2 kg Renally Cleared and Narrow Therapeutic Index Meds Crcl ~96.0 mL/min current meds okay QTc Value / Action Taken n/a BP Control, Fever BP 136/81 Tmax 37.6 last night Electrolytes reviewed within normal limits DVT Prophylaxis pt is on apixaban Opiate Usage / Scheduled Bowel Regimen Ordered adan/prn Plt/SCr for Heparin / Enoxaparin plt 455 SCr 0.67 INR for Warfarin n/a H/H stable, WBC/Bands h/h 9.5/31.1 WBC 12.71 Antibiotic appropriateness vanco expected end date 10/01/19 Cultures and Sensitivities none Surgical ABX d/c within 24 hr n/a DM control / Insulin Dosing Bg 105 none Heart Failure (Check EF%) (ANTOINE's, B-Block, Diuretics) none IV to PO Switch n/a Home Meds Reviewed yes Home Meds Not Ordered lidocaine patch Comments pt was on 1.25 grams vanco Q8H at [facility], overnight pharmacy adjusted dose to 750 mg Q12H. wanted me to use kinetics to calculate a dose. Calculated dose was 1 gram Q6H to target a trough of 16.6. Vanco trough ordered for tomorrow @0900
--- NOTE | 2019-09-09 18:38 | NUR.NOTE ---
Pt is a __33_ year old male seen for ____. Chart reviewed, including H&P, recent labs, and vital signs, and other providers? reports. Patient has returned on swing status from [facility] where he was treated for a septic emboli and septic arthritis of the right upper extremity Endocarditis, and bilateral chest tubes for empyema?s and hemathoraces. Patient has a lengthy health hx but most pertinent to this case would be an acute hx of illicit drug abuse. Patients current labs were reviewed and his wbc was 12.71, H&H were 9.5,31.1, plt 455, and alb was 2.3. he is here for further antibiotic treatment and treatment for the blood clots with apaxiban. On admission patient was reported to have a stage 2 pressure ulcer on his coccyx, Dr. Zapata asked for a wound consult to be performed. There were 2 areas found on the patient. Area 1 was on the patient?s coccyx. Area was cleansed with normal saline and checked, this is an area of partial thickness this is in a stage of healing, It is slow to anastasia and measures; 3.1X1.0X <0.1. Wound bed is red with defined edges rosy wound skin being a light pink to normal, there?s no exudate or odor noted with this wound. Wound number 2 is on the right buttocks, this area was cleansed with normal saline, this too is probably a stage 2 that is resolving, area is red and slow to anastasia, area measures; 0.9 X 2.8 X< 0.1, base is red with well-defined edges, rosy-wound skin is a normal skin tone. There is no odor or exudate with this wound as well. As stated above, these wounds appear to be in a state of healing, with no indicators that these wounds are infected. Patient himself stated he felt that both wounds are improving. Patient is still weak, related to his current illness, but he is independent and uses no appliances to assist him with ambulation. Offloading of pressure was discussed with the patient but he has stated that it is difficult for him to sleep on his side. Patient is underweight and is very pale, he would benefit from having a nutritional consult ordered. Patient is continent of both bowel and bladder, and continence does not appear to be an involved factor with either of these wounds going forward from here. Patient has no edema in his extremities, good capillary refill in all four extremities, good rom in all extremities except his right arm, he can only extend the right arm about 135 degrees. Patient has pain in the right shoulder but this is not a concern again when looking at the wounds in question. Patient has been strongly encouraged to offload pressure on the wounds, but as previously noted this is an area that is difficult for him. He is encouraged to be up out of bed as much as he can during the day time hours. A Mepilex sacral has been ordered for the patient, area to bel cleansed with normal saline then patted dry, a Mepilex sacral to be applied, it is to be changed every 7 days or prn if soiled or dislodged, wound measurements to be performed weekly. Dr. Zapata was made aware that the wound consult was being performed as she ordered. Thank you for the consult.
[2019-09-09 20:46] VITALS: BP 133/79; PULSE 77; RESP 16; TEMP 36.4; O2SAT 96
[2019-09-09] MEDS: Apixaban 5 MG TAB 10 MG PO (22:30)
[2019-09-09] MEDS: Melatonin 3 MG TAB 6 MG PO (22:30)
[2019-09-10] MEDS: Normal Saline Flush 10 ML SYR IVP ×2 (04:19→07:42)
[2019-09-10] MEDS: Acetaminophen 325 MG TAB 650 MG PO (06:35)
[2019-09-10] MEDS: Buprenorphine/Naloxone 8 mg/2 mg FILM 1 EACH SL ×2 (07:42→20:15)
[2019-09-10] MEDS: Gabapentin 300 MG CAP 900 MG PO ×3 (07:42→20:15)
[2019-09-10 07:47] VITALS: BP 151/76; PULSE 78; RESP 18; TEMP 37.1; O2SAT 98
[2019-09-10 07:55] LABS: Anion Gap 6.6 mmol/L (3-11); BUN 17 mg/dL (7-18); C-Reactive Protein 1.94 mg/dL (0.0-0.3); CO2 29.4 mmol/L (21.0-32.0); CREATININE 0.67 mg/dL (0.70-1.30); Calcium 9.2 mg/dL (8.5-10.1); Chloride 100 mmol/L (98-107); Glucose 107 mg/dL (70-100); Magnesium 1.9 mg/dL (1.8-2.4); Potassium 4.5 mmol/L (3.5-5.1); Sodium 136 mmol/L (136-145)
[2019-09-10] MEDS: Apixaban 5 MG TAB PO ×2 (08:30→20:15)
[2019-09-10 08:35] LABS: Abs Immature Grans 0.06 k/cumm (0.0-0.09); Absolute Basophil Count 0.09 k/cumm (0.0-0.2); Absolute Eosinophil Count 0.47 k/cumm (0.0-0.7); Absolute Lymphocyte Count 3.94 k/cumm (1.2-3.4); Absolute Monocyte Count 1.05 k/cumm (0.11-0.7); Absolute Neutrophil Count 6.66 k/cumm (1.2-6.7); Basophils % 0.7; Eosinophils % 3.8; HCT 33.2 % (40.0-50.0); HGB 10.1 g/dL (13.5-17.5); Immature Grans % 0.5; Lymphocytes % 32.1; Mean Corp. HGB Concentration 30.4 g/dL (32.0-36.0); Mean Corpuscular Hemoglobin 28.5 pg (27.0-33.0); Mean Corpuscular Volume 93.8 fL (80-95); Mean Platelet Volume 8.8 fL (8.0-11.0); Monocytes % 8.6; Neutrophils % 54.3; RBC 3.54 m/cumm (4.50-6.00); RBC Distribution Width 14.3 % (11.8-14.1); White Blood Cell Count 12.26 k/cumm (4.4-10.8)
[2019-09-10 08:48] LABS: Procalcitonin 0.1 ng/mL
[2019-09-10 08:53] LABS: Diff Comment Agrees w/ Instrument; Platelet Count 728 x1000/uL (130-400); RBC Morphology Normal
[2019-09-10 09:16] LABS: ESR 115 mm/hr (0-15)
[2019-09-10 10:46] LABS: Vancomycin, Trough 30.7 ug/mL (10.0-20.0)
[2019-09-10 16:19] VITALS: BP 138/98; PULSE 93; RESP 16; TEMP 36; O2SAT 100
--- NOTE | 2019-09-10 16:25 | W.NUTCONSULT ---
Date of service: 09/10/19 Time of Service: 16:26 Nutritional Consult ASSESSMENT: Appreciate nutrition consult for wound healing for Bruce Tapia. BMI 19.6 Low hemoglobin Hospitalized with cellulitis of shoulder with MRSA. This appears to be an ongoing problem as he has been hospitalized in the recent past. Estimated energy expenditure 1640 calories; protein needs: 62 grams NUTRITIONAL DIAGNOSIS: Inadequate calories and protein as seen in low BMI, anemia and difficult wound healing INTERVENTION: Offering him large protein portions which he is accepting. He declines the Gerson for wound healing. He is offered Ensure as supplement. MONITORING AND EVALUATION: Will continue to offer him high nutrient content food selections to boost immune system as well as wound healing and to maintain or increase his weight. Time Spent in Nutritional Counseling and Treatment: 0 minutes face to face
[2019-09-10 19:11] LABS: *AMPHETAMINES SCREEN URINE Negative (Negative); *BARBITURATES SCREEN URINE Negative (Negative); *BENZODIAZEPINES SCREEN URINE Negative (Negative); Cannabinoids THC Negative (Negative); Cocaine Screen,Urine Negative (Negative); METHADONE URINE SCREEN Negative (Negative); OPIATES URINE SCREEN Negative (Negative); Tricyclic Antidepressants Negative (Negative)
[2019-09-10] MEDS: Melatonin 3 MG TAB 6 MG PO (20:15)
[2019-09-11] VITALS: BP 114/97; PULSE 84; RESP 18; TEMP 36.5; O2SAT 96
[2019-09-11] MEDS: Normal Saline Flush 10 ML SYR IVP ×2 (06:48→08:17)
[2019-09-11] MEDS: Acetaminophen 325 MG TAB 650 MG PO ×2 (06:48→17:51)
[2019-09-11 07:45] VITALS: BP 124/67; PULSE 83; RESP 18; TEMP 37.1; O2SAT 97
[2019-09-11] MEDS: Gabapentin 300 MG CAP 900 MG PO ×3 (08:16→18:53)
[2019-09-11] MEDS: Buprenorphine/Naloxone 8 mg/2 mg FILM 1 EACH SL ×2 (08:16→18:54)
[2019-09-11] MEDS: Apixaban 5 MG TAB PO ×2 (08:16→18:54)
[2019-09-11] MEDS: Ibuprofen 600 MG TAB PO (13:21)
[2019-09-11 14:35] LABS: Vancomycin, Trough 22.2 ug/mL (10.0-20.0)
--- NOTE | 2019-09-11 15:40 | PDOC.CMPRO ---
- If Service Date Differs Date of service: 09/11/19 Time of Service: 15:40 Care Management Progress Note CM met with Bruce's care team to review the plan below. CM then met with Bruce to review it and have it signed. Bruce agrees with all of the terms. In addition he understands that he must inform nursing whenever he leaves or returns to the unit. Bruce also declared that he feels julia to be alive and intends to remain clean and sober for his health and for his family. Behavioral Health Plan Behavioral plan will be established with patient, and care team, to adhere to patient goals, identify restrictions based on behavioral status, address nutrition, and determine allowed personal belongings, tools for hygiene and personal care. As well plan will determine level of activity including ambulation, level of supervision, visitors, and determine privileges based on level of acuity, behaviors and level of engagement by patient. 1. Random Urine Drug Screens will be completed with staff supervision 2. Visitors permitted. 3. Personal Belongings will be allowed. 4. May leave hospital 2 times per day for an hour each time. 5. Plan will be re-evaluated twice a week and as needed by CM and will be updated as indicated.
[2019-09-11 17:56] VITALS: BP 126/81; PULSE 98; RESP 18; TEMP 36.6; O2SAT 97
[2019-09-12] MEDS: Normal Saline Flush 10 ML SYR IVP ×2 (06:28→18:25)
[2019-09-12 07:04] VITALS: BP 116/72; PULSE 71; RESP 16; TEMP 37.2; O2SAT 98
[2019-09-12 07:27] LABS: Abs Immature Grans 0.03 k/cumm (0.0-0.09); Absolute Basophil Count 0.05 k/cumm (0.0-0.2); Absolute Eosinophil Count 0.42 k/cumm (0.0-0.7); Absolute Lymphocyte Count 2.65 k/cumm (1.2-3.4); Absolute Monocyte Count 0.92 k/cumm (0.11-0.7); Absolute Neutrophil Count 5.74 k/cumm (1.2-6.7); Basophils % 0.5; Eosinophils % 4.3; HCT 31.7 % (40.0-50.0); HGB 9.5 g/dL (13.5-17.5); Immature Grans % 0.3; Mean Corpuscular Hemoglobin 28.2 pg (27.0-33.0); Mean Corpuscular Volume 94.1 fL (80-95); Mean Platelet Volume 9.2 fL (8.0-11.0); Monocytes % 9.4; Neutrophils % 58.5; Platelet Count 584 x1000/uL (130-400); RBC 3.37 m/cumm (4.50-6.00); RBC Distribution Width 14.5 % (11.8-14.1); White Blood Cell Count 9.81 k/cumm (4.4-10.8)
[2019-09-12 07:39] LABS: Anion Gap 8.7 mmol/L (3-11); BUN 21 mg/dL (7-18); C-Reactive Protein 2.51 mg/dL (0.0-0.3); CO2 28.3 mmol/L (21.0-32.0); CREATININE 0.64 mg/dL (0.70-1.30); Calcium 9.1 mg/dL (8.5-10.1); Chloride 101 mmol/L (98-107); Glucose 98 mg/dL (70-100); Potassium 4.5 mmol/L (3.5-5.1); Sodium 138 mmol/L (136-145)
[2019-09-12 07:40] VITALS: BP 118/75; PULSE 80; RESP 18; TEMP 37.1; O2SAT 96
[2019-09-12] MEDS: Apixaban 5 MG TAB PO ×2 (08:16→19:31)
[2019-09-12] MEDS: Buprenorphine/Naloxone 8 mg/2 mg FILM 1 EACH SL ×2 (08:16→19:31)
[2019-09-12] MEDS: Acetaminophen 325 MG TAB 650 MG PO ×3 (08:16→19:31)
[2019-09-12] MEDS: Gabapentin 300 MG CAP 900 MG PO ×3 (08:16→19:31)
--- NOTE | 2019-09-12 15:32 | W.PM.PROGNOT ---
Date of Service Date of service: 09/12/19 Time of Service: 15:32 Subjective Subjective Interval history since last seen: S: Bruce Tapia reports a broken right upper tooth with pain. He states the pain comes in waves and lasts for about 10 minutes. The pain increases when he drinks. He has had an abscess in the past and does not believe he has an abscess at the present time. He does not know if the benzocaine helps because by the time he receives it after asking nursing for it,the pain has resolved spontaneously. He is interested in a topical gel. O: He allowed visual inspection, but did not allow for palpation. Poor dentition overall. Broken tooth, front, right top (#7). No obvious abscess. Missing other teeth. Not palpated due to patient refusal. A/P: Pharmacy contacted to request order for topical gel for dental pain that can be kept at the patient's bedside. Care management working to set up a dental appointment for evaluation, possible extraction. Objective Objective Clinical Data: Abnormal lab results 09/12/19 09/12/19 Range/Units 06:30 06:30 RBC 3.37 L (4.50-6.00) m/cumm Hgb 9.5 L (13.5-17.5) g/dL Hct 31.7 L (40.0-50.0) % MCHC 30.0 L (32.0-36.0) g/dL RDW 14.5 H (11.8-14.1) % Plt Count 584 H (130-400) x1000/uL Absolute Monocytes 0.92 H (0.11-0.7) k/cumm BUN 21 H (7-18) mg/dL Creatinine 0.64 L (0.70-1.30) mg/dL C-Reactive Protein 2.51 H (0.0-0.3) mg/dL Vital Signs Temperature 37.1 C 09/12/19 07:40 Temperature Source Tympanic 09/12/19 07:40 Pulse 80 09/12/19 07:40 Pulse Rhythm Regular 09/12/19 09:03 Respiratory Rate 18 09/12/19 07:40 Respiratory Effort Non-Labored 09/12/19 09:03 Respiratory Depth Normal 09/12/19 09:03 Respiratory Pattern Normal 09/12/19 09:03 Blood Pressure 118/75 09/12/19 07:40 Pulse Oximetry 96 09/12/19 07:40 Oxygen Delivery Method Room Air 09/12/19 07:40 Oxygen Flow Rate 0 09/12/19 07:40 Pain Level 4 09/12/19 08:16 Comment 09/10/19 04:00 Intake & Output 09/11/19 09/12/19 09/12/19 23:59 11:59 23:59 Intake Total 750 / 1000 880 / 880 Balance 750 / 1000 880 / 880 Weight 53 kg Intake: IV 270 / 270 Oral 480 / 730 880 / 880 Other: Urine Color Yellow Urine Appearance Clear Clear Urine Odor Normal Comment Pt voiding ad anoop in toilet. No hat; urine not seen by nursing a this time. Patient voiding independently Voiding Methods Toilet Toilet Laboratory Results WBC 9.81 k/cumm (4.4-10.8) 09/12/19 06:30 RBC 3.37 m/cumm (4.50-6.00) L 09/12/19 06:30 Hgb 9.5 g/dL (13.5-17.5) L 09/12/19 06:30 Hct 31.7 % (40.0-50.0) L 09/12/19 06:30 MCV 94.1 fL (80-95) 09/12/19 06:30 MCH 28.2 pg (27.0-33.0) 09/12/19 06:30 MCHC 30.0 g/dL (32.0-36.0) L 09/12/19 06:30 RDW 14.5 % (11.8-14.1) H 09/12/19 06:30 Plt Count 584 x1000/uL (130-400) H 09/12/19 06:30 MPV 9.2 fL (8.0-11.0) 09/12/19 06:30 Immature Gran % 0.3 09/12/19 06:30 Neutrophils % 58.5 09/12/19 06:30 Band Neutrophils % Cancelled 09/10/19 06:20 Lymphocytes % 27.0 09/12/19 06:30 Atypical Lymphs % Cancelled 09/10/19 06:20 Monocytes % 9.4 09/12/19 06:30 Eosinophils % 4.3 09/12/19 06:30 Basophils % 0.5 09/12/19 06:30 Metamyelocytes % Cancelled 09/10/19 06:20 Myelocytes % Cancelled 09/10/19 06:20 Promyelocytes % Cancelled 09/10/19 06:20 Absolute Neutrophils 5.74 k/cumm (1.2-6.7) 09/12/19 06:30 Absolute Lymphocytes 2.65 k/cumm (1.2-3.4) 09/12/19 06:30 Absolute Monocytes 0.92 k/cumm (0.11-0.7) H 09/12/19 06:30 Absolute Eosinophils 0.42 k/cumm (0.0-0.7) 09/12/19 06:30 Absolute Basophils 0.05 k/cumm (0.0-0.2) 09/12/19 06:30 Nucleated RBCs Cancelled 09/10/19 06:20 Differential Comment Agrees w/ instrument 09/10/19 08:28 Other Cell Type Cancelled 09/10/19 06:20 RBC Morphology Normal 09/10/19 08:28 Polychromasia Cancelled 09/10/19 06:20 Hypochromasia Cancelled 09/10/19 06:20 Poikilocytosis Cancelled 09/10/19 06:20 Basophilic Stippling Cancelled 09/10/19 06:20 Anisocytosis Cancelled 09/10/19 06:20 Microcytosis Cancelled 09/10/19 06:20 Macrocytosis Cancelled 09/10/19 06:20 Spherocytes Cancelled 09/10/19 06:20 Target Cells Cancelled 09/10/19 06:20 Tear Drop Cells Cancelled 09/10/19 06:20 Ovalocytes Cancelled 09/10/19 06:20 Stomatocytes Cancelled 09/10/19 06:20 Rosas-Berkey Bodies Cancelled 09/10/19 06:20 [place] Cells Cancelled 09/10/19 06:20 Acanthocytes (Spur) Cancelled 09/10/19 06:20 Schistocytes Cancelled 09/10/19 06:20 ESR 115 mm/hr (0-15) H 09/10/19 08:28 Sodium 138 mmol/L (136-145) 09/12/19 06:30 Potassium 4.5 mmol/L (3.5-5.1) 09/12/19 06:30 Chloride 101 mmol/L (98-107) 09/12/19 06:30 Carbon Dioxide 28.3 mmol/L (21.0-32.0) 09/12/19 06:30 Anion Gap 8.7 mmol/L (3-11) 09/12/19 06:30 BUN 21 mg/dL (7-18) H 09/12/19 06:30 Creatinine 0.64 mg/dL (0.70-1.30) L 09/12/19 06:30 Estimated GFR/1.73 m2 >= 60.00 (mL/min/1.73m2) 09/12/19 06:30 Glucose 98 mg/dL (70-100) 09/12/19 06:30 Calcium 9.1 mg/dL (8.5-10.1) 09/12/19 06:30 Magnesium 1.9 mg/dL (1.8-2.4) 09/10/19 06:20 Total Bilirubin 0.2 mg/dL (0.2-1.0) 09/09/19 06:55 Conjugated Bilirubin < 0.05 mg/dL (0.00-0.20) 09/09/19 06:55 AST 43 U/L (15-37) H 09/09/19 06:55 ALT 56 U/L (16-63) 09/09/19 06:55 Alkaline Phosphatase 257 U/L (46-116) H 09/09/19 06:55 C-Reactive Protein 2.51 mg/dL (0.0-0.3) H 09/12/19 06:30 Total Protein 8.8 g/dL (6.4-8.2) H 09/09/19 06:55 Albumin 2.3 g/dL (3.4-5.0) L 09/09/19 06:55 Procalcitonin 0.1 ng/mL 09/10/19 06:20 Vancomycin Trough 22.2 ug/mL (10.0-20.0) H* 09/11/19 13:30 Urine Opiates Screen Negative (Negative) 09/10/19 18:25 Urine Methadone Screen Negative (Negative) 09/10/19 18:25 Ur Barbiturates Screen Negative (Negative) 09/10/19 18:25 Ur Tricyclics Screen Negative (Negative) 09/10/19 18:25 Ur Amphetamines Screen Negative (Negative) 09/10/19 18:25 U Benzodiazepines Scrn Negative (Negative) 09/10/19 18:25 Urine Cocaine Screen Negative (Negative) 09/10/19 18:25 Ur THC Screen Negative (Negative) 09/10/19 18:25
--- NOTE | 2019-09-12 16:08 | W.NUTCONSULT ---
Date of service: 09/12/19 Time of Service: 16:09 Nutritional Consult ASSESSMENT: Nutrition follow up for Mr. Tapia who was poorly nourished on admission. Hemoglobin 9.4. He is eating 100% of his offered meals of double protein portions and ad. anoop. selection. He is also coming to the cafeteria and consuming up to $17 worth of food at one meal. Weight 53kg on admission BMI 20. Estimated caloric needs 1667 for sedentary livestyle. INTERVENTION: Will continue to offer high protein, high nutrient dense foods during his stay. CDM will continue to visit him and work to ensure he receives adequate nutrition during this stay. He is meeting his caloric needs based on his food choices both delivered and in the cafeteria. PLAN: Will follow weight and satisfaction of food. Time Spent in Nutritional Counseling and Treatment: 0 minutes
[2019-09-12 19:34] VITALS: BP 133/84; PULSE 82; RESP 16; TEMP 36.4; O2SAT 100
[2019-09-13 00:37] VITALS: BP 138/90; PULSE 75; RESP 18; TEMP 35.6; O2SAT 97
--- NOTE | 2019-09-13 05:05 | NUR.NOTE ---
Nursing Note: Around 2200 patient came in from outside, patient stated he and another patient outside noticed somebody smoking outside in a car, then found a plate on a pole on the campus and picked it up and found there to be crack residue on the plate. Patient stated they reported this to the synthetic filament spinner on duty. Patient states he is concerned this will appear on a UDS. UDS to be obtained when patient wakes up. [facility] aware.
[2019-09-13] MEDS: Normal Saline Flush 10 ML SYR IVP ×4 (06:02→18:20)
[2019-09-13 06:34] LABS: *AMPHETAMINES SCREEN URINE Negative (Negative); *BARBITURATES SCREEN URINE Negative (Negative); *BENZODIAZEPINES SCREEN URINE Negative (Negative); Cannabinoids THC Negative (Negative); Cocaine Screen,Urine Negative (Negative); METHADONE URINE SCREEN Negative (Negative); OPIATES URINE SCREEN Negative (Negative)
[2019-09-13 06:39] LABS: Tricyclic Antidepressants Negative (Negative)
[2019-09-13 07:03] LABS: Abs Immature Grans 0.04 k/cumm (0.0-0.09); Absolute Basophil Count 0.05 k/cumm (0.0-0.2); Absolute Eosinophil Count 0.48 k/cumm (0.0-0.7); Absolute Lymphocyte Count 2.37 k/cumm (1.2-3.4); Absolute Monocyte Count 0.97 k/cumm (0.11-0.7); Absolute Neutrophil Count 4.88 k/cumm (1.2-6.7); Basophils % 0.6; Eosinophils % 5.5; HCT 31.2 % (40.0-50.0); HGB 9.4 g/dL (13.5-17.5); Immature Grans % 0.5; Mean Corp. HGB Concentration 30.1 g/dL (32.0-36.0); Mean Corpuscular Hemoglobin 28.4 pg (27.0-33.0); Mean Corpuscular Volume 94.3 fL (80-95); Mean Platelet Volume 9.2 fL (8.0-11.0); Neutrophils % 55.4; Platelet Count 483 x1000/uL (130-400); RBC 3.31 m/cumm (4.50-6.00); RBC Distribution Width 14.6 % (11.8-14.1); White Blood Cell Count 8.79 k/cumm (4.4-10.8)
[2019-09-13] MEDS: Acetaminophen 325 MG TAB 650 MG PO ×3 (08:28→22:37)
[2019-09-13] MEDS: Gabapentin 300 MG CAP 900 MG PO ×3 (08:29→20:11)
[2019-09-13] MEDS: Apixaban 5 MG TAB PO ×2 (08:29→20:11)
[2019-09-13] MEDS: Buprenorphine/Naloxone 8 mg/2 mg FILM 1 EACH SL ×2 (08:29→20:11)
[2019-09-13 09:01] VITALS: BP 156/103; PULSE 80; RESP 18; TEMP 36.5; O2SAT 97
[2019-09-13 13:58] VITALS: BP 146/100; PULSE 97; RESP 19; TEMP 36.3; O2SAT 98
[2019-09-13 14:51] VITALS: BP 148/81; PULSE 96; O2SAT 97
[2019-09-13 17:30] LABS: Vancomycin, Trough 14.7 ug/mL (10.0-20.0)
--- NOTE | 2019-09-13 17:48 | PDOC.CMACT ---
- If Service Date Differs Date of service: 09/13/19 Time of Service: 17:48 Care Management Activity Note Bruce likes to go outside for walks and to visit friends in the cafeteria. His visits daily and he spends an hour twice daily outside with her. Bruce also likes to draw and color and watch tv. P; Bruce will complete a his course of antibiotics and then be discharged home. His antibiotics are expected to be completed on 10/01/19.
[2019-09-13 23:20] VITALS: BP 124/80; PULSE 91; RESP 16; TEMP 35.9; O2SAT 100
[2019-09-14] MEDS: Normal Saline Flush 10 ML SYR IVP ×4 (06:52→22:11)
[2019-09-14] MEDS: Buprenorphine/Naloxone 8 mg/2 mg FILM 1 EACH SL ×2 (08:40→20:02)
[2019-09-14] MEDS: Apixaban 5 MG TAB PO ×2 (08:40→20:02)
[2019-09-14] MEDS: Gabapentin 300 MG CAP 900 MG PO ×3 (08:40→20:02)
--- NOTE | 2019-09-14 08:59 | IN_ITS ---
Date of service: 09/14/19 Time of Service: 08:29 PT Notes PT Inpatient Initial Evaluation Date: 09/14/2019 Referring Doctor: Courtney Zapata MD PT Orders: PT CONSULT: Limited ROM right shoulder Precautions: Fall. Standard. Activity as tolerated Patient Profile/Admitting Diagnosis: Patient is a 33-year-old male with past medical history significant for IV drug use, history of bacteremia, opioid dependence and is on Suboxone treatment who returned from [facility] on 09/08/2019 back to this hospital for management of MRSA septicemia, endocarditis, septic pulmonary embolism, lung abscess, cellulitis of right shoulder, left leg DVT, right shoulder pain, and Hepatitis C. PMHX: Medical History Acute kidney injury (Resolved) Acute respiratory failure with hypoxemia (Acute) Anemia (Chronic) Crack cocaine poisoning (Acute) Deep vein thrombosis (DVT) of axillary vein of right upper extremity (Acute) Endocarditis (Acute) IV drug abuse (Acute) Left leg DVT (Acute) Lung abscess (Acute) MRSA (methicillin resistant Staphylococcus aureus) septicemia (Acute) Opioid use disorder (Acute) SIRS (systemic inflammatory response syndrome) (Acute) Smoker (Acute) Surgical History H/O chest tube placement (Acute) Social History/Home Situation: Patient states that he is not sure if he has a home to go to upon discharge from this hospital. who is present throughout the evaluation was quiet regarding this matter. Patient reports that he lived alone prior to this most recent hospital admission. He is independent with all aspects of ADLs without the need for an assistive ambulatory device nor adaptive and he is opioid dependent and is currently on Suboxone treatment. He states that he works as a [employer] and hopes to continue doing so in 2 days. Equipment Owned/DME: None. Subjective: Patient is agreeable to a physical therapy consult. He complains of no pain on the right shoulder at rest but with movement it goes up to 6/10. He also reports stiffness and inability to fully use his right upper extremity due to his right shoulder range of motion problem. Objective: General Observation: Patient seen sitting at edge of bed. present during physical therapy consult. PICC line present on left forearm. Mental Status: Alert and oriented x4 Pain: 0/10 at rest. 6/10 with range of motion on the right shoulder. ROM: Right Upper Extremity: Shoulder Flexion 0 to 65 degrees. Shoulder abduction 0 to 55 degrees. Shoulder external rotation allows up to 90 degrees from full fully internally rotated position but 0 beyond neutral. Elbow flexion WFL. Wrist flexion WFL. Opening and closing of hand WFL. Left Upper Extremity: Shoulder Flexion WFL. Shoulder abduction WFL. Elbow flexion WFL. Wrist flexion WFL. Opening and closing of hand WFL. Right Lower Extremity: Hip flexion WFL. Hip abduction WFL. Knee flexion WFL. Ankle dorsiflexion WFL. Ankle plantarflexion WFL. Left Lower Extremity: Hip flexion WFL. Hip abduction WFL. Knee flexion WFL. Ankle dorsiflexion WFL. Ankle plantarflexion WFL. Strength: Right Upper Extremity: Shoulder flexors 3- /5. Shoulder abductors 3- /5. Shoulder external rotators 3-/5. Elbow flexors 5/5. Elbow extensors 5/5. Infrastructure Developer strong. Left Upper Extremity: Shoulder flexors 5/5. Shoulder abductors 5/5. Elbow flexors 5/5. Elbow extensors 5/5. Infrastructure Developer strong. Right Lower Extremity: Hip flexors 5/5. Hip abductors 5/5. Knee flexors 5/5. Knee extensors 5/5. Ankle dorsiflexors 5/5. Ankle plantarflexors 5/5. Left Lower Extremity:Hip flexors 5/5. Hip abductors 5/5. Knee flexors 5/5. Knee extensors 5/5. Ankle dorsiflexors 5/5. Ankle plantarflexors 5/5. Sensation: Intact as to pain and pressure on bilateral lower extremities. Bed Mobility/Transfers: Rolling independent Supine to sit independent Sit to supine independent Sit to stand independent Stand to sit independent Bed to chair independent Chair to bed independent Gait: Patient is independent with level and non-level surface ambulation using no assistive device. He has been observed to negotiate through facility floors outside the hospital building, across the parking lot and walk over downsloping ground surface covered with grass without any difficulty Balance: Static Sitting: Normal Dynamic Sitting: Normal Static Standing: Normal Dynamic Standing: Normal Special Tests: Mobility Limitations Standardized Measure [facility] AM-PAC 6 clicks Basic Mobility Inpatient Short Form: Raw Score: 24 CMS Score: 0% deficit Informed Consent/Education: Patient instructed in purpose of PT consult and plan of care. Assessment: Patient is a 33-year-old male with past medical history significant for IV drug use, history of bacteremia, opioid dependence and is on Suboxone treatment who returned from [facility] on 09/08/2019 back to this hospital for management of MRSA septicemia, endocarditis, septic pulmonary embolism, lung abscess, cellulitis of right shoulder, left leg DVT, right shoulder pain, and Hepatitis C. Patient agreed to a second session today consisting of exercises that he can do to increase range of motion on the right shoulder. Patient is hoping to go back to work as soon as he is able to do so may benefit from continued outpatient physical therapy services in order to progress right shoulder mobility and flexibility. Patient may also need assistance from care management regarding discharge destination as he states that he does not have a home to go to. Patient presents with clinical signs and symptoms consistent with current/admitting diagnoses that have resulted to mobility limitations, gait instability, generalized weakness, and impairment of motor control as demonst rated by the following impairment level findings: 1. Decreased strength to right shoulder major muscle groups 2. Limitation of joint range of motion in right shoulder Impairments are contributing to the following functional limitations: 1. Increase completion time for mobility ADL performance 2. Inability to perform overhead activities on the right shoulder 3. Inability to safely participate in previous vocational activities due to limited shoulder range of motion on the right Patient is assessed as a [id number] moderate complexity complexity based on the following: History: Patient is a 33-year-old male with past medical history significant for IV drug use, history of bacteremia, opioid dependence and is on Suboxone treatment who returned from [facility] on 09/08/2019 back to this hospital for management of MRSA septicemia, endocarditis, septic pulmonary embolism, lung abscess, cellulitis of right shoulder, left leg DVT, right shoulder pain, and Hepatitis C. Examination: Demonstrable impairment in strength, balance, and range of motion with underlying impairments and functional limitations as documented above Presentation:Evolving Decision Makin moderate complexity Goals: Goals X1 week 1. Patient will demonstrate increased range of motion in the shoulder by at least 10 degrees in order to return to performance of vocational activities 2. Patient will demonstrate increase shoulder major muscle strength to 4-/5 in order to return to performance of vocational activities 3. Independent with home exercise program Plan of Care/Treatment Plan: 1x/day, 7 days/week x 1 week. Plan of care has been reviewed with the TRUCK SERVICE MANAGER providing the service under Physical Therapy direction. Initiate Physical Therapy intervention for strengthening, bed mobility, transfers, gait, stairs, balance training, use of assistive device. DISCHARGE RECOMMENDATIONS: Patient will benefit from continued outpatient physical therapy services in order to progress range of motion and strength of the right shoulder joint and right shoulder musculature in order to facilitate return to vocational activities. TREATMENT CODE/TIME: [id number] x30 minutes beginning at 8:29 AM. Thank you very much for this referral. Iwona Krause PT, DPT, CLT [facility]
[2019-09-14] MEDS: Acetaminophen 325 MG TAB 650 MG PO ×2 (14:15→17:54)
--- NOTE | 2019-09-14 16:26 | CMPROGNOTE_ITS ---
- If Service Date Differs Date of service: 09/14/19 Time of Service: 16:26 Care Management Progress Note Behavioral Health Plan Behavioral plan has been be established with Bruce and care team, to adhere to patient goals, identify restrictions based on behavioral status, address nutrition, and determine allowed personal belongings, tools for hygiene and personal care. As well plan will determine level of activity including ambulation, level of supervision, visitors, and determine privileges based on level of acuity, behaviors and level of engagement by patient. 1. Random Urine Drug Screens will be completed with staff supervision 2. Visitors permitted. 3. Personal Belongings will be allowed. 4. May leave unit/hospital whenever he wishes as long as he: is present for IV antibiotic administrations signs in and out each time and complies with having IV site wrapped and inspected. 5. Plan will be re-evaluated twice a week and as needed by CM and will be u pdated as indicated.
--- NOTE | 2019-09-14 16:53 | PT.INNT ---
Date of service: 09/14/19 Time of Service: 16:54 PT Notes 09/14/2019 Patient signed himself out for the afternoon, not available for PT this afternoon. Will attempt to resume PT services tomorrow morning for issuing and instruction in HEP for improved shoulder ROM.
[2019-09-14 20:00] VITALS: BP 139/97; PULSE 83; RESP 18; TEMP 37.3; O2SAT 98
[2019-09-14 21:10] VITALS: BP 128/83
[2019-09-14 23:50] VITALS: BP 119/74; PULSE 86; RESP 17; TEMP 36.3; O2SAT 98
[2019-09-15] MEDS: Acetaminophen 325 MG TAB 650 MG PO ×4 (03:56→23:33)
[2019-09-15] MEDS: Gabapentin 300 MG CAP 900 MG PO ×3 (08:07→18:49)
[2019-09-15] MEDS: Apixaban 5 MG TAB PO ×2 (08:07→18:49)
[2019-09-15] MEDS: Buprenorphine/Naloxone 8 mg/2 mg FILM 1 EACH SL ×2 (08:07→18:49)
--- NOTE | 2019-09-15 09:56 | PT.INTREAT ---
Date of service: 09/15/19 Time of Service: 09:56 PT Notes 09/15/19 SUBJECTIVE: Bruce stating he will be going back to work on Tuesday as a [employer]. His shoulder continues to be quite painful and weak. OBJECTIVE: Seated in bed. Agreeable to PT treatment. THEREX: Instruction in HEP using cane for AAROM of the right shoulder. Pt performs supine cane flexion, and ER x 5 reps each as well as standing abduction. Pt complains of pain with all activities. Encouraged him to perform these several times per day to his tolerance. Review pendulums. PLAN: Pt will be discharged from PT. Treatment time: Nevin Jasso PTA Clinic location: [facility] [place], [place]
[2019-09-15] MEDS: Normal Saline Flush 10 ML SYR IVP ×2 (10:10→17:41)
[2019-09-15] MEDS: Alteplase 2 MG VIAL IJ (16:30)
[2019-09-15] MEDS: Water,Injection,Sterile 10 ML VIAL IJ (16:30)
[2019-09-15 17:40] VITALS: BP 136/91; PULSE 91; RESP 18; TEMP 36.1; O2SAT 98
[2019-09-15 19:40] VITALS: BP 150/79; PULSE 81; RESP 18; TEMP 36.6; O2SAT 96
[2019-09-15 23:00] VITALS: BP 146/89; PULSE 102; RESP 18; TEMP 36.4; O2SAT 97
[2019-09-16 05:39] LABS: CREATININE 0.58 mg/dL (0.70-1.30); Vancomycin, Trough 13.6 ug/mL (10.0-20.0)
[2019-09-16] MEDS: Normal Saline Flush 10 ML SYR IVP ×3 (06:01→22:01)
[2019-09-16] MEDS: Gabapentin 300 MG CAP 900 MG PO ×3 (07:45→20:54)
[2019-09-16] MEDS: Acetaminophen 325 MG TAB 650 MG PO ×2 (07:47→18:22)
[2019-09-16] MEDS: Apixaban 5 MG TAB PO ×2 (07:51→18:51)
[2019-09-16] MEDS: Buprenorphine/Naloxone 8 mg/2 mg FILM 1 EACH SL ×2 (07:51→18:51)
[2019-09-16 08:04] VITALS: BP 117/78; PULSE 86; RESP 16; TEMP 37.2; O2SAT 98
[2019-09-16 20:28] VITALS: BP 137/90; PULSE 89; RESP 16; TEMP 36.5; O2SAT 96
[2019-09-17] MEDS: Normal Saline Flush 10 ML SYR IVP ×2 (02:06→12:03)
[2019-09-17] MEDS: Apixaban 5 MG TAB PO ×2 (07:11→20:43)
[2019-09-17] MEDS: Gabapentin 300 MG CAP 900 MG PO ×3 (07:11→20:42)
[2019-09-17] MEDS: Buprenorphine/Naloxone 8 mg/2 mg FILM 1 EACH SL ×2 (07:11→20:43)
[2019-09-17 07:20] VITALS: BP 162/120; PULSE 107; RESP 20; TEMP 37.2; O2SAT 100
--- NOTE | 2019-09-17 07:27 | OT.INNT ---
Date of service: 09/17/19 Time of Service: 07:20 Occupational Therapy Notes 09/17/19 OT consult received and pt's chart was reviewed. Per nursing, Pt is out of the building till noon. Due to this, OT will be unable to consult with patient at this time as he is working. OT will attempt to touch base with pt tomorrow morning for consultation. Meenu Cruz OTR/[facility]
--- NOTE | 2019-09-17 10:40 | INDS_ITS ---
Date of service: 09/17/19 PT Notes Inpatient Physical Therapy Discharge Summary Dates: 09/17/2019 Dates of Service: 09/14/2019 and 09/15/2019 This is a clinical summary of care provided on the duration of dates listed above. No charge was made in the completion of this documentation. Referring Doctor: Courtney Zapata MD PT Orders: PT CONSULT: Limited ROM right shoulder Precautions: Fall. Standard. Activity as tolerated Patient Profile/Admitting Diagnosis: Patient is a 33-year-old male with past medical history significant for IV drug use, history of bacteremia, opioid dependence and is on Suboxone treatment who returned from [facility] on 09/08/2019 back to this hospital for management of MRSA septicemia, endocarditis, septic pulmonary embolism, lung abscess, cellulitis of right shoulder, left leg DVT, right shoulder pain, and Hepatitis C. PMHX: Medical History Acute kidney injury (Resolved) Acute respiratory failure with hypoxemia (Acute) Anemia (Chronic) Crack cocaine poisoning (Acute) Deep vein thrombosis (DVT) of axillary vein of right upper extremity (Acute) Endocarditis (Acute) IV drug abuse (Acute) Left leg DVT (Acute) Lung abscess (Acute) MRSA (methicillin resistant Staphylococcus aureus) septicemia (Acute) Opioid use disorder (Acute) SIRS (systemic inflammatory response syndrome) (Acute) Smoker (Acute) Surgical History H/O chest tube placement (Acute) Social History/Home Situation: Patient states that he is not sure if he has a home to go to upon discharge from this hospital. who is present throughout the evaluation was quiet regarding this matter. Patient reports that he lived alone prior to this most recent hospital admission. He is independent with all aspects of ADLs without the need for an assistive ambulatory device nor adaptive and he is opioid dependent and is currently on Suboxone treatment. He states that he works as a [employer] and hopes to continue doing so in 2 days. Equipment Owned/DME: None. Subjective: NT Objective: General Observation: NT Mental Status: NT Pain: NT ROM: Right Upper Extremity: Shoulder Flexion 0 to 65 degrees. Shoulder abduction 0 to 55 degrees. Shoulder external rotation allows up to 90 degrees from full fully internally rotated position but 0 beyond neutral. Elbow flexion WFL. Wrist flexion WFL. Opening and closing of hand WFL. Left Upper Extremity: Shoulder Flexion WFL. Shoulder abduction WFL. Elbow flexion WFL. Wrist flexion WFL. Opening and closing of hand WFL. Right Lower Extremity: Hip flexion WFL. Hip abduction WFL. Knee flexion WFL. Ankle dorsiflexion WFL. Ankle plantarflexion WFL. Left Lower Extremity: Hip flexion WFL. Hip abduction WFL. Knee flexion WFL. Ankle dorsiflexion WFL. Ankle plantarflexion WFL. Strength: Right Upper Extremity: Shoulder flexors 3- /5. Shoulder abductors 3- /5. Shoulder external rotators 3-/5. Elbow flexors 5/5. Elbow extensors 5/5. Administrative Medical Director strong. Left Upper Extremity: Shoulder flexors 5/5. Shoulder abductors 5/5. Elbow flexors 5/5. Elbow extensors 5/5. Administrative Medical Director strong. Right Lower Extremity: Hip flexors 5/5. Hip abductors 5/5. Knee flexors 5/5. Knee extensors 5/5. Ankle dorsiflexors 5/5. Ankle plantarflexors 5/5. Left Lower Extremity:Hip flexors 5/5. Hip abductors 5/5. Knee flexors 5/5. Knee extensors 5/5. Ankle dorsiflexors 5/5. Ankle plantarflexors 5/5. Sensation: Intact as to pain and pressure on bilateral lower extremities. Bed Mobility/Transfers: Rolling independent Supine to sit independent Sit to supine independent Sit to stand independent Stand to sit independent Bed to chair independent Chair to bed independent Gait: Patient is independent with level and non-level surface ambulation using no assistive device. He has been observed to negotiate through facility floors outside the hospital building, across the parking lot and walk over downsloping ground surface covered with grass without any difficulty Balance: Static Sitting: Normal Dynamic Sitting: Normal Static Standing: Normal Dynamic Standing: Normal Assessment: Patient is a 33-year-old male with past medical history significant for IV drug use, history of bacteremia, opioid dependence and is on Suboxone treatment who returned from [facility] on 09/08/2019 back to this hospital for management of MRSA septicemia, endocarditis, septic pulmonary embolism, lung abscess, cellulitis of right shoulder, left leg DVT, right shoulder pain, and Hepatitis C. Patient agreed to a second session today consisting of exercises that he can do to increase range of motion on the right shoulder. Patient is hoping to go back to work as soon as he is able to do so may benefit from continued outpatient physical therapy services in order to progress right shoulder mobility and flexibility. Patient may also need assistance from care management regarding discharge destination as he states that he does not have a home to go to. Patient continues to present with clinical signs and symptoms consistent with current/admitting diagnoses that have resulted to mobility limitations, gait instability, generalized weakness, and impairment of motor control as demonstrated by the following impairment level findings: 1. Decreased strength to right shoulder major muscle groups 2. Limitation of joint range of motion in right shoulder Impairments are contributing to the following functional limitations: 1. Increase completion time for mobility ADL performance 2. Inability to perform overhead activities on the right shoulder 3. Inability to safely participate in previous vocational activities due to limited shoulder range of motion on the right Goals: Goals X1 week 1. Patient will demonstrate increased range of motion in the shoulder by at least 10 degrees in order to return to performance of vocational activities NOT MET 2. Patient will demonstrate increase shoulder major muscle strength to 4-/5 in order to return to performance of vocational activities NOT MET 3. Independent with home exercise program MET DISCHARGE RECOMMENDATIONS: Patient will benefit from continued outpatient physical therapy services in order to progress range of motion and strength of the right shoulder joint and right shoulder musculature in order to facilitate safe return to vocational activities. TREATMENT CODE/TIME: NC. Thank you very much for this referral. Iwona Krause PT, DPT, CLT [facility]
[2019-09-17 11:50] VITALS: BP 136/86; PULSE 94
[2019-09-17] MEDS: Acetaminophen 325 MG TAB 650 MG PO (13:37)
--- NOTE | 2019-09-17 20:09 | NUR.NOTE ---
pt still out on a pass.
[2019-09-18] MEDS: Apixaban 5 MG TAB PO ×2 (07:11→19:32)
[2019-09-18] MEDS: Buprenorphine/Naloxone 8 mg/2 mg FILM 1 EACH SL ×2 (07:11→19:32)
[2019-09-18] MEDS: Gabapentin 300 MG CAP 900 MG PO ×2 (07:11→19:32)
[2019-09-18 07:16] LABS: CREATININE 0.57 mg/dL (0.70-1.30); Vancomycin, Trough 18.2 ug/mL (10.0-20.0)
[2019-09-18 08:40] VITALS: BP 119/83; PULSE 83; RESP 18; TEMP 35.8; O2SAT 98
--- NOTE | 2019-09-18 09:14 | OTIE_ITS ---
Occupational Therapy Notes Inpatient Occupational Therapy Evaluation Date: 09/18/19 Referring Doctor:Courtney Zapata MD OT Orders: Non Urgent- Limited Ability Precautions: Standard PATIENT PROFILE/ADMITTING DIAGNOSIS: Pt is a 33-year-old male with significant PMhx for IV drug use, history of bacteremia, opioid dependence and is on Suboxone treatment who returned from [facility] on 09/08/2019 back to [facility] for management of MRSA septicemia, endocarditis, septic pulmonary embolism, lung abscess, cellulitis of right shoulder, left leg DVT, right shoulder pain, and Hepatitis C. Pt is currently SWG bed 1 rehabilitation status and is being treated at this time with IV antibiotics. Pt will remain swing bed status until he finishes out his treatment. Past Medical History: Acute kidney injury (Resolved) Acute respiratory failure with hypoxemia (Acute) Anemia (Chronic) Crack cocaine poisoning (Acute) Deep vein thrombosis (DVT) of axillary vein of right upper extremity (Acute) Endocarditis (Acute) IV drug abuse (Acute) Left leg DVT (Acute) Lung abscess (Acute) MRSA (methicillin resistant Staphylococcus aureus) septicemia (Acute) Opioid use disorder (Acute) SIRS (systemic inflammatory response syndrome) (Acute) Smoker (Acute) Surgical History H/O chest tube placement (Acute) Social History/Home Situation: Patient states that he lives at [facility] and has no where to go when he gets discharged from the hospital. was present during the evaluation but did not speak to this matter. Pt reports that he is independent with all aspects of ADLs without the need for an assistive device nor adaptive equipment. He states that he works for himself as a [employer]. He has a daughter and reports that he is an active opiod user and takes suboxone. Equipment owned/DME: None per pt report. SUBJECTIVE: Pt was sitting on the side of his bed with his present in the room. He was attached to an IV on his (L) UE. He states that he would like the IV to stop so he can go to work. He notes that he does not need OT services, that he is 33 years old and can perform his ADLs/IADLs (I). He is agreeable to let OT go over ADL status and perform assessment but he states that the only thing that bothers him is his (R) shoulder. He denies any trauma or impact. He reports that he is an active user and used dirty needles in his (R) UE and now he is unable to move it. He is frustrated with this but has been performing his UE exercises provided by PT. OBJECTIVE: General Observation: Pt is moving around on his bed, he is anxious and has an IV in his (L) UE. He is talkative and tries to actively lift his (R) UE into shoulder flexion mutliple times during OT eval. Mental Status: A&Ox3 Pain: c/o pain in (R) shoulder ROM: RUE Shoulder flexion to 70*, elbow WNL, wrist/hand and digits WNL. L UE Shoulder flexion WNL, elbow WNL, wrist/hand and digits WNL. STRENGTH: RUE Shoulder flexion NT d/t pain, bicep 4/5, tricep 4/5, laborer petroleum refinery is strong and symmetrical LUE Shoulder flexion 5/5, bicep 5/5, tricep 5/5, laborer petroleum refinery is strong and symmetrical SENSATION: Pt intact to light touch and sensation throughout (B) UE. FUNCTIONAL MOBILITY/ADLS: Transfers Supine-sit (I) Sit-supine (I) Sit-Stand (I) Stand-sit (I) BATHING pt denies. DRESSING (I) with don and doffing (B) socks, denies all other dressing reporting that he can do this (I) GROOMING NT pt denies. TOILETING Pt denies. EATING Pt states that he can perform this (I), he would not perform for OT repor ting that he does not need (A) with this. BALANCE: Static sitting Normal Dynamic Sitting Normal Static Standing Normal Dynamic Standing Normal SPECIAL TESTS: Daily Activity Limitations Standardized Measure [facility] AM -PAC ?6 clicks? Daily Activity Inpatient Short Form: Raw score: 24 Standardized score: 57.54 CMS score: 0.00% INFORMED CONSENT/EDUCATION: Pt instructed in purpose of OT Consult and plan of care. ASSESSMENT: Patient is a 33-year-old male referred to occupational therapy services with diagnosis of management of MRSA septicemia, endocarditis, septic pulmonary embolism, lung abscess, cellulitis of right shoulder, left leg DVT, right shoulder pain, and Hepatitis C. Patient presents with clinical signs and symptoms consistent with dx, as demonstrated by the following impairment level findings: Decreased (R) shoulder/UE AROM/PROM, pain with use of (R) UE, decr eased gross and fine motor control of (R) UE. Impairments are contributing to the following functional limitations: Decreased (B) UE use, decreased functional activity tolerance for (R) UE, significant past medical hx, current and past drug use. OT performed OT consult only. Pt denies the need for OT services reporting that he just needs to finish the antibiotics and then he can leave here. OT will plan to formally discharge pt at this time. AMPAC score 24 Patient is assessed as a Low 30671 complexity based on the following: History: See above Examination: see functional limitations as noted above Presentation: Evolving Decision Making: AMPAC score 24 GOALS N/A PLAN OF CARE/TREATMENT PLAN: Discharge from OT services. DISCHARGE RECOMMENDATIONS OT recommends that pt go to outpatient PT for his (R) shoulder when medically cleared per MD to increased his functional (I) and to return to his previous level of function. TREATMENT TIME/MINUTES/CODES 15348, 10 minutes (08:45) Meenu Cruz OTR/L [facility]
[2019-09-18] MEDS: Normal Saline Flush 10 ML SYR IVP (18:23)
[2019-09-18 19:40] VITALS: BP 141/84; PULSE 85; RESP 18; TEMP 37.1; O2SAT 95
[2019-09-19] MEDS: Normal Saline Flush 10 ML SYR IVP ×3 (06:48→23:52)
[2019-09-19] MEDS: Buprenorphine/Naloxone 8 mg/2 mg FILM 1 EACH SL ×2 (06:48→21:15)
[2019-09-19] MEDS: Apixaban 5 MG TAB PO ×2 (06:49→21:15)
[2019-09-19] MEDS: Gabapentin 300 MG CAP 900 MG PO ×3 (06:49→21:14)
[2019-09-19 07:05] VITALS: BP 129/83; PULSE 76; RESP 18; TEMP 36.6; O2SAT 97
--- NOTE | 2019-09-19 11:23 | NUR.NOTE ---
Patient left floor at approximately 07:15 this morning to go to work nursing asked patient if an assessment could be done prior to him leaving and he refused and stated he would be back around two for his medications. Charge nurse / MD aware. Nursing Note:
[2019-09-19 16:20] VITALS: BP 141/89; PULSE 59; RESP 18; TEMP 36.9; O2SAT 94
--- NOTE | 2019-09-19 20:04 | NUR.NOTE ---
Patient is currently not in the unit for assessment and medications to be given.
[2019-09-19] MEDS: Acetaminophen 325 MG TAB 650 MG PO (22:36)
[2019-09-20 01:51] VITALS: BP 135/84; PULSE 104; RESP 18; TEMP 37.4; O2SAT 97
[2019-09-20] MEDS: Gabapentin 300 MG CAP 900 MG PO ×3 (06:52→22:31)
[2019-09-20] MEDS: Buprenorphine/Naloxone 8 mg/2 mg FILM 1 EACH SL ×2 (06:52→22:31)
[2019-09-20] MEDS: Apixaban 5 MG TAB PO ×2 (06:53→22:31)
[2019-09-20 07:13] LABS: Abs Immature Grans 0.01 k/cumm (0.0-0.09); Absolute Basophil Count 0.03 k/cumm (0.0-0.2); Absolute Lymphocyte Count 1.83 k/cumm (1.2-3.4); Absolute Monocyte Count 0.89 k/cumm (0.11-0.7); Absolute Neutrophil Count 3.19 k/cumm (1.2-6.7); Basophils % 0.5; Eosinophils % 6.3; HCT 33.5 % (40.0-50.0); Immature Grans % 0.2; Lymphocytes % 28.8; Mean Corp. HGB Concentration 29.9 g/dL (32.0-36.0); Mean Corpuscular Hemoglobin 27.7 pg (27.0-33.0); Mean Corpuscular Volume 92.8 fL (80-95); Mean Platelet Volume 9.3 fL (8.0-11.0); Neutrophils % 50.2; Platelet Count 424 x1000/uL (130-400); RBC 3.61 m/cumm (4.50-6.00); RBC Distribution Width 13.9 % (11.8-14.1); White Blood Cell Count 6.35 k/cumm (4.4-10.8)
[2019-09-20 07:15] LABS: ALT 51 U/L (16-63); AST 29 U/L (15-37); Albumin 2.8 g/dL (3.4-5.0); Alkaline Phosphatase 218 U/L (46-116); Anion Gap 6.6 mmol/L (3-11); BUN 16 mg/dL (7-18); Bilirubin, Total 0.1 mg/dL (0.2-1.0); C-Reactive Protein 1.75 mg/dL (0.0-0.3); CO2 30.4 mmol/L (21.0-32.0); CREATININE 0.56 mg/dL (0.70-1.30); Chloride 102 mmol/L (98-107); Glucose 111 mg/dL (70-100); Magnesium 1.6 mg/dL (1.8-2.4); Potassium 3.7 mmol/L (3.5-5.1); Sodium 139 mmol/L (136-145)
[2019-09-20 08:00] LABS: ESR 79 mm/hr (0-15)
[2019-09-20] MEDS: MAGNESIUM SULFATE 1 GM/100 ML BAG IVPB (14:09)
[2019-09-20 14:20] VITALS: BP 142/95; PULSE 95; RESP 16; TEMP 36.7; O2SAT 96
[2019-09-20 15:03] VITALS: BP 138/82; PULSE 104; RESP 20; TEMP 37.1; O2SAT 97
--- NOTE | 2019-09-20 17:30 | PGE_ITS ---
Date of Service Date of service: 09/21/19 Time of Service: 17:30 Assessment and Plan Assessment and plan (1) MRSA (methicillin resistant Staphylococcus aureus) septicemia: Status: Acute Assessment and plan: Continue Vancomycin, end date 10/01/2019, with plans for CT imaging on 09/30 to ensure resolution of findings. Will need follow-up with ID after, Dr. Machado at [facility]. Subjective Subjective Interval history since last seen: The patient reports continued pain in his ri ght shoulder, but overall is feeling well. No events reported. Mr. Mercado is leaving the hospital daily for work and family life. Remains afebrile. Exam Narrative Exam Narrative: General: Patient appears comfortable, AAOX3, NAD Neck: Supple CV: Regular, nontachycardic, S1S2, No rubs, No murmurs. Pulmonary: Clear to auscultation bilaterally, no crackles, wheezing, or rhonchi Abdomen: + Bowel Sounds, soft, nontender, nondistended Vascular: No lower extremity edema Psych: Normal mood and affect. Objective Objective Clinical Data: Abnormal lab results 09/20/19 09/20/19 Range/Units 06:45 06:45 RBC 3.61 L (4.50-6.00) m/cumm Hgb 10.0 L (13.5-17.5) g/dL Hct 33.5 L (40.0-50.0) % MCHC 29.9 L (32.0-36.0) g/dL Plt Count 424 H (130-400) x1000/uL Absolute Monocytes 0.89 H (0.11-0.7) k/cumm ESR 79 H (0-15) mm/hr Creatinine 0.56 L (0.70-1.30) mg/dL Glucose 111 H (70-100) mg/dL Magnesium 1.6 L (1.8-2.4) mg/dL Total Bilirubin 0.1 L (0.2-1.0) mg/dL Alkaline Phosphatase 218 H (46-116) U/L C-Reactive Protein 1.75 H (0.0-0.3) mg/dL Albumin 2.8 L (3.4-5.0) g/dL Vital Signs Temperature 37.1 C 09/20/19 15:03 Temperature Source Tympanic 09/20/19 15:03 Pulse 104 H 09/20/19 15:03 Pulse Rhythm Regular 09/20/19 14:00 Respiratory Rate 20 09/20/19 15:03 Respiratory Effort Non-Labored 09/20/19 14:00 Respiratory Depth Normal 09/20/19 14:00 Respiratory Pattern Normal 09/20/19 14:00 Blood Pressure 138/82 09/20/19 15:03 Pulse Oximetry 97 09/20/19 15:03 Oxygen Delivery Method Room Air 09/20/19 15:03 Oxygen Flow Rate 0 09/20/19 15:03 Pain Level 0 09/20/19 15:03 Comment 09/18/19 08:40 Intake & Output 09/19/19 09/20/19 09/20/19 23:59 11:59 23:59 Intake Total 200 / 400 200 / 240 40 / 240 Balance 200 / 400 200 / 240 40 / 240 Weight 56.1 kg Intake: IV 200 / 400 200 / 240 40 / 240 Other: Urine Color Pale Yellow Urine Appearance Clear Clear Voiding Methods Toilet Laboratory Results WBC 6.35 k/cumm (4.4-10.8) 09/20/19 06:45 RBC 3.61 m/cumm (4.50-6.00) L 09/20/19 06:45 Hgb 10.0 g/dL (13.5-17.5) L 09/20/19 06:45 Hct 33.5 % (40.0-50.0) L 09/20/19 06:45 MCV 92.8 fL (80-95) 09/20/19 06:45 MCH 27.7 pg (27.0-33.0) 09/20/19 06:45 MCHC 29.9 g/dL (32.0-36.0) L 09/20/19 06:45 RDW 13.9 % (11.8-14.1) 09/20/19 06:45 Plt Count 424 x1000/uL (130-400) H 09/20/19 06:45 MPV 9.3 fL (8.0-11.0) 09/20/19 06:45 Immature Gran % 0.2 09/20/19 06:45 Neutrophils % 50.2 09/20/19 06:45 Band Neutrophils % Cancelled 09/10/19 06:20 Lymphocytes % 28.8 09/20/19 06:45 Atypical Lymphs % Cancelled 09/10/19 06:20 Monocytes % 14.0 09/20/19 06:45 Eosinophils % 6.3 09/20/19 06:45 Basophils % 0.5 09/20/19 06:45 Metamyelocytes % Cancelled 09/10/19 06:20 Myelocytes % Cancelled 09/10/19 06:20 Promyelocytes % Cancelled 09/10/19 06:20 Absolute Neutrophils 3.19 k/cumm (1.2-6.7) 09/20/19 06:45 Absolute Lymphocytes 1.83 k/cumm (1.2-3.4) 09/20/19 06:45 Absolute Monocytes 0.89 k/cumm (0.11-0.7) H 09/20/19 06:45 Absolute Eosinophils 0.40 k/cumm (0.0-0.7) 09/20/19 06:45 Absolute Basophils 0.03 k/cumm (0.0-0.2) 09/20/19 06:45 Nucleated RBCs Cancelled 09/10/19 06:20 Differential Comment Agrees w/ instrument 09/10/19 08:28 Other Cell Type Cancelled 09/10/19 06:20 RBC Morphology Normal 09/10/19 08:28 Polychromasia Cancelled 09/10/19 06:20 Hypochromasia Cancelled 09/10/19 06:20 Poikilocytosis Cancelled 09/10/19 06:20 Basophilic Stippling Cancelled 09/10/19 06:20 Anisocytosis Cancelled 09/10/19 06:20 Microcytosis Cancelled 09/10/19 06:20 Macrocytosis Cancelled 09/10/19 06:20 Spherocytes Cancelled 09/10/19 06:20 Target Cells Cancelled 09/10/19 06:20 Tear Drop Cells Cancelled 09/10/19 06:20 Ovalocytes Cancelled 09/10/19 06:20 Stomatocytes Cancelled 09/10/19 06:20 [place] Bodies Cancelled 09/10/19 06:20 [place] Cells Cancelled 09/10/19 06:20 Acanthocytes (Spur) Cancelled 09/10/19 06:20 Schistocytes Cancelled 09/10/19 06:20 ESR 79 mm/hr (0-15) H 09/20/19 06:45 Sodium 139 mmol/L (136-145) 09/20/19 06:45 Potassium 3.7 mmol/L (3.5-5.1) 09/20/19 06:45 Chloride 102 mmol/L (98-107) 09/20/19 06:45 Carbon Dioxide 30.4 mmol/L (21.0-32.0) 09/20/19 06:45 Anion Gap 6.6 mmol/L (3-11) 09/20/19 06:45 BUN 16 mg/dL (7-18) 09/20/19 06:45 Creatinine 0.56 mg/dL (0.70-1.30) L 09/20/19 06:45 Estimated GFR/1.73 m2 >= 60.00 (mL/min/1.73m2) 09/20/19 06:45 Glucose 111 mg/dL (70-100) H 09/20/19 06:45 Calcium 9.0 mg/dL (8.5-10.1) 09/20/19 06:45 Magnesium 1.6 mg/dL (1.8-2.4) L 09/20/19 06:45 Total Bilirubin 0.1 mg/dL (0.2-1.0) L 09/20/19 06:45 Conjugated Bilirubin < 0.05 mg/dL (0.00-0.20) 09/09/19 06:55 AST 29 U/L (15-37) 09/20/19 06:45 ALT 51 U/L (16-63) 09/20/19 06:45 Alkaline Phosphatase 218 U/L (46-116) H 09/20/19 06:45 C-Reactive Protein 1.75 mg/dL (0.0-0.3) H 09/20/19 06:45 Total Protein 8.0 g/dL (6.4-8.2) 09/20/19 06:45 Albumin 2.8 g/dL (3.4-5.0) L 09/20/19 06:45 Procalcitonin 0.1 ng/mL 09/10/19 06:20 Vancomycin Trough 18.2 ug/mL (10.0-20.0) 09/18/19 06:20 Urine Opiates Screen Negative (Negative) 09/13/19 06:10 Urine Methadone Screen Negative (Negative) 09/13/19 06:10 Ur Barbiturates Screen Negative (Negative) 09/13/19 06:10 Ur Tricyclics Screen Negative (Negative) 09/13/19 06:10 Ur Amphetamines Screen Negative (Negative) 09/13/19 06:10 U Benzodiazepines Scrn Negative (Negative) 09/13/19 06:10 Urine Cocaine Screen Negative (Negative) 09/13/19 06:10 Ur THC Screen Negative (Negative) 09/13/19 06:10
--- NOTE | 2019-09-20 19:28 | PDOC.CMACT ---
- If Service Date Differs Date of service: 09/20/19 Time of Service: 19:28 Care Management Activity Note Bruce has been spending many hours of the day out on pass. He has been helpin a friend with some repairs and spending time with his and family. Bruce also likes to draw and watch TV. P: Bruce will complete his course of IV antibiotics on 10/01/19, then hope to be able to go straight into a substance abuse program.
[2019-09-20 22:30] VITALS: BP 119/83; PULSE 126; RESP 19; TEMP 36.6; O2SAT 96
[2019-09-21 01:02] VITALS: BP 135/90; PULSE 117; RESP 18; TEMP 35.6; O2SAT 95
[2019-09-21] MEDS: Apixaban 5 MG TAB PO ×2 (08:45→19:58)
[2019-09-21] MEDS: Buprenorphine/Naloxone 8 mg/2 mg FILM 1 EACH SL ×2 (08:45→19:57)
[2019-09-21] MEDS: Gabapentin 300 MG CAP 900 MG PO ×2 (08:45→19:57)
[2019-09-21 08:48] VITALS: BP 133/84; PULSE 73; RESP 18; TEMP 36.1; O2SAT 98
[2019-09-21] MEDS: Normal Saline Flush 10 ML SYR IVP ×2 (09:44→19:58)
[2019-09-22 06:55] VITALS: BP 115/70; PULSE 88; RESP 17; TEMP 36.1; O2SAT 98
[2019-09-22] MEDS: Buprenorphine/Naloxone 8 mg/2 mg FILM 1 EACH SL ×2 (09:18→19:45)
[2019-09-22] MEDS: Apixaban 5 MG TAB PO ×2 (09:18→19:45)
[2019-09-22] MEDS: Gabapentin 300 MG CAP 900 MG PO ×2 (09:18→19:45)
[2019-09-22] MEDS: Normal Saline Flush 10 ML SYR IVP (16:04)
--- NOTE | 2019-09-22 16:15 | NUR.NOTE ---
The Pt came back from being home and stated that he had to pee so bad could i do his urine test now. I crystal said that i would he asked for the cup and he closed the door when he opened the door he handed me a cold sample so i took it to the nurse an let her know that i did not see him void and that the sample was cold. The nurse said to not except the sample and ask him to give another sample with myself in the room. So i asked the Pt if he would be willing to give me another sample with me in the room he said that there is no way in hell that he will void in front of staff to just jade him down for a dirty sample. Nursing Note:
--- NOTE | 2019-09-22 16:19 | NUR.NOTE ---
Nursing Note: I was asked by patients nurse to offer to be a male witness to monitor patient voidng sample for uds. He flatly refused, was extremely verbal, threatening to leave AMA, Then demanded to speak to case mgt. His concerns were brought forward to the pump house engineer
--- NOTE | 2019-09-22 18:15 | PDOC.CMPRO ---
- If Service Date Differs Date of service: 09/22/19 Time of Service: 18:15 Care Management Progress Note DEANGELO was approached by staff about concerns regarding Bruce's behavioral plan. The concerns reported were that Bruce refused to take a urine drug screen this morning, that his language/behavior was inappropriate towards nursing, the timing of his medication, and the occurrence of him disconnecting his IV himself. CM met with Bruce, who was sitting up in his bed during the conversation. He was pleasant and polite. He reported that he did not believe that the urine drug screening needed to be supervised- eyes on, and that made him uncomfortable. DEANGELO explained that the results of the test will be used only to direct his plan of care, and not to be used against him. DEANGELO discussed the importance of letting the nursing staff disconnect his IV in order for proper protocol to be followed. He agreed, and apologized for his behavior earlier in the day. DEANGELO went over the current behavioral plan with Bruce, who agreed to follow it with his best intentions. He stated that his plan is to go from [facility] to [facility] ([place], [place]), if possible. He expressed his desire to 'stay clean' and to be reunited with his family in the future. DEANGELO will continue to follow.
[2019-09-23] MEDS: Normal Saline Flush 10 ML SYR IVP ×4 (01:10→22:28)
[2019-09-23 01:23] VITALS: BP 93/57; PULSE 90; RESP 17; TEMP 36; O2SAT 97
[2019-09-23] MEDS: Buprenorphine/Naloxone 8 mg/2 mg FILM 1 EACH SL ×2 (08:32→19:53)
[2019-09-23] MEDS: Apixaban 5 MG TAB PO ×2 (08:32→19:52)
[2019-09-23] MEDS: Gabapentin 300 MG CAP 900 MG PO ×3 (08:32→19:52)
[2019-09-23 11:51] LABS: Vancomycin, Trough 14.2 ug/mL (10.0-20.0)
[2019-09-23 15:06] LABS: *AMPHETAMINES SCREEN URINE Negative (Negative); *BARBITURATES SCREEN URINE Negative (Negative); *BENZODIAZEPINES SCREEN URINE Negative (Negative); Cannabinoids THC Negative (Negative); Cocaine Screen,Urine Negative (Negative); METHADONE URINE SCREEN Negative (Negative); OPIATES URINE SCREEN Negative (Negative)
[2019-09-23 15:10] LABS: Tricyclic Antidepressants Negative (Negative)
[2019-09-24] MEDS: Apixaban 5 MG TAB PO ×2 (07:26→19:02)
[2019-09-24] MEDS: Gabapentin 300 MG CAP 900 MG PO ×2 (07:26→19:02)
[2019-09-24] MEDS: Buprenorphine/Naloxone 8 mg/2 mg FILM 1 EACH SL ×2 (07:26→19:02)
[2019-09-24] MEDS: Normal Saline Flush 10 ML SYR IVP ×3 (07:27→18:46)
[2019-09-24 08:39] VITALS: BP 132/86; PULSE 67; RESP 18; TEMP 37.1; O2SAT 95
--- NOTE | 2019-09-24 14:07 | NUR.NOTE ---
Nursing Note: Pt is MARIOLA during 1400 med. pass. Pt is aware that gabapentin is scheduled for 1400.
[2019-09-25] MEDS: Normal Saline Flush 10 ML SYR IVP ×3 (04:16→23:53)
[2019-09-25] MEDS: Buprenorphine/Naloxone 8 mg/2 mg FILM 1 EACH SL ×2 (06:52→19:17)
[2019-09-25] MEDS: Gabapentin 300 MG CAP 900 MG PO ×3 (06:52→19:17)
[2019-09-25] MEDS: Apixaban 5 MG TAB PO ×2 (06:52→19:17)
[2019-09-25 07:00] VITALS: BP 123/78; PULSE 75; RESP 16; TEMP 36.5; O2SAT 98
--- NOTE | 2019-09-25 14:48 | NUR.NOTE ---
Nursing Note: Pt's vanco due at 1400. Pt aware when leaving floor at [id number]. [id number] at this time; pt not back for infusion.
[2019-09-25 19:38] VITALS: BP 117/72; PULSE 95; RESP 17; TEMP 37.4; O2SAT 96
[2019-09-26] MEDS: Buprenorphine/Naloxone 8 mg/2 mg FILM 1 EACH SL ×2 (08:05→20:10)
[2019-09-26] MEDS: Apixaban 5 MG TAB PO ×2 (08:05→20:10)
[2019-09-26] MEDS: Gabapentin 300 MG CAP 900 MG PO ×3 (08:05→20:10)
[2019-09-26 08:06] VITALS: BP 133/75; PULSE 71; RESP 17; TEMP 36.4; O2SAT 99
[2019-09-26 10:12] LABS: Vancomycin, Trough 12.6 ug/mL (10.0-20.0)
[2019-09-26] MEDS: Normal Saline Flush 10 ML SYR IVP ×3 (10:14→22:37)
--- NOTE | 2019-09-26 10:34 | DI.RAD_ITS ---
EXAM: XR CHEST 2V PA LATERAL CLINICAL HISTORY: Picc line verification COMPARISON: XR PORTABLE CHEST AP from 08/15/2019 FINDINGS: The heart is not enlarged. There are bilateral, diffuse, predominantly reticular intrapulmonary radi odensities, significantly less prominent in comparison with prior chest film of 08/15/2019. Patient reportedly had a history of septic emboli. There is a PICC line in position on the left, the tip of which lies in the superior vena cava just ab ove the right atrium. No pneumothorax identified. No pleural effusion seen. IMPRESSION
--- NOTE | 2019-09-26 21:48 | DI.RAD_ITS ---
EXAM: XR PORTABLE CHEST AP POST LINE CLINICAL HISTORY: difficulty flushing PICC after adjustment COMPARISON: XR CHEST 2V PA LATERAL from 09/26/2019 FINDINGS: Portable AP view was obtained following PICC adjustment. Tip of the PICC line now lies at the juncti on of the brachiocephalic veins and SVC. No other significant change.
--- NOTE | 2019-09-26 22:20 | DI.VRAD_ITS ---
PROCEDURE INFORMATION: Exam: XR Chest, 1 View Exam date and time: 09/26/2019 9:45 PM Clinical history: 33 years old, male; Pain and device placement; Other: Pain in arm when flushing picc line; Additional info: Pain in arm when flushing picc line S/P adjustment TECHNIQUE: Imaging protocol: XR of the chest Views: 1 view. COMPARISON: CR XR CHEST 2V PA LATERAL 09/26/2019 10:18 AM FINDINGS: Tubes, catheters and devices: Left upper extremity PICC line in place with its tip in the proximalmost SVC distribution and slightly retracted from the prior exam. It demonstrates short segment kinking at the skin line and likely at the vessel entry point. Lungs: Normal pulmonary expansion. Pulmonary vasculature grossly normal. Multifocal nodularity in both lungs with mild surrounding stranding and central lucency suggesting necrotic foci, probably representing pulmonary emboli as described on the prior comparison CT from 08/15/2019. There is slightly increased alveolar density in the peripheral right midlung which a represent mild increased atelectasis or developing infiltrate. Pleural space: Blunted right lateral costophrenic angle probably related to pleural scarring/thickening, unchanged. No pneumothorax. Heart/Mediastinum: Heart size normal. No tracheal/mediastinal shift. Bones/joints: No acute osseous abnormalities are identified. IMPRESSION: 1. Left PICC line is retracted slightly with its tip in the proximalmost SVC distribution. There is short segment kinking of the line at the skin entry point and vascular entry point with current positioning, of questionable significance. 2. Multifocal bilateral ill-defined nodular densities with central cavitation probably representing septic emboli as discussed on prior CT 08/15/2019. 3. Slightly increased alveolar density in the peripheral right midlung consistent with atelectasis or possibly early developing infiltrate. Dictated and Authenticated by: Russ Proctor MD. Ordering:PABLO Valdez MD
[2019-09-26] MEDS: Acetaminophen 325 MG TAB 650 MG PO (23:27)
[2019-09-26 23:39] VITALS: BP 125/78; PULSE 108; RESP 16; TEMP 37.7; O2SAT 95
[2019-09-27] MEDS: Normal Saline Flush 10 ML SYR IVP ×3 (06:13→15:40)
[2019-09-27 07:12] LABS: Abs Immature Grans 0.01 k/cumm (0.0-0.09); Absolute Basophil Count 0.03 k/cumm (0.0-0.2); Absolute Lymphocyte Count 2.73 k/cumm (1.2-3.4); Absolute Monocyte Count 1.09 k/cumm (0.11-0.7); Basophils % 0.4; Eosinophils % 3.8; HCT 33.6 % (40.0-50.0); HGB 10.2 g/dL (13.5-17.5); Immature Grans % 0.1; Lymphocytes % 34.3; Mean Corp. HGB Concentration 30.4 g/dL (32.0-36.0); Mean Corpuscular Hemoglobin 27.7 pg (27.0-33.0); Mean Corpuscular Volume 91.3 fL (80-95); Mean Platelet Volume 9.9 fL (8.0-11.0); Monocytes % 13.7; Neutrophils % 47.7; Platelet Count 304 x1000/uL (130-400); RBC 3.68 m/cumm (4.50-6.00); RBC Distribution Width 14.1 % (11.8-14.1); White Blood Cell Count 7.96 k/cumm (4.4-10.8)
[2019-09-27 07:23] LABS: ALT 106 U/L (16-63); AST 51 U/L (15-37); Alkaline Phosphatase 177 U/L (46-116); Anion Gap 7.3 mmol/L (3-11); BUN 19 mg/dL (7-18); Bilirubin, Direct 0.07 mg/dL (0.00-0.20); Bilirubin, Total 0.2 mg/dL (0.2-1.0); C-Reactive Protein 1.11 mg/dL (0.0-0.3); CO2 28.7 mmol/L (21.0-32.0); CREATININE 0.69 mg/dL (0.70-1.30); Calcium 8.7 mg/dL (8.5-10.1); Chloride 103 mmol/L (98-107); Glucose 121 mg/dL (70-100); Magnesium 1.8 mg/dL (1.8-2.4); Potassium 3.8 mmol/L (3.5-5.1); Sodium 139 mmol/L (136-145); Total Protein 7.8 g/dL (6.4-8.2)
--- NOTE | 2019-09-27 07:30 | DI.RAD_ITS ---
EXAM: XR PORTABLE CHEST AP CLINICAL HISTORY: post Picc line manipulation COMPARISON: XR PORTABLE CHEST AP POST LINE from 09/26/2019 FINDINGS: Portable view of the chest was performed after additional PICC manipulation at 810 hours. PICC line now lies in axilla.
[2019-09-27 07:39] VITALS: BP 121/68; PULSE 75; RESP 16; TEMP 36.4; O2SAT 97
[2019-09-27] MEDS: Apixaban 5 MG TAB PO ×2 (07:41→19:52)
[2019-09-27] MEDS: Buprenorphine/Naloxone 8 mg/2 mg FILM 1 EACH SL ×2 (07:41→19:52)
[2019-09-27] MEDS: Gabapentin 300 MG CAP 900 MG PO ×3 (07:41→19:51)
[2019-09-27 07:49] LABS: Procalcitonin 0.1 ng/mL
[2019-09-27] MEDS: Acetaminophen 325 MG TAB 650 MG PO (09:03)
--- NOTE | 2019-09-27 17:21 | CMACTNOTE_ITS ---
- If Service Date Differs Date of service: 09/27/19 Time of Service: 17:21 Care Management Activity Note Bruce continues to spend most of his days off campus. 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 Bruce requested that DEANGELO fax clinical information to [facility] where he has applied for admission. This was done after obtaining a written release from Bruce. P: Bruce will complete his AB therapy on 10/01/19. He plans to go straight to substance abuse rehab program at [facility] in [place], [place]
[2019-09-27 19:35] VITALS: BP 95/63; PULSE 89; RESP 18; TEMP 36.6; O2SAT 98
[2019-09-28] MEDS: Acetaminophen 325 MG TAB 650 MG PO ×2 (00:25→09:39)
[2019-09-28] MEDS: Normal Saline Flush 10 ML SYR IVP ×3 (02:05→23:40)
[2019-09-28] MEDS: Apixaban 5 MG TAB PO ×2 (08:17→20:46)
[2019-09-28] MEDS: Gabapentin 300 MG CAP 900 MG PO ×3 (08:17→20:46)
[2019-09-28] MEDS: Buprenorphine/Naloxone 8 mg/2 mg FILM 1 EACH SL ×2 (08:17→20:46)
[2019-09-28 09:24] VITALS: BP 124/78; PULSE 67; RESP 18; TEMP 36.8; O2SAT 96
[2019-09-28] MEDS: LORazepam 0.5 MG TAB PO (13:31)
--- NOTE | 2019-09-28 14:02 | W.PM.PROGNOT ---
Date of Service Date of service: 09/28/19 Time of Service: 14:02 Assessment and Plan Assessment and plan (1) MRSA (methicillin resistant Staphylococcus aureus) septicemia: Status: Acute Assessment and plan: With bacteremia, suspected endocarditis, septic emboli to the lung with lung abscesses and bilateral empyemas, R shoulder pyomyositis with possible intramuscular abscesses, and suspected R septic shoulder. -Continue vancomycin through 10/01/19. -Repeating CT chest on 09/30/19 - order entered -continue to monitor CRP (not normal yet) - prior to discharge, discuss results with ID - Dr Machado at [facility] - for further antibiotic guidance. (2) Endocarditis: Status: Acute Assessment and plan: TTE on 08/13 revealing EF 60-70% Systolic function hyperdynamic, diastolic parameters normal. No evidence of vegetation by Echo here or at [facility] on 08/16/19; however, patient presentation with multiple septic emobli and presence murmur is clinically consistent with endocarditis. No need for MARIANNE, per ID at [facility]. To complete 6 weeks of IV vancomycin from the day of the 1st negative blood culture (i.e. 10/01/19). (3) Septic pulmonary embolism without acute cor pulmonale: Status: Acute Assessment and plan: See above. Continue apixaban 5 mg PO BID. Repeat venous doppler RUE as the patient reports increased pain. (4) Lung abscess: Status: Acute Assessment and plan: Improving with vancomycin IV. For CT chest with IV contrast on 09/30/19. (5) Cellulitis of right shoulder: Status: Acute Assessment and plan: Continue vancomycin through 10/01/19 PICC line care Monitor CRP, procalcitonin, LFT, BMP, Urine drug screen, mag level and CBC with ESR for baseline (6) Myositis of right shoulder: Status: Acute Assessment and plan: Evidence by MRI. As above (7) Left leg DVT: Status: Acute Assessment and plan: L great saphenous vein. On apixaban as above (8) Deep vein thrombosis (DVT) of axillary vein of right upper extremity: Status: Acute Assessment and plan: R IJ, paired brachial, basilic, cephalic vv. Continue eliquis as above (9) Shoulder pain: Status: Acute Assessment and plan: Shoulder pain from cellulitis. see above Continue suboxone (10) Hepatitis C: Status: Acute Assessment and plan: Will need outpatient follow up for treatment (11) Substance use disorder: Status: Acute Assessment and plan: Patient is interested in inpatient rehab at [facility] Case management on board (12) DVT prophylaxis: Status: Acute Assessment and plan: On therapeutic eliquis Subjective Subjective Interval history since last seen: Bruce is anxious because he is afraid of needlesticks and is about to have another PICC line placed (the first one keeps kinking). He complains of RUE pain and feels an area of induration near his biceps. Denies dizziness, chest pain, states he gets winded easily and requests an albuterol inhaler, denies nausea/vomiting. We had a long conversation about quitting smoking - he verbalizes understanding but states that this is the only thing he has right now. We spoke about the fact that I was not coming from a judgemental place with this advice but, rather, because I wanted his lungs to heal. He is expected to have a CT of his chest on 09/30/19. Exam Narrative Exam Narrative: General: very pleasant, anxious male, A&Ox3, no focal deficits HEENT: EOMI, MMM Heart: RRR, no m/r/g Lungs: CTAB GI: abdomen is soft, nontender, nondistended Extremities: no e/c/c BLE's, LUE PICC wrapped Objective Objective Clinical Data: Vital Signs Temperature 36.8 C 09/28/19 09:24 Temperature Source Tympanic 09/28/19 09:24 Pulse 67 09/28/19 09:24 Pulse Rhythm Regular 09/28/19 08:20 Respiratory Rate 18 09/28/19 09:24 Respiratory Effort 09/28/19 08:20 Respiratory Depth Normal 09/28/19 08:20 Respiratory Pattern Normal 09/28/19 08:20 Blood Pressure 124/78 09/28/19 09:24 Pulse Oximetry 96 09/28/19 09:24 Oxygen Delivery Method Room Air 09/28/19 09:24 Oxygen Flow Rate 0 09/28/19 09:24 Pain Level 8 09/28/19 09:50 Comment 09/27/19 19:35 Intake & Output 09/27/19 09/28/19 09/28/19 23:59 11:59 23:59 Intake Total 250 / 500 Balance 250 / 500 Intake: IV 250 / 500 Laboratory Results WBC 7.96 k/cumm (4.4-10.8) 09/27/19 06:10 RBC 3.68 m/cumm (4.50-6.00) L 09/27/19 06:10 Hgb 10.2 g/dL (13.5-17.5) L 09/27/19 06:10 Hct 33.6 % (40.0-50.0) L 09/27/19 06:10 MCV 91.3 fL (80-95) 09/27/19 06:10 MCH 27.7 pg (27.0-33.0) 09/27/19 06:10 MCHC 30.4 g/dL (32.0-36.0) L 09/27/19 06:10 RDW 14.1 % (11.8-14.1) 09/27/19 06:10 Plt Count 304 x1000/uL (130-400) D 09/27/19 06:10 MPV 9.9 fL (8.0-11.0) 09/27/19 06:10 Immature Gran % 0.1 09/27/19 06:10 Neutrophils % 47.7 09/27/19 06:10 Band Neutrophils % Cancelled 09/10/19 06:20 Lymphocytes % 34.3 09/27/19 06:10 Atypical Lymphs % Cancelled 09/10/19 06:20 Monocytes % 13.7 09/27/19 06:10 Eosinophils % 3.8 09/27/19 06:10 Basophils % 0.4 09/27/19 06:10 Metamyelocytes % Cancelled 09/10/19 06:20 Myelocytes % Cancelled 09/10/19 06:20 Promyelocytes % Cancelled 09/10/19 06:20 Absolute Neutrophils 3.80 k/cumm (1.2-6.7) 09/27/19 06:10 Absolute Lymphocytes 2.73 k/cumm (1.2-3.4) 09/27/19 06:10 Absolute Monocytes 1.09 k/cumm (0.11-0.7) H 09/27/19 06:10 Absolute Eosinophils 0.30 k/cumm (0.0-0.7) 09/27/19 06:10 Absolute Basophils 0.03 k/cumm (0.0-0.2) 09/27/19 06:10 Nucleated RBCs Cancelled 09/10/19 06:20 Differential Comment Agrees w/ instrument 09/10/19 08:28 Other Cell Type Cancelled 09/10/19 06:20 RBC Morphology Normal 09/10/19 08:28 Polychromasia Cancelled 09/10/19 06:20 Hypochromasia Cancelled 09/10/19 06:20 Poikilocytosis Cancelled 09/10/19 06:20 Basophilic Stippling Cancelled 09/10/19 06:20 Anisocytosis Cancelled 09/10/19 06:20 Microcytosis Cancelled 09/10/19 06:20 Macrocytosis Cancelled 09/10/19 06:20 Spherocytes Cancelled 09/10/19 06:20 Target Cells Cancelled 09/10/19 06:20 Tear Drop Cells Cancelled 09/10/19 06:20 Ovalocytes Cancelled 09/10/19 06:20 Stomatocytes Cancelled 09/10/19 06:20 [place] Bodies Cancelled 09/10/19 06:20 [place] Cells Cancelled 09/10/19 06:20 Acanthocytes (Spur) Cancelled 09/10/19 06:20 Schistocytes Cancelled 09/10/19 06:20 ESR 79 mm/hr (0-15) H 09/20/19 06:45 Sodium 139 mmol/L (136-145) 09/27/19 06:10 Potassium 3.8 mmol/L (3.5-5.1) 09/27/19 06:10 Chloride 103 mmol/L (98-107) 09/27/19 06:10 Carbon Dioxide 28.7 mmol/L (21.0-32.0) 09/27/19 06:10 Anion Gap 7.3 mmol/L (3-11) 09/27/19 06:10 BUN 19 mg/dL (7-18) H 09/27/19 06:10 Creatinine 0.69 mg/dL (0.70-1.30) L 09/27/19 06:10 Estimated GFR/1.73 m2 >= 60.00 (mL/min/1.73m2) 09/27/19 06:10 Glucose 121 mg/dL (70-100) H 09/27/19 06:10 Calcium 8.7 mg/dL (8.5-10.1) 09/27/19 06:10 Magnesium 1.8 mg/dL (1.8-2.4) 09/27/19 06:10 Total Bilirubin 0.2 mg/dL (0.2-1.0) 09/27/19 06:10 Conjugated Bilirubin 0.07 mg/dL (0.00-0.20) 09/27/19 06:10 AST 51 U/L (15-37) H 09/27/19 06:10 ALT 106 U/L (16-63) H 09/27/19 06:10 Alkaline Phosphatase 177 U/L (46-116) H 09/27/19 06:10 C-Reactive Protein 1.11 mg/dL (0.0-0.3) H 09/27/19 06:10 Total Protein 7.8 g/dL (6.4-8.2) 09/27/19 06:10 Albumin 3.0 g/dL (3.4-5.0) L 09/27/19 06:10 Procalcitonin 0.1 ng/mL 09/27/19 06:10 Vancomycin Trough 12.6 ug/mL (10.0-20.0) 09/26/19 09:45 Urine Opiates Screen Negative (Negative) 09/23/19 14:37 Urine Methadone Screen Negative (Negative) 09/23/19 14:37 Ur Barbiturates Screen Negative (Negative) 09/23/19 14:37 Ur Tricyclics Screen Negative (Negative) 09/23/19 14:37 Ur Amphetamines Screen Negative (Negative) 09/23/19 14:37 U Benzodiazepines Scrn Negative (Negative) 09/23/19 14:37 Urine Cocaine Screen Negative (Negative) 09/23/19 14:37 Ur THC Screen Negative (Negative) 09/23/19 14:37
[2019-09-28 14:50] LABS: Vancomycin, Trough 13.4 ug/mL (10.0-20.0)
--- NOTE | 2019-09-28 15:50 | DI.US_ITS ---
EXAM: US UPPER EXTREMITY VENOUS RT CLINICAL HISTORY: History of upper extremity venous thrombosis. TECHNIQUE: Ultrasound performed using standard protocol. COMPARISON: No exams were available for comparison FINDINGS: The jugular, subclavian, axial and brachial veins are free of thrombus. There is thrombus seen in th e mid to distal cephalic vein, which is noncompressible. The basilic vein shows partially compressib le thrombus in the proximal to midportion of the vein but no clot seen distally. IMPRESSION: Thrombosis in the distal right cephalic vein and proximal to mid basilic vein.
[2019-09-28] MEDS: LORazepam 0.5 MG TAB (16:17)
[2019-09-28 22:40] VITALS: BP 131/72; PULSE 72; RESP 16; TEMP 36.7; O2SAT 98
[2019-09-29 03:40] VITALS: BP 112/67; PULSE 75; RESP 18; TEMP 36.7; O2SAT 97
[2019-09-29 08:13] VITALS: BP 131/76; PULSE 79; RESP 16; TEMP 36.2; O2SAT 98
[2019-09-29] MEDS: Apixaban 5 MG TAB PO ×2 (08:15→19:27)
[2019-09-29] MEDS: Buprenorphine/Naloxone 8 mg/2 mg FILM 1 EACH SL ×2 (08:15→19:26)
[2019-09-29] MEDS: Gabapentin 300 MG CAP 900 MG PO ×2 (08:15→19:27)
[2019-09-29] MEDS: Normal Saline Flush 10 ML SYR IVP ×2 (09:06→19:27)
[2019-09-29 19:25] VITALS: BP 138/72; PULSE 92; RESP 16; TEMP 36.8; O2SAT 98
[2019-09-30] MEDS: Normal Saline Flush 10 ML SYR IVP ×2 (05:38→16:04)
[2019-09-30 07:05] VITALS: BP 126/70; PULSE 90; RESP 16; TEMP 36.4; O2SAT 98
[2019-09-30] MEDS: Gabapentin 300 MG CAP 900 MG PO ×3 (07:48→19:33)
[2019-09-30] MEDS: Buprenorphine/Naloxone 8 mg/2 mg FILM 1 EACH SL ×2 (07:48→19:32)
[2019-09-30] MEDS: Apixaban 5 MG TAB PO ×2 (07:49→19:33)
[2019-09-30] MEDS: Omnipaque 350 MG/ML 100 ML BTL IJ (08:30)
--- NOTE | 2019-09-30 08:55 | DI.VRAD_ITS ---
PROCEDURE INFORMATION: Exam: CT Chest With Contrast Exam date and time: 09/30/2019 8:28 AM Clinical history: 33 years old, male; Condition or disease; Other: Follow up septic pulmonary emboli TECHNIQUE: Imaging protocol: Computed tomography of the chest with intravenous contrast. Suboptimal bolus. More contrast in the aortic arch then the pulmonary arteries COMPARISON: CT CHEST WO 08/15/2019 9:50 AM FINDINGS: Lungs:Decreasing number and size of pulmonary nodules may reflect improving septic emboli. Decreasing numbers of cavitary lesions. Decreasing consolidation in the lower lobes may reflect improving condition. Pleural space: Decreasing pleural effusion. Heart: Unremarkable. No cardiomegaly. No pericardial effusion. Pulmonary arteries: No pulmonary embolus in the main pulmonary arteries Aorta: Unremarkable. No aortic aneurysm. Lymph nodes: Decreasing size of pathologic nodes in the mediastinum. Post caval/pretracheal node now measures 2 x 1.2 cm. Previously 2.4 x 1.6 cm. Multiple nodes in the left axilla have decreased in size. Large node in the right axilla is better demonstrated on today's study 2.7 x 1.3 cm (2:23). Bones/joints: Unremarkable. No acute fracture. Soft tissues: Unremarkable. IMPRESSION: 1. Decreasing number and size of pulmonary nodules may reflect improving septic emboli. 2. Decreasing pleural effusion. 3. Decreasing consolidation in the lower lobes may reflect improving condition. 4. Decreasing size of pathologic nodes in the mediastinum. Post caval/pretracheal node now measures 2 x 1.2 cm. Previously 2.4 x 1.6 cm. 5. Multiple nodes in the left axilla have decreased in size. 6. Large node in the right axilla is better demonstrated on today's study 2.7 x 1.3 cm (2:23). Dictated and Authenticated by: Sonja Solorio MD. Ordering:PABLO Valdez MD
--- NOTE | 2019-09-30 10:00 | DI.CT_ITS ---
EXAM: CT CHEST W CLINICAL HISTORY: follow up septic pulmonary emboli with abscesses TECHNIQUE: The exam was performed according to the usual protocol with contrast. COMPARISON: CT CHEST WO from 08/15/2019 FINDINGS: Opacification is suboptimal for evaluation of pulmonary embolic disease. The thoracic aorta is of normal caliber. No evidence of thoracic aortic dissection or aneurysm. The heart size is within normal limits. No pericardial effusion is seen. No evidence of right ventr icular dysfunction is seen. Mediastinal and axillary lymph nodes are better appreciated on the current examination due to the pre sence of intravenous contrast. There does appear to be stable to mild decrease in size of the visual ized lymph nodes. There has been a decrease in the number and size of the pulmonary opacities since 08/15/2019. There h as also been significant improvement in the bilateral pulmonary infiltrates. There has been a decrease in size of the pleural effusions bilaterally. There are now small bilatera l pleural effusions present. The tracheobronchial tree is unremarkable. No acute osseous abnormality is identified. IMPRESSION: Overall improvement in the appearance of the chest since 08/15/2019. Please see the above discussion for complete details.
[2019-09-30 16:03] VITALS: BP 150/87; PULSE 100; RESP 18; TEMP 36.9; O2SAT 97
[2019-09-30 23:26] VITALS: BP 128/79; PULSE 92; RESP 19; TEMP 37.2; O2SAT 96
[2019-10-01] MEDS: Normal Saline Flush 10 ML SYR IVP ×2 (02:13→11:17)
[2019-10-01 07:50] VITALS: BP 113/72; PULSE 82; RESP 16; TEMP 36.6; O2SAT 98
[2019-10-01] MEDS: Gabapentin 300 MG CAP 900 MG PO ×2 (08:47→13:04)
[2019-10-01] MEDS: Apixaban 5 MG TAB PO (08:47)
[2019-10-01] MEDS: Buprenorphine/Naloxone 8 mg/2 mg FILM 1 EACH SL ×2 (08:47→13:40)
--- NOTE | 2019-10-01 13:03 | W.PM.DS.N ---
Date of service: 10/01/19 Time of Service: 13:04 DS: Diagnosis Discharge Diagnosis (1) MRSA (methicillin resistant Staphylococcus aureus) septicemia: Status: Acute (2) Septic pulmonary embolism without acute cor pulmonale: Status: Acute (3) Substance use disorder: Status: Acute Discharge Plan Disposition Patient Disposition: HOME Condition: Stable Discharge Details Reason For Visit: SWINGBED 1- MRSA SEPSIS WITH SEPTIC PULMONARY Admit Date/Time: 09/08/19 15:04 Admit Provider: Courtney Zapata Attending Provider: Courtney Zapata Primary Care Provider: Fernandez Huizar Hospital Course Hospital Course: Chief Complaint: MRSA Sepsis. Swing Bed admission from [facility]. HPI: 33 year old man with a past history of IVDA, admitted directly to Swing Bed as transfer from [facility] following acute admission for MRSA sepsis with complications. Mr. Mercado has a Past Medical History significant for IVDA (reportedly cocaine), prior hx bacteremia, chronic opiate dependence on Suboxone therapy, and recent discovery of Hepatitis C infection, who initially presented to [facility] on 08/12/2019 with complaints of right shoulder pain. The patient was initially admitted with findings of septic right shoulder, along with septic emboli to the lungs, with blood cultures eventually growing MRSA. MRI of his shoulder was positive for cellulitis and Myositis, as well as potential septic arthritis by imaging. He was transferred acutely to [facility] on 08/15 due to worsening sepsis, specifically with respiratory decompensation and encephalitis. He was maintained on Vancomycin. The patient was treated for MRSA bacteremia with septic emboli to the lungs, empyemas, as well as right shoulder Pyomyositis with likely right septic shoulder. He was followed by ID, and evaluated by orthopedic surgery for his shoulder. Recommendations were made for a 6 week total course of antibiotic therapy with vancomycin, with routine weekly maintenance labs. While the patient improved significantly both by labs (CRP) and clinically, his repeat CT showed improved but persistent findings, and CRP while significantly improved remained elevated at 1.1. Following discussion with Dr. Machado (ID at [facility]) recommendation was made for additional 6 week course of oral antibiotic therapy with Doxycycline. His LUE PICC line will be removed prior to discharge. He will also be continued to anticoagulation with Apixaban for provoked clots incurred during his hospitalization. Plan is for discharge with follow-up with JAY for Suboxone therapy. He will be prescribed a one week course of gabapentin for continued but improving shoulder pain. Recommendations are for follow-up with PCP in one week. Please note that no further labwork was recommended by ID, but will schedule for CT in 6 weeks. Also without need for ID follow-up, but Dr. Machado encouraged discussion / phone call from PCP if required in the future. For details of the patient's hospitalization please see H&P from Hay[facility] on 09/08, discharge summary from [facility] on the same date, and initial discharge summary from Brandi Zapata on 08/15. Home Meds and New Rx's Prescriptions: New gabapentin 300 mg Capsule 900 mg PO TID Qty: 15 RF: 0 Eliquis 5 mg Tablet 5 mg PO BID Qty: 60 RF: 0 Continued buprenorphine-naloxone [Suboxone] 8-2 mg Film 2 film buccal BID RF: 0 lidocaine [Lidoderm] 1 PATCH patch 1 patch Topical Q24H Qty: 4 RF: 0 Discharge Instructions Stand Alone Forms: Nursing Discharge Form Referrals: Prema Velez NP [NURSE PRACTITIONER] - 10/08/19 3:00 pm Activity:: No strenuous activity Equipment/Supplies:: No Equipment Needed Diet:: As Tolerated Discharge Orders Discharge Orders: Discharge Order (Routine); Ordered 10/01/19 Ordered By: Theo Lu DS: Summary Status at Discharge Functional status at discharge: independent ambulation Overall status at discharge: patient is back to baseline Mental Status: mental status grossly normal Speech and Movement: speech and movement normal Mood: congruent mood Affect: normal affect Exam Psych Mental Status: mental status grossly normal Speech and Movement: speech and movement normal Mood: congruent mood Affect: normal affect DS: Data Vitals/I&O Vitals and I&O: Vital Signs Temperature 36.6 C 10/01/19 07:50 Temperature Source Tympanic 10/01/19 07:50 Pulse 82 10/01/19 07:50 Pulse Rhythm Regular 10/01/19 11:00 Respiratory Rate 16 10/01/19 07:50 Respiratory Effort 10/01/19 11:00 Respiratory Depth Normal 10/01/19 11:00 Respiratory Pattern Normal 10/01/19 11:00 Blood Pressure 113/72 10/01/19 07:50 Pulse Oximetry 98 10/01/19 07:50 Oxygen Delivery Method Room Air 10/01/19 07:50 Oxygen Flow Rate 0 10/01/19 07:50 Pain Level 0 10/01/19 07:50 Comment 09/29/19 03:40 Intake & Output 09/30/19 10/01/19 10/01/19 23:59 11:59 23:59 Intake Total 980 / 1530 750 / 750 Balance 980 / 1530 750 / 750 Weight 58.9 kg 58.9 kg Intake: IV 250 / 500 510 / 510 Oral 730 / 1030 240 / 240 Other: Urine Appearance Clear Comment Urine not seen, reports voiding regularly and without issue. Voiding Methods Toilet [facility] Medical History Acute kidney injury (Resolved) Acute respiratory failure with hypoxemia (Acute) Anemia (Chronic) Crack cocaine poisoning (Acute) Deep vein thrombosis (DVT) of axillary vein of right upper extremity (Acute) Endocarditis (Acute) IV drug abuse (Acute) Left leg DVT (Acute) Lung abscess (Acute) MRSA (methicillin resistant Staphylococcus aureus) septicemia (Acute) Opioid use disorder (Acute) SIRS (systemic inflammatory response syndrome) (Acute) Smoker (Acute) Surgical History H/O chest tube placement (Acute) Family History Maternal Grandmother Diabetes Mother Diabetes Social History Smoking/Tobacco Use Status: Current every day Tobacco Type: cigarettes Years smoked: 20 Quit status: not considering quitting Alcohol Intake: never Drug use: Daily Substance use type: crack/cocaine Counseling given: Yes Details: 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 Stinson at [facility] Do you feel safe at home: Yes Do you feel safe in your relationship?: Yes Additional Social history: Grew up in [place]. Living back with mother after living in [facility] for years. 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 She is currently hospitalized in [facility] They have a 7-year-old daughter living with him who he still cares for
[2019-10-01] MEDS: Bacitracin 1 PACKET (13:40)
--- NOTE | 2019-10-01 13:42 | W.NUTCONSULT ---
Date of service: 10/01/19 Time of Service: 13:42 Nutritional Consult ASSESSMENT: Current weight 58.9kg up from admission weight of 52.7 and increase in BMI to 21.6 eating ad. naoop. with tray delivery and cafeteria self-selected meals. Hemoglobin has increased from 9.4 to 10.4. Also note: he was offered Gerson, Ensure and CIB initially but he did not like the supplements. Mr. 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 INTERVENTION: He may benefit form a supplement. CDMs have worked with him regarding healthy nutrition during his stay. Met with him and he feels he is well informed on healthy nutrition. PLAN: Encourage high protein meals at home. Time Spent in Nutritional Counseling and Treatment: 5 minutes face to face
--- NOTE | 2019-10-01 17:14 | PDOC.CMDIS ---
- If Service Date Differs Date of service: 10/01/19 Time of Service: 17:15 LACE Index Scoring Tool - Questions: Length of Stay (in days): 14 or more Acuity (Admit via E.D.?): No E.D. Visits: 3 - Answers: Total Score: 10 Risk of Readmission: High Risk Care Management Discharge Reason for Hospitalization: SWB 1- MRSA Sepsis Discharge Plan: Bruce will return home with no additional services at this time. provided Bruce with a last dose letter to provide to JAY in order to resume his suboxone maintenance. He will continue oral antibiotics for 6 weeks. He will follow up with his PCP, as recommended. His mother will drive him home via private vehicle. Patient/Family Education Needs: Review discharge instructions regarding activity levels and medication, discussion of self care needs including Ask Me Three
== END 2019-10-01 14:07 | disposition home or self-care (01) | DRG 871 ==
PROVIDERS: Internal Medicine; Nurse Practitioner Family; Admitting Provider Internal Medicine; PCP Internal Medicine; Visit Provider Internal Medicine
DX: A41.02 Sepsis due to Methicillin resistant Staphylococcus aureus (principal); I26.90 Septic pulmonary embolism without acute cor pulmonale; J85.2 Abscess of lung without pneumonia; F11.20 Opioid dependence, uncomplicated; M60.011 Infective myositis, right shoulder; M00.9 Pyogenic arthritis, unspecified; I38 Endocarditis, valve unspecified; L03.113 Cellulitis of right upper limb; I82.492 Acute embolism and thrombosis of other specified deep vein of left lower extremity; I82.621 Acute embolism and thrombosis of deep veins of right upper extremity; Z79.2 Long term (current) use of antibiotics; B19.20 Unspecified viral hepatitis C without hepatic coma; Z79.01 Long term (current) use of anticoagulants; Z45.2 Encounter for adjustment and management of vascular access device; F19.10 Other psychoactive substance abuse, uncomplicated; F17.210 Nicotine dependence, cigarettes, uncomplicated; Z71.3 Dietary counseling and surveillance
CPT/HCPCS: 36415; 71045; 80048; 80053; 80076; 80307; 84145; 85652; 97110; 97162; 97165; 99306; 99307; 99308; 99309; 99316; 71046; 71260; 80202; 82565; 83735; 85025; 86140; 93971; J2997; J3370; J3475; J3490

== ENCOUNTER 2019-10-23 08:28 | Outpatient (CLI) | payer MEDICAID, SELFPAY ==
[2019-10-23 09:04] LABS: HCT 42.7 % (40.0-50.0); HGB 13.8 g/dL (13.5-17.5); Mean Corp. HGB Concentration 32.3 g/dL (32.0-36.0); Mean Corpuscular Hemoglobin 27.6 pg (27.0-33.0); Mean Corpuscular Volume 85.4 fL (80-95); Platelet Count 353 x1000/uL (130-400); RBC Distribution Width 13.3 % (11.8-14.1); White Blood Cell Count 7.95 k/cumm (4.4-10.8)
[2019-10-23 09:24] LABS: ALT 58 U/L (16-63); AST 39 U/L (15-37); Albumin 3.6 g/dL (3.4-5.0); Alkaline Phosphatase 170 U/L (46-116); Anion Gap 11.1 mmol/L (3-11); BUN 15 mg/dL (7-18); Bilirubin, Total 0.2 mg/dL (0.2-1.0); CO2 25.9 mmol/L (21.0-32.0); CREATININE 0.62 mg/dL (0.70-1.30); Chloride 102 mmol/L (98-107); Glucose 126 mg/dL (74-106); Potassium 4.2 mmol/L (3.5-5.1); Sodium 139 mmol/L (136-145); Total Protein 8.6 g/dL (6.4-8.2)
== END 2019-10-23 08:48 ==
PROVIDERS: PCP Nurse Practitioner; Visit Provider Nurse Practitioner
DX: I82.A11 Acute embolism and thrombosis of right axillary vein (principal); I38 Endocarditis, valve unspecified; B19.20 Unspecified viral hepatitis C without hepatic coma
CPT/HCPCS: 36415; 80053; 85027

== ENCOUNTER 2020-01-01 00:37 | Outpatient (CLI) | payer MEDICAID, SELFPAY ==
[2020-01-01] MEDS: Omnipaque 350 MG/ML 100 ML BTL IJ (15:27)
--- NOTE | 2020-01-01 15:30 | DI.CT_ITS ---
EXAM: CT CHEST W CLINICAL HISTORY: SEPTIC EMBOLI, MRSA BACTEREMIA, A41.02 J85.2 ABSCESS OF LUNG TECHNIQUE: Post IV contrast. COMPARISON: CT CHEST W from 09/30/2019 FINDINGS: There are scattered small pulmonary nodules seen in the region of the previously noted septic emboli. There are 2 blebs seen at the right upper lobe anteriorly. There are linear areas of pulmonary sca rring. There has been interval decrease in size of previously noted hilar and mediastinal lymph node s. No new abnormalities are seen. IMPRESSION: Significant interval improvement of previously noted infiltrates and septic emboli. There are smalle r residual areas of nodularity and scarring.
== END 2020-01-01 00:57 ==
PROVIDERS: PCP Nurse Practitioner; Visit Provider Nurse Practitioner
DX: J85.2 Abscess of lung without pneumonia (principal); A41.02 Sepsis due to Methicillin resistant Staphylococcus aureus; J98.4 Other disorders of lung
CPT/HCPCS: 71260; J3490

== ENCOUNTER 2020-02-29 19:37 | Emergency (ER) | payer MEDICAID, SELFPAY ==
[2020-02-29] VITALS (16 sets, daily range): BP systolic 91–159; BP diastolic 45–107; PULSE 65–127; RESP 19–37; TEMP 37.3; O2SAT 93–100
[2020-02-29] MEDS: Normal Saline 1,000 ML 1000 ML IV (20:01)
--- NOTE | 2020-02-29 20:01 | ED.GENADUL_ITS ---
Discharge Plan Disposition Patient Disposition: HOME Condition: Stable Discharge Details Chief Complaint: OD/Poison Clinical Impression: Cocaine abuse, Intoxication by drug Primary Care Provider: Prema Velez ED Provider: Meliton Urbina Home Meds and New Rx's Prescriptions: Continued buprenorphine-naloxone [Suboxone] 8-2 mg film 18 film buccal DAILY RF: 0 Discharge Instructions Additional Instructions: Stop using cocaine and drugs. If you continue in these decisions will cause significant harm pain and suffering in your life. Right now it appears that you are suffering from what we would consider a cocaine crash. Get plenty of sleep. Drink plenty of fluids. If you notice any worsening of your symptoms, or any new symptoms such as vomiting, diarrhea, fever, chills, shortness of breath, chest pain, numbness, weakness, or fainting , please return immediately to the emergency department for reevaluation. Please follow up with your primary care provider as soon as possible for reassessment and reevaluation. As always, it was a pleasure participating in your medical care today. Referrals: Prema Velez, LIUDMILA [Primary Care Provider] - Discharge Data Discharge Date/Time-TO BE ENTERED AT DEPARTURE: 03/01/20 10:14 Medical Decision Making <Madeleinemitul [place] - Last Filed: 03/03/20 08:07> 34-year-old male presents with crack cocaine overdose. Patient has a history of IV drug use and reports injecting approximately 1 g of crack to his right femoral region. He is awake and alert upon arrival he is very jittery hypertensive and tachycardic. He states his chest hurts. No signs of trauma. He also has a recent history of MRSA and DVT, endocarditis, Sirs. Spoke with mother Jaclyn who reports that he has been in and out of the hospital last 6 months up in [place]. 2015: Patient is very agitated, required multiple IV sticks and multiple staff assist for procedures and safety which were unsuccsessful, he does have a 20- gauge EJ to his right external jugular. Labs were drawn and has saline and 2 mg of lorazepam IV. EKG obtained which had some artifact. EKG was obtained by staff assist holding patient down. 2030: CT angio abdomen pelvis to rule out dissection versus PE versus abscess due to patient's complicated past medical history related to substance abuse and chest pain and shortness of breath. 2100: MD Cohen at bedside for ultrasound-guided IV due to patient not being able to get IV contrast through the EJ. 18-gauge right forearm placed by Dr. Cohen. Patient remains agitated thrashing around in bed. At this time he has received a total of 4 mg lorazepam IV and 5 mg of Haldol, 25 mg of Benadryl also added on. At this time his heart rate has improved to 114 respirations 21 is 97% on room air. 0: I did speak with his mother Jaclyn on the phone regarding plan of care and patient's condition at this time we will continue to observe with possible admission for observation unless patient is stable enough to go home. 4: Patient is resting quietly after Haldol and Benadryl. Breathing is eupneic he is transported via DI staff to CT. CT results are benign except for some mild constipation head CT is negative for any pathology, chest abdomen and pelvis negative for dissection, abscess no pleural effusion. There is some mild atelectasis and pulmonary nodules noted. 2329: Patient remains sleeping and hemodynamically stable. Heart rate 86, respiration 19, O2 sats 95% on room air blood pressure is 91/46 he is receiving normal saline with 20 mEq of KCl at 250 mls an hour. At this time plan is to observe patient in department until he is more awake and alert and ready for discharge. Spoke with Henny his mother relate plan of care she states that we can call her at any time if he wakes up and is ready to go home. At this time urine is still pending. Care is to be handed off to ER attending Dr. Cohen pending patients improving mental status and metabolizing to freedom. <Jose Cohen, - Last Filed: 03/01/20 07:07> Case was signed out to me pending reevaluation. Please refer to Madeleine's initial history, exam, and assessment and plan. Abbreviated history, the patient had a week long alonso on straight cocaine, he finally stopped today. She is notably agitated and slightly confused when he arrived to the ED, notably thorough work-up was performed, this was all very unremarkable. Patient is still not urinated yet at this time though. The patient did receive Ativan and Haldol secondary to his notable anxiety from the continued cocaine. After this the patient went into a very restful sleep from which she was easily aroused from. He has been this way throughout the night. On my reassessment this morning he continues to remain stable, demonstrate stable vital signs, but is still notably sleepy, shows no signs of significant focal neurologic deficits though, no clinical evidence of meningitis. Symptoms appear to be consistent from cocaine cessation, and subsequent withdrawal and cocaine crash. I did contact his mother, Jaclyn, discussed the case with her, she states that she would like to bring her son home to care for him there. She will call the ED slightly later this morning prior to coming in. The patient will be signed out to my colleague Dr. Urbina for final reassessment prior to discharge. Also of note gymnastics coach was contacted, they will be contacting the patient on an outpatient basis. <Meliton Urbina MD - Last Filed: 03/01/20 19:30> Care signed out by Dr. Cohen with plan to reassess and determine disposition. Patient was reassessed shortly after signout and noted to be mentating at baseline with no complaint. Patient's mother was contacted for transportation home and to provide support to her son. Usual and customary discharge instructions were provided. Patient was encouraged to stop using drugs. HPI <Madeleine Negro - Last Filed: 03/03/20 08:07> General Mode of arrival: EMS . Date/Time Provider Initiated Documentation: 02/29/20 19:51 . Limitations to Documentation: altered mental status . Information obtained by: patient and EMS . HPI Narrative: 34-year-old male presents via [facility] with crack cocaine overdose. [place] was [place] in a park unresponsive on scene. They did not administer Narcan prior to arrival. Patient has a history of IV drug use and reports injecting approximately 1 g of crack to his right femoral region. He is awake and alert, agitated upon arrival he is very jittery hypertensive and tachycardic. He states his chest hurts and he is short of breath. He is a smoker. No signs of trauma. He does have a puncture site noted to his right groin approximately 0.5 cm in diameter. No surrounding erythema or signs of infection. He also has a recent history of MRSA and DVT, endocarditis, Sirs. Spoke with mother Jaclyn who reports that he has been in and out of the hospital last 6 months up in [place]. Related Data Home Medications Medication Instructions Recorded Confirmed buprenorphine 8 mg-naloxone 2 mg 18 film BUCCAL DAILY each 10/23/19 02/29/20 sublingual film Allergies Allergy/AdvReac Type Severity Reaction Status Date / Time aspirin Allergy Mild unknown Verified 02/29/20 19:46 General Stated Complaint: OD/Poison SÁNCHEZ: 2 Review of Systems <Madeleine Negro - Last Filed: 03/03/20 08:07> Narrative: Review of systems is somewhat limited due to patient's mental status. Constitutional: Disheveled appearance, awake and anxious, normal body habitus, appears anxious and under the influence HEENT: Denies trauma, headaches, blurry vision, nasal discharge, sore throat, trouble swallowing. Chest: Reports chest tightness and shortness of breath. Respiratory: Denies hemoptysis. Every day smoker GI: Denies abdominal pain, nausea, vomiting, diarrhea, constipation. : Denies dysuria, reports hematuria, decreased urine output, flank pain, rectal bleeding. Neuro: Denies dizziness, blurry vision, weakness, syncope, headache or facial numbness. Was found unresponsive. Psych: History of substance use. Hematologic: Denies easy bruising, intolerance to heat or cold, hair loss. [facility] <Madeleine Negro - Last Filed: 03/03/20 08:07> Medical History Acute kidney injury (Resolved) Acute respiratory failure with hypoxemia (Acute) Anemia (Chronic) Cocaine abuse (Acute) Crack cocaine poisoning (Acute) Deep vein thrombosis (DVT) of axillary vein of right upper extremity (Acute) Depression (Chronic) Endocarditis (Acute) IV drug abuse (Acute) Left leg DVT (Acute) Lung abscess (Acute) MRSA (methicillin resistant Staphylococcus aureus) septicemia (Acute) Opioid use disorder (Acute) SIRS (systemic inflammatory response syndrome) (Acute) Smoker (Acute) Surgical History H/O chest tube placement (Acute) Family History Maternal Grandmother Diabetes Mother Diabetes Social History Smoking/Tobacco Use Status: Current every day Tobacco Type: cigarettes Years smoked: 20 Quit status: not considering quitting Alcohol Intake: never Drug use: Daily Substance use type: crack/cocaine Counseling given: Yes Details: 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 Stinson at [facility] Do you feel safe at home: Yes Do you feel safe in your relationship?: Yes Additional Social history: Grew up in [place]. Living back with mother after living in [facility] for years. 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 She is currently hospitalized in [facility] They have a 7-year-old daughter living with him who he still cares for Exam <Madeleine Negro - Last Filed: 03/03/20 08:07> Narrative Exam Narrative: Constitutional: Awake, altered, oriented x2 appears stated age. Normal body habitus. Tearful, agitated. Head: Normocephalic, no trauma. Eyes: Pupils equal 3 mm sluggish. EOM's intact. Eyelids symmetrical without lesions, discharge, or swelling. ENT: Bilateral TM's WNL, External ear normal to inspection, no mastoid TTP, swelling, or erythema, Nasal turbinates WNL, no nasal discharge. Normal dentition, Posterior pharynx WNL, no exudate. Chest: Tachycardic. Rate of 122. Normal S1, S2, distal pulses intact. Hypertensive. Resp: Lungs clear to auscultation bilaterally, no wheezes, rales, or rhonchi. Musculoskeletal: 5/5 strength to all four extremities. : Patient is incontinent of urine. Skin: Patient has bruises and multiple excoriations. Capillary refill less than 2 sec. puncture wound noted to the right groin area approximately 0.5 cm in diameter no surrounding erythema, swelling or signs of infection. Neurologic: Cranial nerves II-XII intact. He does appear altered.. DTR's intact. Hematologic/Lymphatic: No ecchymosis, no lymphadenopathy. Psych Appearance: disheveled Speech and Movement: restless Mood: anxious mood, euphoric mood and irritable mood Affect: anxious affect and irritable affect Attitude: belligerent Thought Process: flight of ideas Thought Content: compulsions Insight: limited Judgment: limited Course <Madeleine Negro - Last Filed: 03/03/20 08:07> Vital Signs Vital signs: Vital Signs Temperature 37.3 C 02/29/20 19:39 Pulse 115 H 02/29/20 19:39 Respiratory Rate 35 H 02/29/20 19:39 Blood Pressure 159/107 H 02/29/20 19:39 Pulse Oximetry 97 02/29/20 19:39 Temperature 37.3 C 02/29/20 19:39 Temperature Source Skin 02/29/20 19:39 Pulse 115 H 02/29/20 19:39 Respiratory Rate 35 H 02/29/20 19:46 Respiratory Effort Labored 02/29/20 19:46 Respiratory Depth Deep 02/29/20 19:46 Respiratory Pattern Tachypnea 02/29/20 19:46 Blood Pressure 159/107 H 02/29/20 19:39 Blood Pressure Position Sitting 02/29/20 19:39 Pulse Oximetry 97 02/29/20 19:39 Oxygen Delivery Method Room Air 02/29/20 19:39 Oxygen Flow Rate 0 02/29/20 19:39 Sign Out <Madeleine Negro - Last Filed: 03/03/20 08:07> Sign Out Data: Sign Out Comment: Pending observation and readiness for discharge. Metabolize to freedom. Last updated by Madeleine Negro at 02/29/20 23:44 Sign Out Comment: Pending observation and readiness for discharge. Metabolize to freedom. Last updated by Jose Cohen DO at 03/01/20 07:37
[2020-02-29] MEDS: LORazepam 2 MG/ML VIAL IVP (20:02)
[2020-02-29 20:12] LABS: Abs Immature Grans 0.02 k/cumm (0.0-0.09); Absolute Basophil Count 0.01 k/cumm (0.0-0.2); Absolute Eosinophil Count 0.07 k/cumm (0.0-0.7); Absolute Lymphocyte Count 1.58 k/cumm (1.2-3.4); Absolute Monocyte Count 1.09 k/cumm (0.11-0.7); Absolute Neutrophil Count 7.71 k/cumm (1.2-6.7); Basophils % 0.1; Eosinophils % 0.7; Immature Grans % 0.2 %; Lymphocytes % 15.1; Mean Corp. HGB Concentration 36.1 g/dL (32.0-36.0); Mean Corpuscular Hemoglobin 29.8 pg (27.0-33.0); Mean Corpuscular Volume 82.6 fL (80-95); Monocytes % 10.4; Neutrophils % 73.5; Platelet Count 268 x1000/uL (130-400); RBC 4.36 m/cumm (4.50-6.00); RBC Distribution Width 13.6 % (11.8-14.1); White Blood Cell Count 10.48 k/cumm (4.4-10.8)
--- NOTE | 2020-02-29 20:19 | DI.RAD_ITS ---
EXAM: XR PORTABLE CHEST AP CLINICAL HISTORY: <Overdose> TECHNIQUE: 2D digital imaging was performed. COMPARISON: XR PORTABLE CHEST AP from 09/27/2019 CT CHEST W from 01/01/2020 CT THORAX ABD/PEL CTA from 02/29/2020 FINDINGS: LUNGS: There are mildly in increased interstitial markings in the upper lobes likely reflecting scarr ing. No focal infiltrate or effusion is seen.. HEART: Normal. MEDIASTINUM: Normal. OTHER FINDINGS: None. IMPRESSION: No acute pulmonary findings. DATA REPOSITORY: RADIATION DOSE DELIVERED:
[2020-02-29 20:27] LABS: ETHANOL BLOOD < 3.0 mg/dL (<3); Magnesium 1.8 mg/dL (1.8-2.4)
[2020-02-29 20:29] LABS: Creatine Kinase 220 U/L (39-308)
[2020-02-29 20:32] LABS: ALT 73 U/L (16-63); AST 50 U/L (15-37); Albumin 4.2 g/dL (3.4-5.0); Alkaline Phosphatase 115 U/L (46-116); Anion Gap 9.7 mmol/L (3-11); BUN 20 mg/dL (7-18); Bilirubin, Total 0.8 mg/dL (0.2-1.0); CO2 28.3 mmol/L (21.0-32.0); CREATININE 0.87 mg/dL (0.70-1.30); Calcium 8.7 mg/dL (8.5-10.1); Chloride 98 mmol/L (98-107); Glucose 117 mg/dL (74-106); Sodium 136 mmol/L (136-145); Total Protein 7.8 g/dL (6.4-8.2)
[2020-02-29 20:36] LABS: Troponin I < 0.05 ng/Ml (<0.06)
--- NOTE | 2020-02-29 20:37 | DI.VRAD_ITS ---
PROCEDURE INFORMATION: Exam: XR Chest, 1 View Exam date and time: 02/29/2020 8:20 PM Age: 34 years old Clinical indication: Other: Overdose TECHNIQUE: Imaging protocol: XR of the chest Views: 1 view. COMPARISON: CR XR PORTABLE CHEST AP 09/27/2019 8:01 AM FINDINGS: Tubes, catheters and devices: Interval removal of previously seen left-sided PICC line. Lungs: Cannot rule out small effusion and/or atelectasis at the right lung base. Near complete resolution of previously seen bilateral opacities. Suggestion of small opacity faintly seen over the right mid lung. Pleural space: No large pleural effusion on the left. No pneumothorax. Heart/Mediastinum: Unremarkable. No cardiomegaly. Bones/joints: Unremarkable. IMPRESSION: Cannot rule out small effusion and/or atelectasis at the right lung base. No large consolidations identified. Near complete resolution of previously seen airspace opacities. Dictated and Authenticated by: Chino Dougherty MD. Ordering:JOEL Salvador MD
[2020-02-29 20:42] LABS: Salicylate 3.5 mg/dL (2.8-20.0)
[2020-02-29 20:45] LABS: Acetaminophen < 2 ug/mL (10-30)
[2020-02-29] MEDS: LORazepam 2 MG/ML VIAL 1 MG IVP ×2 (21:01→21:28)
[2020-02-29] MEDS: Haloperidol 5 MG/ML VIAL IM/IV (21:40)
[2020-02-29] MEDS: diphenhydrAMINE 50 MG/ML VIAL 25 MG IM/IVP (21:46)
[2020-02-29] MEDS: POTASSIUM CHLORIDE/0.9% NACL 1,000 ML 250 MEQ IV (22:02)
--- NOTE | 2020-02-29 22:16 | DI.CT_ITS ---
EXAM: CT THORAX ABD/PEL CTA CLINICAL HISTORY: Chest pain, Overdose, tachycardia. TECHNIQUE: Imaging Protocol: Axial computed tomography images with coronal and sagittal reformatted images were created and reviewed CONTRAST MATERIAL: Intravenous: Omnipaque 350 Contrast volume:100 ml Contrast route:IV - Oral: No COMPARISON: CT CHEST PE ABD PELVIS W from 08/12/2019 CT CHEST W from 09/30/2019 CT CHEST W from 01/01/2020 FINDINGS: CHEST: Heart and great vessels: There is no evidence pulmonary emboli or aortic dissection. There are no pleural or pericardial effusions. Adenopathy: None. Lungs: Again noted are multiple small scattered pulmonary nodules, and a few small blebs, unchanged f rom the previous exam. No acute infiltrates, are seen. No pneumothorax. Bones: There is no evidence of spine or rib fracture. ABDOMEN: Liver: Patchy areas fatty infiltration. No measurable mass. Gallbladder and biliary tract: No radiodense calculus or dilation. Pancreas: Normal density, no abnormal calcifications or inflammatory process. Spleen: Normal. Kidneys: Normal size, contour and axis. No radiodense stones or obstructive uropathy. No masses seen. Adrenal glands: No masses seen. Abdominal Aorta: Abdominal portion non-dilated. No evidence dissection or significant atherosclerotic change. Branch vessels are intact. PELVIS: Bladder: No gross wall thickening, focal mass or stones. Bowel: No obstruction or bowel wall thickening. Increased stool. Peritoneal cavity: No ascites, focal collection or mesenteric inflammatory response. Bones: No suspicious lesions or fractures. Reproductive organs: Within normal limits. Lymph nodes: Unremarkable. Impression: Scattered pulmonary nodules related to previous history of septic emboli. No acute abnormality in th e chest abdomen or pelvis. DATA REPOSITORY: All CT scans at this facility are submitted to the National Radiology Data Registry (NRDR) Dose Index Registry (DIR) with the [employer] (ACR). RADIATION OPTIMIZATION: All CT scans at this facility use at least one of these dose optimization te chniques: automated exposure control; mA and/or kV adjustment per patient size (includes targeted exa ms where dose is matched to clinical indication); or iterative reconstruction.
--- NOTE | 2020-02-29 22:20 | DI.CT_ITS ---
EXAM: CT HEAD WO CLINICAL HISTORY: AMS. TECHNIQUE: Imaging Protocol: Axial computed tomography images with coronal and sagittal reformatted images were created and reviewed COMPARISON: No exams were available for comparison FINDINGS: Ventricles and Extra axial spaces: Normal in size and morphology for the patient's age. Hemorrhage: None. Cerebral parenchyma: Normal. Midline shift: None. Brainstem/Cerebellum: Normal. Calvarium: Normal. Visualized Paranasal sinuses/Mastoids: Clear. Soft Tissues: Unremarkable. IMPRESSION: No acute intracranial process. RADIATION DOSE DELIVERED: DATA REPOSITORY: All CT scans at this facility are submitted to the National Radiology Data Registry (NRDR) Dose Index Registry (DIR) with the [employer] (ACR). RADIATION OPTIMIZATION: All CT scans at this facility use at least one of these dose optimization te chniques: automated exposure control; mA and/or kV adjustment per patient size (includes targeted exa ms where dose is matched to clinical indication); or iterative reconstruction.
[2020-02-29] MEDS: Normal Saline Flush 10 ML SYR IVP (22:36)
[2020-02-29] MEDS: Omnipaque 350 MG/ML 100 ML BTL IJ (22:36)
[2020-02-29] MEDS: Normal Saline - Diluent 50 ML VIAL IV (22:37)
--- NOTE | 2020-02-29 22:44 | DI.VRAD_ITS ---
PROCEDURE INFORMATION: Exam: CT Head Without Contrast Exam date and time: 02/29/2020 9:56 PM Age: 34 years old Clinical indication: Other: Chest pain, tachycardia, overdose TECHNIQUE: Imaging protocol: Computed tomography of the head without contrast. Radiation optimization: All CT scans at this facility use at least one of these dose optimization techniques: automated exposure control; mA and/or kV adjustment per patient size (includes targeted exams where dose is matched to clinical indication); or iterative reconstruction. COMPARISON: CT HEAD WO 04/29/2019 2:00 PM FINDINGS: Brain: Normal. No hemorrhage. Unremarkable white matter. No mass effect. Ventricles: Normal. No ventriculomegaly. Bones/joints: Unremarkable. No acute fracture. Sinuses: Visualized sinuses are unremarkable. No fluid levels. Mastoid air cells: Visualized mastoid air cells are well aerated. Soft tissues: Unremarkable. IMPRESSION: No acute intracranial abnormality. Dictated and Authenticated by: Keenan Gutierrez MD. Ordering:JOEL Salvador MD
--- NOTE | 2020-02-29 22:56 | DI.VRAD_ITS ---
PROCEDURE INFORMATION: Exam: CT Angiography Chest With Contrast Exam date and time: 02/29/2020 10:16 PM Age: 34 years old Clinical indication: Other: Chest pain, tachycardia, overdose TECHNIQUE: Imaging protocol: Computed tomographic angiography of the chest with intravenous contrast. 3D rendering: MIP and/or 3D reconstructed images were created by the technologist. Radiation optimization: All CT scans at this facility use at least one of these dose optimization techniques: automated exposure control; mA and/or kV adjustment per patient size (includes targeted exams where dose is matched to clinical indication); or iterative reconstruction. Contrast material: [id number]; Contrast volume: 100 ml; Contrast route: IV RT FOREARM 18G; COMPARISON: CT CHEST PE ABD PELVIS W 08/12/2019 2:51 PM FINDINGS: Pulmonary arteries: There is no evidence of a pulmonary embolus. Aorta: The aorta is within normal limits. Thyroid: The thyroid gland is within normal limits. Lungs: The tracheobronchial tree is patent bilaterally. There are dependent atelectatic changes at the lung bases. There is slight fibrosis and scarring at the lung apices. There are nodular densities within the left apex with 1 nodule measuring approximately 0.7 centimetres and a 2nd nodule measuring 7 mm. There is a 3rd nodule measuring 8 mm. There is some fibrosis and scarring in the inferior aspect of the left upper lobe. There is a small nodule within the right middle lobe measuring approximately 3 mm. There is a nodule within the right upper lobe measuring approximately 8 mm. Pleural space: Unremarkable. No pneumothorax. No pleural effusion. Heart: The heart and pericardium are unremarkable. Lymph nodes: No enlarged lymph nodes. Bones/joints: The thoracic spine appears within normal limits. Soft tissues: Unremarkable. IMPRESSION: 1. Multiple pulmonary nodules. These could be infectious in nature. Other etiologies are not totally excluded. Clinical correlation is recommended. 2. No evidence of pulmonary embolus. 3. The aorta is within normal limits. PROCEDURE INFORMATION: Exam: CT Angiography Abdomen and Pelvis With Contrast Exam date and time: 02/29/2020 10:16 PM Age: 34 years old Clinical indication: Other: Chest pain, tachycardia, overdose TECHNIQUE: Imaging protocol: Computed tomographic angiography of the abdomen and pelvis with intravenous contrast material. 3D rendering: MIP and/or 3D reconstructed images were created by the technologist. Radiation optimization: All CT scans at this facility use at least one of these dose optimization techniques: automated exposure control; mA and/or kV adjustment per patient size (includes targeted exams where dose is matched to clinical indication); or iterative reconstruction. Contrast material: [id number]; Contrast volume: 100 ml; Contrast route: IV RT FOREARM 18G; COMPARISON: CT CHEST PE ABD PELVIS W 08/12/2019 2:51 PM FINDINGS: Aorta: The aorta is unremarkable. Celiac trunk and mesenteric arteries: No occlusion or significant stenosis. Renal arteries: No occlusion or significant stenosis. Right iliac arteries: No occlusion or significant stenosis. Left iliac arteries: No occlusion or significant stenosis. Liver: The liver is within normal limits. Gallbladder and bile ducts: The gallbladder is unremarkable. Pancreas: The pancreas is unremarkable. Spleen: The spleen is within normal limits. Adrenals: The adrenal glands are within normal limits. Kidneys and ureters: The kidneys are within normal limits. Stomach and bowel: There are feces within the colon which are suspicious for constipation. Appendix: No evidence of appendicitis. Intraperitoneal space: Unremarkable. No free air. No significant fluid collection. Lymph nodes: No enlarged lymph nodes. Bladder: The urinary bladder is unremarkable. Reproductive: The prostate and seminal vesicles are within normal limits. Bones/joints: No acute fracture. No dislocation. Soft tissues: Unremarkable. IMPRESSION: Suspect constipation as above. Dictated and Authenticated by: Keenan Gutierrez MD. Ordering:JOEL Salvador MD
[2020-03-01] VITALS (74 sets, daily range): BP systolic 90–135; BP diastolic 47–87; PULSE 64–106; RESP 13–33; O2SAT 80–100
== END 2020-03-01 10:14 | disposition home or self-care (01) ==
PROVIDERS: Registered Nurse Emergency; Emergency Provider Student in an Organized Health Care Education/Training Program; PCP Nurse Practitioner
DX: T40.5X1A Poisoning by cocaine, accidental (unintentional), initial encounter (principal); F14.129 Cocaine abuse with intoxication, unspecified
CPT/HCPCS: 74177; 80053; 80307; 82550; 96361; 96365; 96366; 96372; 96375; 96376; 99285; 70450; 71045; 80320; 80329; 81003; 83735; 84484; 85025; 99284; J1200; J1630; J2060; J3490

== ENCOUNTER 2021-08-21 10:50 | Outpatient (RCR) | payer MEDICAID, SELFPAY ==
--- NOTE | 2021-08-21 16:00 | HOLTER_ITS ---
APPROVED REPORT Conclusion This is a 48-hour Holter monitor ordered for tachycardia Rhythm throughout was sinus with an average heart rate of 83. Minimum was 53, maximum 183 There were no ventricular dysrhythmias There were 3 isolated premature atrial beats Patient symptoms of pinching chest pain corresponded to sinus rhythm in the 80s There was no atrial fibrillation, no high-grade AV block, no pauses greater than 3 seconds
== END 2021-09-20 23:59 | disposition home or self-care (01) ==
LOC: RT 10:50
PROVIDERS: PCP Nurse Practitioner; Visit Provider Nurse Practitioner
DX: R00.0 Tachycardia, unspecified (principal)
CPT/HCPCS: 93225; 93226

== ENCOUNTER 2022-06-29 03:31 | Outpatient (CLI) | payer MEDICAID, SELFPAY ==
[2022-06-29 11:45] LABS: Abs Immature Grans 0.03 10^3/uL (0.0-0.06); Absolute Basophil Count 0.04 10^3/uL (0.0-0.2); Absolute Eosinophil Count 0.25 10^3/uL (0.0-0.7); Absolute Lymphocyte Count 2.02 10^3/uL (1.2-3.4); Absolute Monocyte Count 0.62 10^3/uL (0.1-0.8); Absolute Neutrophil Count 3.42 10^3/uL (1.2-6.7); Basophils % 0.6; Eosinophils % 3.9; HCT 44.3 % (40.0-50.0); HGB 14.6 g/dL (13.5-17.5); Immature Grans % 0.5; Lymphocytes % 31.7; MCH 31.2 pg (27.0-33.0); MCV 95 fL (80-95); MPV 10.3 fL (8.0-11.0); Monocytes % 9.7; Neutrophils % 53.6; Platelet Count 220 10^3/uL (130-400); RBC 4.68 10^6/uL (4.36-5.78); RDW 12.5 % (11.8-14.1); RDW-SD 43.1 fL; WBC 6.38 10^3/uL (4.4-10.8)
[2022-06-29 12:30] LABS: ALT 106 U/L (16-63); AST 69 U/L (15-37); Albumin 3.9 g/dL (3.4-5.0); Alkaline Phosphatase 103 U/L (46-116); Anion Gap 7.9 mmol/L (3-11); BUN 20 mg/dL (7-18); Bilirubin, Total 0.3 mg/dL (0.2-1.0); CO2 30.1 mmol/L (21.0-32.0); CREATININE 0.8 mg/dL (0.70-1.30); Calculated LDL 102 mg/dL (<100); Chloride 101 mmol/L (98-107); Cholesterol 178 mg/dL (<200); Glucose 167 mg/dL (74-106); HDL Cholesterol 44 mg/dL (40-60); Potassium 4.2 mmol/L (3.5-5.1); Sodium 139 mmol/L (136-145); Total Protein 8.3 g/dL (6.4-8.2); Triglyceride 162 mg/dL (<150)
[2022-06-30 09:45] LABS: HIV-1/2 Ag & Ab Screen Negative (Negative)
[2022-06-30 10:22] LABS: Hepatitis C Ab w Rflx HCV PCR Reactive (Negative)
[2022-06-30 15:25] LABS: HSV Type 1 Ab, IgG Positive (Negative); HSV Type 2 Ab, IgG Positive (Negative)
[2022-06-30 15:57] LABS: HCV RNA Detection Quantitative 1910000 IU/mL (Undetected); HCV RNA Qualitative Detected (Undetected)
== END 2022-06-29 03:32 | disposition home or self-care (01) ==
LOC: LBO 03:31
PROVIDERS: PCP Nurse Practitioner; Visit Provider Nurse Practitioner
DX: B19.20 Unspecified viral hepatitis C without hepatic coma (principal); R94.5 Abnormal results of liver function studies; Z20.828 Contact with and (suspected) exposure to other viral communicable diseases; Z11.59 Encounter for screening for other viral diseases; J45.909 Unspecified asthma, uncomplicated; Z11.4 Encounter for screening for human immunodeficiency virus [HIV]
CPT/HCPCS: 36415; 80053; 80061; 86803; 87389; 87522; 85025; 86695; 86696

== ENCOUNTER 2022-10-23 18:28 | Emergency (ER) | payer MEDICAID, SELFPAY ==
[2022-10-23 18:33] VITALS: BP 122/85; PULSE 92; RESP 16; TEMP 36.9; O2SAT 97
--- NOTE | 2022-10-23 19:24 | W.ED.GENAD ---
Discharge Plan Disposition Patient Disposition: [facility] Condition: Improving Discharge Details Chief Complaint: GenMedical Clinical Impression: Alcohol intoxication Primary Care Provider: Prema Velez ED Provider: Jorje Pa Home Meds and New Rx's Prescriptions: No Action cyclobenzaprine 5 mg tablet 5 mg PO TID PRN (Reason: muscle spasm) Qty: 90 3RF ibuprofen 800 mg tablet 800 mg PO TID PRN (Reason: pain) Qty: 90 5RF omeprazole 20 mg capsule,delayed release(DR/EC) 20 mg PO DAILY Qty: 90 3RF buprenorphine-naloxone 12-3 mg film 2 film sublingual DAILY Rx Instructions: place 2 strip/tab under (each) side of tongue gabapentin 300 mg capsule 300 mg PO BID Qty: 60 1RF albuterol sulfate 90 mcg/actuation HFA aerosol inhaler 2 puff inhalation Q6H PRN (Reason: shortness of breath or wheezing) Qty: 6.7 0RF nicotine (polacrilex) 2 mg gum 2 mg buccal Q1H PRN (Reason: nicotine cravings) Qty: 396 3RF Discharge Instructions Instructions: Alcohol Intoxication (ED) Additional Instructions: Please follow-up with primary care physician. Please return to the emergency department for any worsening symptoms. Medical Decision Making 36-year-old male presents brought in by Police Department for medical clearance. Patient endorses drinking earlier today and may have smoked some crack. Patient is alert and oriented no signs of trauma. Maintaining airway. Ambulatory without assistance moving all extremities. No signs of trauma. Patient denies any traumatic injury. Patient is calm cooperative interactive. Patient cleared medically for discharge into police custody. Low suspicion for electrolyte normality infectious process traumatic process or worsening toxicologic process. Likely metabolizing EtOH from earlier this evening Sign Out No HPI General Date/Time Provider Initiated Documentation: 10/23/22 19:17. HPI Narrative: 36-year-old male presents brought in by police department for medical clearance. Patient endorses that he was drinking earlier today may or may not have smoked some crack. No chest pain or shortness of breath. Denies trauma. Related Data Home Medications Medication Instructions Recorded Confirmed buprenorphine 12 mg-naloxone 3 mg 2 film sublingual DAILY 06/07/22 10/23/22 sublingual film cyclobenzaprine 5 mg tablet 5 mg PO TID PRN muscle spasm #90 06/07/22 10/23/22 tabs ibuprofen 800 mg tablet 800 mg PO TID PRN pain #90 tabs 06/07/22 10/23/22 omeprazole 20 mg capsule,delayed 20 mg PO DAILY #90 caps 06/07/22 10/23/22 release albuterol sulfate 90 mcg/actuation 2 puff inhalation Q6H PRN 06/09/22 10/23/22 aerosol inhaler shortness of breath or wheezing #6.7 grams gabapentin 300 mg capsule 300 mg PO BID #60 caps 07/08/22 10/23/22 nicotine (polacrilex) 2 mg gum 2 mg buccal Q1H PRN nicotine 08/19/22 10/23/22 cravings #396 ea Previous Rx's Medication Instructions Recorded cyclobenzaprine 5 mg tablet 5 mg PO TID PRN muscle spasm #90 06/07/22 tabs ibuprofen 800 mg tablet 800 mg PO TID PRN pain #90 tabs 06/07/22 omeprazole 20 mg capsule,delayed 20 mg PO DAILY #90 caps 06/07/22 release albuterol sulfate 90 mcg/actuation 2 puff inhalation Q6H PRN 06/09/22 aerosol inhaler shortness of breath or wheezing #6.7 grams gabapentin 300 mg capsule 300 mg PO BID #60 caps 07/08/22 nicotine (polacrilex) 2 mg gum 2 mg buccal Q1H PRN nicotine 08/19/22 cravings #396 ea Allergies Allergy/AdvReac Type Severity Reaction Status Date / Time aspirin Allergy Mild unknown Verified 10/23/22 18:41 nicotine patch AdvReac Other (See Uncoded 10/23/22 18:41 Comment) General Stated Complaint: GenMedical SÁNCHEZ: 3 Review of Systems Narrative: Review of Systems Constitutional: negative Eyes: negative ENT: negative Cardiovascular: negative Respiratory: negative Gastrointestinal: negative : negative Musculoskeletal: negative Skin: negative Neurologic: negative Psych: negative PFSH All Active Problems (Updated 10/23/22 @ 19:28 by Jorje Pa MD) Alcohol intoxication (Acute) Buprenorphine dependence (Acute) Tobacco abuse (Acute) Chronic right shoulder pain (Acute) Screening for viral disease (Acute) SOB (shortness of breath) (Acute) Racing heart beat (Acute) Exposure to herpes (Acute) Depression (Chronic) Cocaine abuse (Acute) Endocarditis (Acute) Deep vein thrombosis (DVT) of axillary vein of right upper extremity (Acute) Left leg DVT (Acute) Lung abscess (Acute) MRSA (methicillin resistant Staphylococcus aureus) septicemia (Acute) Methadone use (Acute) Polysubstance abuse (Acute) Septic pulmonary embolism without acute cor pulmonale (Acute) MRSA pneumonia (Acute) Effusion of glenohumeral joint of right upper extremity (Acute) Cellulitis of right shoulder (Acute) Myositis of right shoulder (Acute) Hepatitis C (Acute) Toxic metabolic encephalopathy (Acute) Sepsis due to methicillin resistant Staphylococcus aureus (MRSA) (Acute) Respiratory distress, acute (Acute) Shoulder pain (Acute) Septic embolism (Acute) Elevated LFTs (Acute) MSSA bacteremia (Acute) Dyspepsia (Acute) MSSA (methicillin susceptible Staphylococcus aureus) septicemia (Acute) Substance use disorder (Acute) DVT prophylaxis (Acute) Discharge planning issues (Acute) Smoker (Acute) Opioid use disorder (Acute) Crack cocaine poisoning (Acute) SIRS (systemic inflammatory response syndrome) (Acute) Medical History Acute respiratory failure with hypoxemia Anemia IV drug abuse Surgical History H/O chest tube placement Family History Maternal Grandmother Diabetes Mother Diabetes Social History Smoking/Tobacco Use Status: Current every day Tobacco Type: cigarettes Years smoked: 20 Quit status: not considering quitting Smoking risk assessment performed?: Yes Alcohol Intake: never Drug use: Daily Substance use type: crack/cocaine Counseling given: Yes Details: 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 Stinson at [facility] Do you feel safe at home: Yes Do you feel safe in your relationship?: Yes Additional Social history: Grew up in [place]. Living back with mother after living in [facility] for years. 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 She is currently hospitalized in [facility] They have a 7-year-old daughter living with him who he still cares for Exam Narrative Exam Narrative: Physical Examination General: alert, awake, cooperative, resting comfortably, no acute distress HEENT: normocephalic, atraumatic; PERRL, EOM intact, conjunctiva normal; no nasal discharge; moist mucous membranes, oral and pharyngeal mucosa normal, tolerating secretions Neck: supple, trachea midline; full ROM Chest: normal to inspection Respiratory: normal respiratory effort, speaking in full sentences, clear to auscultation, no wheezing, rales or rhonchi Cardiac: regular rate, regular rhythm, S1S2 intact, no murmurs rubs or gallops GI: abdomen soft, non-tender, non-distended; no palpable mass or hepatosplenomegaly Skin: no lesions, rashes or trauma appreciated Neuro: AAOx3, normal speech, moving all extremities Psych: Appropriate mood and affect Course Vital Signs Vital signs: Vital Signs Temperature 36.9 C 10/23/22 18:33 Pulse 92 H 10/23/22 18:33 Respiratory Rate 16 10/23/22 18:33 Blood Pressure 122/85 10/23/22 18:33 Pulse Oximetry 97 10/23/22 18:33 Temperature 36.9 C 10/23/22 18:33 Temperature Source Temporal Artery Scan 10/23/22 18:33 Pulse 92 H 10/23/22 18:33 Respiratory Rate 16 10/23/22 18:33 Respiratory Effort 10/23/22 18:33 Blood Pressure 122/85 10/23/22 18:33 Blood Pressure Position Sitting 10/23/22 18:33 Pulse Oximetry 97 10/23/22 18:33 Oxygen Delivery Method Room Air 10/23/22 18:33 Oxygen Flow Rate 0 10/23/22 18:33 Pain Level 1 10/23/22 18:33 Comment 10/23/22 18:33 PAWSS Have you Been Recently Intoxicated or Drunk Within the Last 30 days?: Yes Have you Ever Experienced Previous Episodes of Alcohol Withdrawal?: No Have you ever Experienced Withdrawal Seizures?: No Have you ever Experienced Delirium Tremens(DT)s?: No Have you ever undergone Alcohol Rehabilitation Treatment (i.e, inpt ot outpatient treatment programs)?: No Have you ever Experienced Blackouts?: Yes Have you ever Combined Alcohol with other Downers within the last 90 days?: No Have you ever Combined Alcohol with any other Substance of Abuse during the last 90 days?: Yes Result: 4
== END 2022-10-23 19:38 ==
PROVIDERS: Emergency Provider Emergency Medicine; PCP Nurse Practitioner
DX: F10.129 Alcohol abuse with intoxication, unspecified (principal); F14.10 Cocaine abuse, uncomplicated
CPT/HCPCS: 99285; 99283

== ENCOUNTER 2023-12-26 01:15 | Emergency (ER) | payer MEDICAID, SELFPAY ==
[2023-12-26] VITALS (8 sets, daily range): BP systolic 135–142; BP diastolic 74–86; PULSE 74–96; RESP 18; TEMP 36.9; O2SAT 96–98
--- NOTE | 2023-12-26 01:19 | ED.GENADUL_ITS ---
HPI General Date/Time Provider Initiated Documentation: 12/26/23 01:18 . HPI Narrative: 37-year-old male with a past medical history of Suboxone use, cocaine use, endocarditis, previous DVT, alcohol use, septic pulmonary emboli, presents today for intoxication. Patient had been missing for the previous 4 hours, he was then found with his pants down and slightly confused in his uncle's garage. EMS was called, vital signs and blood sugar was normal, patient was ANO x 4 upon their arrival. Patient denied any confusion. He states that he drank about a half a gallon of vodka/alcohol today. He states that this is his normal. He had been off alcohol for a few days and was getting quite shaky. He denies a history of seizures without his alcohol use or withdrawal. He admits to nausea and vomiting but denies any abdominal pain. He denies any chest pain or shortness of breath. No other complaints at this time. He denies any current drug use. Related Data Home Medications Medication Instructions Recorded Confirmed buprenorphine 12 mg-naloxone 3 mg 2 film sublingual DAILY 06/07/22 10/23/22 sublingual film cyclobenzaprine 5 mg tablet 5 mg PO TID PRN muscle spasm #90 06/07/22 10/23/22 tabs ibuprofen 800 mg tablet 800 mg PO TID PRN pain #90 tabs 06/07/22 10/23/22 omeprazole 20 mg capsule,delayed 20 mg PO DAILY #90 caps 06/07/22 10/23/22 release albuterol sulfate 90 mcg/actuation 2 puff inhalation Q6H PRN 06/09/22 10/23/22 aerosol inhaler shortness of breath or wheezing #6.7 grams gabapentin 300 mg capsule 300 mg PO BID #60 caps 07/08/22 10/23/22 nicotine (polacrilex) 2 mg gum 2 mg buccal Q1H PRN nicotine 08/19/22 10/23/22 cravings #396 ea Previous Rx's Medication Instructions Recorded cyclobenzaprine 5 mg tablet 5 mg PO TID PRN muscle spasm #90 06/07/22 tabs ibuprofen 800 mg tablet 800 mg PO TID PRN pain #90 tabs 06/07/22 omeprazole 20 mg capsule,delayed 20 mg PO DAILY #90 caps 06/07/22 release albuterol sulfate 90 mcg/actuation 2 puff inhalation Q6H PRN 06/09/22 aerosol inhaler shortness of breath or wheezing #6.7 grams gabapentin 300 mg capsule 300 mg PO BID #60 caps 07/08/22 nicotine (polacrilex) 2 mg gum 2 mg buccal Q1H PRN nicotine 08/19/22 cravings #396 ea Allergies Allergy/AdvReac Type Severity Reaction Status Date / Time aspirin Allergy Mild unknown Verified 10/23/22 18:41 nicotine patch AdvReac Other (See Uncoded 10/23/22 18:41 Comment) General Stated Complaint: AMS/LOC SÁNCHEZ: 3 Review of Systems All systems reviewed & are unremarkable except as noted in HPI and below Exam Narrative Exam Narrative: 1.Const: Well-nourished, Well-developed, appearing stated age 2.Eyes: PERRL, no conjunctival injection, and symmetrical lids. 3.ENT: Atraumatic external nose and ears. Moist MM. Neck: Symmetric, trachea midline, No thyromegaly. 4.CVS: +S1/S2, No murmurs or gallops. Peripheral pulses 2+ and equal in all extremities. Brisk capillary refill in all extremities. 5.RESP: Unlabored respiratory effort. Clear to auscultation bilaterally. No wheezes rales or rhonchi 6.GI: Soft, Nontender/Nondistended, No hepatosplenomegaly. No guarding or rebound. 7.MSK: Normocephalic/Atraumatic, Extremities w/o deformity or ttp No cyanosis or clubbing, Normal movement of all extremities 8.Skin: Warm, Dry. No rashes or lesions. 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 Sensation grossly intact, no focal neurologic deficits. 10.Psych: (AAO) x3. Appropriate mood and affect Course Vital Signs Vital signs: Vital Signs Temperature 36.9 C 12/26/23 01:15 Pulse 96 H 12/26/23 01:15 Respiratory Rate 18 12/26/23 01:15 Blood Pressure 138/74 12/26/23 01:15 Pulse Oximetry 96 12/26/23 01:15 Temperature 36.9 C 12/26/23 01:15 Temperature Source Temporal Artery Scan 12/26/23 01:15 Pulse 96 H 12/26/23 01:15 Respiratory Rate 18 12/26/23 01:15 Blood Pressure 138/74 12/26/23 01:15 Blood Pressure Position Supine 12/26/23 01:15 Pulse Oximetry 96 12/26/23 01:15 Oxygen Delivery Method Room Air 12/26/23 01:15 Oxygen Flow Rate 0 12/26/23 01:15 Pain Level 0 12/26/23 01:15 Medical Decision Making 37-year-old male with a past medical history of Suboxone use, cocaine use, endocarditis, previous DVT, alcohol use, septic pulmonary emboli, presents today for intoxication. Patient had been missing for the previous 4 hours, he was then found with his pants down and slightly confused in his uncle's garage. EMS was called, vital signs and blood sugar was normal, patient was ANO x 4 upon their arrival. Patient denied any confusion. He states that he drank about a half a gallon of vodka/alcohol today. He states that this is his normal. He had been off alcohol for a few days and was getting quite shaky. He denies a history of seizures without his alcohol use or withdrawal. He admits to nausea and vomiting but denies any abdominal pain. He denies any chest pain or shortness of breath. No other complaints at this time. He denies any current drug use. Exam demonstrates a relatively well-appearing male. No abdominal tenderness. No abnormalities otherwise. No murmur on cardiac auscultation. Vital signs stable. Patient appears intoxicated. Will rehydrate, check alcohol level, check for electrolyte abnormality monitor closely and reassess. He has no focal neurologic deficits or signs of significant confusion at this time otherwise. Will check a carboxyhemoglobin level although carbon monoxide poisoning unlikely. 4:51 AM Laboratory workup demonstrates no white count bandemia or left shift. VBG demonstrates mild alkalosis, anion gap is normal, potassium slightly low at 3.2, lipase normal. BUN high at 26, patient has been rehydrated with fluids. Alcohol level negative. Carboxyhemoglobin level normal. On reassessment patient feels well and has asked us to contact his uncle. We did contact his uncle and left a phone voicemail, he has not returned her call. Patient otherwise stable for discharge. Potassium level was slightly low. This will be corrected. 6:30 AM On reassessment the patient continues to remain normal, no neurologic deficits or confusion. No signs of altered mental status. He appears notably sober. He has not urinated to provide UDS at this time. Patient stable for discharge. No evidence of acute life-threatening etiology at this time. No evidence of neurologic deficit or confusion. Patient will be stable for discharge. No evidence of significant life-threatening medical etiology at this time based on current clinical assessment. Concern for potential drug use at home that may have brought about the initial symptoms, but no evidence of hypercarbia, neurologic deficit, no signs of stroke, or other abnormality. I have extensively reviewed the treatment plan and discharge instructions with the patient. I have addressed all patient concerns at this time. The patient was made aware of what symptoms to monitor for that would warrant a return to the emergency department. Discussed the plan with the patient, they demonstrate verbal understanding and agreement with our assessment and plan at this time. The documentation in this chart was dictated using [employer] dictation software. Please excuse any dictation errors. Quality:SDOH Health Related Social Needs: No Data to Display PFSH All Active Problems (Updated 12/26/23 @ 04:56 by Jose Cohen DO) Acute hypokalemia (Acute) Buprenorphine dependence (Acute) Tobacco abuse (Acute) Chronic right shoulder pain (Acute) Screening for viral disease (Acute) SOB (shortness of breath) (Acute) Racing heart beat (Acute) Exposure to herpes (Acute) Depression (Chronic) Cocaine abuse (Acute) Endocarditis (Acute) Deep vein thrombosis (DVT) of axillary vein of right upper extremity (Acute) Left leg DVT (Acute) Lung abscess (Acute) MRSA (methicillin resistant Staphylococcus aureus) septicemia (Acute) Methadone use (Acute) Polysubstance abuse (Acute) Septic pulmonary embolism without acute cor pulmonale (Acute) MRSA pneumonia (Acute) Effusion of glenohumeral joint of right upper extremity (Acute) Cellulitis of right shoulder (Acute) Myositis of right shoulder (Acute) Hepatitis C (Acute) Toxic metabolic encephalopathy (Acute) Sepsis due to methicillin resistant Staphylococcus aureus (MRSA) (Acute) Respiratory distress, acute (Acute) Shoulder pain (Acute) Septic embolism (Acute) Elevated LFTs (Acute) MSSA bacteremia (Acute) Dyspepsia (Acute) MSSA (methicillin susceptible Staphylococcus aureus) septicemia (Acute) Substance use disorder (Acute) DVT prophylaxis (Acute) Discharge planning issues (Acute) Smoker (Acute) Opioid use disorder (Acute) Crack cocaine poisoning (Acute) SIRS (systemic inflammatory response syndrome) (Acute) Medical History Acute respiratory failure with hypoxemia Anemia IV drug abuse Surgical History H/O chest tube placement Family History Maternal Grandmother Diabetes Mother Diabetes Social History Smoking/Tobacco Use Status: Current every day Tobacco Type: cigarettes Years smoked: 20 Quit status: not considering quitting Smoking risk assessment performed?: Yes Alcohol Intake: never Drug use: Daily Substance use type: crack/cocaine Counseling given: Yes Details: 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 Stinson at [facility] Do you feel safe at home: Yes Do you feel safe in your relationship?: Yes Additional Social history: Grew up in [place]. Living back with mother after living in [facility] for years. 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 She is currently hospitalized in [facility] They have a 7-year-old daughter living with him who he still cares for Discharge Plan Disposition Patient Disposition: Home Discharge Details Clinical Impression: Acute hypokalemia Primary Care Provider: Prema Velez ED Provider: Jose Cohen Home Meds and New Rx's Prescriptions: No Action cyclobenzaprine 5 mg tablet 5 mg PO TID PRN (Reason: muscle spasm) Qty: 90 3RF ibuprofen 800 mg tablet 800 mg PO TID PRN (Reason: pain) Qty: 90 5RF omeprazole 20 mg capsule,delayed release(DR/EC) 20 mg PO DAILY Qty: 90 3RF buprenorphine-naloxone 12-3 mg film 2 film sublingual DAILY Rx Instructions: place 2 strip/tab under (each) side of tongue gabapentin 300 mg capsule 300 mg PO BID Qty: 60 1RF albuterol sulfate 90 mcg/actuation HFA aerosol inhaler 2 puff inhalation Q6H PRN (Reason: shortness of breath or wheezing) Qty: 6.7 0RF nicotine (polacrilex) 2 mg gum 2 mg buccal Q1H PRN (Reason: nicotine cravings) Qty: 396 3RF Discharge Instructions Instructions: Hypokalemia (ED) Additional Instructions: At this time your potassium level was slightly low. However you were given potassium here which will correct it. If you notice any worsening of your symptoms, or any new symptoms such as vomiting, diarrhea, fever, chills, shortness of breath, chest pain, numbness, weakness, or fainting , please return immediately to the emergency department for reevaluation. Please follow up with your primary care provider as soon as possible for reassessment and reevaluation. As always, it was a pleasure participating in your medical care today. Referrals: Prema Velez NP [Primary Care Provider] - Discharge Data Discharge Date/Time-TO BE ENTERED AT DEPARTURE: 12/26/23 06:46
[2023-12-26 02:29] LABS: BE (Venous) 10 mmol/L (-2-3); HCO3 (Venous) 34 mmol/L (23-28); O2 Sat (Venous) 82 %; TCO2 (Venous) 30 mmol/L (24-29); pCO2 (Venous) 50 mmHg (41-51); pH (Venous) 7.44 (7.31-7.41); pO2 (Venous) 44 mmHg
[2023-12-26 02:31] LABS: Abs Immature Grans 0.02 10^3/uL (0.0-0.06); Absolute Basophil Count 0.02 10^3/uL (0.0-0.2); Absolute Eosinophil Count 0.14 10^3/uL (0.0-0.7); Absolute Lymphocyte Count 2.59 10^3/uL (1.2-3.4); Absolute Monocyte Count 0.71 10^3/uL (0.1-0.8); Absolute Neutrophil Count 4.51 10^3/uL (1.2-6.7); Basophils % 0.3; Carboxyhemoglobin 5.2 %; Eosinophils % 1.8; HCT 39.5 % (40.0-50.0); HGB 13.3 g/dL (13.5-17.5); Immature Grans % 0.3; Lymphocytes % 32.4; MCH 30.9 pg (27.0-33.0); MCHC 33.7 % (32.0-36.0); MCV 92 fL (80-95); Monocytes % 8.9; Neutrophils % 56.3; Platelet Count 264 10^3/uL (130-400); RBC 4.31 10^6/uL (4.36-5.78); RDW 12.3 % (11.8-14.1); RDW-SD 41.2 fL; WBC 7.99 10^3/uL (4.4-10.8)
[2023-12-26] MEDS: Normal Saline 1,000 ML 1000 ML IV (02:34)
[2023-12-26] MEDS: Ondansetron 4 MG/2 ML VIAL IVP (02:34)
[2023-12-26 02:49] LABS: ALT 54 U/L (16-63); AST 85 U/L (15-37); Albumin 3.6 g/dL (3.4-5.0); Alkaline Phosphatase 90 U/L (46-116); Anion Gap 6.5 mmol/L (3-11); BUN 26 mg/dL (7-18); Bilirubin, Total 0.6 mg/dL (0.2-1.0); CO2 32.5 mmol/L (21.0-32.0); CREATININE 0.8 mg/dL (0.70-1.30); Calcium 8.8 mg/dL (8.5-10.1); Chloride 99 mmol/L (98-107); Glucose 175 mg/dL (74-106); Lipase 12 U/L (16-77); Magnesium 1.9 mg/dL (1.8-2.4); Potassium 3.2 mmol/L (3.5-5.1); Sodium 138 mmol/L (136-145); Total Protein 7.9 g/dL (6.4-8.2)
[2023-12-26 03:25] LABS: ETHANOL BLOOD < 3.0 mg/dL (<10)
[2023-12-26] MEDS: Potassium Chloride 20 MEQ TABCR 40 MEQ PO (03:42)
== END 2023-12-26 06:46 | disposition home or self-care (01) ==
LOC: ER 07:07
PROVIDERS: Emergency Provider Student in an Organized Health Care Education/Training Program; PCP Nurse Practitioner
DX: R41.82 Altered mental status, unspecified (principal); E87.6 Hypokalemia; F10.10 Alcohol abuse, uncomplicated; F17.290 Nicotine dependence, other tobacco product, uncomplicated
CPT/HCPCS: 80053; 82375; 82805; 83690; 96361; 96374; 99284; 80320; 83735; 85025; 99283; J2405

== ENCOUNTER 2024-01-01 16:17 | Emergency (ER) | payer MEDICAID, SELFPAY ==
[2024-01-01 16:20] VITALS: BP 122/71; PULSE 94; RESP 17; TEMP 36.2; O2SAT 98
--- NOTE | 2024-01-01 16:25 | W.EDPROG ---
Medical Decision Making Patient signed out to me by Ana MARTINEZ. Please see her initial documentation for presentation complaint review of systems and workup. Patient signed out to me pending review of CT imaging and disposition. Bedside report was received and patient did state improvement of discomfort. Current working differential diagnosis of right-sided kidney stone versus musculoskeletal strain secondary to biking activity yesterday. Quality:SDOH Health Related Social Needs: No Data to Display Discharge Plan Discharge Details Chief Complaint: Cellulitis Primary Care Provider: Prema Velez ED Provider: Lalo Oakes Home Meds and New Rx's Prescriptions: No Action cyclobenzaprine 5 mg tablet 5 mg PO TID PRN (Reason: muscle spasm) Qty: 90 3RF ibuprofen 800 mg tablet 800 mg PO TID PRN (Reason: pain) Qty: 90 5RF omeprazole 20 mg capsule,delayed release(DR/EC) 20 mg PO DAILY Qty: 90 3RF buprenorphine-naloxone 12-3 mg film 2 film sublingual DAILY Rx Instructions: place 2 strip/tab under (each) side of tongue gabapentin 300 mg capsule 300 mg PO BID Qty: 60 1RF albuterol sulfate 90 mcg/actuation HFA aerosol inhaler 2 puff inhalation Q6H PRN (Reason: shortness of breath or wheezing) Qty: 6.7 0RF nicotine (polacrilex) 2 mg gum 2 mg buccal Q1H PRN (Reason: nicotine cravings) Qty: 396 3RF
--- NOTE | 2024-01-01 16:47 | W.ED.GENAD ---
HPI General Mode of arrival: ambulatory. Date/Time Provider Initiated Documentation: 01/01/24 16:21. Limitations to Documentation: no limitations. Information obtained by: patient and RN notes reviewed. History of Present Illness 38 year old M presents to the emergency department with the chief complaint of Left infection, described as moderate, Patient started experiencing this day(s) (4) and it has been constant. No relieving factors improve symptom(s), No exacerbating factors reported . Patient did receive the following treatments prior to arrival, none Related Data Home Medications Medication Instructions Recorded Confirmed buprenorphine 12 mg-naloxone 3 mg 2 film sublingual DAILY 06/07/22 01/01/24 sublingual film cyclobenzaprine 5 mg tablet 5 mg PO TID PRN muscle spasm #90 06/07/22 01/01/24 tabs ibuprofen 800 mg tablet 800 mg PO TID PRN pain #90 tabs 06/07/22 01/01/24 omeprazole 20 mg capsule,delayed 20 mg PO DAILY #90 caps 06/07/22 01/01/24 release albuterol sulfate 90 mcg/actuation 2 puff inhalation Q6H PRN 06/09/22 01/01/24 aerosol inhaler shortness of breath or wheezing #6.7 grams gabapentin 300 mg capsule 300 mg PO BID #60 caps 07/08/22 01/01/24 nicotine (polacrilex) 2 mg gum 2 mg buccal Q1H PRN nicotine 08/19/22 01/01/24 cravings #396 ea clindamycin HCl 150 mg capsule 450 mg (3 x 150 mg) PO TID 7 days 01/01/24 #63 caps Previous Rx's Medication Instructions Recorded cyclobenzaprine 5 mg tablet 5 mg PO TID PRN muscle spasm #90 06/07/22 tabs ibuprofen 800 mg tablet 800 mg PO TID PRN pain #90 tabs 06/07/22 omeprazole 20 mg capsule,delayed 20 mg PO DAILY #90 caps 06/07/22 release albuterol sulfate 90 mcg/actuation 2 puff inhalation Q6H PRN 06/09/22 aerosol inhaler shortness of breath or wheezing #6.7 grams gabapentin 300 mg capsule 300 mg PO BID #60 caps 07/08/22 nicotine (polacrilex) 2 mg gum 2 mg buccal Q1H PRN nicotine 08/19/22 cravings #396 ea clindamycin HCl 150 mg capsule 450 mg (3 x 150 mg) PO TID 7 days 01/01/24 #63 caps Allergies Allergy/AdvReac Type Severity Reaction Status Date / Time aspirin Allergy Mild unknown Verified 10/23/22 18:41 nicotine patch AdvReac Other (See Uncoded 10/23/22 18:41 Comment) General Stated Complaint: Cellulitis SÁNCHEZ: 3 Review of Systems Constitutional Constitutional: Reports fever(s) and Reports night sweats Cardiovascular Cardiovascular: Denies chest pain and Denies dyspnea Respiratory Respiratory: Denies dyspnea Gastrointestinal Gastrointestinal: Denies nausea and Denies vomiting Integumentary/Breasts Skin/Breast: Reports as per HPI and Reports rash Exam Const General: cooperative, no acute distress and not ill appearing Orientation: alert, awake and oriented x3 HENMT Mouth: moist mucous membranes Resp Effort & Inspection: normal respiratory effort, able to speak in complete sentences and no respiratory distress Cardio Rate: regular rate Rhythm: regular rhythm Neuro General: patient alert, patient awake, patient oriented x3, moves all extremities and no focal motor deficits Sensory Exam: no sensory deficits noted Extrem Left lower extremity: lower leg Details: erythema, tenderness and abrasion mid lower leg anterolateral Details: single Course Vital Signs Vital signs: Vital Signs Temperature 36.2 C L 01/01/24 16:20 Pulse 94 H 01/01/24 16:20 Respiratory Rate 17 01/01/24 16:20 Blood Pressure 122/71 01/01/24 16:20 Pulse Oximetry 98 01/01/24 16:20 Temperature 36.2 C L 01/01/24 16:20 Temperature Source Oral 01/01/24 16:20 Pulse 94 H 01/01/24 16:20 Respiratory Rate 17 01/01/24 16:20 Respiratory Effort Normal, Non-Labored 01/01/24 16:24 Blood Pressure 122/71 01/01/24 16:20 Blood Pressure Position Supine 01/01/24 16:20 Pulse Oximetry 98 01/01/24 16:20 Oxygen Delivery Method Room Air 01/01/24 16:20 Oxygen Flow Rate 0 01/01/24 16:20 Lab/Test Results Lab/Test Results: 01/01/24 16:28 Blood Blood Culture - Pending 01/01/24 16:28 Blood Blood Culture - Pending Medical Decision Making Patient presenting to the emergency department for chief complaint of left lower extremity infection. Patient reports approximately 4 days ago his left lower leg started getting red and tender and started having increased infection symptoms. He states that he delayed coming due to his significant alcohol abuse and not wanting to go into withdrawals. Patient states subjective nightly fevers and night sweats but denies all other associated symptoms. Patient is unsure how this started. There is obvious trauma to the lower extremity that appears consistent with an abrasion or occult injury. Patient has significant past medical history of IV drug abuse, multisubstance abuse, alcoholism, endocarditis, MRSA MSSA, and hepatitis C. Physical exam shows moderate amount of erythema to the anterior and both the medial and lateral aspects of the left lower extremity. There is a finding of trauma/abrasion to the anterior lateral aspect that I feel is the source of infection. Patient denies any injection into this area and does not recall what happened as he states that he frequently gets very intoxicated and does not remember things. Patient did state slight amount of groin pain there was a palpable lymph node that I feel is more a secondary response to the cellulitis otherwise exam is noncontributory. Will plan on checking labs, obtaining blood cultures, and at least initially giving dose of IV antibiotic but vital signs are stable, no hypotension, vital signs within normal limits and patient is afebrile at this time suspect discharge home with close monitoring. Will give liter of normal saline pending results Reviewed patient's labs which do show a leukocytosis and shift, moderately elevated ESR and CRP, lactate slightly elevated at 1.5. Potassium slightly low 3.2 which will orally replete otherwise CMP is otherwise nondiagnostic. Patient still pending blood cultures. Will start patient on clindamycin given patient history. Will give IV dose in emergency department. Otherwise I do feel that patient can closely monitor symptoms and return for any new or significant worsening of condition. Will place patient on close follow-up with primary care but also discussed with the patient and mother monitoring and low threshold to return for worsening symptoms. 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 He did admit that he has been doing cocaine recently as well. Patient does deny any chest pain shortness of breath or other systemic symptoms beyond his leg and fevers. After discussion of diagnosis and plan of care patient has no further needs, questions, or concerns and states clear understanding to return to the emergency department for any worsening symptoms. This documentation was generated using [employer] dictation system, please disregard any oddities of phrase or misspellings. Lab Data Lab results reviewed: Yes I reviewed the patient's lab results. Quality:SDLA Health Related Social Needs: No Data to Display PFSH All Active Problems (Updated 01/01/24 @ 18:37 by Lalo Oakes NP) Cellulitis of left leg (Acute) Acute hypokalemia (Acute) Buprenorphine dependence (Acute) Tobacco abuse (Acute) Chronic right shoulder pain (Acute) Screening for viral disease (Acute) SOB (shortness of breath) (Acute) Racing heart beat (Acute) Exposure to herpes (Acute) Depression (Chronic) Cocaine abuse (Acute) Endocarditis (Acute) Deep vein thrombosis (DVT) of axillary vein of right upper extremity (Acute) Left leg DVT (Acute) Lung abscess (Acute) MRSA (methicillin resistant Staphylococcus aureus) septicemia (Acute) Methadone use (Acute) Polysubstance abuse (Acute) Septic pulmonary embolism without acute cor pulmonale (Acute) MRSA pneumonia (Acute) Effusion of glenohumeral joint of right upper extremity (Acute) Cellulitis of right shoulder (Acute) Myositis of right shoulder (Acute) Hepatitis C (Acute) Toxic metabolic encephalopathy (Acute) Sepsis due to methicillin resistant Staphylococcus aureus (MRSA) (Acute) Respiratory distress, acute (Acute) Shoulder pain (Acute) Septic embolism (Acute) Elevated LFTs (Acute) MSSA bacteremia (Acute) Dyspepsia (Acute) MSSA (methicillin susceptible Staphylococcus aureus) septicemia (Acute) Substance use disorder (Acute) DVT prophylaxis (Acute) Discharge planning issues (Acute) Smoker (Acute) Opioid use disorder (Acute) Crack cocaine poisoning (Acute) SIRS (systemic inflammatory response syndrome) (Acute) Medical History Acute respiratory failure with hypoxemia Anemia IV drug abuse Surgical History H/O chest tube placement Family History Maternal Grandmother Diabetes Mother Diabetes Social History Smoking/Tobacco Use Status: Current every day Tobacco Type: cigarettes Years smoked: 20 Quit status: not considering quitting Smoking risk assessment performed?: Yes Alcohol Intake: current Alcohol Intake frequency: 3 or more drinks per day Alcohol type: beer, wine and hard liquor Drug use: Daily Substance use type: crack/cocaine and methamphetamine Counseling given: Yes Details: last used two days ago. Do you feel safe at home: Yes Do you feel safe in your relationship?: Yes Discharge Plan Disposition Patient Disposition: Home Discharge Details Clinical Impression: Cellulitis of left leg, Cocaine abuse, Substance use disorder, Polysubstance abuse Primary Care Provider: Prema Velez ED Provider: Lalo Oakes Home Meds and New Rx's Prescriptions: New clindamycin HCl 150 mg capsule 450 mg PO TID 7 Days Qty: 63 0RF Continued cyclobenzaprine 5 mg tablet 5 mg PO TID PRN (Reason: muscle spasm) Qty: 90 3RF ibuprofen 800 mg tablet 800 mg PO TID PRN (Reason: pain) Qty: 90 5RF omeprazole 20 mg capsule,delayed release(DR/EC) 20 mg PO DAILY Qty: 90 3RF buprenorphine-naloxone 12-3 mg film 2 film sublingual DAILY Rx Instructions: place 2 strip/tab under (each) side of tongue gabapentin 300 mg capsule 300 mg PO BID Qty: 60 1RF albuterol sulfate 90 mcg/actuation HFA aerosol inhaler 2 puff inhalation Q6H PRN (Reason: shortness of breath or wheezing) Qty: 6.7 0RF nicotine (polacrilex) 2 mg gum 2 mg buccal Q1H PRN (Reason: nicotine cravings) Qty: 396 3RF Discharge Instructions Instructions: Cellulitis (ED) Additional Instructions: Please continue to monitor symptoms closely and return immediately to the emergency department for any new or significant worsening of your condition. It is recommended that you take antibiotics as prescribed until all of the medications are completed including both the bottle from the pharmacy and 1 given in the emergency department. In between antibiotic doses please take a probiotic while on the antibiotic and it is recommended to take probiotic for the next month after you have finished the antibiotic. Please follow-up with your primary care provider for reassessment and further discussion of your substance abuse and developing a plan to obtain sobriety Referrals: Prema Velez NP [Primary Care Provider] - 3 days
[2024-01-01] MEDS: Normal Saline 1,000 ML 1000 ML IV (17:12)
[2024-01-01 17:15] LABS: Lactate 1.5 mmol/L (0.6-1.4)
[2024-01-01 17:16] LABS: Abs Immature Grans 0.06 10^3/uL (0.0-0.06); Absolute Basophil Count 0.04 10^3/uL (0.0-0.2); Absolute Lymphocyte Count 1.78 10^3/uL (1.2-3.4); Absolute Monocyte Count 0.92 10^3/uL (0.1-0.8); Absolute Neutrophil Count 10.82 10^3/uL (1.2-6.7); Basophils % 0.3; Eosinophils % 0.7; HCT 44.2 % (40.0-50.0); Immature Grans % 0.4; MCH 31.9 pg (27.0-33.0); MCHC 33.9 % (32.0-36.0); MCV 94 fL (80-95); MPV 10.3 fL (8.0-11.0); Monocytes % 6.7; Neutrophils % 78.9; Platelet Count 215 10^3/uL (130-400); RDW 12.5 % (11.8-14.1); RDW-SD 43.3 fL; WBC 13.71 10^3/uL (4.4-10.8)
[2024-01-01 17:19] LABS: ESR 34 mm/hr (0-15)
[2024-01-01 17:34] LABS: ALT 45 U/L (16-63); AST 32 U/L (15-37); Albumin 3.5 g/dL (3.4-5.0); Alkaline Phosphatase 116 U/L (46-116); Anion Gap 9.1 mmol/L (3-11); BUN 19 mg/dL (7-18); Bilirubin, Total 0.6 mg/dL (0.2-1.0); C-Reactive Protein 10.18 mg/dL (<or=0.5); CO2 30.9 mmol/L (21.0-32.0); CREATININE 0.9 mg/dL (0.70-1.30); Calcium 9.5 mg/dL (8.5-10.1); Chloride 98 mmol/L (98-107); Estimated GFR 112.11 (mL/min/1.73m2); Glucose 138 mg/dL (74-106); Magnesium 2.3 mg/dL (1.8-2.4); Potassium 3.2 mmol/L (3.5-5.1); Sodium 138 mmol/L (136-145); Total Protein 8.6 g/dL (6.4-8.2)
[2024-01-01] MEDS: CLINDAMYCIN 900 MG/50 ML BAG 50 MG IVPB (18:11)
[2024-01-01] MEDS: Potassium Chloride 20 MEQ TABCR 40 MEQ PO (18:11)
[2024-01-01 18:13] VITALS: BP 125/74; PULSE 73; RESP 16; O2SAT 100
[2024-01-01 18:32] VITALS: BP 125/74; PULSE 73; RESP 16; TEMP 36.2; O2SAT 100
--- NOTE | 2024-01-01 18:38 | NUR.NOTE ---
Referral faxed to [facility], Prema Velez, for follow up in 1-2 days of Left Lower Leg Cellulites.
[2024-01-01] MEDS: Clindamycin 150 MG CAP, 12 CAPS/BTL 450 MG PO (19:04)
[2024-01-01 19:05] VITALS: BP 124/68; PULSE 70; RESP 16; O2SAT 100
== END 2024-01-01 19:06 | disposition home or self-care (01) ==
PROVIDERS: Emergency Provider Nurse Practitioner Family; PCP Nurse Practitioner
DX: L03.116 Cellulitis of left lower limb (principal); L03.314 Cellulitis of groin; E87.6 Hypokalemia; F19.10 Other psychoactive substance abuse, uncomplicated; F17.210 Nicotine dependence, cigarettes, uncomplicated
CPT/HCPCS: 36415; 80053; 85652; 87040; 96361; 96365; 99284; 83605; 83735; 85025; 86140; J0737

== ENCOUNTER 2024-03-07 18:56 | Outpatient (REF) | payer MEDICAID, SELFPAY ==
[2024-03-08 20:31] LABS: *AMPHETAMINES SCREEN URINE Negative (Negative); *BARBITURATES SCREEN URINE Negative (Negative); *BENZODIAZEPINES SCREEN URINE Negative (Negative); Cannabinoids THC Negative (Negative); Cocaine Screen,Urine Positive (Negative); METHADONE URINE SCREEN Negative (Negative); OPIATES URINE SCREEN Negative (Negative)
[2024-03-08 20:33] LABS: Tricyclic Antidepressants Negative (Negative)
== END 2024-03-07 18:57 | disposition home or self-care (01) ==
LOC: LBN 18:56
PROVIDERS: PCP Nurse Practitioner; Visit Provider Internal Medicine Addiction Medicine
DX: F11.20 Opioid dependence, uncomplicated (principal)
CPT/HCPCS: 80307